=== PATIENT | female | born 1965 | race Caucasian/White ===

== ENCOUNTER 2016-11-08 15:28 | Observation (INO) | payer MEDICARE, MEDICAID ==
--- NOTE | 2016-11-08 16:22 | RAD ---
Indication: Near syncopal episode. Diabetes. MS. Comparison: No relevant prior exams available on the [facility] PACS for comparison. Technique: Upright AP 1600 hours Report: Clear lungs and pleural spaces. Negative for pneumothorax. The heart, pulmonary vasculature, and mediastinal contours are unremarkable. Unremarkable osseous structures and soft tissue contours. IMPRESSION: No evidence for acute intrathoracic disease.
[2016-11-08 16:25] LABS: Hematocrit 43 % (35-47); Mean Corpuscular HGB Conc 33 g/dl (31-36); Mean Corpuscular Hemoglobin 27 pg (27-31); Mean Corpuscular Volume 83 fL (80-97); Mean Platelet Volume 10 um3 (7.4-10.4); Red Blood Count 5.18 10^6/ul (4.0-5.4); Red Cell Distribution Width 14 % (10.5-15); White Blood Count 8.3 10^3/ul (3.5-10.8)
[2016-11-08 16:36] LABS: Albumin 3.8 g/dL (3.2-5.2); BUN/Creatinine Ratio 22.1 (8-20); Calcium 9.7 mg/dL (8.6-10.3); EGFR African American 116.9 (>60); EGFR Non-African American 90.9 (>60); Globulin 3.3 g/dL (2-4); Total Bilirubin 0.6 mg/dL (0.2-1.0); Total Protein 7.1 g/dL (6.4-8.9)
[2016-11-08] MEDS ORDERED: NS 0.9% 1000 ML* 1,000 ML IV ONE ×2 (16:40→17:54)
[2016-11-08 17:14] LABS: Urine Bilirubin Negative (Negative); Urine Glucose Negative (Negative); Urine Nitrite Negative (Negative)
[2016-11-08] MEDS ORDERED: Potassium Chlor TAB* 20 MEQ TAB.ER PO ONE ×2 (17:50→20:00)
[2016-11-08] MEDS ORDERED: Acetaminophen TAB* 325 MG PO PRN (17:54)
[2016-11-08] MEDS ORDERED: Ondansetron INJ* 2 MG/ML VIAL IV PRN (17:54)
[2016-11-08] MEDS ORDERED: Potassium Chlor TAB* 10 MEQ TAB.ER PO ONE (17:57)
[2016-11-08] MEDS ORDERED: Dextrose 50% Syringe 50 ML* 25 GM/50 ML SYRINGE IV PUSH PRN (18:19)
[2016-11-08] MEDS ORDERED: KCL 10 MEQ/50 ML IVPREMIX* 10 MEQ/50 ML BAG IV SCH (19:00)
[2016-11-08] MEDS: NS 0.9% 1000 ML* 1,000 ML IV SCH ×2 (19:31→21:18)
[2016-11-08] MEDS ORDERED: Senna TAB PO SCH (21:00)
[2016-11-08] MEDS: KCL premix 10MEQ/50 ML x 2 BAGS IV SCH ×2 (21:18→23:18)
[2016-11-08] MEDS: Heparin VIAL(*) 5000 UNITS/ML VIAL (FIVE THOUSAND) SUBCUT SCH (23:02)
--- NOTE | 2016-11-09 00:13 | HP ---
CC: Dr. Lara; Dr. Moore; Dr. Solis * HISTORY AND PHYSICAL: DATE OF ADMISSION: 11/08/16 PRIMARY CARE PROVIDER: Dr. Lara. ATTENDING PHYSICIAN WHILE IN THE HOSPITAL: Dr. Aly Bonilla * (report dictated by Dl Gama NP) CHIEF COMPLAINT: Weakness. HISTORY OF PRESENT ILLNESS: Ms. Howard is a 51-year-old female patient. She has a history of MS, diabetes, hypertension, hyperlipidemia, and also history of arthritis. She comes into the ER today stating that today she was at her daughter- in-law's graduation and she had been feeling weak prior to getting there when she was in the car, the car was warm and she said that it made her feel weak. She was able to get to the picnic table near the pavilion where the alliance party was being set. While sitting in the picnic table, her son started to come over to the pavilion, the sun was directly on her back. She became sweaty, she became weaker. She was feeling flushed and warm. She just did not feel good. She asked her to take her home. She could barely get up and walk, but usually she can walk with a walker that is her baseline for her MS. She said that she really did not drink much water today or yesterday and she has been taking her hydrochlorothiazide as prescribed as well. Yesterday, she did not feel well, but she denied any specific complaints of chest pain, shortness of breath, no fevers that she knew of. She denied having any abdominal pain or any nausea, no vomiting. She denied any dysuria or any frequency. She does state she felt weaker. She, while driving back from the alliance party, told her that she was concerned because she just was not feeling good at all, she was feeling dizzy, feeling little short of breath, having palpitations. So , she asked him to crop puller and call 911, which the family did. They called 911 and she was brought into the hospital, where she was evaluated here in the ED. It was noted that she was hypokalemic. She appeared to be dehydrated. In addition to this, there was also concern that she may have had MS flare, so we were asked to evaluate for admission. PAST MEDICAL HISTORY: Significant for: 1. MS. 2. Diabetes. 3. Hypertension. 4. Hyperlipidemia. 5. Arthritis. PAST SURGICAL HISTORY: She has had: 1. . 2. Tubal. 3. Appendectomy. MEDICATIONS: Home meds according to the list that she provided us include: 1. Oxybutynin 15 mg p.o. daily. 2. Betaseron 0.3 mg subcu every other day. 3. Ibuprofen 600 mg every 6 hours. 4. Hydrochlorothiazide 25 mg daily. 5. Glipizide 10 mg daily. 6. Celexa 40 mg daily. 7. Baclofen 1 tablet b.i.d. ALLERGIES TO MEDICATIONS: DEMEROL and SULFA. FAMILY HISTORY: Mother had a history of CVA. Father had a history of cancer. SOCIAL HISTORY: She does not smoke. She does not drink. Surrogate decision maker is her . REVIEW OF SYSTEMS: There is no documented fever. She denied having any significant weight change. There was no double vision. She denied having any ear discharge. There was no rhinorrhea. No sore throat. No thyroid enlargement. Denies having any chest pain. There was no orthopnea, no nocturnal dyspnea. There was no abdominal pain. No nausea, no vomiting. No dysuria, there was no frequency. No seizure, no loss of consciousness. No pruritus and no skin ulcerations. Review of 14 systems completed, all others negative. PHYSICAL EXAMINATION GENERAL: At this time, Ms. Howard is a 51-year-old female patient. She is sitting in the ER stretcher. She does not appear to be in any acute distress. VITAL SIGNS: Reveal blood pressure 145/79 with a pulse of 91, respirations 18, O2 sat 93%, temperature 99.9. HEENT: Head: Atraumatic, normocephalic. Eyes: EOMs are intact. Her sclerae were anicteric and not pale. Throat: Oral mucosa appears to be moist. No oropharyngeal erythema. NECK: Supple. LUNGS: Clear to auscultation bilaterally. There were no wheezes, rales, or rhonchi. HEART: Sounds S1, S2. Regular rate and rhythm. No murmurs, rubs, or gallops. ABDOMEN: Soft, it was flat, nontender. Bowel sounds present. EXTREMITIES: Pulses were 2+ throughout. She is able to move the upper extremity with 5/5 strength. Lower extremities: She has 5/5 strength in the left side. In the right, she has about 4/5 strength, which she said her right side is always weaker. NEUROLOGIC: She is awake, alert, and oriented x3. Speech clear. Tongue midline. Supervisor Paper Machine were equal. No gross focal deficits. SKIN: Intact. DIAGNOSTIC STUDIES/LAB DATA: Today revealed WBC of 8.3, RBC of 5.18, hemoglobin 14.0, hematocrit of 43, platelet count of 253. INR was 0.90, PTT was 27.3. Sodium was 134, potassium of 3, chloride of 98, bicarb 25, BUN 15, creatinine 0.68, glucose of 214, lactate 3.0, calcium 9.7. Total bili 0.6, AST 12, ALT 12, alk phos 82. Troponin 0. Albumin is 3.8. Urine was obtained and it was negative. She had a chest x-ray obtained today, which showed no active evidence for acute intrathoracic disease. Old medical records were reviewed. ASSESSMENT AND PLAN: Ms. Howard is a 51-year-old female patient coming into the ER today with complaints of weakness in the setting of being exposed to the sun. She will be admitted under observation status for: 1. Weakness. The etiology is unclear. It certainly could be from heat exhaustion, possibly multiple sclerosis flare. We did touch base with Dr. Moore, who recommended at this point replacing the patient's potassium, hydrating her and reevaluating. The patient states that ever since being here in the cold environment, having fluid, she is feeling better. She has more strength in the lower extremities. We will continue with hydration. I think that she probably dehydrated from the hydrochlorothiazide not related to eating or drinking in the last couple of days, in addition to being exposed to the sun and we will continue to monitor her and treat. 2. Multiple sclerosis. Continue meds as prescribed. 3. Diabetes. Will be on lispro sliding scale. 4. Hypertension. Holding the hydrochlorothiazide at this point. 5. Hyperlipidemia. She can follow with her primary. 6. Arthritis. Continue meds as prescribed. 7. DVT prophylaxis. She is high risk, she will be placed on heparin subcu. 8. Code status. She is a full code. 9. Fluids, electrolytes, and nutrition. She can have a regular diet. TIME SPENT: On the admission was 60 minutes; greater than half the time was spent [id number] with the patient obtaining history and physical, other half the time spent going over the plan of care with the patient and implementing plan of care. I did discuss the plan of care with my attending, Dr. Bonilla; he is in agreement. DL GAMA, [place] [id number]/CPS #: [id number] ISIAH
[2016-11-09] MEDS: Heparin VIAL(*) 5000 UNITS/ML VIAL (FIVE THOUSAND) SUBCUT SCH (05:59)
[2016-11-09 07:09] LABS: Hematocrit 40 % (35-47); Hemoglobin 13.1 g/dl (12.0-16.0); Mean Corpuscular HGB Conc 33 g/dl (31-36); Mean Corpuscular Hemoglobin 27 pg (27-31); Mean Corpuscular Volume 84 fL (80-97); Mean Platelet Volume 10 um3 (7.4-10.4); Red Blood Count 4.81 10^6/ul (4.0-5.4); Red Cell Distribution Width 14 % (10.5-15); White Blood Count 7.6 10^3/ul (3.5-10.8)
[2016-11-09 07:26] LABS: Albumin 3.3 g/dL (3.2-5.2); BUN/Creatinine Ratio 15.1 (8-20); Calcium 8.8 mg/dL (8.6-10.3); EGFR African American 155.8 (>60); EGFR Non-African American 121.1 (>60); Globulin 2.8 g/dL (2-4); Potassium 3.7 mmol/L (3.5-5.0); Total Bilirubin 0.7 mg/dL (0.2-1.0); Total Protein 6.1 g/dL (6.4-8.9)
[2016-11-09] MEDS ORDERED: Insulin LISPRO* 1 UNITS UNIT SUBCUT SCH (07:30)
[2016-11-09 07:39] VITALS: BP 145/81
--- NOTE | 2016-11-09 08:06 | DCNOTE ---
Subjective Date of Service: 11/09/16 Interval History: Patient seen and examined at bedside. Denies fever/chills, CP, SOB, abd pain, n/v. Reports ambulating overnight and this morning and feels she is back at baseline. Patient reports extended time outside in the sun and not drinking enough. She has been feeling better since IVF started and being in a cooler environment. Family History: Unchanged from Admission Social History: Unchanged from Admission Past Medical History: Unchanged from Admission Objective Active Medications: Acetaminophen (Tylenol Tab*) 650 mg PO Q4H PRN PRN Reason: FEVER/PAIN Citalopram Hydrobromide (Celexa Tab*) 40 mg PO DAILY [facility] Dextrose (D50w Syringe 50 Ml*) 12.5 gm IV PUSH .FOR FS < 60 - SS PRN PRN Reason: FS < 60 Heparin Sodium (Porcine) (Heparin Vial(*)) 5,000 units SUBCUT Q8HR [facility] Last Admin: 11/09/16 05:59 Dose: 5,000 units Sodium Chloride (Ns 0.9% 1000 Ml*) 1,000 mls @ 125 mls/hr IV PER RATE [facility] Last Admin: 11/08/16 21:18 Dose: 125 mls/hr Insulin Human Lispro (Humalog*) 0 units SUBCUT AC [facility] PRN Reason: Protocol Last Admin: 11/09/16 07:49 Dose: Not Given Non-Formulary Medication (Interferon Beta-1b [Betaseron]) 0.3 mg SC EVERY OTHER DAY [facility] Ondansetron HCl (Zofran Inj*) 4 mg IV Q4H PRN PRN Reason: NAUSEA/VOMITING Oxybutynin Chloride (Ditropan Xl Tab*) 15 mg PO DAILY [facility] Senna (Senokot Tab*) 1 tab PO BID [facility] Last Admin: 11/08/16 20:15 Dose: Not Given Vital Signs 11/08/16 11/08/16 11/08/16 18:00 18:01 18:47 Temperature 97.7 F Pulse Rate 87 93 85 Respiratory 19 19 20 Rate Blood Pressure 142/79 175/77 (mmHg) O2 Sat by Pulse 93 92 95 Oximetry 11/08/16 11/08/16 11/09/16 19:31 22:14 00:01 Temperature 97.9 F 98.0 F Pulse Rate 85 82 Respiratory 18 18 18 Rate Blood Pressure 157/94 167/83 (mmHg) O2 Sat by Pulse 96 94 Oximetry 11/09/16 11/09/16 11/09/16 03:28 07:07 07:51 Temperature 98.7 F 98.1 F Pulse Rate 80 78 Respiratory 18 16 16 Rate Blood Pressure 141/82 145/81 (mmHg) O2 Sat by Pulse 95 96 96 Oximetry Oxygen Devices in Use Now: None Appearance: Middle aged female, lying in bed, NAD Eyes: PERRLA Ears/Nose/Mouth/Throat: Mucous Membranes Moist Neck: NL Appearance and Movements; NL JVP Respiratory: Symmetrical Chest Expansion and Respiratory Effort, Clear to Auscultation Cardiovascular: NL Sounds; No Murmurs; No JVD, RRR Abdominal: NL Sounds; No Tenderness; No Distention Extremities: No Edema Skin: No Rash or Ulcers Neurological: Alert and Oriented x 3 Lines/Tubes/Other Access: Clean, Dry and Intact Peripheral IV Nutrition: Taking PO's Result Diagrams: 11/09/16 06:31 11/09/16 06:31 Assess/Plan/Problems-Billing Assessment: Ms. Howard is a 51 yo female with a PMH of MS, HTN, HLD, DM, and OA who presented to the ED on 11/08 with concern for weakness after being outside in the sun. - Patient Problems (1) Weakness Code(s): R53.1 - WEAKNESS Comment: Suspect secondary to heat exposure and dehydration Now resolved, following IVF Patient reports being at baseline with functional status K+ low on admission, repleted, now WNL UA negative and no s/s infection (2) Lactic acidosis Code(s): E87.2 - ACIDOSIS Comment: Now resolved Likely secondary to dehydration (3) Hypokalemia Code(s): E87.6 - HYPOKALEMIA Comment: Potassium repleted K+ within normal limits (4) Multiple sclerosis Code(s): G35 - MULTIPLE SCLEROSIS Comment: Stable, at baseline Continue betaseron and baclofen Outpatient follow-up (5) HTN (hypertension) Code(s): I10 - ESSENTIAL (PRIMARY) HYPERTENSION Comment: Patient may resume home HCTZ Advised to keep up with fluid intake in order to prevent dehydration (6) Diabetes mellitus Code(s): E11.9 - TYPE 2 DIABETES MELLITUS WITHOUT COMPLICATIONS Comment: Controlled Continue Lispro SSI Resume glipizide upon discharge (7) HLD (hyperlipidemia) Code(s): E78.5 - HYPERLIPIDEMIA, UNSPECIFIED Comment: Diet controlled Continue outpatient follow-up (8) Osteoarthritis Code(s): M19.90 - UNSPECIFIED OSTEOARTHRITIS, UNSPECIFIED SITE Comment: Continue prn ibuprofen (9) DVT prophylaxis Status: Acute Comment: SQ heparin Status and Disposition: OBV admit. D/c to home.
[2016-11-09] MEDS ORDERED: Citalopram TAB* 40 MG PO SCH (09:00)
[2016-11-09] MEDS ORDERED: Oxybutynin XL TAB* 5 MG PO SCH (09:00)
[2016-11-10] MEDS ORDERED: INTERFERON BETA 0.3 MG SC SCH (09:00)
--- NOTE | 2016-11-10 09:49 | DS ---
CC: Dr. Henrry Lara* MEDICINE DISCHARGE SUMMARY: DATE OF ADMISSION: 11/08/16 DATE OF DISCHARGE: 11/09/16 PRIMARY CARE PHYSICIAN: Dr. Henrry Lara. PROVIDER: Gillian Velázquez NP ATTENDING PHYSICIAN: Dr. Aly Bonilla * (as dictated by Gillian Velázquez NP) PRIMARY DISCHARGE DIAGNOSES: 1. Weakness suspect secondary to dehydration. 2. Lactic acidosis. 3. Hypokalemia. SECONDARY DISCHARGE DIAGNOSES: 1. Multiple sclerosis. 2. Hypertension. 3. Hyperlipidemia. 4. Diabetes. 5. Arthritis. MEDICATIONS AT DISCHARGE: 1. Oxybutynin 15 mg daily. 2. Betaseron 0.3 mg subcu every other day. 3. Ibuprofen 600 mg q.6 hours p.r.n. 4. Hydrochlorothiazide 25 mg daily. 5. Glipizide XL 10 mg daily. 6. Citalopram 40 mg daily. HOSPITAL COURSE OF STAY: For full details, please refer to the H and P provided by Dl Gama NP, on 11/08/16. In summary, Ms. Howard is a 51-year -old female patient, who presented to the hospital with concern for weakness. The patient was previously at her [id number]'s graduation. She then sat in a warm car and started to feel weaker. She then went to a libertarian which was outside and while sitting at the picnic table, she again continued to feel weaker and flushed and warm. The patient had difficulty getting up and walking. She did report that she had poor water intake on the day of admission and the day prior. She does take hydrochlorothiazide. On her way back home in the car, the patient reported feeling dizzy, short of breath, and having palpitations. Her then called 911 and she was brought into the hospital. She was noted to be hypokalemic. She also appeared to be dehydrated. There was a concern for an MS flare. Dr. Moore was notified, who recommended that the patient be observed in the hospital and given potassium replacement and hydration. Here in the hospital, the patient did receive IV fluids and potassium replacement and reported improvement once she was here in the cooler environment. She has tolerated the IV hydration well. She is able to ambulate and reports that she is at her baseline functional status. Again, she does admit to poor fluid and food intake in the past couple of days. I did discuss with her what hydrochlorothiazide does and the importance of proper hydration as it is a diuretic and will cause progressive dehydration with continued use and poor hydration. The patient states that she was unaware that the medication had the diuretic effect, although she has been on that for several years. We also discussed her potassium level which was low. I did see the previous records that she has had ups and downs in her potassium levels. The patient states that she has been unaware of this, but she used to be on potassium supplement, but was discontinued because she states that her PCP felt that she did not need it. She does report leg cramps. We discussed potassium rich foods, and discuss with her PCP restarting her potassium supplement. The patient states that she will discuss this with Dr. Lara. She does eat a banana every morning and will review the potassium rich foods list to see what else she can add to her diet. At the time of discharge, the patient was alert and oriented x3. Vital signs are stable. She has no acute complaints. Lungs are clear to auscultation. Heart rate is regular. The patient is ambulatory and able to demonstrate safe ambulation. She reports being at her baseline functional status. Neurologically , she is intact and is able to move all extremities. No other acute concerns. CONCERNS AT DISCHARGE: Ms. Howrad was discharged to home on 11/09/16 with a plan to follow up with Dr. Lara within the week. The patient will call for an appointment. She is also advised to call for followup with Neurology as previously scheduled. DIET: Consistent-carbohydrate, heart-healthy diet. ACTIVITY: As tolerated. CONDITION: Improved, stable. DISPOSITION: To home. TIME SPENT: Time spent on this discharge was approximately 40 minutes in clinic. Again, this is only a brief summary of the patient's hospital course of stay. For full details, please refer to the full medical record. If you have any further questions or need further assistance, please feel free to contact me at [phone]. GILLIAN VELÁZQUEZ NP [id number]/[facility] #: [id number] ISIAH
== END 2016-11-09 09:35 | disposition home or self-care (01) ==
LOC: ED 15:28 → SSU 17:54 → MERGE 17:54
PROVIDERS: ADMIT Internal Medicine; ATTEND Internal Medicine
DX: R53.1 Weakness (principal); E87.2 Acidosis; E87.6 Hypokalemia; G35 Multiple sclerosis; I10 Essential (primary) hypertension; E78.5 Hyperlipidemia, unspecified; E11.9 Type 2 diabetes mellitus without complications; M19.90 Unspecified osteoarthritis, unspecified site; Z79.84 Long term (current) use of oral hypoglycemic drugs; Z79.899 Other long term (current) drug therapy; R06.02 Shortness of breath; R42 Dizziness and giddiness; R00.2 Palpitations; Z88.2 Allergy status to sulfonamides; Z88.8 Allergy status to other drugs, medicaments and biological substances
CPT/HCPCS: 36415; 71010; 80053; 80320; 81003; 83605; 84484; 85025; 85610; 85730; 87040; 96361; 96365; 99284; A9270-GY; G0378; G0480; G8978-GP-CH; G8979-GP-CH; G8980-GP-CH; J1644; J3480

== ENCOUNTER 2018-10-06 08:30 | Inpatient (IN) | payer MEDICARE, MEDICAID ==
--- NOTE | 2018-09-30 17:26 | HP ---
HISTORY AND PHYSICAL: DATE OF ADMISSION/SURGERY: 10/06/18 DATE OF OFFICE VISIT: 09/30/18 SURGEON: Alyse Gordillo MD * (DICTATED BY LILIA GARCIA) PROCEDURE: Right total knee arthroplasty. CHIEF COMPLAINT: Right knee pain. HISTORY OF PRESENT ILLNESS: Ms. Howard is a 52-year-old female with continued complaints of right knee pain. She has failed conservative treatment and elected to proceed with a right total knee arthroplasty. PAST MEDICAL HISTORY: Diabetes, hypertension, multiple sclerosis, depression, anxiety, and fibromyalgia. PAST SURGICAL HISTORY: Appendectomy, wisdom teeth extraction, , and tubal ligation. CURRENT MEDICATIONS: 1. Hydrochlorothiazide 25 mg a day. 2. Citalopram 20 mg a day. 3. Vitamin B complex. 4. Tylenol as needed. 5. Glipizide 5 mg daily. 6. Oxybutynin 15 mg Wednesday, Wednesday, and Wednesday. 7. Vitamin D. 8. Potassium chloride 10 mEq a day. 9. Losartan potassium 50 mg a day. 10. Baclofen 10 mg 1 tab in the morning, 2 tabs at bedtime. 11. Betaferon injection every other day. ALLERGIES: To DEMEROL and BACTRIM. FAMILY HISTORY: Cancer, stroke, hypertension, and AFib. SOCIAL HISTORY: She is a 52-year-old female. She lives with her . She does not smoke or use drugs. REVIEW OF SYSTEMS: A complete 14-point review of systems was reviewed with the patient. It was positive for diabetes. She denies history of DVT, PE, hepatitis, HIV, or anesthesia problems. PHYSICAL EXAMINATION GENERAL: She is well developed, well nourished, in no acute distress. VITAL SIGNS: She stands 5 feet 3 inches tall, weighs 252 pounds. Blood pressure is 140/78, heart rate is 76. HEENT: Normocephalic, atraumatic. NECK: Supple. No palpable lymph nodes. PULMONARY: The lungs are clear to auscultation bilaterally. CARDIO: Regular rate and rhythm. Strong S1, S2. ABDOMEN: Soft, nontender, nondistended. NEUROLOGICAL: She is alert and oriented x3. MUSCULOSKELETAL: Right lower extremity: The skin is intact. There are no open wounds or abrasions. There is a moderate effusion of the right knee joint , tenderness over the medial and lateral joint line. Range of motion is 10 to 120 degrees of flexion with patellofemoral crepitus. She has a 2+ dorsalis pedis pulse. She is able to dorsiflex and plantarflex and has intact sensation. ASSESSMENT AND PLAN: Ms. Howard is a 52-year-old female with end-stage osteoarthritis of the right knee. She has failed conservative treatment and elected to proceed with a right total knee arthroplasty. The surgery is scheduled for 10/06/[address] Gordillo discussed the risks and benefits of the surgery at today's visit and all of her questions were answered. She will follow up with Dr. Gordillo 2 weeks after the surgery. LILIA GARCIA [id number]/CPS #: [id number] MTDD
[~2018-10-06 08:30] MED LIST: Buffered Lidocaine 1% SYRIN* 1 ML/SYRINGE INTRADERM ONE; Famotidine IV* 10 MG/ML 2 ML (20 mg) IV ONE; Gabapentin CAP(*) 300 MG PO ONE; Lactated Ringers 1000 ML Bag* 1,000 ML IV SCH; Tranexamic Acid 1,000 MG in NS 0.9% 50 ML* (outpatient use) IV SCH
[2018-10-06] MEDS ORDERED: Famotidine IV* 10 MG/ML 2 ML (20 mg) ONE (08:34)
[2018-10-06] MEDS ORDERED: ceFAZolin 2 GM PREMIX in ORs 2 GM/50 ML BAG IVPB ONE (08:34)
[2018-10-06] MEDS ORDERED: Gabapentin CAP(*) 300 MG ONE (08:34)
--- OUTSIDE RECORDS SUMMARY | 2018-10-06 08:37 | XMS REPORT | Continuity of Care Document ---
:1965 External Reference #:[id number] Author Name Tami Julian Care Team Providers Name Role Phone Henrry Lara MD Primary Care Physician Unavailable Payers Date Identification Numbers Payment Provider Subscriber Effective: 2012 Policy Number: [id number] Medicare Annika Howard PayID: [id number] [address] [place] [address] Effective: 2012 Policy Number: [id number] Medicaid Annika Howard Group Name: 1 1 [address] PayID: [id number] [place] [address] Effective: 2010 Policy Number: [id number] [employer] Medicaid Annika Howard Expires: 2012 PayID: [id number] [address] [address] [place] [address] Advance Directives Description No Information Available Problems Active Problems Provider Date Multiple sclerosis Melva Solis M.D. Onset: 09/13/2014 Depressive disorder Melva Solis M.D. Onset: 09/13/2014 Localized, primary osteoarthritis Alyse Gordillo M.D. Onset: 09/02/2018 Family History Date Family Member(s) Observation Comments General DM,HTN,Heart disease, Stroke,Cancer,Arthritis Social History Type Date Description Comments Sex Unknown Marital Status Lives With Occupation Disabled Tobacco Use Start: Unknown Never Smoked Cigarettes Smoking Status Reviewed: 09/30/18 Never Smoked Cigarettes ETOH Use Occasionally consumes alcohol Tobacco Use Start: Unknown Patient has never smoked Recreational Drug Use Denies Drug Use Exercise Type/Frequency Does not exercise Not able to walk w/o assistance Allergies, Adverse Reactions, Alerts Active Allergies Reaction Severity Comments Date Demerol hives 11/01/2012 Bactrim 09/03/2016 Angela Joint pain Severe 09/21/2018 Sulfamethoxazole / Trimethoprim rash Moderate 09/21/2018 Statin ( Atorvastatin, Fluvastatin) 09/21/2018 Medications Active Medications SIG Qnty Indications Ordering Date Provider Baclofen Take one tablet 120tabs G3Antonia Gordon 08/15/2018 10mg Tablets PO bid and two Daljit Moore tabs q hs Oxybutynin Chloride ER 1 by mouth 30tabs Nicolasa Lopez, 08/02/2017 15mg everyday.. MD Tablets ER 24HR Acetaminophen 2 every 6 hours Unknown 500mg Tablets as needed Nitrofurantoin take 1 cap 10caps Alyse Gordillo, Macrocrystal twice a day as M.DOliva 100mg Capsules needed for uti Losartan Potassium 1 by mouth Unknown 50mg Tablets every day Vitamin C 1 by mouth( Not Unknown 1000mg Tablets Taking Currently,09/28) Vitamin D3 2 by mouth Unknown 1000Unit Capsules every day Potassium Chloride ER 1 by mouth Unknown 10Meq every day Capsules ER (Needs Refills) Betaseron one injection 15units Manjinder Gordon 0.3mg Kit every other day Daljit Moore Glipizide 1 by mouth once Unknown 10mg Tablets a day Vitamin B Complex 1 by mouth Unknown Tablets every day Citalopram Hydrobromide 1 po qd 30tabs Unknown 20mg Tablets Hydrochlorothiazide 1 po qd 90tabs Unknown 25mg Tablets History Medications Ampyra take 1 tablet 60tabs Manjinder Gordon 02/08/2018 - 10mg Tablets ER (10mg) by mouth Daljit Moore 08/14/2018 12HR twice a day Vitamin D 2 by mouth every 180caps Jian Gordon 11/09/2017 - (Cholecalciferol) day Daljit Moore 09/26/2018 1000Unit Capsules Pamelor 1-2 caps every 60caps Melva Salas 10/03/2012 - 10mg Capsules night as directed Daljit Solis 05/02/2013 Oxybutynin Chloride ER 1 by mouth every 45tabs Nicolasa Lopez MD 2012 - other day 08/02/2017 15mg Tablets ER 24HR Baclofen 3 by mouth every 90tabs Jian Gordon 08/16/2012 - 10mg Tablets day as directed Daljit Moore 08/15/2018 Nortriptyline HCL 1 cap po qhs 60caps Melva Salas 06/06/2012 - 10mg Daljit Solis 09/09/2015 Capsules Bactrim DS 1 po bid prn 10tabs Unknown - 800-160mg 08/31/2016 Tablets Ibuprofen 3 tabs prior to 100tabs Unknown - 200mg Tablets injections. 09/28/2018 Lipitor 1 by mouth every 90tabs Unknown - 10mg Tablets night at bedtime 03/09/2014 Metformin HCL ER (Osm) 2 po qhs 120tabs Unknown - 09/12/2014 500mg Tablets ER 24HR Terbinafine HCL 1 by mouth every 90tabs Unknown - 250mg day 09/12/2014 Tablets Vitamin B-12 1 by mouth every Unknown - Natural day 09/20/2018 500mcg Tablets Medications Administered in Office Medication SIG Qnty Indications Ordering Provider Date Inj, Regadenoson, 0.1 MG Evangelista Garcia, DO [facility] 09/29/2018 Injection Technetium TC 99M Evangelista Garcia, DO [facility] 09/29/2018 Tetrofosmin, Per Unit Dose Up To 40 Millicuries Injection Technetium TC 99M Evangelista Garcia DO [facility] 09/29/2018 Tetrofosmin, Per Unit Dose Up To 40 Millicuries Injection Immunizations Description No Information Available Vital Signs Date Vital Result Comment 09/30/2018 1:42pm Height 63 inches 5'3" Weight 252.50 lb Heart Rate 76 /min BP Systolic 140 mmHg BP Diastolic 78 mmHg Respiratory Rate 14 /min Pain Level 2 BMI (Body Mass Index) 44.7 kg/m2 09/28/2018 11:21am Height 63 inches 5'3" Weight 245.00 lb BP Systolic Sitting 120 mmHg lue large cuff BP Diastolic Sitting 70 mmHg lue large cuff BP Systolic Standing 122 mmHg lue large cuff BP Diastolic Standing 72 mmHg lue large cuff Respiratory Rate 14 /min BMI (Body Mass Index) 43.4 kg/m2 Ejection Fraction none noted 09/28/2018 11:06am Height 63 inches 5'3" 09/28/2018 10:59am Height 63 inches 5'3" 09/02/2018 10:59am Height 63 inches 5'3" Weight 255.00 lb BP Systolic 130 mmHg BP Diastolic 82 mmHg Pain Level 3 BMI (Body Mass Index) 45.2 kg/m2 08/15/2018 10:48am Height 63 inches 5'3" Weight 245.00 lb Heart Rate 70 /min BP Systolic 128 mmHg BP Diastolic 78 mmHg BMI (Body Mass Index) 43.4 kg/m2 02/08/2018 9:34am Height 63 inches 5'3" Weight 242.00 lb Heart Rate 68 /min BP Systolic 134 mmHg BP Diastolic 84 mmHg BMI (Body Mass Index) 42.9 kg/m2 11/05/2017 11:10am Height 63 inches 5'3" Weight 255.25 lb Heart Rate 80 /min BP Systolic 132 mmHg BP Diastolic 92 mmHg BMI (Body Mass Index) 45.2 kg/m2 12/31/2016 11:42am Height 63 inches 5'3" Weight 245.00 lb Heart Rate 76 /min BP Systolic Sitting 136 mmHg BP Diastolic Sitting 84 mmHg Respiratory Rate 14 /min BMI (Body Mass Index) 43.4 kg/m2 09/03/2016 11:54am Height 63 inches 5'3" Weight 285.00 lb Heart Rate 68 /min BP Systolic Sitting 128 mmHg BP Diastolic Sitting 74 mmHg Respiratory Rate 18 /min BMI (Body Mass Index) 50.5 kg/m2 03/05/2016 11:54am Height 63 inches 5'3" Weight 245.00 lb Heart Rate 72 /min BP Systolic Sitting 114 mmHg BP Diastolic Sitting 70 mmHg Respiratory Rate 17 /min BMI (Body Mass Index) 43.4 kg/m2 09/10/2015 11:57am Height 63 inches 5'3" Weight 250.00 lb Heart Rate 64 /min BP Systolic Sitting 126 mmHg BP Diastolic Sitting 80 mmHg Respiratory Rate 14 /min BMI (Body Mass Index) 44.3 kg/m2 03/05/2015 1:36pm Height 63 inches 5'3" Weight 252.00 lb Heart Rate 76 /min BP Systolic Sitting 128 mmHg BP Diastolic Sitting 80 mmHg Respiratory Rate 14 /min BMI (Body Mass Index) 44.6 kg/m2 09/13/2014 12:02pm Height 63 inches 5'3" Heart Rate 68 /min BP Systolic Sitting 126 mmHg BP Diastolic Sitting 76 mmHg Respiratory Rate 16 /min 03/12/2014 12:07pm Height 63 inches 5'3" Weight 257.00 lb Heart Rate 80 /min BP Systolic Sitting 130 mmHg BP Diastolic Sitting 74 mmHg Respiratory Rate 16 /min BMI (Body Mass Index) 45.5 kg/m2 09/05/2013 9:57am Height 63 inches 5'3" Weight 257.00 lb w shoes on Heart Rate 70 /min BP Systolic Sitting 140 mmHg BP Diastolic Sitting 80 mmHg Respiratory Rate 16 /min BMI (Body Mass Index) 45.5 kg/m2 05/02/2013 9:53am Heart Rate 76 /min BP Systolic Sitting 130 mmHg BP Diastolic Sitting 70 mmHg Respiratory Rate 18 /min 11/01/2012 9:54am Heart Rate 72 /min BP Systolic Sitting 136 mmHg BP Diastolic Sitting 82 mmHg Respiratory Rate 18 /min Results Test Date Facility Test Result H/L Range Note Urine Culture And 09/28/2018 [facility] Urine Culture SEE RESULT [address] [place] [address] [phone] Urinalysis Profile 09/28/2018 [facility] Urine Color [place] [address] [place] [address] [phone] Urine Appearance Cloudy Urine Specific [place] 1.020 N 1.010-1.030 Urine pH 7.0 N 5-9 Urine Urobilinogen Negative Negative Urine Ketones Negative Negative Urine Protein Negative Negative Urine Leukocytes Negative Negative Urine Blood Negative Negative * * Abnormal Negative 2 Urine Nitrite Negative Negative Urine Bilirubin Negative Negative Urine Glucose Negative Negative Inr/Protime 09/28/2018 [facility] Inr 0.96 N 0.82-1.[address] [place] [address] [phone] Laboratory test 09/28/2018 [facility] Partial 29.6 seconds N 26.0-36.[address] [place] [address] PTT [phone] Type & Screen 09/28/2018 [facility] Patient O Positive [address] [place] [address] [phone] Antibody Screen NEGATIVE Comp Metabolic Panel 09/28/2018 [facility] Sodium 141 mmol/L N 135-145 [address] [place] [address] [phone] Potassium 3.5 mmol/L N 3.5-5.0 Chloride 101 mmol/L N 101-111 Co2 Carbon Dioxide 34 mmol/L High 22-32 Anion Gap 6 mmol/L N 2-11 Glucose 167 mg/dL High 70-100 Blood Urea Nitrogen 18 mg/dL N 6-24 Creatinine 0.62 mg/dL N 0.51-0.95 BUN/Creatinine Ratio 29.0 High 8-20 Calcium 10.0 mg/dL N 8.6-10.3 Total Protein 6.8 g/dL N 6.4-8.9 Albumin 4.2 g/dL N 3.2-5.2 Globulin 2.6 g/dL N 2-4 Albumin/Globulin Ratio 1.6 N 1-3 Total Bilirubin 0.40 mg/dL N 0.2-1.0 Alkaline Phosphatase 74 U/L N 34-104 Alt 21 U/L N 7-52 Ast 18 U/L N 13-39 Egfr Non- 100.7 >60 Egfr 121.8 >60 4 CBC Auto Diff 09/28/2018 [facility] White Blood 5.9 10^3/uL N 3.5-10.[address] [place] [address] [phone] Red Blood Count 4.97 10^6/uL High 3.70-4.87 Hemoglobin 13.8 g/dL N 12.0-16.0 Hematocrit 42 % N 35-47 Mean Corpuscular Volume 85 fL N 80-97 Mean Corpuscular Hemoglobin 28 pg N 27-31 Mean Corpuscular HGB Conc 33 g/dL N 31-36 Red Cell Distribution Width 14 % N 10.5-15 Platelet Count 248 10^3/uL N 150-450 Mean Platelet Volume 9.9 fL N 7.4-10.4 Abs Neutrophils 3.5 10^3/uL N 1.5-7.7 Abs Lymphocytes 1.9 10^3/uL N 1.0-4.8 Abs Monocytes 0.4 10^3/uL N 0-0.8 Abs Eosinophils 0.1 10^3/uL N 0-0.6 Abs Basophils 0 10^3/uL N 0-0.2 Abs Nucleated RBC 0 10^3/uL Granulocyte % 58.7 % Lymphocyte % 32.8 % Monocyte % 7.1 % Eosinophil % 0.9 % Basophil % 0.5 % Nucleated Red Blood Cells % 0 Laboratory test 11/05/2017 [facility] Vitamin B12 936 pg/mL High 180-914 [address] [place] [address] [phone] Vitamin D 1,25 11/05/2017 [facility] Vitamin D 8.8 ng/mL Low 20-50 And Vitamin D,[address](Oh) [place] [address] [phone] Vitamin D, 1,25 Dihydroxy 56 pg/mL 18-78 6 Laboratory test 11/05/2017 [facility] TSH (Thyroid 2.98 mcIU/mL N 0.34-5.[address] Stim [place]) [place] [address] [phone] CBC Auto Diff 11/05/2017 [facility] White Blood 7.7 10^3/uL N 3.5-10.[address] [place] [address] [phone] Red Blood Count 4.92 10^6/uL N 4.0-5.4 Hemoglobin 13.7 g/dL N 12.0-16.0 Hematocrit 41 % N 35-47 Mean Corpuscular Volume 83 fL N 80-97 Mean Corpuscular Hemoglobin 28 pg N 27-31 Mean Corpuscular HGB Conc 33 g/dL N 31-36 Red Cell Distribution Width 14 % N 10.5-15 Platelet Count 230 10^3/uL N 150-450 Mean Platelet Volume 9.8 um3 N 7.4-10.4 Abs Neutrophils 5.2 10^3/uL N 1.5-7.7 Abs Lymphocytes 2.0 10^3/uL N 1.0-4.8 Abs Monocytes 0.5 10^3/uL N 0-0.8 Abs Eosinophils 0 10^3/uL N 0-0.6 Abs Basophils 0 10^3/uL N 0-0.2 Abs Nucleated RBC 0 10^3/uL Granulocyte % 66.9 % N 38-83 Lymphocyte % 25.8 % N 25-47 Monocyte % 6.4 % N 0-7 Eosinophil % 0.4 % N 0-6 Basophil % 0.5 % N 0-2 Nucleated Red Blood Cells % 0.1 Urine Microalbumin 11/05/2017 [facility] Ur Microalbumin 22.7 mg /L Random [address] (mg/L) [place] [address] [phone] Urine Creatinine 148.88 mg/dL Urine Microalbumin/Creatinine 15.2 ug/mg N <31 Basic Metabolic 11/05/2017 [facility] Sodium 138 mmol/L Low 139-[address] [place] [address] [phone] Potassium 3.3 mmol/L Low 3.5-5.0 Chloride 98 mmol/L Low 101-111 Co2 Carbon Dioxide 30 mmol/L N 22-32 Anion Gap 10 mmol/L N 2-11 Glucose 240 mg/dL High 70-100 Blood Urea Nitrogen 14 mg/dL N 6-24 Creatinine 0.64 mg/dL N 0.51-0.95 BUN/Creatinine Ratio 21.9 High 8-20 Calcium 9.3 mg/dL N 8.6-10.3 Egfr Non- 97.1 >60 Egfr 124.8 >60 7 CBC Auto Diff 01/11/2017 [facility] White Blood 6.0 10^3/uL N 3.5-10.[address] [place] [address] [phone] Red Blood Count 4.79 10^6/uL N 4.0-5.4 Hemoglobin 13.5 g/dL N 12.0-16.0 Hematocrit 40 % N 35-47 Mean Corpuscular Volume 84 fL N 80-97 Mean Corpuscular Hemoglobin 28 pg N 27-31 Mean Corpuscular HGB Conc 34 g/dL N 31-36 Red Cell Distribution Width 14 % N 10.5-15 Platelet Count 213 10^3/uL N 150-450 Mean Platelet Volume 10 um3 N 7.4-10.4 Abs Neutrophils 3.9 10^3/uL N 1.5-7.7 Abs Lymphocytes 1.4 10^3/uL N 1.0-4.8 Abs Monocytes 0.6 10^3/uL N 0-0.8 Abs Eosinophils 0.1 10^3/uL N 0-0.6 Abs Basophils 0 10^3/uL N 0-0.2 Abs Nucleated RBC 0 10^3/uL N Granulocyte % 64.9 % N 38-83 Lymphocyte % 24.1 % Low 25-47 Monocyte % 9.4 % High 1-9 Eosinophil % 1.0 % N 0-6 Basophil % 0.6 % N 0-2 Nucleated Red Blood Cells % 0 N Comp Metabolic Panel 01/11/2017 [facility] Sodium 138 mmol/L N 133-[address] [place] [address] [phone] Potassium 3.7 mmol/L N 3.5-5.0 Chloride 99 mmol/L Low 101-111 Co2 Carbon Dioxide 32 mmol/L N 22-32 Anion Gap 7 mmol/L N 2-11 Glucose 256 mg/dL High 70-100 Blood Urea Nitrogen 21 mg/dL N 6-24 Creatinine 0.67 mg/dL N 0.51-0.95 BUN/Creatinine Ratio 31.3 High 8-20 Calcium 9.0 mg/dL N 8.6-10.3 Total Protein 6.4 g/dL N 6.4-8.9 Albumin 3.7 g/dL N 3.2-5.2 Globulin 2.7 g/dL N 2-4 Albumin/Globulin Ratio 1.4 N 1-3 Total Bilirubin 0.40 mg/dL N 0.2-1.0 Alkaline Phosphatase 83 U/L N 34-104 Alt 12 U/L N 7-52 Ast 13 U/L N 13-39 Egfr Non- 92.4 N >60 Egfr 118.9 N >60 8 CBC Auto Diff 08/25/2016 [facility] White Blood 6.3 10^3/uL N 3.5-10.[address] [place] [address] [phone] Red Blood Count 5.28 10^6/uL N 4.0-5.4 Hemoglobin 14.2 g/dL N 12.0-16.0 Hematocrit 44 % N 35-47 Mean Corpuscular Volume 83 fL N 80-97 Mean Corpuscular Hemoglobin 27 pg N 27-31 Mean Corpuscular HGB Conc 33 g/dL N 31-36 Red Cell Distribution Width 14 % N 10.5-15 Platelet Count 242 10^3/uL N 150-450 Mean Platelet Volume 10 um3 N 7.4-10.4 Abs Neutrophils 4.1 10^3/uL N 1.5-7.7 Abs Lymphocytes 1.7 10^3/uL N 1.0-4.8 Abs Monocytes 0.4 10^3/uL N 0-0.8 Abs Eosinophils 0.1 10^3/uL N 0-0.6 Abs Basophils 0 10^3/uL N 0-0.2 Abs Nucleated RBC 0.01 10^3/uL N Granulocyte % 65.1 % N 38-83 Lymphocyte % 26.7 % N 25-47 Monocyte % 6.8 % N 1-9 Eosinophil % 0.9 % N 0-6 Basophil % 0.5 % N 0-2 Nucleated Red Blood Cells % 0.1 N Comp Metabolic Panel 08/25/2016 [facility] Sodium 139 mmol/L N 133-[address] [place] [address] [phone] Potassium 3.8 mmol/L N 3.5-5.0 Chloride 99 mmol/L Low 101-111 Co2 Carbon Dioxide 32 mmol/L N 22-32 Anion Gap 8 mmol/L N 2-11 Glucose 90 mg/dL N 70-100 Blood Urea Nitrogen 12 mg/dL N 6-24 Creatinine 0.58 mg/dL N 0.51-0.95 BUN/Creatinine Ratio 20.7 High 8-20 Calcium 9.8 mg/dL N 8.6-10.3 Total Protein 6.9 g/dL N 6.4-8.9 Albumin 4.1 g/dL N 3.2-5.2 Globulin 2.8 g/dL N 2-4 Albumin/Globulin Ratio 1.5 N 1-3 Total Bilirubin 0.70 mg/dL N 0.2-1.0 Alkaline Phosphatase 87 U/L N 34-104 Alt 12 U/L N 7-52 Ast 14 U/L N 13-39 Egfr Non- 109.6 N >60 Egfr 141.0 N >60 9 Laboratory test 03/05/2015 [facility] TSH (Thyroid 4.12 ?IU/mL N 0.34-5.[address] Stim [place]orm) [place] [address] [phone] Free T4 (Free Thyroxine) 0.87 ng/mL N 0.61-1.12 Comp Metabolic Panel 03/05/2015 [facility] Sodium 137 mmol/L N 133-[address] [place] [address] [phone] Potassium 3.4 mmol/L Low 3.5-5.0 Chloride 97 mmol/L Low 101-111 Co2 Carbon Dioxide 34 mmol/L High 22-32 Anion Gap 6 mmol/L N 2-11 Glucose 187 mg/dL High 70-100 Blood Urea Nitrogen 15 mg/dL N 6-24 Creatinine 0.71 mg/dL N 0.51-0.95 BUN/Creatinine Ratio 21.1 High 8-20 Calcium 9.6 mg/dL N 8.6-10.3 Total Protein 6.7 g/dL N 6.4-8.9 Albumin 3.9 g/dL N 3.2-5.2 Globulin 2.8 g/dL N 2-4 Albumin/Globulin Ratio 1.4 N 1-3 Total Bilirubin 0.40 mg/dL N 0.2-1.0 Alkaline Phosphatase 89 U/L N 34-104 Alt 15 U/L N 7-52 Ast 15 U/L N 13-39 Egfr Non- 87.1 N >60 Egfr 112.1 N >60 10 CBC Auto Diff 03/05/2015 [facility] White Blood 7.5 10^3/uL N 4.8-10.[address] [place] [address] [phone] Red Blood Count 5.03 10^6/uL N 4.0-5.4 Hemoglobin 14.0 g/dL N 12.0-16.0 Hematocrit 44 % N 35-47 Mean Corpuscular Volume 87 fL N 80-97 Mean Corpuscular Hemoglobin 28 pg N 27-31 Mean Corpuscular HGB Conc 32 g/dL N 31-36 Red Cell Distribution Width 14 % N 10.5-15 Platelet Count 276 10^3/uL N 150-450 Mean Platelet Volume 10 um3 N 7.4-10.4 Abs Neutrophils 4.6 10^3/uL N 1.5-7.7 Abs Lymphocytes 2.2 10^3/uL N 1.0-4.8 Abs Monocytes 0.4 10^3/uL N 0-0.8 Abs Eosinophils 0.1 10^3/uL N 0-0.6 Abs Basophils 0.1 10^3/uL N 0-0.2 Abs Nucleated RBC 0 10^3/uL N Granulocyte % 62.0 % N 38-83 Lymphocyte % 29.4 % N 25-47 Monocyte % 6.0 % N 1-9 Eosinophil % 1.8 % N 0-6 Basophil % 0.8 % N 0-2 Nucleated Red Blood Cells % 0 N Liver Function 04/23/2014 [facility] Total Protein 7.0 g/dL N 6.4-8.[address] [place] [address] [phone] Albumin 3.9 g/dL N 3.2-5.2 Globulin 3.1 g/dL N 2-4 Albumin/Globulin Ratio 1.3 N 1-3 Total Bilirubin 0.60 mg/dL N 0.2-1.0 Direct Bilirubin 0.20 mg/dL High 0.03-0.18 Indirect Bilirubin 0.4 mg/dL N 0.3-1.0 Alkaline Phosphatase 74 U/L N 34-104 Alt 17 U/L N 7-52 Ast 16 U/L N 13-39 Liver Function 03/19/2014 [facility] Total Protein 6.4 g/dL N 6.4-8.[address] [place] [address] [phone] Albumin 3.7 g/dL N 3.2-5.2 Globulin 2.7 g/dL N 2-4 Albumin/Globulin Ratio 1.4 N 1-3 Total Bilirubin 0.50 mg/dL N 0.2-1.0 Direct Bilirubin 0.10 mg/dL N 0.03-0.18 Indirect Bilirubin 0.4 mg/dL N 0.3-1.0 Alkaline Phosphatase 71 U/L N 34-104 Alt 13 U/L N 7-52 Ast 13 U/L N 13-39 CBC Auto Diff 11/17/2013 [facility] White Blood 6.4 10^3/uL N 4.8-10.[address] [place] [address] [phone] Red Blood Count 5.06 10^6/uL N 4.0-5.4 Hemoglobin 14.3 g/dL N 12.0-16.0 Hematocrit 43 % N 35-47 Mean Corpuscular Volume 85 fL N 80-97 Mean Corpuscular Hemoglobin 28 pg N 27-31 Mean Corpuscular HGB Conc 34 g/dL N 31-36 Red Cell Distribution Width 14 % N 10.5-15 Platelet Count 272 10^3/uL N 150-450 Mean Platelet Volume 9 um3 N 7.4-10.4 Abs Neutrophils 3.6 10^3/uL N 1.5-7.7 Abs Lymphocytes 2.1 10^3/uL N 1.0-4.8 Abs Monocytes 0.5 10^3/uL N 0-0.8 Abs Eosinophils 0.1 10^3/uL N 0-0.6 Abs Basophils 0 10^3/uL N 0-0.2 Abs Nucleated RBC 0 10^3/uL N Granulocyte % 56.8 % N 38-83 Lymphocyte % 33.5 % N 25-47 Monocyte % 7.7 % N 1-9 Eosinophil % 1.5 % N 0-6 Basophil % 0.5 % N 0-2 Nucleated Red Blood Cells % 0 N Comp Metabolic Panel 11/17/2013 [facility] Sodium 137 mmol/L N 133-[address] [place] [address] [phone] Potassium 3.5 mmol/L Low 3.7-5.6 Chloride 98 mmol/L Low 101-111 Co2 Carbon Dioxide 31 mmol/L N 22-32 Anion Gap 8 mmol/L N 2-11 Glucose 175 mg/dL High 70-100 Blood Urea Nitrogen 12 mg/dL N 6-24 Creatinine 0.62 mg/dL N 0.51-0.95 BUN/Creatinine Ratio 19.4 N 8-20 Calcium 9.3 mg/dL N 8.6-10.3 Total Protein 6.9 g/dL N 6.4-8.9 Albumin 3.9 g/dL N 3.2-5.2 Globulin 3.0 g/dL N 2-4 Albumin/Globulin Ratio 1.3 N 1-3 Total Bilirubin 0.60 mg/dL N 0.2-1.0 Alkaline Phosphatase 78 U/L N 34-104 Alt 18 U/L N 7-52 Ast 18 U/L N 13-39 Egfr Non- 102.3 N >60 Egfr 131.6 N >60 11 Lipid Profile 11/17/2013 [facility] Triglycerides 204 mg/dL N 12, 13 (Trig/Chol/HDL) [address] [place] [address] [phone] Cholesterol 183 mg/dL N 14 HDL Cholesterol 41.7 mg/dL N 15 LDL Cholesterol 101 mg/dL N 16 Lipid Profile 08/11/2013 [facility] Triglycerides 139 mg/dL 17 (Trig/Chol/HDL) [address] [place] [address] [phone] Cholesterol 174 mg/dL 18 HDL Cholesterol 43.6 mg/dL 19 LDL Cholesterol 103 mg/dL 20 Comp Metabolic Panel 04/25/2013 [facility] Sodium 139 mmol/L 133-[address] [place] [address] [phone] Potassium 3.5 mmol/L 3.5-5.0 Chloride 98 mmol/L Low 101-111 Co2 Carbon Dioxide 31.0 mmol/L 22-32 Anion Gap 10.0 mmol/L 2-11 Glucose 169 mg/dL High 70-100 Blood Urea Nitrogen 10 mg/dL 6-24 Creatinine 0.70 mg/dL 0.50-1.40 BUN/Creatinine Ratio 14.3 8-20 Calcium 9.3 mg/dL 8.1-9.9 Total Protein 6.7 g/dL 6.2-8.1 Albumin 3.7 g/dL 3.6-5.4 Globulin 3.0 g/dL 2-4 Albumin/Globulin Ratio 1.2 1-3 Total Bilirubin 0.8 mg/dL 0.4-1.5 Alkaline Phosphatase 81 U/L 30-110 Alt 21 U/L 14-54 Ast 20 U/L 12-42 Egfr Non- 89.3 >60 Egfr 114.9 >60 21 CBC With 04/25/2013 [facility] White Blood 8.3 10^3/uL 4.8- 10.8 Manual Diff [address] [place] [address] [phone] Red Blood Count 4.85 10^6/uL 4.0-5.4 Hemoglobin 13.9 g/dL 12.0-16.0 Hematocrit 41 % 35-47 Mean Corpuscular Volume 84 fL 80-97 Mean Corpuscular Hemoglobin 29 pg 27-31 Mean Corpuscular HGB Conc 34 g/dL 31-36 Red Cell Distribution Width 14 % 10.5-15 Platelet Count 263 10^3/uL 150-450 Mean Platelet Volume 10 um3 7.4-10.4 Abs Neutrophils 5.3 10^3/uL 1.5-7.7 Abs Lymphocytes 2.3 10^3/uL 1.0-4.8 Abs Monocytes 0.5 10^3/uL 0-0.8 Abs Eosinophils 0.1 10^3/uL 0-0.6 Abs Basophils 0.1 10^3/uL 0-0.2 Abs Nucleated RBC 0.01 10^3/uL Neutrophil % 65 % 38-83 Lymphocytes % 30 % 25-47 Monocytes % 4 % 0-13 Eosinophils % 1 % 0-6 RBC Morphology Normal Normal Comp Metabolic Panel 10/12/2012 [facility] Sodium 136 mmol/L 133-[address] [place] [address] [phone] Potassium 3.9 mmol/L 3.5-5.0 Chloride 98 mmol/L Low 101-111 Co2 Carbon Dioxide 30.0 mmol/L 22-32 Anion Gap 8.0 mmol/L 2-11 Glucose 141 mg/dL High 70-100 Blood Urea Nitrogen 10 mg/dL 6-24 Creatinine 0.60 mg/dL 0.50-1.40 BUN/Creatinine Ratio 16.7 8-20 Calcium 9.2 mg/dL 8.1-9.9 Total Protein 6.2 g/dL 6.2-8.1 Albumin 3.4 g/dL Low 3.6-5.4 Globulin 2.8 g/dL 2-4 Albumin/Globulin Ratio 1.2 1-3 Total Bilirubin 0.6 mg/dL 0.4-1.5 Alkaline Phosphatase 79 U/L 30-110 Alt 21 U/L 14-54 Ast 20 U/L 12-42 Egfr Non- 106.7 >60 Egfr 137.2 >60 22 CBC With 10/12/2012 [facility] White Blood 7.8 10^3/uL 4.8- 10.8 Manual Diff [address] [place] [address] [phone] Red Blood Count 4.61 10^6/uL 4.0-5.4 Hemoglobin 13.3 g/dL 12.0-16.0 Hematocrit 39 % 35-47 Mean Corpuscular Volume 85 fL 80-97 Mean Corpuscular Hemoglobin 29 pg 27-31 Mean Corpuscular HGB Conc 34 g/dL 31-36 Red Cell Distribution Width 14 % 10.5-15 Platelet Count 225 10^3/uL 150-450 Mean Platelet Volume 10 um3 7.4-10.4 Abs Neutrophils 5.2 10^3/uL 1.5-7.7 Abs Lymphocytes 2.0 10^3/uL 1.0-4.8 Abs Monocytes 0.5 10^3/uL 0-0.8 Abs Eosinophils 0.1 10^3/uL 0-0.6 Abs Basophils 0 10^3/uL 0-0.2 Abs Nucleated RBC 0 10^3/uL Neutrophil % 62 % 38-83 Lymphocytes % 27 % 25-47 Monocytes % 7 % 0-13 Eosinophils % 4 % 0-6 RBC Morphology Normal Normal 1 SEE RESULT BELOW Name: WANDERANNIKA M : [address]: Alyse Gordillo MD Acct: [id number] Unit: [id number] AGE: 52 Location: [facility] Re09/28/18 SEX: F Status: REG REF SPEC: [id number] YOBANI: 09/28/[birth year]-[address]: Alyse Gordillo MD REQ: [id number] RECD: [id number] STATUS: COMP _ SOURCE: URINE SPDESC: ORDERED: Urine Culture QUERIES: Urine Source: Clean Catch Procedure Result Reported Site Urine Culture Final 09/30/18- 1106 ML Mixed cecilia; possible contamination. Suggest resubmission. * [facility] - Main Lab . END OF REPORT DEPARTMENT OF PATHOLOGY, [address] [place] [address] Afshin Gruber M.D. Director [facility] # [id number] 2 *Ascorbic acid is present which may interfere with detection of blood. 3 Standard intensity warfarin therapeutic range: 2.0-3.0 High intensity warfarin therapeutic range: 2.5-3.5 4 Because ethnic data is not always readily available, this report includes an eGFR for both -Americans and non- Americans. The National Kidney Disease Education Program (NKDEP) does not endorse the use of the MDRD equation for patients that are not between the ages of 18 and 70, are , have extremes of body size, muscle mass, or nutritional status, or are non- or non-. According to the National Kidney Foundation, irrespective of diagnosis, the stage of the disease is based on the level of kidney function: Stage Description GFR(mL/min/1.73 m(2)) 1 Kidney damage with normal or decreased GFR 90 2 Kidney damage with mild decrease in GFR 60-89 3 Moderate decrease in GFR 30-59 4 Severe decrease in GFR 15-29 5 Kidney failure <15 (or dialysis) 5 Normal Range 180 to 914 Indeterminate Range 145 to 180 Deficient Range <145 6 ADDITIONAL INFORMATION This test was developed and its performance characteristics determined by [facility] in a manner consistent with CLIA requirements. This test has not been cleared or approved by the U.S. Food and Drug Administration. Test Performed by: [facility] [id number] [place] [address] 7 Because ethnic data is not always readily available, this report includes an eGFR for both -Americans and non- Americans. The National Kidney Disease Education Program (NKDEP) does not endorse the use of the MDRD equation for patients that are not between the ages of 18 and 70, are , have extremes of body size, muscle mass, or nutritional status, or are non- or non-. According to the National Kidney Foundation, irrespective of diagnosis, the stage of the disease is based on the level of kidney function: Stage Description GFR(mL/min/1.73 m(2)) 1 Kidney damage with normal or decreased GFR 90 2 Kidney damage with mild decrease in GFR 60-89 3 Moderate decrease in GFR 30-59 4 Severe decrease in GFR 15-29 5 Kidney failure <15 (or dialysis) 8 Because ethnic data is not always readily available, this report includes an eGFR for both -Americans and non- Americans. The National Kidney Disease Education Program (NKDEP) does not endorse the use of the MDRD equation for patients that are not between the ages of 18 and 70, are , have extremes of body size, muscle mass, or nutritional status, or are non- or non-. According to the National Kidney Foundation, irrespective of diagnosis, the stage of the disease is based on the level of kidney function: Stage Description GFR(mL/min/1.73 m(2)) 1 Kidney damage with normal or decreased GFR 90 2 Kidney damage with mild decrease in GFR 60-89 3 Moderate decrease in GFR 30-59 4 Severe decrease in GFR 15-29 5 Kidney failure <15 (or dialysis) 9 Because ethnic data is not always readily available, this report includes an eGFR for both -Americans and non- Americans. The National Kidney Disease Education Program (NKDEP) does not endorse the use of the MDRD equation for patients that are not between the ages of 18 and 70, are , have extremes of body size, muscle mass, or nutritional status, or are non- or non-. According to the National Kidney Foundation, irrespective of diagnosis, the stage of the disease is based on the level of kidney function: Stage Description GFR(mL/min/1.73 m(2)) 1 Kidney damage with normal or decreased GFR 90 2 Kidney damage with mild decrease in GFR 60-89 3 Moderate decrease in GFR 30-59 4 Severe decrease in GFR 15-29 5 Kidney failure <15 (or dialysis) 10 Because ethnic data is not always readily available, this report includes an eGFR for both -Americans and non- Americans. The National Kidney Disease Education Program (NKDEP) does not endorse the use of the MDRD equation for patients that are not between the ages of 18 and 70, are , have extremes of body size, muscle mass, or nutritional status, or are non- or non-. According to the National Kidney Foundation, irrespective of diagnosis, the stage of the disease is based on the level of kidney function: Stage Description GFR(mL/min/1.73 m(2)) 1 Kidney damage with normal or decreased GFR 90 2 Kidney damage with mild decrease in GFR 60-89 3 Moderate decrease in GFR 30-59 4 Severe decrease in GFR 15-29 5 Kidney failure <15 (or dialysis) 11 Because ethnic data is not always readily available, this report includes an eGFR for both -Americans and non- Americans. The National Kidney Disease Education Program (NKDEP) does not endorse the use of the MDRD equation for patients that are not between the ages of 18 and 70, are , have extremes of body size, muscle mass, or nutritional status, or are non- or non-. According to the National Kidney Foundation, irrespective of diagnosis, the stage of the disease is based on the level of kidney function: Stage Description GFR(mL/min/1.73 m(2)) 1 Kidney damage with normal or decreased GFR 90 2 Kidney damage with mild decrease in GFR 60-89 3 Moderate decrease in GFR 30-59 4 Severe decrease in GFR 15-29 5 Kidney failure <15 (or dialysis) 12 FASTING 13 Desirable <150 Borderline high 150-199 High 200-499 Very High >500 14 Desirable <200 Borderline high 200-239 High >239 15 Low <40 Desirable: 40-60 High: >60 16 Desirable <100 Near Optimal 100-129 Borderline high 130-159 High 160-189 Very High >189 17 Desirable <150 Borderline high 150-199 High 200-499 Very High >500 18 Desirable <200 Borderline high 200-239 High >239 19 Low <40 Desirable: 40-60 High: >60 20 Desirable <100 Near Optimal 100-129 Borderline high 130-159 High 160-189 Very High >189 21 Because ethnic data is not always readily available, this report includes an eGFR for both -Americans and non- Americans. The National Kidney Disease Education Program (NKDEP) does not endorse the use of the MDRD equation for patients that are not between the ages of 18 and 70, are , have extremes of body size, muscle mass, or nutritional status, or are non- or non-. According to the National Kidney Foundation, irrespective of diagnosis, the stage of the disease is based on the level of kidney function: Stage Description GFR(mL/min/1.73 m(2)) 1 Kidney damage with normal or decreased GFR 90 2 Kidney damage with mild decrease in GFR 60-89 3 Moderate decrease in GFR 30-59 4 Severe decrease in GFR 15-29 5 Kidney failure <15 (or dialysis) 22 Because ethnic data is not always readily available, this report includes an eGFR for both -Americans and non- Americans. The National Kidney Disease Education Program (NKDEP) does not endorse the use of the MDRD equation for patients that are not between the ages of 18 and 70, are , have extremes of body size, muscle mass, or nutritional status, or are non- or non-. According to the National Kidney Foundation, irrespective of diagnosis, the stage of the disease is based on the level of kidney function: Stage Description GFR(mL/min/1.73 m(2)) 1 Kidney damage with normal or decreased GFR 90 2 Kidney damage with mild decrease in GFR 60-89 3 Moderate decrease in GFR 30-59 4 Severe decrease in GFR 15-29 5 Kidney failure <15 (or dialysis) Procedures Date Code Description Status 09/28/2018 35701 EKG Tracing & Interpretation Completed 03/25/2017 [id number] Colonoscopy Flexible Diagnostic Completed 03/25/2017 [id number] Colonoscopy Completed 09/06/2013 [id number] Mammogram Completed 10/23/2010 [id number] Holter Monitor Review (24 hr)dr rosas & interp only Completed Encounters Type Date Location Provider Dx Diagnosis Office Visit 09/02/2018 [facility] Manjinder Liu Multiple sclerosis 10:30a Of Prem Bocanegra M25.562 Pain in left knee M25.561 Pain in right knee M25.462 Effusion, left knee M25.461 Effusion, right knee M17.0 Bilateral primary osteoarthritis of knee Office Visit 08/15/2018 10:45a Erika Dunbar [facility] Jessica Moore M.D. 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 sclerosis Z79.899 Other assisted (current) drug therapy Office Visit 11/05/2017 11:00a Neurohospitalist Jian [facility] Daljit Moore sclerosis Z79.899 Other assisted (current) drug therapy R53.83 Other fatigue M17.0 Bilateral primary osteoarthritis of knee Office Visit 12/31/2016 11:30a [place] Nathaniel Dunbra [facility] Jessica Solis M.D. 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 G35 Multiple sclerosis E11.8 Type 2 diabetes mellitus with unspecified complications I10 Essential (primary) hypertension Office Visit 09/03/2016 11:45a [place] Nathaniel Salas G35 [facility] Jessica Solis M.D. sclerosis F32.9 Major depressive disorder, single episode, unspecified Office Visit 03/05/2016 11:45a [place] Nathaniel Salas G35 [facility] Solis M.D. sclerosis F32.9 Major depressive disorder, single episode, unspecified Z79.899 Other assisted (current) drug therapy Office Visit 09/10/2015 11:45a [place] Nathaniel Salas G35 [facility] Solis M.D. 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 sclerosis F32.9 Major depressive disorder, single episode, unspecified Office Visit 09/13/2014 11:45a [place] Nathaniel Salas 340 [facility] Jessica Slois M.D. 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 Disorder Major Recurrent Mild 340 Multiple Sclerosis Office Visit 09/05/2013 Erika Salas 341.8 Demyelinating 9:45a Nathaniel Solis M.D. 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 [facility] Office Visit 11/01/2012 Erika Salas 340 Multiple Sclerosis 9:45a Neurologic Daljit Solis [facility] Office Visit 05/03/2012 [place] Melva Salas 341.8 Demyelinating 9:45a Neurologic Daljit Solis Disease [facility] Nervous System Other Plan of Treatment Future Appointment(s):10/06/2018 9:45 am - KARL Contreras at [facility]..10/06/2018 9:45 am - LILIA Woodson at [facility].A.10/06/2018 9:45 am - Alyse Gordillo M.D. at [facility]..10/17/2018 11:30 am - Alyse Gordillo M.D. at [facility].A.02/14/2019 11:15 am - Jian Moore M.D. at [place] [facility]09/30/2018 - Alyse Gordillo M.D.M25.562 Pain in left kneeFollow up:Follow up: 10-14 days jaruqqV14.561 Pain in right kneeM25.462 Effusion, left kneeM25.461 Effusion, right kneeM17.0 Bilateral primary osteoarthritis of knee
--- OUTSIDE RECORDS SUMMARY | 2018-10-06 08:37 | XMS REPORT | Continuity of Care Document ---
:1965 External Reference #:[id number] Author Name Snoia Romano Care Team Providers Name Role Phone Henrry Lara MD Primary Care Physician Unavailable Payers Date Identification Numbers Payment Provider Subscriber Effective: 2012 Policy Number: [id number] Medicare Reina Howard PayID: [id number] [address] [place] [address] Effective: 2012 Policy Number: [id number] Medicaid Reina Howard Group Name: 1 1 [address] PayID: [id number] [place] [address] Effective: 2010 Policy Number: [id number] [employer] Medicaid Reina Howard Expires: 2012 PayID: [id number] [address] [address] [place] [address] Advance Directives Description No Information Available Problems [...] Unknown Never Smoked Cigarettes Smoking Status Reviewed: 09/28/18 Never Smoked Cigarettes ETOH Use Occasionally consumes [...] Date Provider Baclofen Take one tablet 120tabs G35 Jian Gordon 08/15/2018 10mg Tablets PO bid and two Daljit Moore tabs q hs Oxybutynin Chloride ER 1 by mouth 30tabs Nicolasa Lopez, 08/02/2017 15mg everyday.. Tablets ER 24HR Hydrochlorothiazide 1 po qd 90tabs Unknown 25mg Tablets Citalopram Hydrobromide 1 po qd 30tabs Unknown 20mg Tablets Vitamin B Complex 1 by mouth Unknown Tablets every day Glipizide 1 by mouth once Unknown 10mg Tablets a day Betaseron one injection 15units G3Antonia Gordon 0.3mg Kit every other day Daljit Moore Potassium Chloride ER 1 by mouth Unknown 10Meq every day Capsules ER (Needs Refills) Vitamin D3 2 by mouth Unknown 1000Unit Capsules every day Vitamin C 1 by mouth( Not Unknown 1000mg Tablets Taking Currently,09/28) Losartan Potassium 1 by mouth Unknown 50mg Tablets every day Nitrofurantoin take 1 cap bid Unknown Macrocrystal as needed for 100mg Capsules UTI History Medications Ampyra take 1 tablet 60tabs [...] Baclofen 3 by mouth every 90tabs Jian AlyssiaOliva 08/16/2012 - 10mg Tablets day as directed Daljit Moore 08/15/2018 Nortriptyline HCL 1 cap po qhs 60caps Melva Monson. 06/06/2012 - 10mg Daljit Solis 09/09/2015 Capsules [...] Unknown - Natural day 09/20/2018 500mcg Tablets Immunizations Description No Information Available Vital Signs Date Vital Result Comment 09/28/2018 11:21am Height 63 inches 5'3" Weight [...] Date Facility Test Result H/L Range Note Basic Metabolic 11/05/2017 [facility] Sodium 138 mmol/L Low 139-[address] [place] [address] [phone] Potassium 3.3 mmol/L Low 3.5-5.0 Chloride 98 mmol/L Low 101-111 Co2 Carbon Dioxide 30 mmol/L N 22-32 Anion Gap 10 mmol/L N 2-11 Glucose 240 mg/dL High 70-100 Blood Urea Nitrogen 14 mg/dL N 6-24 Creatinine 0.64 mg/dL N 0.51-0.95 BUN/Creatinine Ratio 21.9 High 8-20 Calcium 9.3 mg/dL N 8.6-10.3 Egfr Non- 97.1 >60 Egfr 124.8 >60 1 Laboratory test 11/05/2017 [facility] Vitamin B12 936 pg/mL High 180-914 [address] [place] [address] [phone] Vitamin D 1,25 11/05/2017 [facility] Vitamin D 8.8 ng/mL Low 20-50 And Vitamin D,[address](Oh) [place] [address] [phone] Vitamin D, 1,25 Dihydroxy 56 pg/mL 18-78 3 Laboratory test 11/05/2017 [facility] TSH (Thyroid 2.98 mcIU/mL N 0.34-5.[address] Stim [place]orm) [place] [address] [phone] CBC Auto Diff 11/05/2017 [facility] White Blood 7.7 10^3/uL N 3.5-10.[address] [place] [address] [phone] Red Blood Count 4.92 10^6/uL N 4.0-5.4 [...] Blood Cells % 0.1 Urine Microalbumin 11/05/2017 [facility] Ur Microalbumin 22.7 mg /L Random [address] (mg/L) [place] [address] [phone] Urine Creatinine 148.88 mg/dL Urine Microalbumin/Creatinine 15.2 ug/mg N <31 CBC Auto Diff 01/11/2017 [facility] White Blood 6.0 10^3/uL N 3.5-10.[address] [place] [address] [phone] Red Blood Count 4.79 10^6/uL N 4.0-5.4 [...] % 0 N Comp Metabolic Panel 01/11/2017 [facility] Sodium 138 mmol/L N 133-[address] [place] [address] [phone] Potassium 3.7 mmol/L N 3.5-5.0 Chloride 99 [...] 92.4 N >60 Egfr 118.9 N >60 4 CBC Auto Diff 08/25/2016 [facility] White Blood 6.3 10^3/uL N 3.5-10.[address] [place] [address] [phone] Red Blood Count 5.28 10^6/uL N 4.0-5.4 [...] % 0.1 N Comp Metabolic Panel 08/25/2016 [facility] Sodium 139 mmol/L N 133-[address] [place] [address] [phone] Potassium 3.8 mmol/L N 3.5-5.0 Chloride 99 [...] 109.6 N >60 Egfr 141.0 N >60 5 Laboratory test 03/05/2015 [facility] TSH (Thyroid 4.12 ?IU/mL N 0.34-5.[address] Stim Horm) [place] [address] [phone] Free T4 (Free Thyroxine) 0.87 ng/mL N 0.61-1.12 Comp Metabolic Panel 03/05/2015 [facility] Sodium 137 mmol/L N 133-[address] [place] [address] [phone] Potassium 3.4 mmol/L Low 3.5-5.0 Chloride 97 [...] 87.1 N >60 Egfr 112.1 N >60 6 CBC Auto Diff 03/05/2015 [facility] White Blood 7.5 10^3/uL N 4.8-10.[address] [place] [address] [phone] Red Blood Count 5.03 10^6/uL N 4.0-5.4 [...] Cells % 0 N Liver Function 04/23/2014 [facility] Total Protein 7.0 g/dL N 6.4-8.[address] [place] [address] [phone] Albumin 3.9 g/dL N 3.2-5.2 Globulin 3.1 g/dL N 2-4 Albumin/Globulin Ratio 1.3 N 1-3 Total Bilirubin 0.60 mg/dL N 0.2-1.0 Direct Bilirubin 0.20 mg/dL High 0.03-0.18 Indirect Bilirubin 0.4 mg/dL N 0.3-1.0 Alkaline Phosphatase 74 U/L N 34-104 Alt 17 U/L N 7-52 Ast 16 U/L N 13-39 Liver Function 03/19/2014 [facility] Total Protein 6.4 g/dL N 6.4-8.[address] [place] [address] [phone] Albumin 3.7 g/dL N 3.2-5.2 Globulin 2.7 g/dL N 2-4 Albumin/Globulin Ratio 1.4 N 1-3 Total Bilirubin 0.50 mg/dL N 0.2-1.0 Direct Bilirubin 0.10 mg/dL N 0.03-0.18 Indirect Bilirubin 0.4 mg/dL N 0.3-1.0 Alkaline Phosphatase 71 U/L N 34-104 Alt 13 U/L N 7-52 Ast 13 U/L N 13-39 CBC Auto Diff 11/17/2013 [facility] White Blood 6.4 10^3/uL N 4.8-10.[address] [place] [address] [phone] Red Blood Count 5.06 10^6/uL N 4.0-5.4 [...] % 0 N Comp Metabolic Panel 11/17/2013 [facility] Sodium 137 mmol/L N 133-[address] [place] [address] [phone] Potassium 3.5 mmol/L Low 3.7-5.6 Chloride 98 [...] 102.3 N >60 Egfr 131.6 N >60 7 Lipid Profile 11/17/2013 [facility] Triglycerides 204 mg/dL N 8, 9 (Trig/Chol/HDL) [address] [place] [address] [phone] Cholesterol 183 mg/dL N 10 HDL Cholesterol 41.7 mg/dL N 11 LDL Cholesterol 101 mg/dL N 12 Lipid Profile 08/11/2013 [facility] Triglycerides 139 mg/dL 13 (Trig/Chol/HDL) [address] [place] [address] [phone] Cholesterol 174 mg/dL 14 HDL Cholesterol 43.6 mg/dL 15 LDL Cholesterol 103 mg/dL 16 Comp Metabolic Panel 04/25/2013 [facility] Sodium 139 mmol/L 133-[address] [place] [address] [phone] Potassium 3.5 mmol/L 3.5-5.0 Chloride 98 mmol/L [...] Egfr Non- 89.3 >60 Egfr 114.9 >60 17 CBC With 04/25/2013 [facility] White Blood 8.3 10^3/uL 4.8- 10.8 Manual Diff [address] [place] [address] [phone] Red Blood Count 4.85 10^6/uL 4.0-5.4 Hemoglobin [...] Morphology Normal Normal Comp Metabolic Panel 10/12/2012 [facility] Sodium 136 mmol/L 133-[address] [place] [address] [phone] Potassium 3.9 mmol/L 3.5-5.0 Chloride 98 mmol/L [...] Egfr Non- 106.7 >60 Egfr 137.2 >60 18 CBC With 10/12/2012 [facility] White Blood 7.8 10^3/uL 4.8- 10.8 Manual Diff [address] [place] [address] [phone] Red Blood Count 4.61 10^6/uL 4.0-5.4 Hemoglobin [...] % 0-6 RBC Morphology Normal Normal 1 Because ethnic data is not always readily [...] 15-29 5 Kidney failure <15 (or dialysis) 2 Normal Range 180 to 914 Indeterminate Range 145 to 180 Deficient Range <145 3 ADDITIONAL INFORMATION This test was developed and its performance characteristics determined by [facility] in a manner consistent with CLIA requirements. This test has not been cleared or approved by the U.S. Food and Drug Administration. Test Performed by: [facility] [address] [place] [address] 4 Because ethnic data is not always [...] 5 Kidney failure <15 (or dialysis) 5 Because ethnic data is not always readily [...] 15-29 5 Kidney failure <15 (or dialysis) 6 Because ethnic data is not always readily [...] 15-29 5 Kidney failure <15 (or dialysis) 7 Because ethnic data is not always [...] 5 Kidney failure <15 (or dialysis) 8 FASTING 9 Desirable <150 Borderline high 150-199 High 200-499 Very High >500 10 Desirable <200 Borderline high 200-239 High >239 11 Low <40 Desirable: 40-60 High: >60 12 Desirable <100 Near Optimal 100-129 Borderline high 130-159 High 160-189 Very High >189 13 Desirable <150 Borderline high 150-199 High 200-499 Very High >500 14 Desirable <200 Borderline high 200-239 High >239 15 Low <40 Desirable: 40-60 High: >60 16 Desirable <100 Near Optimal 100-129 Borderline high 130-159 High 160-189 Very High >189 17 Because ethnic data is not always readily [...] 15-29 5 Kidney failure <15 (or dialysis) 18 Because ethnic data is not always readily [...] dialysis) Procedures Date Code Description Status 09/28/2018 02079 EKG Tracing & Interpretation Completed 03/25/2017 73088 Colonoscopy Flexible Diagnostic Completed 03/25/2017 71266659 Colonoscopy Completed 09/06/2013 36695557 Mammogram Completed 10/23/2010 49201 Holter Monitor Review (24 hr)dr rosas & interp only Completed Encounters Type Date Location Provider Dx Diagnosis Office Visit 09/28/2018 [facility] Evangelista Gordon Z01.810 Encounter for 11:45a Of Jessica Garcia DO FACC preprocedural cardiovascular examination E11.9 Type 2 diabetes mellitus without complications I10 Essential (primary) hypertension G35 Multiple sclerosis Office Visit 09/02/2018 10:30a [facility] Manjinder Liu Multiple Of Prem [place]an[place] sclerosis M25.562 Pain in left knee M25.561 Pain in right knee M25.462 Effusion, left knee M25.461 Effusion, right knee M17.0 Bilateral primary osteoarthritis of knee Office Visit 08/15/2018 10:45a Erika Gordon G35 Multiple Services Of Jessica Moore M.D. 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 sclerosis Z79.899 Other termite control service representative (current) drug therapy Office Visit 11/05/2017 11:00a [facility] Jian Gordon G35 Multiple [facility] Daljit Moore sclerosis Z79.899 Other termite control service representative (current) drug therapy R53.83 Other fatigue M17.0 Bilateral primary osteoarthritis of knee Office Visit 12/31/2016 11:30a [facility] Nathaniel Salas G35 Multiple Services Of Jessica Solis M.D. 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 G35 Multiple sclerosis E11.8 Type 2 diabetes mellitus with unspecified complications I10 Essential (primary) hypertension Office Visit 09/03/2016 11:45a [facility] Nathaniel Salas G35 Multiple Services Of Jessica Solis M.D. sclerosis F32.9 Major depressive disorder, single episode, unspecified Office Visit 03/05/2016 11:45a [facility] Nathaniel Salas G35 [facility] Jessica Solis M.D. 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 sclerosis F32.9 Major depressive disorder, single episode, unspecified Z79.899 Other termite control service representative (current) drug therapy Office Visit 03/05/2015 11:45a [facility] Nathaniel Salas G35 [facility] Of Jessica Solis M.D. sclerosis F32.9 Major depressive disorder, single episode, unspecified Office Visit 09/13/2014 11:45a [facility] Nathaniel Salas 340 Multiple Services Of Jessica Solis M.D. 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 Services [facility] Office Visit 11/01/2012 Erika Diegorobbi Salas 340 Multiple Sclerosis 9:45a Neurologic Daljit Solis Services [facility] Office Visit 05/03/2012 [facility] Melva Salas 341.8 Demyelinating 9:45a Neurologic Daljit Solis Disease [facility] Nervous System Other Plan of Treatment Future Appointment(s):09/29/2018 10:45 am - Evangelista Garcia DO FAC at [facility]10/06/2018 9:45 am - Chandra Gutierrez PA-C at [facility]10/06/2018 9:45 am - LILIA Woodson [facility]09/30/2018 1:30 pm - Alyse Gordillo M.D. at [facility]10/06/2018 9:45 am - Alyse Gordillo M.D. at [facility]10/17/2018 11:30 am - Alyse Gordillo M.D. at [facility]02/14/2019 11:15 am - Jian Moore M.D. at [facility]09/28/2018 - Evangelista Garcia DO FACCZ01.810 Encounter for preprocedural cardiovascular examinationNew Orders:Stress Test, Pharmacologic Nuclear (Lexiscan), Ordered: 09/28/18E11.9 Type 2 diabetes mellitus without [id number] Essential (primary) [id number] Multiple sclerosis
--- OUTSIDE RECORDS SUMMARY | 2018-10-06 08:38 | XMS REPORT | Continuity of Care Document ---
:1965 External Reference #:[id number] Author Name Kirsten Donnelly Care Team Providers Name Role Phone Henrry Lara MD Primary Care Physician Unavailable Payers Date Identification Numbers Payment Provider Subscriber Effective: 2012 Policy Number: [id number] Medicare Reina Howard PayID: [id number] [address] [place] [address] Effective: 2012 Policy Number: [id number] Medicaid Reina Howard Group Name: 1 1 [address] PayID: [id number] [place] [address] Effective: 2010 Policy Number: [id number] [employer] Medicaid Reina Howard Expires: 2012 PayID: [id number] [address] [address] [place] [address] Advance Directives Description No Information Available Problems Active Problems Provider Date Multiple sclerosis Melva Solis M.D. Onset: 09/13/2014 Depressive disorder Melva Solis M.D. Onset: 09/13/2014 Localized, primary osteoarthritis Alyse Gordillo M.D. Onset: 09/02/2018 Family History Date Family Member(s) Observation Comments General DM,HTN,Heart disease, Stroke,Cancer,Arthritis Social History Type Date Description Comments Sex Unknown Lives With Occupation Disabled ETOH Use Occasionally consumes alcohol Tobacco Use Start: Unknown Patient has never smoked Smoking Status Reviewed: 09/02/18 Patient has never smoked Exercise Type/Frequency Exercises sporadically Allergies, Adverse Reactions, Alerts Active Allergies Reaction Severity Comments Date Demerol hives 11/01/2012 Bactrim 09/03/2016 Medications Active Medications SIG Qnty Indications Ordering Date Provider Baclofen Take one tablet 120tabs G3Antonia Gordon 08/15/2018 10mg Tablets PO bid and two Daljit Moore tabs q hs Vitamin D 2 by mouth 180caps Jian Gordon 11/09/2017 (Cholecalciferol) every day Daljit Moore 1000Unit Capsules Oxybutynin Chloride ER 1 by mouth 30tabs Nicolasa Lopez 08/02/2017 15mg everyday.. MD Tablets ER 24HR Nitrofurantoin prn Unknown Macrocrystal 25mg Capsules Losartan Potassium 1 by mouth Unknown 50mg Tablets every day Vitamin B-12 1 by mouth Unknown Natural every day 500mcg Tablets Vitamin C 1 by mouth Unknown Capsules Vitamin D3 1 by mouth Unknown 1000Unit Capsules every day Potassium Chloride ER 1 by mouth Unknown 10Meq every day Capsules ER Betaseron one injection 15units Antonia Gordon 0.3mg Kit every other day Daljit Moore Glipizide 1 by mouth once Unknown 5mg Tablets a day Vitamin B Complex 1 by mouth Unknown Tablets every day Ibuprofen 3 tabs prior to 100tabs Unknown 200mg Tablets injections. Citalopram Hydrobromide 1 po qd 30tabs Unknown 20mg Tablets Hydrochlorothiazide 1 po qd 90tabs Unknown 25mg Tablets History Medications Ampyra take 1 tablet 60tabs Manjinder Gordon 02/08/2018 - 10mg Tablets ER (10mg) by mouth Daljit Moore 08/14/2018 12HR twice a day Pamelor 1-2 caps every 60caps Melva Salas 10/03/2012 - 10mg Capsules night as directed Daljit Solis 05/02/2013 Oxybutynin Chloride ER 1 by mouth every 45tabs Nicolsaa Lopez MD 2012 - other day 08/02/2017 15mg Tablets ER 24HR Baclofen 3 by mouth every 90tabs Jian Gordon 08/16/2012 - 10mg Tablets day as directed Daljit Moore 08/15/2018 Nortriptyline HCL 1 cap po qhs 60caps Melva Salas 06/06/2012 - 10mg Daljit Solis 09/09/2015 Capsules Bactrim DS 1 po bid prn 10tabs Unknown - 800-160mg 08/31/2016 Tablets Lipitor 1 by mouth every 90tabs Unknown - 10mg Tablets night at bedtime 03/09/2014 Metformin HCL ER (Osm) 2 po qhs 120tabs Unknown - 09/12/2014 500mg Tablets ER 24HR Terbinafine HCL 1 by mouth every 90tabs Unknown - 250mg day 09/12/2014 Tablets Immunizations Description No Information Available Vital Signs Date Vital Result Comment 09/02/2018 10:59am Height 63 inches 5'3" Weight [...] Result H/L Range Note Basic Metabolic 11/05/2017 [facility] Sodium 138 mmol/L Low 139-[address] [place] [address] [phone] Potassium 3.3 mmol/L Low 3.5-5.0 Chloride 98 mmol/L Low 101-111 Co2 Carbon Dioxide 30 mmol/L N 22-32 Anion Gap 10 mmol/L N 2-11 Glucose 240 mg/dL High 70-100 Blood Urea Nitrogen 14 mg/dL N 6-24 Creatinine 0.64 mg/dL N 0.51-0.95 BUN/Creatinine Ratio 21.9 High 8-20 Calcium 9.3 mg/dL N 8.6-10.3 Egfr Non- 97.1 >60 Egfr 124.8 >60 1 Urine Microalbumin 11/05/2017 [facility] Ur Microalbumin 22.7 mg /L Random [address] (mg/L) [place] [address] [phone] Urine Creatinine 148.88 mg/dL Urine Microalbumin/Creatinine 15.2 ug/mg N <31 Laboratory test 11/05/2017 [facility] Vitamin B12 936 pg/mL High 180-914 [address] [place] [address] [phone] Vitamin D 1,25 11/05/2017 [facility] Vitamin D 8.8 ng/mL Low 20-50 And Vitamin D,[address] Total 25(Oh) [place] [address] [phone] Vitamin D, 1,25 Dihydroxy 56 pg/mL 18-78 3 CBC Auto Diff 11/05/2017 [facility] White Blood 7.7 10^3/uL N 3.5-10.[address] [place] [address] [phone] Red Blood Count 4.92 10^6/uL N 4.0-5.4 [...] 0-2 Nucleated Red Blood Cells % 0.1 Laboratory test 11/05/2017 [facility] TSH (Thyroid 2.98 mcIU/mL N 0.34-5.[address] Stim [place]orm) [place] [address] [phone] CBC Auto Diff 01/11/2017 [facility] White Blood 6.0 10^3/uL N 3.5-10.[address] [place] [address] [phone] Red Blood Count 4.79 10^6/uL N 4.0-5.4 [...] % 0 N Comp Metabolic Panel 01/11/2017 [facility] Sodium 138 mmol/L N 133-[address] [place] [address] [phone] Potassium 3.7 mmol/L N 3.5-5.0 Chloride 99 [...] N >60 Egfr 118.9 N >60 4 Comp Metabolic Panel 08/25/2016 [facility] Sodium 139 mmol/L N 133-[address] [place] [address] [phone] Potassium 3.8 mmol/L N 3.5-5.0 Chloride 99 [...] N >60 Egfr 141.0 N >60 5 CBC Auto Diff 08/25/2016 [facility] White Blood 6.3 10^3/uL N 3.5-10.[address] [place] [address] [phone] Red Blood Count 5.28 10^6/uL N 4.0-5.4 [...] Nucleated Red Blood Cells % 0.1 N Laboratory test 03/05/2015 [facility] TSH (Thyroid 4.12 ?IU/mL N 0.34-5.[address] Stim [place]orm) [place] [address] [phone] Free T4 (Free Thyroxine) 0.87 ng/mL N 0.61-1.12 Comp Metabolic Panel 03/05/2015 [facility] Sodium 137 mmol/L N 133-[address] [place] [address] [phone] Potassium 3.4 mmol/L Low 3.5-5.0 Chloride 97 [...] N >60 6 CBC Auto Diff 03/05/2015 [facility] White Blood 7.5 10^3/uL N 4.8-10.[address] [place] [address] [phone] Red Blood Count 5.03 10^6/uL N 4.0-5.4 [...] Cells % 0 N Liver Function 04/23/2014 [facility] Total Protein 7.0 g/dL N 6.4-8.[address] [place] [address] [phone] Albumin 3.9 g/dL N 3.2-5.2 Globulin 3.1 g/dL N 2-4 Albumin/Globulin Ratio 1.3 N 1-3 Total Bilirubin 0.60 mg/dL N 0.2-1.0 Direct Bilirubin 0.20 mg/dL High 0.03-0.18 Indirect Bilirubin 0.4 mg/dL N 0.3-1.0 Alkaline Phosphatase 74 U/L N 34-104 Alt 17 U/L N 7-52 Ast 16 U/L N 13-39 Liver Function 03/19/2014 [facility] Total Protein 6.4 g/dL N 6.4-8.[address] [place] [address] [phone] Albumin 3.7 g/dL N 3.2-5.2 Globulin 2.7 g/dL N 2-4 Albumin/Globulin Ratio 1.4 N 1-3 Total Bilirubin 0.50 mg/dL N 0.2-1.0 Direct Bilirubin 0.10 mg/dL N 0.03-0.18 Indirect Bilirubin 0.4 mg/dL N 0.3-1.0 Alkaline Phosphatase 71 U/L N 34-104 Alt 13 U/L N 7-52 Ast 13 U/L N 13-39 CBC Auto Diff 11/17/2013 [facility] White Blood 6.4 10^3/uL N 4.8-10.[address] [place] [address] [phone] Red Blood Count 5.06 10^6/uL N 4.0-5.4 [...] % 0 N Comp Metabolic Panel 11/17/2013 [facility] Sodium 137 mmol/L N 133-145 [address] [place] [address] [phone] Potassium 3.5 mmol/L Low 3.7-5.6 Chloride 98 [...] 131.6 N >60 7 Lipid Profile 11/17/2013 [facility] Triglycerides 204 mg/dL N 8, 9 (Trig/Chol/HDL) [address] [place] [address] [phone] Cholesterol 183 mg/dL N 10 HDL Cholesterol 41.7 mg/dL N 11 LDL Cholesterol 101 mg/dL N 12 Lipid Profile 08/11/2013 [facility] Triglycerides 139 mg/dL 13 (Trig/Chol/HDL) [address] [place] [address] [phone] Cholesterol 174 mg/dL 14 HDL Cholesterol 43.6 mg/dL 15 LDL Cholesterol 103 mg/dL 16 Comp Metabolic Panel 04/25/2013 [facility] Sodium 139 mmol/L 133-145 [address] [place] [address] [phone] Potassium 3.5 mmol/L 3.5-5.0 Chloride 98 mmol/L [...] Egfr 114.9 >60 17 CBC With 04/25/2013 [facility] White Blood 8.3 10^3/uL 4.8- 10.8 Manual Diff [address] [place] [address] [phone] Red Blood Count 4.85 10^6/uL 4.0-5.4 Hemoglobin [...] Morphology Normal Normal Comp Metabolic Panel 10/12/2012 [facility] Sodium 136 mmol/L 133-[address] [place] [address] [phone] Potassium 3.9 mmol/L 3.5-5.0 Chloride 98 mmol/L [...] Egfr 137.2 >60 18 CBC With 10/12/2012 [facility] White Blood 7.8 10^3/uL 4.8- 10.8 Manual Diff [address] [place], [place] [id number] [phone] Red Blood Count 4.61 10^6/uL 4.0-5.4 Hemoglobin [...] developed and its performance characteristics determined by [facility] in a manner consistent with CLIA requirements. This test has not been cleared or approved by the U.S. Food and Drug Administration. Test Performed by: [facility] [place] [address] [place] [address] 4 Because ethnic data is not always [...] (or dialysis) Procedures Date Code Description Status 03/25/2017 02406 Colonoscopy Flexible Diagnostic Completed 03/25/2017 21170281 Colonoscopy Completed 09/06/2013 60196436 Mammogram Completed 10/23/2010 07315 Holter Monitor Review (24 hr)dr rosas & salazar only Completed Encounters Type Date Location Provider Dx Diagnosis Office Visit 09/02/2018 [facility] Manjinder Liu Multiple sclerosis 10:30a Of [facility] Bocan[facility] M25.562 Pain in left knee M25.561 Pain in right knee M25.462 Effusion, left knee M25.461 Effusion, right knee M17.0 Bilateral primary osteoarthritis of knee Office Visit 08/15/2018 10:45a [place] aNthaniel [facility] Of Jessica Moore M.D. sclerosis Z79.899 Other assisted (current) drug therapy M25.562 Pain in left knee M25.561 Pain in right knee Office Visit 02/08/2018 9:45a [place] Nathaniel [facility] Moore M.D. 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 sclerosis F32.9 Major depressive disorder, single episode, unspecified Office Visit 11/09/2016 7:10a [facility] Alessandra Sesay, R53.1 [facility] [employer] [employer] G35 Multiple sclerosis E11.8 Type 2 diabetes mellitus with unspecified complications I10 Essential (primary) hypertension Office Visit 11/08/2016 7:09a [facility] Nate Gama, R53.1 [facility] N.P[facility] G35 Multiple sclerosis E11.8 Type 2 diabetes mellitus with unspecified complications I10 Essential (primary) hypertension Office Visit 09/03/2016 11:45a [place] Nathaniel Dun[facility] Jessica Solis M.D. sclerosis F32.9 Major depressive disorder, single episode, unspecified Office Visit 03/05/2016 11:45a Erika Salas G35 [facility] Jessica Solis M.D. 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 sclerosis F32.9 Major depressive disorder, single episode, unspecified Z79.899 Other assisted (current) drug therapy Office Visit 03/05/2015 11:45a [place] [facility] Melva Salas G35 [facility] Solis M.D. sclerosis F32.9 Major depressive disorder, single episode, unspecified Office Visit 09/13/2014 11:45a [place] 340 [facility] Jessica Solis M.D. Sclerosis 296.31 Depressive Disorder Major Recurrent Mild 311 Depressive Disorder Not Elsewhere Spec Office Visit 03/12/2014 11:45a [place] Nathaniel Salas 296.31 Depressive Services [facility] Jessica Solis M.D. Disorder Major Recurrent Mild 340 Multiple Sclerosis Office Visit 09/05/2013 Erika Salas 341.8 Demyelinating 9:45a Nathaniel Solis M.D. Disease [facility] Nervous System Other 296.31 Depressive Disorder Major Recurrent Mild Office Visit 05/02/2013 Erika Salas 340 Multiple Sclerosis 9:45a Nathaniel Solis M.D. [facility] Office Visit 11/01/2012 Erika Salas 340 Multiple Sclerosis 9:45a Nathaniel Solis M.D. [facility] Office Visit 05/03/2012 Erika Salas 341.8 Demyelinating 9:45a Nathaniel Solis M.D. Disease [facility] Nervous System Other Plan of Treatment Future Appointment(s):09/30/2018 1:30 pm - Alyse Gordillo M.D. at [facility]09/28/2018 11:45 am - Evangelista Garcia DO [facility] at [place] [facility]10/06/2018 9:45 am - Alyse Gordillo M.D. at [facility]10/17/2018 11:30 am - Aly[facility] Gordillo M.D. at [facility]02/14/2019 11:15 am - Jian Moore M.D. at [place] [facility]09/02/2018 - Alyse Gordillo M.D.G35 Multiple uzbvhiifjT03.562 Pain in left kneeM25.561 Pain in right kneeM25.462 Effusion, left kneeM25.461 Effusion, right kneeM17.0 Bilateral primary osteoarthritis of kneeFollow up:Follow up: 7-10 days before surgery
[2018-10-06] MEDS ORDERED: Buffered Lidocaine 1% SYRIN* 1 ML/SYRINGE INTRADERM ONE (09:36)
[2018-10-06] MEDS ORDERED: ROPIVACAINE 5 MG/ML 30 ML BTL (0.5%) ONE ×2 (09:51→10:59)
[2018-10-06] MEDS ORDERED: Lidocaine 1%* 5 ML VIAL ONE (09:51)
[2018-10-06] MEDS ORDERED: fentaNYL* 50 MCG/ML 2 ML VIAL (100 MCG VIAL) ONE ×2 (10:10→12:54)
[2018-10-06] MEDS ORDERED: Midazolam* 1 MG/ML 5 ML VIAL (5 MG) ONE (10:10)
[2018-10-06] MEDS ORDERED: Ondansetron INJ* 2 MG/ML VIAL ONE (12:35)
[2018-10-06] MEDS ORDERED: Ketorolac INJ* 30 MG/ML 1 ML VIAL ONE (12:35)
[2018-10-06] MEDS ORDERED: DiMENhydriNATE IV* 50 MG/ML VIAL ONE (12:35)
[2018-10-06] MEDS ORDERED: Succinylcholine* 20 MG/ML 10 ML VIAL ONE (12:35)
[2018-10-06] MEDS ORDERED: Dexamethasone IV* 4 MG/ML 1 ML (4 MG) ONE (12:35)
[2018-10-06] MEDS ORDERED: Propofol* 10 MG/ML 20 ML BTL ONE ×2 (12:35→14:29)
[2018-10-06] MEDS ORDERED: EPHEDrine (Pressors)* 50 MG/ML VIAL ONE (12:36)
[2018-10-06] MEDS ORDERED: Acetaminophen IV 1GM/100ML * 1,000 MG/100 ML VIAL IVPB ONE (14:02)
[2018-10-06] MEDS ORDERED: Naloxone* 0.4 MG/ML 1 ML VIAL IV PRN (14:02)
[2018-10-06] MEDS ORDERED: HYDROmorphone INJ1* 1 MG/ML SYRINGE IV PRN (14:02)
[2018-10-06] MEDS ORDERED: oxyCODONE TAB* 5 MG TAB PO PRN (14:02)
[2018-10-06] MEDS ORDERED: Ondansetron INJ* 2 MG/ML VIAL IV ONE (14:06)
[2018-10-06] MEDS ORDERED: oxyCODONE/Acetamin 5/325 MG* TAB PO PRN (14:57)
[2018-10-06] MEDS ORDERED: Morphine 4 MG/ML VIAL (1 ml) 4 MG/ML VIAL IV PRN (14:57)
[2018-10-06] MEDS ORDERED: diPHENhydraMINE PO* 25 MG PO PRN (14:57)
[2018-10-06] MEDS ORDERED: Ondansetron INJ* 2 MG/ML VIAL IV PRN (14:57)
[2018-10-06] MEDS ORDERED: Magnesium Hydroxide LIQ* 30 ML UDC PO PRN (14:57)
[2018-10-06] MEDS ORDERED: oxyCODONE TAB* 5 MG TAB ONE (15:15)
[2018-10-06] MEDS ORDERED: Acetaminophen IV 1GM/100ML * 100 ML ONE (15:15)
[2018-10-06] MEDS ORDERED: Nitrofurantoin Macrocrystals* 100 MG CAP PO PRN (15:15)
[2018-10-06] MEDS ORDERED: Dextrose 50% Syringe 50 ML* 25 GM/50 ML SYRINGE IV PUSH PRN (16:01)
--- NOTE | 2018-10-06 16:57 | PN ---
Progress Note - Progress Note Date of Service: 10/06/18 Note: resting in bed with no complaints. able to dorsi flex/plantar flex, 2+ DP pulse and intact sensation; dressing c/d/i
[2018-10-06] MEDS: Lactated Ringers 1000 ML Bag* 1,000 ML IV SCH (17:38)
[2018-10-06] MEDS: oxyCODONE/Acetamin 5/325 MG* TAB PO PRN ×2 (17:41→22:17)
[2018-10-06] MEDS: Citalopram TAB* 20 MG PO SCH (17:43)
--- NOTE | 2018-10-06 18:07 | CONS ---
CONSULTATION REPORT: DATE OF CONSULT: 10/06/18 REQUESTING PROVIDER: Dr. Alyse Gordillo.* REASON FOR CONSULT: Co-management of chronic medical conditions. HISTORY OF PRESENT ILLNESS: Reina Howard is a 53-year-old white female with past medical history of diabetes mellitus type 2, hypertension, multiple sclerosis, depression, anxiety and fibromyalgia, who reported to the hospital for elective right total knee arthroplasty with Dr. Gordillo. She is currently postop day 0 and elected to have this surgery after failing outpatient conservative medical therapy for her right knee osteoarthritis. Hospital Medicine was consulted for co- management of chronic medical conditions during this hospital stay. At the time of evaluation, the patient is in the PACU and is feeling "groggy" and reports some right knee pain. She otherwise has no complaints. The patient denies abdominal pain, nausea, vomiting, chest pain, shortness of breath, fever, and chills. PAST MEDICAL HISTORY: 1. Diabetes mellitus type 2. 2. Hypertension. 3. Multiple sclerosis. 4. Depression. 5. Anxiety. 6. Fibromyalgia. PAST SURGICAL HISTORY: Appendectomy, wisdom teeth extraction, , and tubal ligation. HOME MEDICATIONS: 1. Hydrochlorothiazide 25 mg p.o. daily. 2. Citalopram 20 mg p.o. daily. 3. Vitamin B complex daily. 4. Tylenol p.r.n. pain. 5. Glipizide 5 mg p.o. daily. 6. Oxybutynin 15 mg p.o. Wednesday, Wednesday, Wednesday. 7. Vitamin D supplement daily. 8. Potassium chloride 10 mEq p.o. daily. 9. Losartan 50 mg p.o. daily. 10. Baclofen 10 mg in the morning p.o. and 20 mg at bedtime p.o. 11. Interferon beta 0.3 mg subcu injection every other day. ALLERGIES: The patient reports reaction of hives to SULFA DRUGS, reaction of hives to BACTRIM, reaction of hives to MEPERIDINE, reaction of joint pain to LEVOFLOXACIN, reaction of joint pain to JIMBO, reaction of leg pain to CIPROFLOXACIN. It is of note that these reactions to levofloxacin, ciprofloxacin and Jimbo are not true allergies. FAMILY HISTORY: Mother is living at age 75 and had 2 strokes in her early 50s. Father is living at age 76 and has history of ureter cancer. SOCIAL HISTORY: The patient denies alcohol use, drug use and smoking. The patient has never smoked. The patient lives with her . 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 REVIEW OF SYSTEMS: An 11-point review of systems was completed and all pertinent positives and negatives are as above in the HPI. All other systems are negative. PHYSICAL EXAM: General: An obese white female, lying comfortably in PACU stretcher, appearing in no acute distress, daughter at bedside. Head: Normocephalic, atraumatic. Eyes: PERRL. Sclerae anicteric. EOMI. ENT: Mucous membranes moist. Neck: Supple without JVD. Cardio: Regular rate and rhythm with no murmurs, rubs, or gallops. Lungs: Lungs are clear to auscultation throughout. Chest expansion is symmetrical with respirations. Abdomen: Bowel sounds normoactive x4 quadrants. Abdomen is soft, nontender, nondistended. Extremities: Sensation to light touch is intact in the bilateral lower extremities. No edema, cyanosis, or clubbing. No calf tenderness. Neuro : The patient is alert and oriented x3. Able to move all extremities equally. No focal deficits. Psych: The patient is pleasant and cooperative. Skin: Skin is warm, dry, and intact without rashes or ecchymosis. DIAGNOSTIC STUDIES/LAB DATA: Glucose 204. ASSESSMENT AND PLAN: Reina Howard is a 53-year-old white female with past medical history significant for diabetes mellitus type 2, hypertension, multiple sclerosis, depression, anxiety and fibromyalgia, who presents for elective right total knee arthroplasty with Dr. Gordillo. Hospitalists are consulted for co-management of chronic medical conditions. 1. Diabetes mellitus type 2. Holding home glipizide. I added lispro sliding scale and a.c., h.s. fingersticks. 2. Hypertension. We will continue the patient's home losartan and hydrochlorothiazide with holding parameters for a systolic blood pressure less than 150. 3. History of hypokalemia. The patient takes potassium supplements daily. We will monitor this during her stay. This is possibly related to her taking hydrochlorothiazide and it would possibly benefit her if a different antihypertensive were used. 4. Multiple sclerosis. Continue the patient's home interferon injection and baclofen. 5. Depression and anxiety. Continue the patient's home citalopram. 6. Status post right total knee arthroplasty. Management per Orthopedic Surgery. 7. DVT prophylaxis: Per Orthopedic Surgery, the patient is receiving Eliquis. 8. Code status: Full code. 9. Disposition: Per Orthopedic Surgery. Thank you for allowing us to participate in the care of this patient. We will follow during this hospital admission. LILIA HART [id number] #: [id number] MTDD
--- NOTE | 2018-10-06 18:41 | OP ---
Operative Report - Blank - Operative Report Date of Operation: 10/06/18 Note: ANINKA VIRAMONTES 1965 Date of Surgery: 10/06/18 Alyse Gordillo MD Telegraph Operator: Miriam RODRIGUES did help throughout the procedure with preparation of the knee, wound retraction, manipulation of the knee, and wound closure. Anesthesiologist: Autumn Sandhu MD Anesthesia Type: Gen Preoperative Diagnosis: Right severe degenerative osteoarthritis of the knee Postoperative Diagnosis: As above Procedure Performed: Right Total Knee Arthroplasty Tourniquet time: 41 minutes Complications: None Specimen: Bone and cartilage from the right knee joint sent to pathology. Hardware Used: Cemented Mathur [employer] Nephew total knee hardware was used - For the femur a size 5 right narrow oxinium legion posterior stabilized femoral component, for the tibia a size 3 right vikas II tibial baseplate, for the insert a size 13mm 3-4 posterior stabilized articular polyethylene insert, and for the patella a size 32 3-peg all poly patella. Brief History/Indication: ANNIKA VIRAMONTES was known in clinic and had a history of severe right knee pain and swelling. She failed conservative treatment with anti-inflammatories, pain pills, intra-articular injections and physical therapy. She elected to undergo right total knee arthroplasty due to continued pain and decreased quality of life. Radiographs showed severe end stage osteoarthritis of the knee with bone on bone contact. Informed consent was obtained from the patient. She understood the risks of surgery included but were not limited to: bleeding, infection, damage to nearby structures, intraoperative fracture, nerve palsy, failure of the hardware, early loosening, knee stiffness or loss of motion, anesthesia complications, stroke, heart attack , blood clot and . She wished to proceed. Intra-Operative Findings: Intraoperatively the patient was noted to have severe loss of cartilage in all 3 compartments of the knee. Description of the Procedure: ANNIKA VIRAMONTES was identified in the preanesthesia unit. Her right knee was marked as the correct operative side. Informed consent was signed and placed in the chart. The patient was taken to the operating room and placed under anesthesia without complication. A orlando catheter was placed. A tourniquet was placed on the right thigh. The right lower extremity was prepped and draped in the usual sterile fashion. Preoperative time-out was made to correctly identify the patient, side and site. Appropriate intraoperative antibiotics were given within one hour of incision. Tourniquet was inflated. A midline incision was made and carried sharply down to the extensor mechanism. A new 10 blade was used to make a standard medial parapatellar arthrotomy. The patella was subluxed laterally. Electrocautery was used to dissect soft tissue off the superomedial tibia to the midsagittal plane. The knee was flexed up. The anterior horn of the lateral meniscus and the ACL were sharply incised. A drill was used to enter the distal femur. The intramedullary distal femoral cutting guide was pinned on the distal femur. The oscillating saw was used to make the distal femoral cut. The external rotation guide was pinned on the distal femur and the distal femur was sized to a size 5. The size 5 multi-cutting jig was pinned on the distal femur. The oscillating saw was used to make the appropriate 4 chamfer cuts. Next the PCL was completely released. The extramedullary tibial cutting guide was pinned on the proximal tibia and the oscillating saw was used to make the proximal tibial cut perpendicular to the mechanical axis of the tibia. The bone was carefully removed. The knee was brought out into full extension. The spacer block was placed and had excellent fit with the knee in full extension. The medial and lateral ligaments were well balanced. The flexion and extension gaps were well balanced. The knee was flexed up. Lamina psychological operations officer was placed both medially and laterally. Any remaining meniscus was removed with electrocautery. Curved osteotome was used to remove any posterior osteophytes. The tibial tray and drop elvis were placed and confirmed a satisfactory tibial cut. The size 5 right narrow femoral trial was impacted onto the distal femur. This trial had excellent fit and stability. The box for the posterior stabilized implant was prepared using a box cut osteotome and a reamer. Next a tibial tray trial and 9 mm insert trial was placed. The knee was taken through a range of motion and had full extension to 130 degrees of flexion. Patellofemoral tracking was satisfactory. The patella was inverted and sized to a size 32. Three peg holes were drilled through the size 32 drill guide. The trial patella was placed and the knee was taken through a range of motion. There was satisfactory patellofemoral tracking. All trials were removed. The tibia was subluxed anteriorly and sized to a size 3. The proximal tibial was prepared with a size 3 keel punch. All bony cut surfaces were irrigated with sterile saline and dried. Final implants were cemented into place starting with the tibia, followed by the femur, and last the patella. A 9 mm insert trial was placed and the knee was brought into full extension. Tourniquet was turned down and the knee was copiously irrigated with sterile saline. Electrocautery was used to obtain meticulous hemostasis. Once the cement had fully cured, the insert trial was removed. Any excess cement was removed from around the hardware and capsule. Final insert chosen was a 13 mm posterior stabilized Vikas II articular insert size 3-4. Stability of the insert was checked and noted to be stable. The extensor mechanism was closed using number 1 vicryls. The rest of the incision was closed in a layered fashion using 0 and 2-0 vicryls. The skin was closed using 3-0 nylon suture. Sterile xeroform, 4x4s and webril were used to cover the incision. Alex wrap and cold pack were used to cover the dressings. The patients anesthesia was reversed without difficulty. She was taken to the PACU in stable condition. Intended weight-bearing will be as tolerated.
[2018-10-06] MEDS: oxyCODONE TAB* 5 MG TAB PO PRN (20:02)
[2018-10-06] MEDS: ceFAZolin 1 GM ADVAN(*) 1 GM in NS 0.9% 50 ML* 50 ML IVPB SCH (20:34)
[2018-10-06] MEDS: Magnesium Hydroxide LIQ* 30 ML UDC PO SCH (20:51)
[2018-10-06] MEDS: Insulin LISPRO* 1 UNITS UNIT SUBCUT SCH (20:52)
[2018-10-06] MEDS: Baclofen TAB* 10 MG PO SCH (20:54)
[2018-10-06] MEDS: Acetaminophen TAB* 325 MG PO SCH (21:13)
[2018-10-07] MEDS: oxyCODONE/Acetamin 5/325 MG* TAB PO PRN ×4 (03:24→21:42)
[2018-10-07] MEDS: Lactated Ringers 1000 ML Bag* 1,000 ML IV SCH (03:25)
[2018-10-07] MEDS: Acetaminophen TAB* 325 MG PO SCH ×3 (05:04→22:35)
[2018-10-07] MEDS: ceFAZolin 1 GM ADVAN(*) 1 GM in NS 0.9% 50 ML* 50 ML IVPB SCH ×2 (05:05→12:00)
[2018-10-07] MEDS: oxyCODONE TAB* 5 MG TAB PO PRN ×3 (05:22→19:59)
[2018-10-07 06:58] LABS: Hematocrit 35 % (35-47); Hemoglobin 11.5 g/dL (12.0-16.0); Mean Platelet Volume 9.2 fL (7.4-10.4); Platelet Count 200 10^3/uL (150-450)
[2018-10-07 07:10] LABS: BUN/Creatinine Ratio 16.9 (8-20); Calcium 8.6 mg/dL (8.6-10.3); EGFR African American 114.9 (>60); Potassium 4.2 mmol/L (3.5-5.0)
[2018-10-07] MEDS: Apixaban* 2.5 MG TAB PO SCH ×2 (08:54→21:15)
[2018-10-07] MEDS: Magnesium Hydroxide LIQ* 30 ML UDC PO SCH ×2 (08:54→21:16)
[2018-10-07] MEDS: Vitamin THERAPEUTIC TAB PO SCH (08:54)
[2018-10-07] MEDS: Losartan TAB* 25 MG PO SCH (08:54)
[2018-10-07] MEDS: Potassium Chlor TAB* 10 MEQ TAB.ER PO SCH (08:54)
[2018-10-07] MEDS: Vitamin B Complex TAB PO SCH (08:54)
[2018-10-07] MEDS: Baclofen TAB* 10 MG PO SCH ×2 (08:55→21:22)
[2018-10-07] MEDS: Insulin LISPRO* 1 UNITS UNIT SUBCUT SCH ×4 (08:55→21:28)
[2018-10-07] MEDS ORDERED: HYDROCHLOROTHIAZIDE 25 MG PO SCH (09:00)
[2018-10-07] MEDS ORDERED: GLIPIZIDE 10 MG PO SCH (09:00)
[2018-10-07] MEDS ORDERED: NON FORMULARY MED* (Losartan Potassium [Cozaar] 50 MG) PO SCH (09:00)
[2018-10-07] MEDS ORDERED: Oxybutynin TAB* 5 MG PO SCH (09:00)
[2018-10-07] MEDS ORDERED: Hydrochlorothiazide TAB* 25 MG PO SCH (09:00)
[2018-10-07] MEDS ORDERED: Dextrose 50% Syringe 50 ML* 25 GM/50 ML SYRINGE IV PUSH PRN (10:02)
--- NOTE | 2018-10-07 10:14 | PN ---
Subjective Date of Service: 10/07/18 Interval History: Pt seen and examined. Meds and labs reviewed. CC: N/A ROS: Denied TUCKER/dizziness, F/C, N/V, CP, SOB, increased cough, sputum production , abd pain, diarrhea, constipation, dysuria, myalgias, arthralgias, throat pain , and new skin lesions. The rest of the 14 point ROS are unremarkable. PHYSICAL EXAM: GEN APPEARANCE: Awake, not in acute distress HEENT: NC/AT, PERRLA, moist oral mucosa, (-) throat erythema NECK: Soft, supple, (-) cervical LAD, (-)JVD HEART: S1S2 WNL, RRR, No MRG CHEST: CTA, BL, GAE, No W/R/R ABD: Soft, ND/NT, NABS 4x Q EXT: No C/C/E SKIN: Warm to touch PSYCH: No active psychosis, hallucinations, depression, SI/HI Objective Active Medications: Acetaminophen (Tylenol Tab*) 975 mg PO Q8H [facility] Last Admin: 10/07/18 05:04 Dose: Not Given Apixaban (Eliquis*) 2.5 mg PO BID [facility] Last Admin: 10/07/18 08:54 Dose: 2.5 mg Baclofen (Lioresal Tab*) 10 mg PO DAILY [facility] Last Admin: 10/07/18 08:55 Dose: 10 mg Baclofen (Lioresal Tab*) 20 mg PO BEDTIME [facility] Last Admin: 10/06/18 20:54 Dose: 20 mg Citalopram Hydrobromide (Celexa Tab*) 20 mg PO QPM [facility] Last Admin: 10/06/18 17:43 Dose: 20 mg Dextrose (D50w Syringe 50 Ml*) 12.5 gm IV PUSH .FOR FS < 60 - SS PRN PRN Reason: FS < 60 Diphenhydramine HCl (Benadryl Po*) 25 mg PO Q6H PRN PRN Reason: itching Hydrochlorothiazide (Hydrodiuril Tab*) 25 mg PO QAM [facility] Last Admin: 10/07/18 08:54 Dose: 25 mg Cefazolin Sodium 1 gm/ Sodium (Chloride) 50 mls @ 200 mls/hr IVPB Q8H [facility] Stop: 10/07/18 12:44 Last Admin: 10/07/18 05:05 Dose: 200 mls/hr Lactated Ringer's (Lactated Ringers 1000 Ml Bag*) 1,000 mls @ 100 mls/hr IV PER RATE [facility] Last Admin: 10/07/18 03:25 Dose: 100 mls/hr Insulin Human Lispro (Humalog*) 0 units SUBCUT ACHS [facility]; Protocol Losartan Potassium (Cozaar Tab*) 50 mg PO QAM [facility] Last Admin: 10/07/18 08:54 Dose: 50 mg Magnesium Hydroxide (Milk Of Magnesia Liq*) 30 ml PO BID [facility] Last Admin: 10/07/18 08:54 Dose: 30 ml Magnesium Hydroxide (Milk Of Magnesia Liq*) 30 ml PO Q6H PRN PRN Reason: constipation Morphine Sulfate (Morphine 4 Mg/Ml Vial (1 Ml)) 2 mg IV Q2H PRN PRN Reason: PAIN Multivitamins (Theragran Tab*) 1 tab PO DAILY [facility] Last Admin: 10/07/18 08:54 Dose: 1 tab Nitrofurantoin Macrocrystals (Macrodantin*) 100 mg PO DAILY PRN PRN Reason: UTI Nfm* (Interferon Beta-1b [Betaseron] 0.3 Mg) 0.3 mg SUBCUT EVERY OTHER DAY [facility] Ondansetron HCl (Zofran Inj*) 4 mg IV Q6H PRN PRN Reason: nausea Oxybutynin Chloride (Ditropan Tab*) 15 mg PO MoWeFr [facility] Last Admin: 10/07/18 09:09 Dose: 15 mg Oxycodone HCl (Roxycodone Tab*) 10 mg PO Q4H PRN PRN Reason: PAIN Last Admin: 10/07/18 05:22 Dose: 10 mg Oxycodone/Acetaminophen (Percocet 5/325 Tab*) 1 tab PO Q3H PRN PRN Reason: PAIN - MODERATE Oxycodone/Acetaminophen (Percocet 5/325 Tab*) 2 tab PO Q3H PRN PRN Reason: PAIN - MODERATE Last Admin: 10/07/18 08:55 Dose: 2 tab Potassium Chloride (Klor Con Er Tab*) 10 meq PO DAILY [facility] Last Admin: 10/07/18 08:54 Dose: 10 meq Vitamin B Complex/Vitamin E (B Complex-50*) 1 tab PO QAM [facility] Last Admin: 10/07/18 08:54 Dose: 1 tab Vital Signs - 8 hr 10/07/18 10/07/18 10/07/18 03:16 03:24 05:22 Temperature 98.4 F Pulse Rate 85 Respiratory 17 20 20 Rate Blood Pressure 123/67 (mmHg) O2 Sat by Pulse 93 Oximetry 10/07/18 10/07/18 10/07/18 07:23 07:30 08:55 Temperature 98.9 F Pulse Rate 88 Respiratory 16 18 18 Rate Blood Pressure 111/55 (mmHg) O2 Sat by Pulse 91 Oximetry Oxygen Devices in Use Now: None Result Diagrams: 10/07/18 06:46 10/07/18 06:46 Assess/Plan/Problems-Billing Assessment: - Patient Problems (1) Osteoarthritis Current Visit: No Status: Chronic Code(s): M19.90 - UNSPECIFIED OSTEOARTHRITIS, UNSPECIFIED SITE SNOMED Code(s): 318775904 Comment: -End-stage -S/P R. TK arthroplasty, POD #1 -Defer w/Ortho -Finishing abx prophylaxis (i.e., Cefazolin x3) (2) Diabetes mellitus Current Visit: No Status: Chronic Code(s): E11.9 - TYPE 2 DIABETES MELLITUS WITHOUT COMPLICATIONS SNOMED Code(s): 29902811 Comment: -Uncontrolled -Likely due to post-op stress -Will adjust ISS -Continue to monitor FS (3) HTN (hypertension) Current Visit: No Status: Chronic Code(s): I10 - ESSENTIAL (PRIMARY) HYPERTENSION SNOMED Code(s): 10241786 Comment: -Well-controlled -Consider D/C LR if continues to be hemodynamically stable (4) Depression Current Visit: Yes Status: Acute Code(s): F32.9 - MAJOR DEPRESSIVE DISORDER , SINGLE EPISODE, UNSPECIFIED SNOMED Code(s): 07310835 Comment: -Continue Citalopram (5) DVT prophylaxis Current Visit: No Status: Acute Code(s): VVF5839 - SNOMED Code(s): 938906120 Comment: -On Eliquis Status and Disposition: -Defer w/ortho
--- NOTE | 2018-10-07 11:03 | PN ---
Progress Note - Progress Note Date of Service: 10/07/18 SOAP: Subjective: OOB to chair, pain controlled, no complaints; slow progress with PT Objective: Vital Signs Temp Pulse Resp BP Pulse Ox 98.9 F 88 18 111/55 91 10/07/18 07:23 10/07/18 07:23 10/07/18 08:55 10/07/18 07:23 10/07/18 07:23 Laboratory Last Values Hgb 11.5 g/dL (12.0-16.0) L 10/07/18 06:46 Hct 35 % (35-47) 10/07/18 06:46 Plt Count 200 10^3/uL (150-450) 10/07/18 06:46 MPV 9.2 fL (7.4-10.4) 10/07/18 06:46 Sodium 138 mmol/L (135-145) 10/07/18 06:46 Potassium 4.2 mmol/L (3.5-5.0) 10/07/18 06:46 Chloride 103 mmol/L (101-111) 10/07/18 06:46 Carbon Dioxide 30 mmol/L (22-32) 10/07/18 06:46 Anion Gap 5 mmol/L (2-11) 10/07/18 06:46 BUN 11 mg/dL (6-24) 10/07/18 06:46 Creatinine 0.65 mg/dL (0.51-0.95) 10/07/18 06:46 Est GFR ( Amer) 114.9 (>60) 10/07/18 06:46 Est GFR (Non-Af Amer) 95.0 (>60) 10/07/18 06:46 BUN/Creatinine Ratio 16.9 (8-20) 10/07/18 06:46 Glucose 219 mg/dL (70-100) H 10/07/18 06:46 POC Glucose (mg/dL) 211 mg/dL (70-100) H 10/07/18 07:46 Calcium 8.6 mg/dL (8.6-10.3) 10/07/18 06:46 PE: NVI incision: c/d/i Assessment: s/p right TKA Plan: 1) continue PT/OT- WBAT 2) Eliquis for DVT prophylaxis 3) PMRU consult pending 4) abx for 24 hours post-op
[2018-10-07] MEDS ORDERED: INTERFERON BETA 0.3 MG SUBCUT SCH (21:10)
[2018-10-07] MEDS: Citalopram TAB* 20 MG PO SCH (21:15)
[2018-10-08] MEDS: oxyCODONE/Acetamin 5/325 MG* TAB PO PRN ×4 (06:23→20:40)
[2018-10-08 06:41] LABS: Hematocrit 34 % (35-47); Hemoglobin 11.3 g/dL (12.0-16.0); Mean Corpuscular HGB Conc 33 g/dL (31-36); Mean Corpuscular Hemoglobin 28 pg (27-31); Mean Corpuscular Volume 85 fL (80-97); Mean Platelet Volume 9.4 fL (7.4-10.4); Platelet Count 170 10^3/uL (150-450); Red Blood Count 4.01 10^6 /uL (3.70-4.87); Red Cell Distribution Width 14 % (10.5-15); White Blood Count 7.1 10^3/uL (3.5-10.8)
[2018-10-08 06:56] LABS: Albumin 3.2 g/dL (3.2-5.2); Albumin/Globulin Ratio 1.2 (1-3); BUN/Creatinine Ratio 21.5 (8-20); Calcium 8.2 mg/dL (8.6-10.3); EGFR African American 114.9 (>60); Globulin 2.6 g/dL (2-4); Magnesium 2.2 mg/dL (1.9-2.7); Potassium 3.8 mmol/L (3.5-5.0); Total Bilirubin 0.5 mg/dL (0.2-1.0); Total Protein 5.8 g/dL (6.4-8.9)
[2018-10-08] MEDS: Acetaminophen TAB* 325 MG PO SCH ×3 (07:19→23:08)
[2018-10-08] MEDS ORDERED: Dextrose 50% Syringe 50 ML* 25 GM/50 ML SYRINGE IV PUSH PRN (07:58)
[2018-10-08] MEDS ORDERED: Insulin LISPRO* 1 UNITS UNIT SUBCUT SCH (08:40)
[2018-10-08] MEDS: Insulin LISPRO* 1 UNITS UNIT SUBCUT SCH ×4 (08:42→20:43)
[2018-10-08] MEDS: Baclofen TAB* 10 MG PO SCH ×2 (08:48→20:39)
[2018-10-08] MEDS: Apixaban* 2.5 MG TAB PO SCH ×2 (08:48→20:39)
[2018-10-08] MEDS: Vitamin THERAPEUTIC TAB PO SCH (08:48)
[2018-10-08] MEDS: Losartan TAB* 25 MG PO SCH ×2 (08:48→08:50)
[2018-10-08] MEDS: Vitamin B Complex TAB PO SCH (08:48)
[2018-10-08] MEDS: Magnesium Hydroxide LIQ* 30 ML UDC PO SCH ×2 (08:48→20:41)
[2018-10-08] MEDS: Potassium Chlor TAB* 10 MEQ TAB.ER PO SCH (08:48)
--- NOTE | 2018-10-08 11:04 | PN ---
Progress Note - Progress Note Date of Service: 10/08/18 SOAP: Subjective: Pt. is alert, nad. She is hoping for PMRU transfer. Objective: Vital Signs: Temp Pulse Resp BP Pulse Ox 98.2 F 96 18 100/55 93 10/08/18 07:37 10/08/18 07:37 10/08/18 10:38 10/08/18 07:37 10/08/18 08:00 Laboratory Results - last 24 hr 10/07/18 10/07/18 10/07/18 11:06 16:21 21:19 WBC RBC Hgb Hct MCV MCH MCHC RDW Plt Count MPV Sodium Potassium Chloride Carbon Dioxide Anion Gap BUN Creatinine Est GFR ( Amer) Est GFR (Non-Af Amer) BUN/Creatinine Ratio Glucose POC Glucose (mg/dL) 164 H 193 H 246 H Calcium Phosphorus Magnesium Total Bilirubin AST ALT Alkaline Phosphatase Total Protein Albumin Globulin Albumin/Globulin Ratio 10/08/18 10/08/18 10/08/18 06:28 06:28 06:40 WBC 7.1 RBC 4.01 Hgb 11.3 L Hct 34 L MCV 85 MCH 28 MCHC 33 RDW 14 Plt Count 170 MPV 9.4 Sodium 137 Potassium 3.8 Chloride 102 Carbon Dioxide 31 Anion Gap 4 BUN 14 Creatinine 0.65 Est GFR ( Amer) 114.9 Est GFR (Non-Af Amer) 95.0 BUN/Creatinine Ratio 21.5 H Glucose 251 H POC Glucose (mg/dL) 264 H Calcium 8.2 L Phosphorus 2.0 L Magnesium 2.2 Total Bilirubin 0.50 AST 13 ALT 12 Alkaline Phosphatase 59 Total Protein 5.8 L Albumin 3.2 Globulin 2.6 Albumin/Globulin Ratio 1.2 RLE - dressing changed, inc c/d/i. distally nvi. Assessment: 53 yo F pod 2 s/p RTKA Plan: awaiting pmru decision, possible d/c there 10/09 pt/ot wbat eliquis prn analgesia
--- NOTE | 2018-10-08 11:30 | PN ---
Subjective Date of Service: 10/08/18 Interval History: Pt seen and examined. Meds and labs reviewed. CC: N/A ROS: Denied TUCKER/dizziness, F/C, N/V, CP, SOB, increased cough, sputum production , abd pain, diarrhea, constipation, dysuria, myalgias, arthralgias, throat pain , and new skin lesions. The rest of the 14 point ROS are unremarkable. PHYSICAL EXAM: GEN APPEARANCE: Awake, not in acute distress HEENT: NC/AT, PERRLA, moist oral mucosa, (-) throat erythema NECK: Soft, supple, (-) cervical LAD, (-)JVD HEART: S1S2 WNL, RRR, No MRG CHEST: CTA, BL, GAE, No W/R/R ABD: Soft, ND/NT, NABS 4x Q EXT: No C/C/E SKIN: Warm to touch PSYCH: No active psychosis, hallucinations, depression, SI/HI Objective Active Medications: Acetaminophen (Tylenol Tab*) 975 mg PO Q8H [facility] Last Admin: 10/08/18 07:19 Dose: Not Given Apixaban (Eliquis*) 2.5 mg PO BID [facility] Last Admin: 10/08/18 08:48 Dose: 2.5 mg Baclofen (Lioresal Tab*) 10 mg PO DAILY [facility] Last Admin: 10/08/18 08:48 Dose: 10 mg Baclofen (Lioresal Tab*) 20 mg PO BEDTIME [facility] Last Admin: 10/07/18 21:22 Dose: 20 mg Citalopram Hydrobromide (Celexa Tab*) 20 mg PO QPM [facility] Last Admin: 10/07/18 21:15 Dose: 20 mg Dextrose (D50w Syringe 50 Ml*) 12.5 gm IV PUSH .FOR FS < 60 - SS PRN PRN Reason: FS < 60 Diphenhydramine HCl (Benadryl Po*) 25 mg PO Q6H PRN PRN Reason: itching Insulin Human Lispro (Humalog*) 0 units SUBCUT ACHS [facility]; Protocol Lactulose (Lactulose*) 30 ml PO QID [facility] Losartan Potassium (Cozaar Tab*) 50 mg PO QAM [facility] Last Admin: 10/08/18 08:50 Dose: Not Given Magnesium Hydroxide (Milk Of Magnesia Liq*) 30 ml PO BID [facility] Last Admin: 05/11/19 08:48 Dose: 30 ml Magnesium Hydroxide (Milk Of Magnesia Liq*) 30 ml PO Q6H PRN PRN Reason: constipation Morphine Sulfate (Morphine 4 Mg/Ml Vial (1 Ml)) 2 mg IV Q2H PRN PRN Reason: PAIN Multivitamins (Theragran Tab*) 1 tab PO DAILY [facility] Last Admin: 10/08/18 08:48 Dose: 1 tab Nitrofurantoin Macrocrystals (Macrodantin*) 100 mg PO DAILY PRN PRN Reason: UTI Pto:(Interferon Beta -1b [Betaseron] 0.3 Mg) 0.3 mg SUBCUT EVERY OTHER DAY@ 2100 [facility] Last Admin: 10/07/18 21:34 Dose: 0.3 mg Ondansetron HCl (Zofran Inj*) 4 mg IV Q6H PRN PRN Reason: nausea Last Admin: 10/08/18 06:21 Dose: 4 mg Oxybutynin Chloride (Ditropan Tab*) 15 mg PO MoWeFr [facility] Last Admin: 10/07/18 09:09 Dose: 15 mg Oxycodone HCl (Roxycodone Tab*) 10 mg PO Q4H PRN PRN Reason: PAIN Last Admin: 10/07/18 19:59 Dose: 10 mg Oxycodone/Acetaminophen (Percocet 5/325 Tab*) 1 tab PO Q3H PRN PRN Reason: PAIN - MODERATE Oxycodone/Acetaminophen (Percocet 5/325 Tab*) 2 tab PO Q3H PRN PRN Reason: PAIN - MODERATE Last Admin: 10/08/18 10:38 Dose: 2 tab Potassium Chloride (Klor Con Er Tab*) 10 meq PO DAILY [facility] Last Admin: 10/08/18 08:48 Dose: 10 meq Vitamin B Complex/Vitamin E (B Complex-50*) 1 tab PO QAM [facility] Last Admin: 10/08/18 08:48 Dose: 1 tab Vital Signs - 8 hr 10/08/18 10/08/18 10/08/18 06:23 06:47 07:37 Temperature 99.3 F 98.2 F Pulse Rate 92 96 Respiratory 16 17 18 Rate Blood Pressure 135/63 100/55 (mmHg) O2 Sat by Pulse 96 90 Oximetry 10/08/18 10/08/18 10/08/18 08:00 08:47 10:38 Temperature Pulse Rate Respiratory 18 18 18 Rate Blood Pressure (mmHg) O2 Sat by Pulse 93 Oximetry 10/08/18 11:11 Temperature Pulse Rate Respiratory Rate Blood Pressure (mmHg) O2 Sat by Pulse 96 Oximetry Oxygen Devices in Use Now: None Result Diagrams: 10/08/18 06:28 10/08/18 06:28 Assess/Plan/Problems-Billing Assessment: - Patient Problems (1) Osteoarthritis Current Visit: No Status: Chronic Code(s): M19.90 - UNSPECIFIED OSTEOARTHRITIS, UNSPECIFIED SITE SNOMED Code(s): 558190960 Comment: -End-stage -S/P R. TK arthroplasty, POD #2 -Defer w/Ortho -24-H Abx prophylaxis finished (2) Diabetes mellitus Current Visit: No Status: Chronic Code(s): E11.9 - TYPE 2 DIABETES MELLITUS WITHOUT COMPLICATIONS SNOMED Code(s): 58321179 Comment: -Uncontrolled -Likely due to post-op stress -Adjusted ISS -Continue to monitor FS (3) HTN (hypertension) Current Visit: No Status: Chronic Code(s): I10 - ESSENTIAL (PRIMARY) HYPERTENSION SNOMED Code(s): 07524339 Comment: -Well-controlled -Consider D/C LR if continues to be hemodynamically stable (4) Depression Current Visit: Yes Status: Acute Code(s): F32.9 - MAJOR DEPRESSIVE DISORDER , SINGLE EPISODE, UNSPECIFIED SNOMED Code(s): 34583271 Comment: -Continue Citalopram (5) DVT prophylaxis Current Visit: No Status: Acute Code(s): WXI5133 - SNOMED Code(s): 095656639 Comment: -On Eliquis Status and Disposition: -Awaiting pmru decision, possible d/c there 10/09
[2018-10-08] MEDS: Citalopram TAB* 20 MG PO SCH (16:56)
[2018-10-09 04:59] LABS: Hematocrit 36 % (35-47); Platelet Count 183 10^3/uL (150-450)
[2018-10-09] MEDS: Acetaminophen TAB* 325 MG PO SCH (05:58)
[2018-10-09 07:34] VITALS: BP 127/64
[2018-10-09] MEDS: Losartan TAB* 25 MG PO SCH (07:35)
[2018-10-09] MEDS ORDERED: Insulin LISPRO* 1 UNITS UNIT SUBCUT SCH (07:52)
[2018-10-09] MEDS: Apixaban* 2.5 MG TAB PO SCH (07:57)
[2018-10-09] MEDS: oxyCODONE/Acetamin 5/325 MG* TAB PO PRN (07:57)
[2018-10-09] MEDS: Potassium Chlor TAB* 10 MEQ TAB.ER PO SCH (07:57)
[2018-10-09] MEDS: Vitamin THERAPEUTIC TAB PO SCH (07:57)
[2018-10-09] MEDS: Vitamin B Complex TAB PO SCH (07:57)
[2018-10-09] MEDS: Magnesium Hydroxide LIQ* 30 ML UDC PO SCH (07:58)
[2018-10-09] MEDS: Baclofen TAB* 10 MG PO SCH (07:58)
[2018-10-09] MEDS: Insulin LISPRO* 1 UNITS UNIT SUBCUT SCH (08:53)
--- NOTE | 2018-10-09 09:21 | PN ---
Progress Note - Progress Note Date of Service: 10/09/18 SOAP: Subjective: Pt seen sitting up in chair. Minimal complaint of pain. Feels constipated. Denies CP, SOB, N/V Vital Signs: Temp Pulse Resp BP Pulse Ox 98.3 F 91 18 127/64 94 10/09/18 07:24 10/09/18 07:24 10/09/18 08:00 10/09/18 07:24 10/09/18 07:24 Laboratory Last Values WBC 7.1 10^3/uL (3.5-10.8) 10/08/18 06:28 RBC 4.01 10^6 /uL (3.70-4.87) 10/08/18 06:28 Hgb 12.0 g/dL (12.0-16.0) 10/09/18 04:51 Hct 36 % (35-47) 10/09/18 04:51 MCV 85 fL (80-97) 10/08/18 06:28 MCH 28 pg (27-31) 10/08/18 06:28 MCHC 33 g/dL (31-36) 10/08/18 06:28 RDW 14 % (10.5-15) 10/08/18 06:28 Plt Count 183 10^3/uL (150-450) 10/09/18 04:51 MPV 9.0 fL (7.4-10.4) 10/09/18 04:51 Sodium 137 mmol/L (135-145) 10/08/18 06:28 Potassium 3.8 mmol/L (3.5-5.0) 10/08/18 06:28 Chloride 102 mmol/L (101-111) 10/08/18 06:28 Carbon Dioxide 31 mmol/L (22-32) 10/08/18 06:28 Anion Gap 4 mmol/L (2-11) 10/08/18 06:28 BUN 14 mg/dL (6-24) 10/08/18 06:28 Creatinine 0.65 mg/dL (0.51-0.95) 10/08/18 06:28 Est GFR ( Amer) 114.9 (>60) 10/08/18 06:28 Est GFR (Non-Af Amer) 95.0 (>60) 10/08/18 06:28 BUN/Creatinine Ratio 21.5 (8-20) H 10/08/18 06:28 Glucose 251 mg/dL (70-100) H 10/08/18 06:28 POC Glucose (mg/dL) 234 mg/dL (70-100) H 10/09/18 08:03 Calcium 8.2 mg/dL (8.6-10.3) L 10/08/18 06:28 Phosphorus 2.0 mg/dL (2.5-5.0) L 10/08/18 06:28 Magnesium 2.2 mg/dL (1.9-2.7) 10/08/18 06:28 Total Bilirubin 0.50 mg/dL (0.2-1.0) 10/08/18 06:28 AST 13 U/L (13-39) 10/08/18 06:28 ALT 12 U/L (7-52) 10/08/18 06:28 Alkaline Phosphatase 59 U/L (34-104) 10/08/18 06:28 Total Protein 5.8 g/dL (6.4-8.9) L 10/08/18 06:28 Albumin 3.2 g/dL (3.2-5.2) 10/08/18 06:28 Globulin 2.6 g/dL (2-4) 10/08/18 06:28 Albumin/Globulin Ratio 1.2 (1-3) 10/08/18 06:28 Objective: A&O x3, NAD, Dressing C/D/I, Calves soft and nontender, No edema, NVI distally. Assessment: 53 yo female s/p right TKA POD #3 Plan: OOB, PT/OT Pain control DVT prophylaxis - Eliquis BID Constipation - continue laxatives D/C to PMRU today
--- NOTE | 2018-10-09 09:48 | PN ---
Subjective Date of Service: 10/09/18 Interval History: Pt seen and examined. Meds and labs reviewed. CC: N/A ROS: Denied TUCKER/dizziness, F/C, N/V, CP, SOB, increased cough, sputum production , abd pain, diarrhea, constipation, dysuria, myalgias, arthralgias, throat pain , and new skin lesions. The rest of the 14 point ROS are unremarkable. PHYSICAL EXAM: GEN APPEARANCE: Awake, not in acute distress HEENT: NC/AT, PERRLA, moist oral mucosa, (-) throat erythema NECK: Soft, supple, (-) cervical LAD, (-)JVD HEART: S1S2 WNL, RRR, No MRG CHEST: CTA, BL, GAE, No W/R/R ABD: Soft, ND/NT, NABS 4x Q EXT: No C/C/E SKIN: Warm to touch PSYCH: No active psychosis, hallucinations, depression, SI/HI Objective Active Medications: Acetaminophen (Tylenol Tab*) 975 mg PO Q8H [facility] Last Admin: 10/09/18 05:58 Dose: Not Given Apixaban (Eliquis*) 2.5 mg PO BID [facility] Last Admin: 10/09/18 07:57 Dose: 2.5 mg Baclofen (Lioresal Tab*) 10 mg PO DAILY [facility] Last Admin: 10/09/18 07:58 Dose: 10 mg Baclofen (Lioresal Tab*) 20 mg PO BEDTIME [facility] Last Admin: 10/08/18 20:39 Dose: 20 mg Citalopram Hydrobromide (Celexa Tab*) 20 mg PO QPM [facility] Last Admin: 10/08/18 16:56 Dose: 20 mg Dextrose (D50w Syringe 50 Ml*) 12.5 gm IV PUSH .FOR FS < 60 - SS PRN PRN Reason: FS < 60 Diphenhydramine HCl (Benadryl Po*) 25 mg PO Q6H PRN PRN Reason: itching Insulin Human Lispro (Humalog*) 0 units SUBCUT ACHS [facility]; Protocol Last Admin: 10/09/18 08:51 Dose: 15 units Lactulose (Lactulose*) 30 ml PO QID [facility] Last Admin: 10/09/18 07:58 Dose: 30 ml Losartan Potassium (Cozaar Tab*) 50 mg PO QAM [facility] Last Admin: 10/09/18 07:35 Dose: Not Given Magnesium Hydroxide (Milk Of Magnesia Liq*) 30 ml PO BID [facility] Last Admin: 10/09/18 07:58 Dose: 30 ml Magnesium Hydroxide (Milk Of Magnesia Liq*) 30 ml PO Q6H PRN PRN Reason: constipation Morphine Sulfate (Morphine 4 Mg/Ml Vial (1 Ml)) 2 mg IV Q2H PRN PRN Reason: PAIN Multivitamins (Theragran Tab*) 1 tab PO DAILY [facility] Last Admin: 10/09/18 07:57 Dose: 1 tab Nitrofurantoin Macrocrystals (Macrodantin*) 100 mg PO DAILY PRN PRN Reason: UTI Last Admin: 10/09/18 08:05 Dose: 100 mg Pto:(Interferon Beta -1b [Betaseron] 0.3 Mg) 0.3 mg SUBCUT EVERY OTHER DAY@ 2100 [facility] Last Admin: 10/07/18 21:34 Dose: 0.3 mg Ondansetron HCl (Zofran Inj*) 4 mg IV Q6H PRN PRN Reason: nausea Last Admin: 10/08/18 06:21 Dose: 4 mg Oxybutynin Chloride (Ditropan Tab*) 15 mg PO MoWeFr [facility] Last Admin: 10/07/18 09:09 Dose: 15 mg Oxycodone HCl (Roxycodone Tab*) 10 mg PO Q4H PRN PRN Reason: PAIN Last Admin: 10/07/18 19:59 Dose: 10 mg Oxycodone/Acetaminophen (Percocet 5/325 Tab*) 1 tab PO Q3H PRN PRN Reason: PAIN - MODERATE Oxycodone/Acetaminophen (Percocet 5/325 Tab*) 2 tab PO Q3H PRN PRN Reason: PAIN - MODERATE Last Admin: 10/09/18 07:57 Dose: 2 tab Potassium Chloride (Klor Con Er Tab*) 10 meq PO DAILY [facility] Last Admin: 10/09/18 07:57 Dose: 10 meq Vitamin B Complex/Vitamin E (B Complex-50*) 1 tab PO QAM [facility] Last Admin: 10/09/18 07:57 Dose: 1 tab Vital Signs - 8 hr 10/09/18 10/09/18 10/09/18 03:30 07:24 07:57 Temperature 98.6 F 98.3 F Pulse Rate 96 91 Respiratory 18 16 18 Rate Blood Pressure 132/67 127/64 (mmHg) O2 Sat by Pulse 93 94 Oximetry 10/09/18 08:00 Temperature Pulse Rate Respiratory 18 Rate Blood Pressure (mmHg) O2 Sat by Pulse Oximetry Oxygen Devices in Use Now: None Result Diagrams: 10/09/18 04:51 10/08/18 06:28 Assess/Plan/Problems-Billing Assessment: - Patient Problems (1) Osteoarthritis Current Visit: No Status: Chronic Code(s): M19.90 - UNSPECIFIED OSTEOARTHRITIS, UNSPECIFIED SITE SNOMED Code(s): 238317817 Comment: -End-stage -S/P R. TK arthroplasty, POD #3 -Defer w/Ortho -24-H Abx prophylaxis finished (2) Diabetes mellitus Current Visit: No Status: Chronic Code(s): E11.9 - TYPE 2 DIABETES MELLITUS WITHOUT COMPLICATIONS SNOMED Code(s): 20890983 Comment: -Uncontrolled -Likely due to post-op stress -Adjusted ISS -Continue to monitor FS (3) HTN (hypertension) Current Visit: No Status: Chronic Code(s): I10 - ESSENTIAL (PRIMARY) HYPERTENSION SNOMED Code(s): 00648408 Comment: -Well-controlled -Consider restarting HCTZ in 2 days (4) Depression Current Visit: Yes Status: Acute Code(s): F32.9 - MAJOR DEPRESSIVE DISORDER , SINGLE EPISODE, UNSPECIFIED SNOMED Code(s): 87201134 Comment: -Continue Citalopram (5) DVT prophylaxis Current Visit: No Status: Acute Code(s): VMV5763 - SNOMED Code(s): 919712533 Comment: -On Eliquis Status and Disposition: -D/C to [facility] today -Defer w/Ortho -Thank you for having us co-manage patient with you. We will S/O at this time. Please call us for any questions and/or concerns.
--- NOTE | 2018-10-11 | DS ---
DISCHARGE SUMMARY: DATE OF ADMISSION: 10/06/18 DATE OF DISCHARGE: 10/09/18 ATTENDING PHYSICIAN: Dr. Alyse Gordillo.* (DICTATED BY LILIA VILLAVICENCIO) PRINCIPAL DIAGNOSIS: Right knee osteoarthritis. SECONDARY DIAGNOSES: 1. Diabetes. 2. Hypertension. 3. Multiple sclerosis. 4. Depression. 5. Anxiety. 6. Fibromyalgia. PRINCIPAL PROCEDURE: Right total knee arthroplasty. REASON FOR HOSPITALIZATION: Ms. Howard is a 53-year-old female with persistent complaints of right knee pain. She has failed conservative treatment and elected to proceed with a right total knee arthroplasty. HOSPITAL COURSE: The patient was admitted on 10/06/18 for anticipated right total knee arthroplasty. She underwent surgery without any complications. She was transferred to the recovery room and subsequently the surgical stay unit in a stable condition. The patient participated in physical therapy and occupational therapy throughout the hospital course and had done well. She did feel a little bit unstable walking on her own. She had blood work drawn daily, hemoglobin and hematocrit. Her hemoglobin was 12.0 and hematocrit was 36 on the day of discharge. She had been taking Percocet for postoperative pain management. Her pain was well controlled. Her vital signs remained stable throughout the hospital course including remaining afebrile. She did have complaints of constipation. She had been taking stool softeners and laxatives. She had no other complications throughout the hospital course. She was discharged to [facility] in a stable condition on 10/09/18. DISCHARGE INSTRUCTIONS: Weight bear as tolerated. Wound care: Okay to shower on postop day #3. No bathing, swimming, or submerging wound. Use gentle soap, pat dry. Cover with gauze, Alex wrap or tape. Call orthopedic office for increased drainage or redness, increased pain or fever. Go to the ER with shortness of breath or chest pain. Regular diet. Increase fluids and fiber to prevent constipation. Continue to use stool softeners. Call office if no bowel motion within 48 hours. Continue physical therapy and occupational therapy exercises as shown. Wound checks will be at [facility]. DVT prophylaxis, Eliquis 2.5 mg twice a day x1 month. Pain control with Percocet 5/325 one to two tabs by mouth every 4 to 6 hours as needed for pain. Antibiotics required prior to any dental work. Follow up with Dr. Gordillo within 10 to 14 days. Call for appointment. Please call our office with any questions or concerns at . LILIA VILLAVICENCIO [id number]/[facility] #: [id number] ISIAH
== END 2018-10-09 10:00 | DRG 470 ==
LOC: AA 08:30 → SSU 14:57
PROVIDERS: ADMIT Orthopaedic Surgery Adult Reconstructive Orthopaedic Surgery; ATTEND Orthopaedic Surgery Adult Reconstructive Orthopaedic Surgery
PROC: 0SRC069 Replacement of Right Knee Joint with Oxidized Zirconium on Polyethylene Synthetic Substitute, Cemented, Open Approach (ICD-10-PCS; principal; 2018-10-06 11:15)
DX: M17.11 Unilateral primary osteoarthritis, right knee (principal); Z68.41 Body mass index [BMI] 40.0-44.9, adult; M25.761 Osteophyte, right knee; E11.65 Type 2 diabetes mellitus with hyperglycemia; I10 Essential (primary) hypertension; G35 Multiple sclerosis; F32.9 Major depressive disorder, single episode, unspecified; F41.9 Anxiety disorder, unspecified; E87.6 Hypokalemia; M79.7 Fibromyalgia; E66.9 Obesity, unspecified; Z88.1 Allergy status to other antibiotic agents; Z88.2 Allergy status to sulfonamides; Z88.8 Allergy status to other drugs, medicaments and biological substances; Z82.3 Family history of stroke; Z80.59 Family history of malignant neoplasm of other urinary tract organ; Z79.84 Long term (current) use of oral hypoglycemic drugs; Z79.1 Long term (current) use of non-steroidal anti-inflammatories (NSAID); Z79.899 Other long term (current) drug therapy; Z82.49 Family history of ischemic heart disease and other diseases of the circulatory system
CPT/HCPCS: 36415; 71045; 80048; 80053; 83735; 84100; 85014; 85018; 85027; 85049; A9270-GY; C1776; G8978-GP-CM; G8979-GP-CI; G8987-GO-CL; G8988-GO-CI; J0330; J0690; J1100; J1240; J1885; J2250; J2405; J2704; J2795; J3010

== ENCOUNTER 2018-10-09 08:12 | Inpatient (IN) | payer MEDICARE, MEDICAID ==
[2018-10-09] MEDS ORDERED: Acetaminophen TAB* 325 MG PO PRN (08:30)
[2018-10-09] MEDS ORDERED: Al Hydrox/Mg Hydrox/Simet LIQ* 30 ML UDC PO PRN (08:30)
[2018-10-09] MEDS ORDERED: Sodium Phosphate ADULT ENEMA* 118 ml bottle PR PRN (08:30)
[2018-10-09] MEDS ORDERED: Bisacodyl SUPP* 10 MG SUPP PR PRN (08:30)
[2018-10-09] MEDS ORDERED: Magnesium Hydroxide LIQ* 30 ML UDC PO PRN (08:30)
[2018-10-09] MEDS ORDERED: Dextrose 50% Syringe 50 ML* 25 GM/50 ML SYRINGE IV PUSH PRN (08:41)
[2018-10-09] MEDS ORDERED: oxyCODONE/Acetamin 5/325 MG* TAB PO PRN ×2 (08:51→08:52)
[2018-10-09] MEDS ORDERED: Ondansetron ODT TAB* 4 MG SL PRN (08:55)
[2018-10-09] MEDS: Acetaminophen TAB* 325 MG PO SCH ×3 (11:08→23:11)
[2018-10-09] MEDS: Docusate CAP* 100 MG PO SCH ×2 (11:10→20:51)
[2018-10-09] MEDS: Baclofen TAB* 10 MG PO SCH (11:10)
[2018-10-09] MEDS: Losartan TAB* 25 MG PO SCH (11:10)
[2018-10-09] MEDS: Apixaban* 2.5 MG TAB PO SCH ×2 (11:10→21:09)
[2018-10-09] MEDS: glipiZIDE TAB.XL* 5 MG PO SCH (11:10)
[2018-10-09] MEDS: Vitamin B Complex TAB PO SCH (11:11)
[2018-10-09] MEDS: Multivitamins/Minerals TAB PO SCH (11:11)
[2018-10-09] MEDS: Potassium Chlor TAB* 10 MEQ TAB.ER PO SCH (11:11)
[2018-10-09] MEDS: Polyethylene Glycol 3350* 17 GM PACKET PO SCH (11:11)
[2018-10-09 12:02] LABS: Urine Appearance Cloudy; Urine Bacteria Absent (Absent); Urine Bilirubin Negative (Negative); Urine Blood 3+ (Negative); Urine Color Yellow; Urine Glucose Negative (Negative); Urine Ketones 1+ (Negative); Urine Nitrite Negative (Negative); Urine Protein 2+(100 mg/dL) (Negative); Urine Red Blood Cell 2+(6-10/hpf) (Absent); Urine Specific Gravity 1.006 (1.010-1.030); Urine Squamous Epithelial Cell Present (Absent); Urine Urobilinogen Negative (Negative); Urine White Blood Cell Trace(0-5/hpf) (Absent)
[2018-10-09] MEDS: Insulin LISPRO* 1 UNITS UNIT SUBCUT SCH ×3 (12:16→20:51)
[2018-10-09] MEDS: oxyCODONE TAB* 5 MG TAB PO PRN ×2 (12:26→17:18)
--- NOTE | 2018-10-09 13:43 | HP ---
AMENDED REPORT TO CORRECT CC RECIPIENT NAME CC: LILIA Reardon with [facility]; Dr. Gordillo; Dr. Moore * HISTORY AND PHYSICAL: DATE OF ADMISSION: 10/09/18 PRIMARY CARE PROVIDER: LILIA Reardon with [facility]. ORTHOPEDIC SURGEON: Dr. Gordillo. NEUROLOGIST: Dr. Moore. REASON FOR ADMISSION: Right total knee replacement secondary to osteoarthritis. HISTORY OF PRESENT ILLNESS: This is a 53-year-old woman with multiple sclerosis and fibromyalgia, who is followed by Dr. Moore. In the past, she was followed by Dr. Solis. She has had ongoing issues with pain in both of her knees for several years and on 10/06/[address] Gordillo for elective right total knee replacement secondary to osteoarthritis. Postoperatively, she is weightbearing as tolerated precautions to the right lower extremity. She has been placed on Eliquis for DVT prophylaxis. She has been having a difficult time mobilizing due to pain in her knee and stiffness. She has been known to have some balance issues related to her multiple sclerosis and often has paresthesias involving her feet and some weakness on the right side as well. Prior to admission, she was independent ambulating using a rolling walker, but used a manual wheelchair or electrical wheelchair in the community. She was independently toileting and showering. She did require minimal assistance for lower body dressing. With occupational therapy since her surgery she has required a total amount of assistance for lower body dressing, toileting, transferring with easy stand, and requires a two maximum assistance for bathing. For physical therapy, she has required EZ stand for transfers. She has been using oxygen since surgery. Chest x-ray on 10/08/18 was negative for any acute pulmonary process. She has been using an incentive spirometer. She has also had some issues with hyperglycemia postoperatively. She is a diabetic and has been off of her oral medications. She has not had a bowel movement since the day before surgery despite being given laxatives. She had some dizziness yesterday morning that resolved and she is able to do therapy. This morning she felt a little bit nauseated and some lower abdominal pain similar to what she gets when has a bladder infection. She was given a dose of nitrofurantoin, but she has a standing order for at home for when she gets these symptoms. PAST MEDICAL HISTORY: 1. Multiple sclerosis currently followed by Dr. Moore. 2. Diabetes mellitus type 2. 3. Hypertension. 4. Depression. 5. Anxiety. 6. Fibromyalgia. 7. Status post appendectomy. 8. Status post wisdom tooth extraction. 9. Status post . 10. Status post tubal ligation. 11. Chronic intermittent vertigo associated with multiple sclerosis as well as for paresthesias and balance issues. She had a normal noninvasive cardiac stress test on 10/01/18 preoperatively. 12. Intermittent urinary tract infections. MEDICATIONS: 1. Citalopram 20 mg q.p.m. 2. Vitamin B complex. 3. Tylenol as scheduled, maximum 75 mg q.8 hours. 4. Oxybutynin XL 15 mg q. Wednesday, Wednesday, and Wednesday. 5. Potassium chloride 10 mEq daily. 6. Losartan 50 mg daily. 7. Baclofen 10 mg q.a.m. and 20 mg q.h.s. 8. Betaseron 0.3 mg injected subcutaneously q.o.d. 9. Nitrofurantoin 100 mg daily p.r.n. UTI. She has currently taken her first dose this morning. 10. Eliquis 2.5 mg b.i.d. for DVT prophylaxis. 11. Lispro sliding-scale insulin. 12. Milk of magnesia. 13. Multivitamin. 14. Oxycodone p.r.n. on hold. 15. Hydrochlorothiazide 25 mg daily. 16. Glipizide ER 10 mg daily. 17. Vitamin D 2000 units daily. 18. Vitamin C 1000 mg daily. ALLERGIES: CIPROFLOXACIN, LEVOFLOXACIN, DEMEROL, BACTRIM, JIMBO, and STATINS. FAMILY HISTORY: Father, ureteral cancer. Mother, stroke, hypertension. SOCIAL HISTORY: She lives with her . She has two daughters that are close by. One of her daughters is hired through [employer] to be a caregiver for her daily. No smoking or alcohol. 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 Their home is one level and she has a ramp to enter. REVIEW OF SYSTEMS: See history of present illness and past medical history. The remainder of a 13-system review was completed. No other significant findings. PHYSICAL EXAMINATION GENERAL: Well developed, well nourished, overweight. Mental Status: No acute distress. Alert and oriented x3. VITAL SIGNS: Temperature 98.6, heart rate 96, respirations 18, oxygenation 93% on 2 L, blood pressure 132/67. Her fingersticks have raised from 128 to 264 in the last 24 hours. HEENT: Normocephalic, atraumatic. Oropharynx clear. Moist mucous membranes. LUNGS: Clear to auscultation bilaterally. HEART: Regular rate and rhythm. ABDOMEN: Active bowel sounds, soft, nontender, and nondistended. EXTREMITIES: No clubbing, cyanosis, or edema. Her right knee is Alex wrapped. NEUROLOGIC: Cranial nerves II through XII are intact. Upper extremities: Motor is 5/5 throughout with normal sensation. Left lower extremity: Motor is 5/5 throughout with normal sensation. Right lower extremity: Motor is limited due to pain including in her foot and toes, as well as sometimes she does have weakness especially when she has more pain. She has normal sensation, however, in her right lower extremity at this time. MUSCULOSKELETAL: She has functional range of motion of all her major joints with motor testing of the right hip and knee. DIAGNOSTIC STUDIES/LABORATORY DATA: Labs on 10/09/18, hemoglobin 12, hematocrit 36. On 10/08/18, sodium 137, potassium 3.8, BUN 14, creatinine 0.65. IMPRESSION: A 53-year-old woman with multiple sclerosis and fibromyalgia, status post right total knee replacement secondary to osteoarthritis. She will be admitted to [facility] so that she can return to living at home with family assistance. PLAN: 1. Right total knee replacement. She will have a regular follow up with Dr. Gordillo. We will continue her on scheduled Tylenol with oxycodone as needed. Weightbearing as tolerated. Dressing changes regularly. 2. DVT prophylaxis. Continue with Eliquis for 30 days. 3. Hypoxia. Wean off oxygen as tolerated. She will use incentive spirometer per routine. 4. Diabetes mellitus. I will restart her on a half dose of glipizide ER 5 mg daily. (Her home dose is 10 mg daily). Also, continue sliding-scale insulin and fingersticks q.a.c. and q.h.s. 5. Hypertension. Continue losartan. Monitor vital signs and determine when it is appropriate to add back in hydrochlorothiazide. 6. Neurogenic bladder. She normally wears a pad at home and has incontinence. She feels symptomatic of a bladder infection at this time. We will try to get urinalysis and continue her on nitrofurantoin 100 mg daily for the time being. 7. Constipation and neurogenic bowel. I will add in scheduled MiraLAX, Colace , and senna. She will have as needed milk of magnesia and lactulose. 8. Depression. Continue on Celexa. 9. Multiple sclerosis. Continue on her scheduled Betaseron every other day. She is due for a dose tonight. 10. Estimated length of stay 2 to 3 weeks. 11. Advance directives. If she cannot make decisions for herself, her will make decisions for her, and she is a full code. [id number]/[facility] #: [id number] MTDD
[2018-10-09] MEDS: Citalopram TAB* 20 MG PO SCH (17:18)
[2018-10-09] MEDS: BETASERON 0.3 MG SUBCUT SCH (20:56)
[2018-10-09] MEDS: Baclofen TAB* 20 MG PO SCH (21:09)
[2018-10-10 05:29] LABS: ABS Eosinophils 0.1 10^3/ul (0-0.6); ABS Lymphocytes 1.1 10^3/ul (1.0-4.8); ABS Monocytes 0.6 10^3/ul (0-0.8); Eosinophil % 1.7 %; Hematocrit 36 % (35-47); Hemoglobin 11.6 g/dL (12.0-16.0); Lymphocyte % 16.2 %; Mean Corpuscular HGB Conc 32 g/dL (31-36); Mean Corpuscular Hemoglobin 28 pg (27-31); Mean Corpuscular Volume 86 fL (80-97); Mean Platelet Volume 9.1 fL (7.4-10.4); Platelet Count 210 10^3/uL (150-450); Red Blood Count 4.17 10^6 /uL (3.70-4.87); Red Cell Distribution Width 14 % (10.5-15); White Blood Count 6.8 10^3/uL (3.5-10.8)
[2018-10-10 05:45] LABS: BUN/Creatinine Ratio 22.6 (8-20); Calcium 8.8 mg/dL (8.6-10.3); EGFR African American 121.4 (>60); EGFR Non-African American 100.3 (>60); Globulin 2.9 g/dL (2-4); Potassium 4.3 mmol/L (3.5-5.0); Total Bilirubin 0.6 mg/dL (0.2-1.0); Total Protein 5.9 g/dL (6.4-8.9)
[2018-10-10] MEDS: oxyCODONE TAB* 5 MG TAB PO PRN ×3 (08:27→16:01)
[2018-10-10] MEDS: Acetaminophen TAB* 325 MG PO SCH ×2 (08:27→17:35)
[2018-10-10] MEDS: Potassium Chlor TAB* 10 MEQ TAB.ER PO SCH (08:27)
[2018-10-10] MEDS: Docusate CAP* 100 MG PO SCH ×2 (08:28→20:51)
[2018-10-10] MEDS: Losartan TAB* 25 MG PO SCH (08:28)
[2018-10-10] MEDS: Vitamin B Complex TAB PO SCH (08:28)
[2018-10-10] MEDS: Apixaban* 2.5 MG TAB PO SCH ×2 (08:28→20:50)
[2018-10-10] MEDS: Baclofen TAB* 10 MG PO SCH (08:28)
[2018-10-10] MEDS: Multivitamins/Minerals TAB PO SCH (08:28)
[2018-10-10] MEDS: glipiZIDE TAB.XL* 5 MG PO SCH (08:28)
[2018-10-10] MEDS: Oxybutynin XL TAB* 5 MG PO SCH (08:29)
[2018-10-10] MEDS: Nitrofurantoin Macrocrystals* 50 MG CAP PO SCH (08:29)
[2018-10-10] MEDS: Polyethylene Glycol 3350* 17 GM PACKET PO SCH (08:31)
[2018-10-10] MEDS: Insulin LISPRO* 1 UNITS UNIT SUBCUT SCH ×4 (08:32→20:50)
[2018-10-10] MEDS: Citalopram TAB* 20 MG PO SCH (17:34)
--- NOTE | 2018-10-10 18:44 | PN ---
Progress Note Date of Service: 10/10/18 Note: ANNIKA VIRAMONETS was visited. Therapy notes read and reviewed. She states her pain is well controlled but is having a lot of trouble mobilizing. Otherwise she is ok Current Medications: Active Medications Generic Name Dose Route Start Last Admin Trade Name Freq PRN Reason Stop Dose Admin Acetaminophen 975 mg 10/09/18 09:00 10/10/18 17:35 Tylenol Tab* PO 975 mg Q8H ZAINAB Administration Al Hydrox/Mg Hydrox/Simethicone 30 ml 10/09/18 08:30 Maalox Plus* PO Q6H PRN INDIGESTION Apixaban 2.5 mg 10/09/18 09:00 10/10/18 08:28 Eliquis* PO 2.5 mg BID ZAINAB Administration Baclofen 10 mg 10/09/18 09:00 10/10/18 08:28 Lioresal Tab* PO 10 mg DAILY ZAINAB Administration Baclofen 20 mg 10/09/18 21:00 10/09/18 21:09 Lioresal Tab* PO 20 mg BEDTIME ZAINAB Administration Bisacodyl 10 mg 10/09/18 08:30 Dulcolax Supp* RI DAILY PRN CONSTIPATION Citalopram Hydrobromide 20 mg 10/09/18 18:00 10/10/18 17:34 Celexa Tab* PO 20 mg 1800 ZAINAB Administration Dextrose 12.5 gm 10/09/18 08:41 D50w Syringe 50 Ml* IV PUSH .FOR FS < 60 - SS PRN FS < 60 Docusate Sodium 100 mg 10/09/18 09:00 10/10/18 08:28 Colace Cap* PO Not Given BID ZAINAB Glipizide 5 mg 10/09/18 09:00 10/10/18 08:28 Glucotrol Xl* PO 5 mg DAILY ZAINAB Administration Insulin Human Lispro 0 units 10/09/18 11:30 10/10/18 16:27 Humalog* SUBCUT Not Given ACHS ZAINAB Protocol Lactulose 30 ml 10/09/18 08:30 Lactulose* PO Q6H PRN CONSTIPATION Losartan Potassium 50 mg 10/09/18 09:00 10/10/18 08:28 Cozaar Tab* PO 50 mg DAILY ZAINAB Administration Magnesium Hydroxide 30 ml 10/09/18 08:30 Milk Of Magnesia Liq* PO Q6H PRN CONSTIPATION Multivitamins/Minerals 1 tab 10/09/18 09:00 10/10/18 08:28 Theragran/Minerals Tab* PO 1 tab DAILY ZAINAB Administration Nitrofurantoin Macrocrystals 100 mg 10/10/18 09:00 10/10/18 08:29 Macrodantin* PO 100 mg DAILY ZAINAB Administration Pto: (Betaseron 0.3 0.3 mg 10/09/18 21:00 10/09/18 20:56 Mg) SUBCUT 0.3 mg Q48H ZAINAB Administration Ondansetron HCl 4 mg 10/09/18 08:55 Zofran Odt Tab* SL Q6H PRN NAUSEA/VOMITING Oxybutynin Chloride 15 mg 10/10/18 09:00 10/10/18 08:29 Ditropan Xl Tab* PO 15 mg MoWeFr@0900 ZAINAB Administration Oxycodone HCl 5 mg 10/09/18 08:54 10/10/18 16:01 Roxycodone Tab* PO 5 mg Q3H PRN Administration PAIN Oxycodone HCl 10 mg 10/09/18 08:54 10/10/18 12:26 Roxycodone Tab* PO 10 mg Q3H PRN Administration SEVERE PAIN Polyethylene Glycol/Electrolytes 17 gm 10/09/18 09:00 10/10/18 08:31 Miralax* PO Not Given DAILY ZAINAB Potassium Chloride 10 meq 10/09/18 09:00 10/10/18 08:27 Klor Con Er Tab* PO 10 meq DAILY ZAINAB Administration Senna 2 tab 10/09/18 08:30 Senokot Tab* PO BEDTIME PRN CONSTIPATION Sodium Biphosphate/Sodium Phosphate 1 bottle 10/09/18 08:30 Fleet Enema* RI DAILY PRN CONSTIPATION Vitamin B Complex/Vitamin E 1 tab 10/09/18 09:00 10/10/18 08:28 B Complex-50* PO 1 tab DAILY ZAINAB Administration Vital Signs: Vital Signs Temp Pulse Resp BP Pulse Ox 97.7 F 82 16 120/63 97 10/10/18 15:46 10/10/18 15:46 10/10/18 16:08 10/10/18 15:46 10/10/18 16:08 Lab Results: Laboratory Results - last 24 hr 10/09/18 10/10/18 10/10/18 20:20 05:11 05:11 WBC 6.8 RBC 4.17 Hgb 11.6 L Hct 36 MCV 86 MCH 28 MCHC 32 RDW 14 Plt Count 210 MPV 9.1 Neut % (Auto) 73.0 Lymph % (Auto) 16.2 [place] % (Auto) 8.7 Eos % (Auto) 1.7 Baso % (Auto) 0.4 Absolute Neuts (auto) 5.0 Absolute Lymphs (auto) 1.1 Absolute Monos (auto) 0.6 Absolute Eos (auto) 0.1 Absolute Basos (auto) 0.0 Absolute Nucleated RBC 0.0 Nucleated RBC % 0.0 Sodium 137 Potassium 4.3 Chloride 101 Carbon Dioxide 32 Anion Gap 4 BUN 14 Creatinine 0.62 Est GFR ( Amer) 121.4 Est GFR (Non-Af Amer) 100.3 BUN/Creatinine Ratio 22.6 H Glucose 212 H POC Glucose (mg/dL) 103 H Calcium 8.8 Total Bilirubin 0.60 AST 14 ALT 13 Alkaline Phosphatase 60 Total Protein 5.9 L Albumin 3.0 L Globulin 2.9 Albumin/Globulin Ratio 1.0 10/10/18 10/10/18 11:33 16:25 WBC RBC Hgb Hct MCV MCH MCHC RDW Plt Count MPV Neut % (Auto) Lymph % (Auto) [place] % (Auto) Eos % (Auto) Baso % (Auto) Absolute Neuts (auto) Absolute Lymphs (auto) Absolute Monos (auto) Absolute Eos (auto) Absolute Basos (auto) Absolute Nucleated RBC Nucleated RBC % Sodium Potassium Chloride Carbon Dioxide Anion Gap BUN Creatinine Est GFR ( Amer) Est GFR (Non-Af Amer) BUN/Creatinine Ratio Glucose POC Glucose (mg/dL) 228 H 127 H Calcium Total Bilirubin AST ALT Alkaline Phosphatase Total Protein Albumin Globulin Albumin/Globulin Ratio Exam: GENERAL: In no distress LUNGS: Clear bilaterally HEART: Reg rhythm ABDOMEN: Soft, +BS EXTREMITIES: Right knee wound C/D/I NEUROLOGIC: Alert and oriented. Able to move 4 extremities. RLE weak and stiff Assessment/Plan: 1. Right Total Knee Arthroplasty: WBAT; PT/OT. Follow up with Dr. Gordillo 2. Multiple Sclerosis: Betaseron. 3. Spasticity: Baclofen 10 am/20 pm 4. Diabetes: Glipizide XL. May increase to 10 5. Urinary Tract Infection: Macrodantin 6. DVT Prophylaxis: Eliquis 10/10/18 18:43 10/10/18 18:44
[2018-10-10] MEDS: Baclofen TAB* 20 MG PO SCH (20:50)
[2018-10-11] MEDS: Acetaminophen TAB* 325 MG PO SCH ×3 (00:46→16:57)
[2018-10-11] MEDS: oxyCODONE TAB* 5 MG TAB PO PRN ×5 (05:52→23:55)
[2018-10-11] MEDS: Apixaban* 2.5 MG TAB PO SCH ×2 (08:48→21:24)
[2018-10-11] MEDS: Baclofen TAB* 10 MG PO SCH (08:48)
[2018-10-11] MEDS: Losartan TAB* 25 MG PO SCH (08:48)
[2018-10-11] MEDS: glipiZIDE TAB.XL* 5 MG PO SCH (08:48)
[2018-10-11] MEDS: Docusate CAP* 100 MG PO SCH (08:48)
[2018-10-11] MEDS: Potassium Chlor TAB* 10 MEQ TAB.ER PO SCH (08:49)
[2018-10-11] MEDS: Nitrofurantoin Macrocrystals* 50 MG CAP PO SCH (08:49)
[2018-10-11] MEDS: Vitamin B Complex TAB PO SCH (08:49)
[2018-10-11] MEDS: Polyethylene Glycol 3350* 17 GM PACKET PO SCH (08:49)
[2018-10-11] MEDS: Multivitamins/Minerals TAB PO SCH (08:49)
[2018-10-11] MEDS: Insulin LISPRO* 1 UNITS UNIT SUBCUT SCH ×4 (09:01→21:22)
--- NOTE | 2018-10-11 12:36 | PMRUTEAM ---
PMRU: Team Meeting Current Status: Nursing: Current Status Skin Deviations [Right Thigh] Other Skin Deviations [Bilateral Arm Bruise ] Skin Deviations [Right Knee] Incision Skin Deviation Description [ edema, erythema noted Right Thigh] Skin Deviation Description [ drsg in place Right Knee] Physical Therapy: Current Status Bed Mobility Assistance Mod Assist Transfer Mobility Assistance Dependent Transfer/Bed Mobility Rolling Walker Recommended Devices Ambulation Assistance Unable Ambulation Assistive Devices Rolling Walker Occupational Therapy: Current Status Upper Body Dressing Supervision Lower Body Dressing Total Assist,2 Person Assist Bathing Max Asst,2 Person Assist Toileting Total Assist,2 Person Assist Toilet Transfer Total Assist,2 Person Assist Shower Transfer Total Assist,2 Person Assist Eating Independent Rec Therapy: Current Status Summary of Assessment and Recreation Therapy assessment complete and pt. is Clinical Impression aware of services. Pt. has been engaging in leisure activities on the unit and is open to continued visits. Treatment Goals Pt. will continue to engage in leisure activities while on the unit. Treatment Plan Provide recreation therapy services and encourage involvement. Nutrition: Current Status Monitoring For rehab post R TKR, hx MS. Hx DM and denies need for new education. Glycemic control variable but just resumed oral meds 10/09. If no further improvement consider increasing dose of glypizide to home does of 10 mg although note FS 103 (to 252 ) so at some risk for hypoglycemia. Had been constipated - resolved, w/diarrhea after rx 10/09 so hesitant now to treat. Appetite reduced but overall appears able to meet needs. Goals: Physical Therapy: Initial Goals Bed Mobility Assistance Independent Transfer Mobility Assistance Independent Transfer/Bed Mobility Rolling Walker Recommended Devices Ambulation Independent Ambulation Recommended Devices Rolling Walker Ambulation Distance 150 Wheelchair Propulsion Ability Independent Wheelchair Distance (ft) 150 Home Exercise Program Independent Assistance Physical Therapy: Updated Goals Transfer/Bed Mobility EZ Stand Recommended Devices Occupational Therapy: Initial Goals Goals to be Completed in (Days 21 ) Upper Body Bathing Routine Independent Lower Body Bathing Routine Minimal Contact Assist Upper Body Dressing Routine Independent Lower Body Dressing Routine Modified Independent with Toilet Hygeine and Clothing Modified Independent with Management Routine Toilet Transfer Routine Modified Independent with Step-In Shower Transfer Supervision/Set Up Routine Functional Transfers for ADL Modified Independent with Grooming Routine Independent Feeding Routine Independent Nutrition: Goals Intervention Goals 1. Achieve/maintain adequate glycemic control per inpatient parameters w/o hypoglycemia. 2. Achieve/maintain regular bowel pattern w/o diarrhea or constipation. 3. Maintain adequate oral intake to support post op recovery w/o contributing to undesirable weight gain. Care Plan: Care Plan ADL's - Improve/Maintain Start: 10/09/18 12:47 Freq: DAILY Status: Active Target: Protocol: Activity Type Activity Date Activity User E-Sign Co-Sign Detail Recorded Client Recorded Date Recorded By Document 10/10/18 14:51 [id number] 10/10/18 14:51 [id number] 10/10/18 14:51 PMRU Outcome: ADL's/ADL Transfers Orders/Interventions Occupational Therapy Evaluation & Treatment Device Yes Patient to receive OT 5x/wk for 60-120 Therex min/day Self Care Management Group Therapy UE/LE ADL's with Assist Yes: min A for socks/shoes ADL Transfers with Assist Yes: mod I Toileting: Transfers,Clothing Management Yes: mod I ,Hygeine w/Assist Light Kitchen/Laundry w/Assist No Progression Toward Outcome/Goals Progressing Discharge Planning - Improve/Maintain Start: 10/09/18 12:47 Freq: DAILY Status: Active Target: Protocol: Activity Type Activity Date Activity User E-Sign Co-Sign Detail Recorded Client Recorded Date Recorded By Document 10/11/18 00:41 [id number] 10/11/18 00:42 [id number] 10/11/18 00:41 PMRU Outcome: Discharge Planning Update Patient Family No Outcome/Goals Demonstrates Understanding of Discharge Plan Progression Toward Outcome/Goals Progressing Education-Improve/Maintain Start: 10/09/18 12:47 Freq: QSHIFT Status: Active Target: Protocol: Activity Type Activity Date Activity User E-Sign Co-Sign Detail Recorded Client Recorded Date Recorded By Document 10/10/18 18:30 [id number] 10/10/18 18:30 [id number] 10/10/18 18:30 PMRU Outcome: Education Outcome/Goals Demonstrate/ Verbalize Understanding of Written Discharge Instructions Demonstrates Skills Encourage Questions Progression Toward Outcome/Goals Progressing /GI-Improve/Maintain Start: 10/09/18 12:47 Freq: QSHIFT Status: Active Target: Protocol: Activity Type Activity Date Activity User E-Sign Co-Sign Detail Recorded Client Recorded Date Recorded By Document 10/10/18 18:30 [id number] [id number] 10/10/18 18:30 [id number] 10/10/18 18:30 PMRU Outcome: Genitourinary/ Gastrointestinal Genitourinary- Outcome/Goals Other Gastrointestinal-Outcome/Goals Maintain/ Achieve Bowel Regularity in Accordance with Pt's Baseline Prevent Constipation Other Outcome/Goals Maintain/ achieve baseline urinary status Progression Toward Outcome/Goals - Progressing Mobility- Improve/Maintain Start: 10/09/18 12:47 Freq: DAILY Status: Active Target: Protocol: Activity Type Activity Date Activity User E-Sign Co-Sign Detail Recorded Client Recorded Date Recorded By Document 10/10/18 15:05 [id number] 10/10/18 15:11 [id number] 10/10/18 15:05 PMRU Outcome: Mobility Physical Therapy Evaluation and Yes Treatment Activity OOB with Assistance Yes WBAT Yes: R LE Device Yes: Ez-stand Assistance Yes: Ax2 Patient to be seen 5x/wk for 60-120 min/ Therex day for: Mobility Training Gait Training W/C Mobility Balance Outcome/Goals Maintain/ Achieve Baseline Mobility Status Improve Mobility Status Demonstrates Proper Use of Assistive Devices Free from Complications of Immobility Progression Toward Outcome/Goals Progressing Bed Mobility Yes: Ind Transfers Yes: Mod I Gait x ft Yes: Mod I x150ft with walker W/C Mobility x ft Yes: Mod I x150ft Up/Down Stairs No With HEP Yes Goal Comment Knee flexion 90 degrees Pain/Comfort- Improve/Maintain Start: 10/09/18 12:47 Freq: QSHIFT Status: Active Target: Protocol: Activity Type Activity Date Activity User E-Sign Co-Sign Detail Recorded Client Recorded Date Recorded By Document 10/10/18 18:30 [id number] [id number] 10/10/18 18:30 [id number] 10/10/18 18:30 PMRU Outcome: Pain/Comfort Outcome/Goals Demonstrates Knowledge and Use of Available Comfort Measures Achieves Acceptable Comfort/Pain Level as Determined by Patient/Condit Maintain Comfort Level Allowing Patient to Fully Participate in Rehab Progression Toward Outcome/Goals Progressing Respiratory - Improve/Maintain Start: 10/09/18 12:47 Freq: QSHIFT Status: Active Target: Protocol: Activity Type Activity Date Activity User E-Sign Co-Sign Detail Recorded Client Recorded Date Recorded By Document 10/10/18 18:30 [id number] [id number] 10/10/18 18:30 [id number] 10/10/18 18:30 PMRU Outcome: Respiratory Does Patient Have a Trach No Outcome/Goals Maintain/ Improve O2 Sat per MD Order Maintain/ Improve Activity Tolerance Prevent Pneumonia/ Atelectasis Progression Toward Outcome/Goals Progressing Safety- Improve/Maintain Start: 10/09/18 12:47 Freq: QSHIFT Status: Active Target: Protocol: Activity Type Activity Date Activity User E-Sign Co-Sign Detail Recorded Client Recorded Date Recorded By Document 10/10/18 18:30 [id number] [id number] 10/10/18 18:30 [id number] 10/10/18 18:30 PMRU Outcome: Safety Outcome/Goals Remain Free of Injury or Harm Cooperates with Safety Measures for Least Restrictive Environment Prevent Falls/ Injury Progression Toward Outcome/Goals Progressing Skin- Improve/Maintain Start: 10/09/18 12:47 Freq: QSHIFT Status: Active Target: Protocol: Activity Type Activity Date Activity User E-Sign Co-Sign Detail Recorded Client Recorded Date Recorded By Document 10/10/18 20:00 [id number] 10/10/18 23:29 [id number] 10/10/18 20:00 PMRU Outcome: Skin Skin Risk Level Medium Skin Orders Dressing Change Air Mattress Outcome/Goals Maintain/ Improve Skin Intergrity Surgical Incisions Healing Progression Toward Outcome/Goals Progressing Medicine Note: Length of Stay: 3 weeks Anticipated Discharge Destination: Tentative Discharge Date: November 01, 2018 Discharged to: Home
[2018-10-11] MEDS: Citalopram TAB* 20 MG PO SCH (16:56)
--- NOTE | 2018-10-11 19:31 | PN ---
Progress Note Date of Service: 10/11/18 Note: ANNIKA VIRAMONTES was visited. Therapy notes read and reviewed. She was discussed in interdisciplinary team rounds. She is working hard but is a little impaired. Her BS a little high. Will increase glipizide to 10. Having loose stools. Will change laxatives to PRN Current Medications: Active Medications Generic Name Dose Route Start Last Admin Trade Name Freq PRN Reason Stop Dose Admin Acetaminophen 975 mg 10/09/18 09:00 10/11/18 16:57 Tylenol Tab* PO 975 mg Q8H ZAINAB Administration Al Hydrox/Mg Hydrox/Simethicone 30 ml 10/09/18 08:30 Maalox Plus* PO Q6H PRN INDIGESTION Apixaban 2.5 mg 10/09/18 09:00 10/11/18 08:48 Eliquis* PO 2.5 mg BID ZAINAB Administration Baclofen 10 mg 10/09/18 09:00 10/11/18 08:48 Lioresal Tab* PO 10 mg DAILY ZAINAB Administration Baclofen 20 mg 10/09/18 21:00 10/10/18 20:50 Lioresal Tab* PO 20 mg BEDTIME ZAINAB Administration Bisacodyl 10 mg 10/09/18 08:30 Dulcolax Supp* DC DAILY PRN CONSTIPATION Citalopram Hydrobromide 20 mg 10/09/18 18:00 10/11/18 16:56 Celexa Tab* PO 20 mg 1800 ZAINAB Administration Dextrose 12.5 gm 10/09/18 08:41 D50w Syringe 50 Ml* IV PUSH .FOR FS < 60 - SS PRN FS < 60 Docusate Sodium 100 mg 10/11/18 19:26 Colace Cap* PO BID PRN CONSTIPATION Glipizide 10 mg 10/12/18 09:00 Glucotrol Xl* PO DAILY ZAINAB Insulin Human Lispro 0 units 10/09/18 11:30 10/11/18 16:57 Humalog* SUBCUT 3 units ACHS ZAINAB Administration Protocol Lactulose 30 ml 10/09/18 08:30 Lactulose* PO Q6H PRN CONSTIPATION Losartan Potassium 50 mg 10/09/18 09:00 10/11/18 08:48 Cozaar Tab* PO 50 mg DAILY ZAINAB Administration Magnesium Hydroxide 30 ml 10/09/18 08:30 Milk Of Magnesia Liq* PO Q6H PRN CONSTIPATION Multivitamins/Minerals 1 tab 10/09/18 09:00 10/11/18 08:49 Theragran/Minerals Tab* PO 1 tab DAILY ZAINAB Administration Nitrofurantoin Macrocrystals 100 mg 10/10/18 09:00 10/11/18 08:49 Macrodantin* PO 100 mg DAILY ZAINAB Administration Pto: (Betaseron 0.3 0.3 mg 10/09/18 21:00 10/09/18 20:56 Mg) SUBCUT 0.3 mg Q48H ZAINAB Administration Ondansetron HCl 4 mg 10/09/18 08:55 Zofran Odt Tab* SL Q6H PRN NAUSEA/VOMITING Oxybutynin Chloride 15 mg 10/10/18 09:00 10/10/18 08:29 Ditropan Xl Tab* PO 15 mg [id number]@0900 ZAINAB Administration Oxycodone HCl 5 mg 10/09/18 08:54 10/11/18 19:23 Roxycodone Tab* PO 5 mg Q3H PRN Administration PAIN Oxycodone HCl 10 mg 10/09/18 08:54 10/11/18 13:54 Roxycodone Tab* PO 10 mg Q3H PRN Administration SEVERE PAIN Polyethylene Glycol/Electrolytes 17 gm 10/11/18 19:27 Miralax* PO DAILY PRN CONSTIPATION Potassium Chloride 10 meq 10/09/18 09:00 10/11/18 08:49 Klor Con Er Tab* PO 10 meq DAILY ZAINAB Administration Senna 2 tab 10/09/18 08:30 Senokot Tab* PO BEDTIME PRN CONSTIPATION Sodium Biphosphate/Sodium Phosphate 1 bottle 10/09/18 08:30 Fleet Enema* DC DAILY PRN CONSTIPATION Vitamin B Complex/Vitamin E 1 tab 10/09/18 09:00 10/11/18 08:49 B Complex-50* PO 1 tab DAILY ZAINAB Administration Vital Signs: Vital Signs Temp Pulse Resp BP Pulse Ox 97.5 F 73 20 142/74 100 10/11/18 16:04 10/11/18 16:04 10/11/18 19:23 10/11/18 16:04 10/11/18 16:11 Lab Results: Laboratory Results - last 24 hr 10/10/18 10/11/18 10/11/18 20:24 07:21 12:04 POC Glucose (mg/dL) 139 H 178 H 206 H 10/11/18 15:57 POC Glucose (mg/dL) 171 H Exam: GENERAL: In no distress LUNGS: Clear bilaterally HEART: Reg rhythm ABDOMEN: Soft, +BS EXTREMITIES: Right knee wound C/D/I NEUROLOGIC: Alert and oriented. Able to move 4 extremities. RLE weak and stiff Assessment/Plan: 1. Right Total Knee Arthroplasty: WBAT; PT/OT. Follow up with Dr. Gordillo 2. Multiple Sclerosis: Betaseron. 3. Spasticity: Baclofen 10 am/20 pm 4. Diabetes: Glipizide XL. Will increase to 10 5. Urinary Tract Infection: Urine Culture negative. D/C Macrodantin 6. DVT Prophylaxis: Eliquis 10/11/18 19:32 10/11/18 19:32
[2018-10-11] MEDS: BETASERON 0.3 MG SUBCUT SCH (21:20)
[2018-10-11] MEDS: Baclofen TAB* 20 MG PO SCH (21:24)
[2018-10-12] MEDS: Acetaminophen TAB* 325 MG PO SCH ×3 (01:20→17:11)
[2018-10-12] MEDS: Insulin LISPRO* 1 UNITS UNIT SUBCUT SCH ×4 (08:38→20:46)
[2018-10-12] MEDS: Apixaban* 2.5 MG TAB PO SCH ×2 (08:39→21:20)
[2018-10-12] MEDS: Potassium Chlor TAB* 10 MEQ TAB.ER PO SCH (08:39)
[2018-10-12] MEDS: glipiZIDE TAB.XL* 5 MG PO SCH (08:39)
[2018-10-12] MEDS: Losartan TAB* 25 MG PO SCH (08:39)
[2018-10-12] MEDS: Oxybutynin XL TAB* 5 MG PO SCH (08:39)
[2018-10-12] MEDS: Baclofen TAB* 10 MG PO SCH (08:39)
[2018-10-12] MEDS: Multivitamins/Minerals TAB PO SCH (08:39)
[2018-10-12] MEDS: Vitamin B Complex TAB PO SCH (08:39)
[2018-10-12] MEDS: oxyCODONE TAB* 5 MG TAB PO PRN ×3 (08:40→21:19)
[2018-10-12] MEDS: Citalopram TAB* 20 MG PO SCH (17:11)
--- NOTE | 2018-10-12 20:14 | PN ---
Progress Note Date of Service: 10/12/18 Note: ANNIKA VIRAMONTES was visited. Therapy notes read and reviewed. She tells me her feet are swollen and she normally takes HCTZ at home. Will resume tomorrow. BS a little better. Current Medications: Active Medications Generic Name Dose Route Start Last Admin Trade Name Freq PRN Reason Stop Dose Admin Acetaminophen 975 mg 10/09/18 09:00 10/12/18 17:11 Tylenol Tab* PO 975 mg Q8H ZAINAB Administration Al Hydrox/Mg Hydrox/Simethicone 30 ml 10/09/18 08:30 Maalox Plus* PO Q6H PRN INDIGESTION Apixaban 2.5 mg 10/09/18 09:00 10/12/18 08:39 Eliquis* PO 2.5 mg BID ZAINAB Administration Baclofen 10 mg 10/09/18 09:00 10/12/18 08:39 Lioresal Tab* PO 10 mg DAILY ZAINAB Administration Baclofen 20 mg 10/09/18 21:00 10/11/18 21:24 Lioresal Tab* PO 20 mg BEDTIME ZAINAB Administration Bisacodyl 10 mg 10/09/18 08:30 Dulcolax Supp* NC DAILY PRN CONSTIPATION Citalopram Hydrobromide 20 mg 10/09/18 18:00 10/12/18 17:11 Celexa Tab* PO 20 mg 1800 ZAINAB Administration Dextrose 12.5 gm 10/09/18 08:41 D50w Syringe 50 Ml* IV PUSH .FOR FS < 60 - SS PRN FS < 60 Docusate Sodium 100 mg 10/11/18 19:26 Colace Cap* PO BID PRN CONSTIPATION Glipizide 10 mg 10/12/18 09:00 10/12/18 08:39 Glucotrol Xl* PO 10 mg DAILY ZAINAB Administration Hydrochlorothiazide 25 mg 10/13/18 09:00 Hydrodiuril Tab* PO DAILY ZAINAB Insulin Human Lispro 0 units 10/09/18 11:30 10/12/18 17:13 Humalog* SUBCUT 3 units ACHS ZAINAB Administration Protocol Lactulose 30 ml 10/09/18 08:30 Lactulose* PO Q6H PRN CONSTIPATION Losartan Potassium 50 mg 10/09/18 09:00 10/12/18 08:39 Cozaar Tab* PO 50 mg DAILY ZAINAB Administration Magnesium Hydroxide 30 ml 10/09/18 08:30 Milk Of Magnesia Liq* PO Q6H PRN CONSTIPATION Multivitamins/Minerals 1 tab 10/09/18 09:00 10/12/18 08:39 Theragran/Minerals Tab* PO 1 tab DAILY ZAINAB Administration Pto: (Betaseron 0.3 0.3 mg 10/09/18 21:00 10/11/18 21:20 Mg) SUBCUT 0.3 mg Q48H ZAINAB Administration Ondansetron HCl 4 mg 10/09/18 08:55 Zofran Odt Tab* SL Q6H PRN NAUSEA/VOMITING Oxybutynin Chloride 15 mg 10/10/18 09:00 10/12/18 08:39 Ditropan Xl Tab* PO 15 mg MoWeFr@0900 ZAINAB Administration Oxycodone HCl 5 mg 10/09/18 08:54 10/11/18 19:23 Roxycodone Tab* PO 5 mg Q3H PRN Administration PAIN Oxycodone HCl 10 mg 10/09/18 08:54 10/12/18 12:39 Roxycodone Tab* PO 10 mg Q3H PRN Administration SEVERE PAIN Polyethylene Glycol/Electrolytes 17 gm 10/11/18 19:27 Miralax* PO DAILY PRN CONSTIPATION Potassium Chloride 10 meq 10/09/18 09:00 10/12/18 08:39 Klor Con Er Tab* PO 10 meq DAILY ZAINAB Administration Senna 2 tab 10/09/18 08:30 Senokot Tab* PO BEDTIME PRN CONSTIPATION Sodium Biphosphate/Sodium Phosphate 1 bottle 10/09/18 08:30 Fleet Enema* NC DAILY PRN CONSTIPATION Vitamin B Complex/Vitamin E 1 tab 10/09/18 09:00 10/12/18 08:39 B Complex-50* PO 1 tab DAILY ZAINAB Administration Vital Signs: Vital Signs Temp Pulse Resp BP Pulse Ox 97.2 F 73 21 160/68 98 10/12/18 16:07 10/12/18 16:07 10/12/18 18:35 10/12/18 16:07 10/12/18 18:35 Lab Results: Laboratory Results - last 24 hr 10/11/18 10/12/18 10/12/18 21:00 07:33 12:09 POC Glucose (mg/dL) 139 H 157 H 196 H 10/12/18 16:00 POC Glucose (mg/dL) 168 H Exam: GENERAL: In no distress LUNGS: Clear bilaterally HEART: Reg rhythm ABDOMEN: Soft, +BS EXTREMITIES: Right knee wound C/D/I. Feet swollen bilaterally NEUROLOGIC: Alert and oriented. Able to move 4 extremities. RLE weak and stiff Assessment/Plan: 1. Right Total Knee Arthroplasty: WBAT; PT/OT. Follow up with Dr. Gordillo 2. Multiple Sclerosis: Betaseron. 3. Spasticity: Baclofen 10 am/20 pm 4. Diabetes: Glipizide XL. Will increase to 10 5. Urinary Tract Infection: Urine Culture negative. D/C Macrodantin 6. DVT Prophylaxis: Eliquis 7. Edema: Resume HCTZ 10/12/18 20:14
[2018-10-12] MEDS: Baclofen TAB* 20 MG PO SCH (21:20)
[2018-10-13] MEDS: Acetaminophen TAB* 325 MG PO SCH ×3 (01:12→17:02)
[2018-10-13] MEDS: oxyCODONE TAB* 5 MG TAB PO PRN ×4 (04:55→19:41)
[2018-10-13] MEDS: Insulin LISPRO* 1 UNITS UNIT SUBCUT SCH ×4 (08:30→20:26)
[2018-10-13] MEDS: Hydrochlorothiazide TAB* 25 MG PO SCH (08:31)
[2018-10-13] MEDS: Baclofen TAB* 10 MG PO SCH (08:31)
[2018-10-13] MEDS: Vitamin B Complex TAB PO SCH (08:31)
[2018-10-13] MEDS: glipiZIDE TAB.XL* 5 MG PO SCH (08:31)
[2018-10-13] MEDS: Potassium Chlor TAB* 10 MEQ TAB.ER PO SCH (08:31)
[2018-10-13] MEDS: Apixaban* 2.5 MG TAB PO SCH ×2 (08:31→19:41)
[2018-10-13] MEDS: Multivitamins/Minerals TAB PO SCH (08:31)
[2018-10-13] MEDS: Losartan TAB* 25 MG PO SCH (08:31)
[2018-10-13] MEDS: Citalopram TAB* 20 MG PO SCH (17:02)
--- NOTE | 2018-10-13 19:14 | PN ---
Progress Note Date of Service: 10/13/18 Note: ANNIKA VIRAMONTES was visited. Therapy notes read and reviewed. She restarted HCTZ today. Her BP is ok. She is doing ok with therapy. Current Medications: Active Medications Generic Name Dose Route Start Last Admin Trade Name Freq PRN Reason Stop Dose Admin Acetaminophen 975 mg 10/09/18 09:00 10/13/18 17:02 Tylenol Tab* PO 975 mg Q8H ZAINAB Administration Al Hydrox/Mg Hydrox/Simethicone 30 ml 10/09/18 08:30 Maalox Plus* PO Q6H PRN INDIGESTION Apixaban 2.5 mg 10/09/18 09:00 10/13/18 08:31 Eliquis* PO 2.5 mg BID ZAINAB Administration Baclofen 10 mg 10/09/18 09:00 10/13/18 08:31 Lioresal Tab* PO 10 mg DAILY ZAINAB Administration Baclofen 20 mg 10/09/18 21:00 10/12/18 21:20 Lioresal Tab* PO 20 mg BEDTIME ZAINAB Administration Bisacodyl 10 mg 10/09/18 08:30 Dulcolax Supp* IA DAILY PRN CONSTIPATION Citalopram Hydrobromide 20 mg 10/09/18 18:00 10/13/18 17:02 Celexa Tab* PO 20 mg 1800 ZAINAB Administration Dextrose 12.5 gm 10/09/18 08:41 D50w Syringe 50 Ml* IV PUSH .FOR FS < 60 - SS PRN FS < 60 Docusate Sodium 100 mg 10/11/18 19:26 Colace Cap* PO BID PRN CONSTIPATION Glipizide 10 mg 10/12/18 09:00 10/13/18 08:31 Glucotrol Xl* PO 10 mg DAILY ZAINAB Administration Hydrochlorothiazide 25 mg 10/13/18 09:00 10/13/18 08:31 Hydrodiuril Tab* PO 25 mg DAILY ZAINAB Administration Insulin Human Lispro 0 units 10/09/18 11:30 10/13/18 17:05 Humalog* SUBCUT 2 units ACHS ZAINAB Administration Protocol Lactulose 30 ml 10/09/18 08:30 Lactulose* PO Q6H PRN CONSTIPATION Losartan Potassium 50 mg 10/09/18 09:00 10/13/18 08:31 Cozaar Tab* PO 50 mg DAILY ZAINAB Administration Magnesium Hydroxide 30 ml 10/09/18 08:30 Milk Of Magnesia Liq* PO Q6H PRN CONSTIPATION Multivitamins/Minerals 1 tab 10/09/18 09:00 10/13/18 08:31 Theragran/Minerals Tab* PO 1 tab DAILY ZAINAB Administration Pto: (Betaseron 0.3 0.3 mg 10/09/18 21:00 10/11/18 21:20 Mg) SUBCUT 0.3 mg Q48H ZAINAB Administration Ondansetron HCl 4 mg 10/09/18 08:55 Zofran Odt Tab* SL Q6H PRN NAUSEA/VOMITING Oxybutynin Chloride 15 mg 10/10/18 09:00 10/12/18 08:39 Ditropan Xl Tab* PO 15 mg MoWeFr@0900 ZAINAB Administration Oxycodone HCl 5 mg 10/09/18 08:54 10/11/18 19:23 Roxycodone Tab* PO 5 mg Q3H PRN Administration PAIN Oxycodone HCl 10 mg 10/09/18 08:54 10/13/18 12:23 Roxycodone Tab* PO 10 mg Q3H PRN Administration SEVERE PAIN Polyethylene Glycol/Electrolytes 17 gm 10/11/18 19:27 Miralax* PO DAILY PRN CONSTIPATION Potassium Chloride 10 meq 10/09/18 09:00 10/13/18 08:31 Klor Con Er Tab* PO 10 meq DAILY ZAINAB Administration Senna 2 tab 10/09/18 08:30 Senokot Tab* PO BEDTIME PRN CONSTIPATION Sodium Biphosphate/Sodium Phosphate 1 bottle 10/09/18 08:30 Fleet Enema* IA DAILY PRN CONSTIPATION Vitamin B Complex/Vitamin E 1 tab 10/09/18 09:00 10/13/18 08:31 B Complex-50* PO 1 tab DAILY ZAINAB Administration Vital Signs: Vital Signs Temp Pulse Resp BP Pulse Ox 97.6 F 64 18 147/77 100 10/13/18 15:21 10/13/18 15:21 10/13/18 16:48 10/13/18 15:21 10/13/18 16:49 Lab Results: Laboratory Results - last 24 hr 10/12/18 10/13/18 10/13/18 20:40 07:39 12:11 POC Glucose (mg/dL) 85 153 H 150 H 10/13/18 16:15 POC Glucose (mg/dL) 149 H Exam: GENERAL: In no distress LUNGS: Clear bilaterally HEART: Reg rhythm ABDOMEN: Soft, +BS EXTREMITIES: Right knee wound C/D/I. Feet swollen bilaterally. Increased tone RLE NEUROLOGIC: Alert and oriented. Able to move 4 extremities. RLE weak due to pain Assessment/Plan: 1. Right Total Knee Arthroplasty: WBAT; PT/OT. Follow up with Dr. Gordillo 2. Multiple Sclerosis: Betaseron. 3. Spasticity: Baclofen 10 am/20 pm 4. Diabetes: Glipizide XL. Will increase to 10 5. DVT Prophylaxis: Eliquis 6. Edema: Resume HCTZ 10/13/18 19:15
[2018-10-13] MEDS: Baclofen TAB* 20 MG PO SCH (19:41)
[2018-10-13] MEDS: BETASERON 0.3 MG SUBCUT SCH (19:45)
[2018-10-13] MEDS: Senna TAB PO PRN (20:15)
[2018-10-13] MEDS: Docusate CAP* 100 MG PO PRN (20:15)
[2018-10-14] MEDS: Acetaminophen TAB* 325 MG PO SCH ×3 (00:55→16:48)
[2018-10-14] MEDS: oxyCODONE TAB* 5 MG TAB PO PRN ×3 (06:28→20:47)
[2018-10-14] MEDS: Apixaban* 2.5 MG TAB PO SCH ×2 (09:13→20:46)
[2018-10-14] MEDS: Potassium Chlor TAB* 10 MEQ TAB.ER PO SCH (09:13)
[2018-10-14] MEDS: Losartan TAB* 25 MG PO SCH (09:13)
[2018-10-14] MEDS: glipiZIDE TAB.XL* 5 MG PO SCH (09:13)
[2018-10-14] MEDS: Multivitamins/Minerals TAB PO SCH (09:13)
[2018-10-14] MEDS: Baclofen TAB* 10 MG PO SCH ×2 (09:13→20:46)
[2018-10-14] MEDS: Hydrochlorothiazide TAB* 25 MG PO SCH (09:13)
[2018-10-14] MEDS: Vitamin B Complex TAB PO SCH (09:13)
[2018-10-14] MEDS: Oxybutynin XL TAB* 5 MG PO SCH (09:14)
[2018-10-14] MEDS: Insulin LISPRO* 1 UNITS UNIT SUBCUT SCH ×4 (09:47→20:48)
[2018-10-14] MEDS ORDERED: Baclofen TAB* 10 MG PO ONE (17:22)
--- NOTE | 2018-10-14 17:22 | PN ---
Progress Note Date of Service: 10/14/18 Note: ANNIKA VIRAMONTES was visited. Therapy notes read and reviewed. Blood sugars are in better control. She has been having more spasticity in her right leg since the surgery. Current Medications: Active Medications Generic Name Dose Route Start Last Admin Trade Name Freq PRN Reason Stop Dose Admin Acetaminophen 975 mg 10/09/18 09:00 10/14/18 16:48 Tylenol Tab* PO 975 mg Q8H ZAINAB Administration Al Hydrox/Mg Hydrox/Simethicone 30 ml 10/09/18 08:30 Maalox Plus* PO Q6H PRN INDIGESTION Apixaban 2.5 mg 10/09/18 09:00 10/14/18 09:13 Eliquis* PO 2.5 mg BID ZAINAB Administration Baclofen 10 mg 10/14/18 21:00 Lioresal Tab* PO QID ZAINAB Bisacodyl 10 mg 10/09/18 08:30 Dulcolax Supp* OR DAILY PRN CONSTIPATION Citalopram Hydrobromide 20 mg 10/09/18 18:00 10/13/18 17:02 Celexa Tab* PO 20 mg 1800 ZAINAB Administration Dextrose 12.5 gm 10/09/18 08:41 D50w Syringe 50 Ml* IV PUSH .FOR FS < 60 - SS PRN FS < 60 Docusate Sodium 100 mg 10/11/18 19:26 10/13/18 20:15 Colace Cap* PO 100 mg BID PRN Administration CONSTIPATION Glipizide 10 mg 10/12/18 09:00 10/14/18 09:13 Glucotrol Xl* PO 10 mg DAILY ZAINAB Administration Hydrochlorothiazide 25 mg 10/13/18 09:00 10/14/18 09:13 Hydrodiuril Tab* PO 25 mg DAILY ZAINAB Administration Insulin Human Lispro 0 units 10/09/18 11:30 10/14/18 12:10 Humalog* SUBCUT Not Given ACHS [facility] Protocol Lactulose 30 ml 10/09/18 08:30 10/14/18 16:49 Lactulose* PO 30 ml Q6H PRN Administration CONSTIPATION Losartan Potassium 50 mg 10/09/18 09:00 10/14/18 09:13 Cozaar Tab* PO 50 mg DAILY ZAINAB Administration Magnesium Hydroxide 30 ml 10/09/18 08:30 Milk Of Magnesia Liq* PO Q6H PRN CONSTIPATION Multivitamins/Minerals 1 tab 10/09/18 09:00 10/14/18 09:13 Theragran/Minerals Tab* PO 1 tab DAILY ZAINAB Administration Pto: (Betaseron 0.3 0.3 mg 10/09/18 21:00 10/13/18 19:45 Mg) SUBCUT 0.3 mg Q48H ZAINAB Administration Ondansetron HCl 4 mg 10/09/18 08:55 Zofran Odt Tab* SL Q6H PRN NAUSEA/VOMITING Oxybutynin Chloride 15 mg 10/10/18 09:00 10/14/18 09:14 Ditropan Xl Tab* PO 15 mg MoWeFr@0900 ZAINAB Administration Oxycodone HCl 5 mg 10/09/18 08:54 10/11/18 19:23 Roxycodone Tab* PO 5 mg Q3H PRN Administration PAIN Oxycodone HCl 10 mg 10/09/18 08:54 10/14/18 10:17 Roxycodone Tab* PO 10 mg Q3H PRN Administration SEVERE PAIN Polyethylene Glycol/Electrolytes 17 gm 10/11/18 19:27 Miralax* PO DAILY PRN CONSTIPATION Potassium Chloride 10 meq 10/09/18 09:00 10/14/18 09:13 Klor Con Er Tab* PO 10 meq DAILY ZAINAB Administration Senna 2 tab 10/09/18 08:30 10/13/18 20:15 Senokot Tab* PO 2 tab BEDTIME PRN Administration CONSTIPATION Sodium Biphosphate/Sodium Phosphate 1 bottle 10/09/18 08:30 Fleet Enema* OR DAILY PRN CONSTIPATION Vitamin B Complex/Vitamin E 1 tab 10/09/18 09:00 10/14/18 09:13 B Complex-50* PO 1 tab DAILY ZAINAB Administration Vital Signs: Vital Signs Temp Pulse Resp BP Pulse Ox 97.9 F 75 16 140/72 98 10/14/18 16:22 10/14/18 16:22 10/14/18 16:22 10/14/18 16:22 10/14/18 16:56 Lab Results: Laboratory Results - last 24 hr 10/13/18 10/13/18 10/13/18 12:11 16:15 20:18 POC Glucose (mg/dL) 150 H 149 H 145 H 10/14/18 10/14/18 07:30 12:08 POC Glucose (mg/dL) 139 H 128 H Exam: GENERAL: In no distress LUNGS: Clear bilaterally HEART: Reg rhythm ABDOMEN: Soft, +BS EXTREMITIES: Right knee wound C/D/I. Feet swollen bilaterally. Increased tone RLE NEUROLOGIC: Alert and oriented. Able to move 4 extremities. RLE weak due to pain Assessment/Plan: 1. Right Total Knee Arthroplasty: WBAT; PT/OT. Follow up with Dr. Gordillo 2. Multiple Sclerosis: Betaseron. 3. Spasticity: Baclofen 10 mg 4 times a day 4. Diabetes: Glipizide XL. 10 mg 5. DVT Prophylaxis: Eliquis 6. Edema: Resumed HCTZ 10/14/18 17:22
[2018-10-14] MEDS: Citalopram TAB* 20 MG PO SCH (18:20)
[2018-10-15] MEDS: Acetaminophen TAB* 325 MG PO SCH ×3 (00:41→17:45)
[2018-10-15] MEDS: oxyCODONE TAB* 5 MG TAB PO PRN ×4 (06:37→20:45)
--- NOTE | 2018-10-15 08:01 | PN ---
Progress Note Date of Service: 10/15/18 Note: ANNIKA VIRAMONTES was visited. Therapy notes read and reviewed. Feet are starting to look a bit less swollen. Spasms may be less with Baclofen Current Medications: Active Medications Generic Name Dose Route Start Last Admin Trade Name Freq PRN Reason Stop Dose Admin Acetaminophen 975 mg 10/09/18 09:00 10/15/18 00:41 Tylenol Tab* PO 975 mg Q8H ZAINAB Administration Al Hydrox/Mg Hydrox/Simethicone 30 ml 10/09/18 08:30 Maalox Plus* PO Q6H PRN INDIGESTION Apixaban 2.5 mg 10/09/18 09:00 10/14/18 20:46 Eliquis* PO 2.5 mg BID ZAINAB Administration Baclofen 10 mg 10/14/18 21:00 10/14/18 20:46 Lioresal Tab* PO 10 mg QID ZAINAB Administration Bisacodyl 10 mg 10/09/18 08:30 Dulcolax Supp* SC DAILY PRN CONSTIPATION Citalopram Hydrobromide 20 mg 10/09/18 18:00 10/14/18 18:20 Celexa Tab* PO 20 mg 1800 ZAINAB Administration Dextrose 12.5 gm 10/09/18 08:41 D50w Syringe 50 Ml* IV PUSH .FOR FS < 60 - SS PRN FS < 60 Docusate Sodium 100 mg 10/11/18 19:26 10/13/18 20:15 Colace Cap* PO 100 mg BID PRN Administration CONSTIPATION Glipizide 10 mg 10/12/18 09:00 10/14/18 09:13 Glucotrol Xl* PO 10 mg DAILY ZAINAB Administration Hydrochlorothiazide 25 mg 10/13/18 09:00 10/14/18 09:13 Hydrodiuril Tab* PO 25 mg DAILY ZAINAB Administration Insulin Human Lispro 0 units 10/09/18 11:30 10/14/18 20:48 Humalog* SUBCUT 3 units ACHS ZAINAB Administration Protocol Lactulose 30 ml 10/09/18 08:30 10/14/18 16:49 Lactulose* PO 30 ml Q6H PRN Administration CONSTIPATION Losartan Potassium 50 mg 10/09/18 09:00 10/14/18 09:13 Cozaar Tab* PO 50 mg DAILY ZAINAB Administration Magnesium Hydroxide 30 ml 10/09/18 08:30 Milk Of Magnesia Liq* PO Q6H PRN CONSTIPATION Multivitamins/Minerals 1 tab 10/09/18 09:00 10/14/18 09:13 Theragran/Minerals Tab* PO 1 tab DAILY ZAINAB Administration Pto: (Betaseron 0.3 0.3 mg 10/09/18 21:00 10/13/18 19:45 Mg) SUBCUT 0.3 mg Q48H ZAINAB Administration Ondansetron HCl 4 mg 10/09/18 08:55 Zofran Odt Tab* SL Q6H PRN NAUSEA/VOMITING Oxybutynin Chloride 15 mg 10/10/18 09:00 10/14/18 09:14 Ditropan Xl Tab* PO 15 mg [id number]@0900 ZAINAB Administration Oxycodone HCl 5 mg 10/09/18 08:54 10/14/18 20:47 Roxycodone Tab* PO 5 mg Q3H PRN Administration PAIN Oxycodone HCl 10 mg 10/09/18 08:54 10/15/18 06:37 Roxycodone Tab* PO 10 mg Q3H PRN Administration SEVERE PAIN Polyethylene Glycol/Electrolytes 17 gm 10/11/18 19:27 Miralax* PO DAILY PRN CONSTIPATION Potassium Chloride 10 meq 10/09/18 09:00 10/14/18 09:13 Klor Con Er Tab* PO 10 meq DAILY ZAINAB Administration Senna 2 tab 10/09/18 08:30 10/13/18 20:15 Senokot Tab* PO 2 tab BEDTIME PRN Administration CONSTIPATION Sodium Biphosphate/Sodium Phosphate 1 bottle 10/09/18 08:30 Fleet Enema* SC DAILY PRN CONSTIPATION Vitamin B Complex/Vitamin E 1 tab 10/09/18 09:00 10/14/18 09:13 B Complex-50* PO 1 tab DAILY ZAINAB Administration Vital Signs: Vital Signs Temp Pulse Resp BP Pulse Ox 98.1 F 68 16 120/64 95 10/15/18 06:59 10/15/18 06:59 10/15/18 06:59 10/15/18 06:59 10/15/18 06:59 Lab Results: Laboratory Results - last 24 hr 10/14/18 10/14/18 10/14/18 12:08 16:40 20:21 POC Glucose (mg/dL) 128 H 158 H 170 H Exam: GENERAL: In no distress LUNGS: Clear bilaterally HEART: Reg rhythm ABDOMEN: Soft, +BS EXTREMITIES: Right knee wound C/D/I. Feet swollen bilaterally. Increased tone RLE NEUROLOGIC: Alert and oriented. Able to move 4 extremities. RLE weak due to pain Assessment/Plan: 1. Right Total Knee Arthroplasty: WBAT; PT/OT. Follow up with Dr. Gordillo 2. Multiple Sclerosis: Betaseron. 3. Spasticity: Baclofen 10 mg 4 times a day 4. Diabetes: Glipizide XL. 10 mg 5. DVT Prophylaxis: Eliquis 6. Edema: Resumed HCTZ 10/15/18 08:01
[2018-10-15] MEDS: Insulin LISPRO* 1 UNITS UNIT SUBCUT SCH ×4 (10:02→20:42)
[2018-10-15] MEDS: Apixaban* 2.5 MG TAB PO SCH ×2 (10:05→20:21)
[2018-10-15] MEDS: glipiZIDE TAB.XL* 5 MG PO SCH (10:05)
[2018-10-15] MEDS: Multivitamins/Minerals TAB PO SCH (10:06)
[2018-10-15] MEDS: Baclofen TAB* 10 MG PO SCH ×4 (10:06→20:21)
[2018-10-15] MEDS: Losartan TAB* 25 MG PO SCH (10:06)
[2018-10-15] MEDS: Vitamin B Complex TAB PO SCH (10:06)
[2018-10-15] MEDS: Hydrochlorothiazide TAB* 25 MG PO SCH (10:06)
[2018-10-15] MEDS: Potassium Chlor TAB* 10 MEQ TAB.ER PO SCH (10:06)
[2018-10-15] MEDS: Citalopram TAB* 20 MG PO SCH (17:46)
[2018-10-15] MEDS: BETASERON 0.3 MG SUBCUT SCH (20:24)
[2018-10-16] MEDS: Acetaminophen TAB* 325 MG PO SCH ×3 (01:05→17:16)
[2018-10-16] MEDS: Insulin LISPRO* 1 UNITS UNIT SUBCUT SCH ×4 (07:48→20:17)
[2018-10-16] MEDS: glipiZIDE TAB.XL* 5 MG PO SCH (08:49)
[2018-10-16] MEDS: Baclofen TAB* 10 MG PO SCH ×4 (08:49→20:13)
[2018-10-16] MEDS: Hydrochlorothiazide TAB* 25 MG PO SCH (08:49)
[2018-10-16] MEDS: Apixaban* 2.5 MG TAB PO SCH ×2 (08:49→20:13)
[2018-10-16] MEDS: Potassium Chlor TAB* 10 MEQ TAB.ER PO SCH (08:49)
[2018-10-16] MEDS: Vitamin B Complex TAB PO SCH (08:49)
[2018-10-16] MEDS: oxyCODONE TAB* 5 MG TAB PO PRN ×3 (08:49→20:45)
[2018-10-16] MEDS: Losartan TAB* 25 MG PO SCH (08:49)
[2018-10-16] MEDS: Multivitamins/Minerals TAB PO SCH (08:49)
[2018-10-16] MEDS: Citalopram TAB* 20 MG PO SCH (17:23)
--- NOTE | 2018-10-16 19:10 | PN ---
Progress Note Date of Service: 10/16/18 Note: ANNIKA VIRAMONTES was visited. Nursing notes read and reviewed. She has some pain although it is not that bad. Legs a little less puffy Current Medications: Active Medications Generic Name Dose Route Start Last Admin Trade Name Freq PRN Reason Stop Dose Admin Acetaminophen 975 mg 10/09/18 09:00 10/16/18 17:16 Tylenol Tab* PO 975 mg Q8H ZAINAB Administration Al Hydrox/Mg Hydrox/Simethicone 30 ml 10/09/18 08:30 Maalox Plus* PO Q6H PRN INDIGESTION Apixaban 2.5 mg 10/09/18 09:00 10/16/18 08:49 Eliquis* PO 2.5 mg BID ZAINAB Administration Baclofen 10 mg 10/14/18 21:00 10/16/18 17:17 Lioresal Tab* PO 10 mg QID ZAINAB Administration Bisacodyl 10 mg 10/09/18 08:30 Dulcolax Supp* MS DAILY PRN CONSTIPATION Citalopram Hydrobromide 20 mg 10/09/18 18:00 10/16/18 17:23 Celexa Tab* PO 20 mg 1800 ZAINAB Administration Dextrose 12.5 gm 10/09/18 08:41 D50w Syringe 50 Ml* IV PUSH .FOR FS < 60 - SS PRN FS < 60 Docusate Sodium 100 mg 10/11/18 19:26 10/13/18 20:15 Colace Cap* PO 100 mg BID PRN Administration CONSTIPATION Glipizide 10 mg 10/12/18 09:00 10/16/18 08:49 Glucotrol Xl* PO 10 mg DAILY ZAINAB Administration Hydrochlorothiazide 25 mg 10/13/18 09:00 10/16/18 08:49 Hydrodiuril Tab* PO 25 mg DAILY ZAINAB Administration Insulin Human Lispro 0 units 10/09/18 11:30 10/16/18 16:33 Humalog* SUBCUT Not Given ACHS ZAINAB Protocol Lactulose 30 ml 10/09/18 08:30 10/14/18 16:49 Lactulose* PO 30 ml Q6H PRN Administration CONSTIPATION Losartan Potassium 50 mg 10/09/18 09:00 10/16/18 08:49 Cozaar Tab* PO 50 mg DAILY ZAINAB Administration Magnesium Hydroxide 30 ml 10/09/18 08:30 Milk Of Magnesia Liq* PO Q6H PRN CONSTIPATION Multivitamins/Minerals 1 tab 10/09/18 09:00 10/16/18 08:49 Theragran/Minerals Tab* PO 1 tab DAILY ZAINAB Administration Pto: (Betaseron 0.3 0.3 mg 10/16/18 21:00 Mg) SUBCUT Q48H ZAINAB Ondansetron HCl 4 mg 10/09/18 08:55 Zofran Odt Tab* SL Q6H PRN NAUSEA/VOMITING Oxybutynin Chloride 15 mg 10/10/18 09:00 10/14/18 09:14 Ditropan Xl Tab* PO 15 mg MoWeFr@0900 ZAINAB Administration Oxycodone HCl 10 mg 10/16/18 16:10 Roxycodone Tab* PO Q3H PRN PAIN - SEVERE Oxycodone HCl 5 mg 10/16/18 16:10 10/16/18 16:29 Roxycodone Tab* PO 5 mg Q3H PRN Administration PAIN - MODERATE TO SEVERE Polyethylene Glycol/Electrolytes 17 gm 10/11/18 19:27 Miralax* PO DAILY PRN CONSTIPATION Potassium Chloride 10 meq 10/09/18 09:00 10/16/18 08:49 Klor Con Er Tab* PO 10 meq DAILY ZAINAB Administration Senna 2 tab 10/09/18 08:30 10/13/18 20:15 Senokot Tab* PO 2 tab BEDTIME PRN Administration CONSTIPATION Sodium Biphosphate/Sodium Phosphate 1 bottle 10/09/18 08:30 Fleet Enema* MS DAILY PRN CONSTIPATION Vitamin B Complex/Vitamin E 1 tab 10/09/18 09:00 10/16/18 08:49 B Complex-50* PO 1 tab DAILY ZAINAB Administration Vital Signs: Vital Signs Temp Pulse Resp BP Pulse Ox 97.4 F 70 14 118/63 98 10/16/18 17:32 10/16/18 17:32 10/16/18 17:32 10/16/18 17:32 10/16/18 17:32 Lab Results: Laboratory Results - last 24 hr 10/15/18 10/16/18 10/16/18 20:24 07:45 12:03 POC Glucose (mg/dL) 149 H 110 H 194 H Exam: GENERAL: In no distress LUNGS: Clear bilaterally HEART: Reg rhythm ABDOMEN: Soft, +BS EXTREMITIES: Right knee wound C/D/I. Feet swollen bilaterally. Increased tone RLE NEUROLOGIC: Alert and oriented. Able to move 4 extremities. RLE weak due to pain Assessment/Plan: 1. Right Total Knee Arthroplasty: WBAT; PT/OT. Follow up with Dr. Gordillo 2. Multiple Sclerosis: Betaseron. 3. Spasticity: Baclofen 10 mg 4 times a day 4. Diabetes: Glipizide XL. 10 mg 5. DVT Prophylaxis: Eliquis 6. Edema: Resumed HCTZ 10/16/18 19:11
[2018-10-16] MEDS: BETASERON 0.3 MG SUBCUT SCH (20:46)
[2018-10-17] MEDS: Acetaminophen TAB* 325 MG PO SCH ×3 (01:00→17:55)
[2018-10-17] MEDS: oxyCODONE TAB* 5 MG TAB PO PRN ×6 (02:00→20:43)
[2018-10-17 05:27] LABS: ABS Eosinophils 0.1 10^3/ul (0-0.6); ABS Monocytes 0.4 10^3/ul (0-0.8); ABS Neutrophils 3.6 10^3/ul (1.5-7.7); Eosinophil % 2.8 %; Hematocrit 38 % (35-47); Hemoglobin 12.4 g/dL (12.0-16.0); Lymphocyte % 19.7 %; Mean Corpuscular HGB Conc 33 g/dL (31-36); Mean Corpuscular Hemoglobin 28 pg (27-31); Mean Corpuscular Volume 85 fL (80-97); Mean Platelet Volume 8.2 fL (7.4-10.4); Platelet Count 326 10^3/uL (150-450); Red Blood Count 4.47 10^6 /uL (3.70-4.87); Red Cell Distribution Width 14 % (10.5-15); White Blood Count 5.2 10^3/uL (3.5-10.8)
[2018-10-17 06:29] LABS: Albumin 3.5 g/dL (3.2-5.2); Albumin/Globulin Ratio 1.2 (1-3); BUN/Creatinine Ratio 21.6 (8-20); Calcium 9.3 mg/dL (8.6-10.3); EGFR Non-African American 81.8 (>60); Potassium 3.9 mmol/L (3.5-5.0); Total Bilirubin 0.5 mg/dL (0.2-1.0); Total Protein 6.5 g/dL (6.4-8.9)
[2018-10-17] MEDS ORDERED: BETASERON 0.3 MG SUBCUT SCH (08:00)
[2018-10-17] MEDS: Hydrochlorothiazide TAB* 25 MG PO SCH (08:39)
[2018-10-17] MEDS: Apixaban* 2.5 MG TAB PO SCH ×2 (08:39→20:43)
[2018-10-17] MEDS: Oxybutynin XL TAB* 5 MG PO SCH (08:39)
[2018-10-17] MEDS: Vitamin B Complex TAB PO SCH (08:39)
[2018-10-17] MEDS: Baclofen TAB* 10 MG PO SCH ×4 (08:39→20:42)
[2018-10-17] MEDS: Insulin LISPRO* 1 UNITS UNIT SUBCUT SCH ×4 (08:40→20:45)
[2018-10-17] MEDS: glipiZIDE TAB.XL* 5 MG PO SCH (08:40)
[2018-10-17] MEDS: Multivitamins/Minerals TAB PO SCH (09:49)
[2018-10-17] MEDS: Losartan TAB* 25 MG PO SCH (09:49)
[2018-10-17] MEDS: Potassium Chlor TAB* 10 MEQ TAB.ER PO SCH (09:49)
[2018-10-17] MEDS: Polyethylene Glycol 3350* 17 GM PACKET PO PRN (16:20)
[2018-10-17] MEDS: Citalopram TAB* 20 MG PO SCH (18:16)
--- NOTE | 2018-10-17 18:19 | PN ---
Progress Note Date of Service: 10/17/18 Note: ANNIKA VIRAMONTES was visited. Therapy notes read and reviewed. She thinks she is moving a little better today. She has no complaints. Current Medications: Active Medications Generic Name Dose Route Start Last Admin Trade Name Freq PRN Reason Stop Dose Admin Acetaminophen 975 mg 10/09/18 09:00 10/17/18 17:55 Tylenol Tab* PO 975 mg Q8H ZAINAB Administration Al Hydrox/Mg Hydrox/Simethicone 30 ml 10/09/18 08:30 Maalox Plus* PO Q6H PRN INDIGESTION Apixaban 2.5 mg 10/09/18 09:00 10/17/18 08:39 Eliquis* PO 2.5 mg BID ZAINAB Administration Baclofen 10 mg 10/14/18 21:00 10/17/18 18:16 Lioresal Tab* PO 10 mg QID ZAINAB Administration Bisacodyl 10 mg 10/09/18 08:30 Dulcolax Supp* NM DAILY PRN CONSTIPATION Citalopram Hydrobromide 20 mg 10/09/18 18:00 10/17/18 18:16 Celexa Tab* PO 20 mg 1800 ZAINAB Administration Dextrose 12.5 gm 10/09/18 08:41 D50w Syringe 50 Ml* IV PUSH .FOR FS < 60 - SS PRN FS < 60 Docusate Sodium 100 mg 10/11/18 19:26 10/13/18 20:15 Colace Cap* PO 100 mg BID PRN Administration CONSTIPATION Glipizide 10 mg 10/12/18 09:00 10/17/18 08:40 Glucotrol Xl* PO 10 mg DAILY ZAINAB Administration Hydrochlorothiazide 25 mg 10/13/18 09:00 10/17/18 08:39 Hydrodiuril Tab* PO 25 mg DAILY ZAINAB Administration Insulin Human Lispro 0 units 10/09/18 11:30 10/17/18 16:56 Humalog* SUBCUT Not Given ACHS [facility] Protocol Interferon Beta 1b 0.3 mg 10/18/18 09:00 Betaseron (Nf) SUBCUT Q48HR ZAINAB Lactulose 30 ml 10/09/18 08:30 10/14/18 16:49 Lactulose* PO 30 ml Q6H PRN Administration CONSTIPATION Losartan Potassium 50 mg 10/09/18 09:00 10/17/18 09:49 Cozaar Tab* PO 50 mg DAILY ZAINAB Administration Magnesium Hydroxide 30 ml 10/09/18 08:30 Milk Of Magnesia Liq* PO Q6H PRN CONSTIPATION Multivitamins/Minerals 1 tab 10/09/18 09:00 10/17/18 09:49 Theragran/Minerals Tab* PO 1 tab DAILY ZAINAB Administration Ondansetron HCl 4 mg 10/09/18 08:55 Zofran Odt Tab* SL Q6H PRN NAUSEA/VOMITING Oxybutynin Chloride 15 mg 10/10/18 09:00 10/17/18 08:39 Ditropan Xl Tab* PO 15 mg [id number]@0900 ZAINAB Administration Oxycodone HCl 10 mg 10/16/18 16:10 10/17/18 13:01 Roxycodone Tab* PO 10 mg Q3H PRN Administration PAIN - SEVERE Oxycodone HCl 5 mg 10/16/18 16:10 10/17/18 16:20 Roxycodone Tab* PO 5 mg Q3H PRN Administration PAIN - MODERATE TO SEVERE Polyethylene Glycol/Electrolytes 17 gm 10/11/18 19:27 10/17/18 16:20 Miralax* PO 17 gm DAILY PRN Administration CONSTIPATION Potassium Chloride 10 meq 10/09/18 09:00 10/17/18 09:49 Klor Con Er Tab* PO 10 meq DAILY ZAINAB Administration Senna 2 tab 10/09/18 08:30 10/13/18 20:15 Senokot Tab* PO 2 tab BEDTIME PRN Administration CONSTIPATION Sodium Biphosphate/Sodium Phosphate 1 bottle 10/09/18 08:30 Fleet Enema* NM DAILY PRN CONSTIPATION Vitamin B Complex/Vitamin E 1 tab 10/09/18 09:00 10/17/18 08:39 B Complex-50* PO 1 tab DAILY ZAINAB Administration Vital Signs: Vital Signs Temp Pulse Resp BP Pulse Ox 98.0 F 74 16 124/65 99 10/17/18 15:49 10/17/18 15:49 10/17/18 17:07 10/17/18 15:49 10/17/18 17:07 Lab Results: Laboratory Results - last 24 hr 10/16/18 10/16/18 10/17/18 16:33 20:17 05:19 WBC 5.2 RBC 4.47 Hgb 12.4 Hct 38 MCV 85 MCH 28 MCHC 33 RDW 14 Plt Count 326 MPV 8.2 Neut % (Auto) 68.3 Lymph % (Auto) 19.7 Elliott % (Auto) 8.4 Eos % (Auto) 2.8 Baso % (Auto) 0.8 Absolute Neuts (auto) 3.6 Absolute Lymphs (auto) 1.0 Absolute Monos (auto) 0.4 Absolute Eos (auto) 0.1 Absolute Basos (auto) 0.0 Absolute Nucleated RBC 0.0 Nucleated RBC % 0.0 Sodium Potassium Chloride Carbon Dioxide Anion Gap BUN Creatinine Est GFR ( Amer) Est GFR (Non-Af Amer) BUN/Creatinine Ratio Glucose POC Glucose (mg/dL) 99 128 H Calcium Total Bilirubin AST ALT Alkaline Phosphatase Total Protein Albumin Globulin Albumin/Globulin Ratio 10/17/18 10/17/18 10/17/18 05:19 11:48 16:24 WBC RBC Hgb Hct MCV MCH MCHC RDW Plt Count MPV Neut % (Auto) Lymph % (Auto) Elliott % (Auto) Eos % (Auto) Baso % (Auto) Absolute Neuts (auto) Absolute Lymphs (auto) Absolute Monos (auto) Absolute Eos (auto) Absolute Basos (auto) Absolute Nucleated RBC Nucleated RBC % Sodium 139 Potassium 3.9 Chloride 104 Carbon Dioxide 30 Anion Gap 5 BUN 16 Creatinine 0.74 Est GFR ( Amer) 99.0 Est GFR (Non-Af Amer) 81.8 BUN/Creatinine Ratio 21.6 H Glucose 148 H POC Glucose (mg/dL) 137 H 94 Calcium 9.3 Total Bilirubin 0.50 AST 17 ALT 19 Alkaline Phosphatase 64 Total Protein 6.5 Albumin 3.5 Globulin 3.0 Albumin/Globulin Ratio 1.2 Exam: GENERAL: In no distress LUNGS: Clear bilaterally HEART: Reg rhythm ABDOMEN: Soft, +BS EXTREMITIES: Right knee wound C/D/I. Feet swollen bilaterally. Increased tone RLE NEUROLOGIC: Alert and oriented. Able to move 4 extremities. RLE weak due to pain Assessment/Plan: 1. Right Total Knee Arthroplasty: WBAT; PT/OT. Follow up with Dr. Gordillo 2. Multiple Sclerosis: Betaseron. 3. Spasticity: Baclofen 10 mg 4 times a day 4. Diabetes: Glipizide XL. 10 mg 5. DVT Prophylaxis: Eliquis 6. Edema: Resumed HCTZ 10/17/18 18:20
[2018-10-18] MEDS: Acetaminophen TAB* 325 MG PO SCH ×3 (00:54→17:06)
[2018-10-18] MEDS: oxyCODONE TAB* 5 MG TAB PO PRN ×4 (04:16→20:05)
[2018-10-18] MEDS: Insulin LISPRO* 1 UNITS UNIT SUBCUT SCH ×4 (07:34→20:11)
[2018-10-18] MEDS: Apixaban* 2.5 MG TAB PO SCH ×2 (08:02→20:06)
[2018-10-18] MEDS: Potassium Chlor TAB* 10 MEQ TAB.ER PO SCH (08:03)
[2018-10-18] MEDS: Hydrochlorothiazide TAB* 25 MG PO SCH (08:03)
[2018-10-18] MEDS: Baclofen TAB* 10 MG PO SCH ×4 (08:03→20:06)
[2018-10-18] MEDS: Vitamin B Complex TAB PO SCH (08:03)
[2018-10-18] MEDS: Multivitamins/Minerals TAB PO SCH (08:03)
[2018-10-18] MEDS: glipiZIDE TAB.XL* 5 MG PO SCH (08:03)
[2018-10-18] MEDS: Losartan TAB* 25 MG PO SCH (08:03)
--- NOTE | 2018-10-18 12:39 | PMRUTEAM ---
PMRU: Team Meeting Current Status: Nursing: Current Status Skin Deviations [Right Thigh] Other Skin Deviations [Bilateral Arm Bruise ] Skin Deviations [Right Knee] Incision Skin Deviation Description [ edema, erythema noted Right Thigh] Skin Deviation Description [ well approximated, sutures intact, no drainage Right Knee] noted, little pink at proximal end of incision - getting better Bladder Current Status Incontinent Bowel Current Status Continent - BM meds given Nutrition Current Status 100% of most meals Medication Current Status Reinforcement given Physical Therapy: Current Status Bed Mobility Assistance Mod Assist,2 or More Person Assist Transfer Mobility Assistance Max Assist,2 or More Person Assist Transfer/Bed Mobility Rolling Walker,EZ Stand Recommended Devices Ambulation Assistance Unable Ambulation Assistive Devices Rolling Walker Occupational Therapy: Current Status Upper Body Dressing Supervision Lower Body Dressing 2 Person Assist Bathing Mod Assist,2 Person Assist Toileting Total Assist,2 Person Assist Toilet Transfer Total Assist,2 Person Assist Shower Transfer Total Assist,2 Person Assist Eating Independent Rec Therapy: Current Status Summary of Assessment and Recreation Therapy assessment complete and pt. is Clinical Impression aware of services. Pt. has been engaging in leisure activities on the unit, spending time with visitors and is open to continued visits. Treatment Goals Pt. will continue to engage in leisure activities while on the unit. Treatment Plan Provide recreation therapy services and encourage involvement. Social Work: Current Status Discharge Plan return home with home care svs and family support Potential for Family Training pt's family are involved and supportive Anticipated Discharge Home Destination Discharge With home care svs and family support Nutrition: Current Status Monitoring Eating well and was cheerful at time of visit. Tolerating diet. Denies nausea. States hx constipation - not unusual to only have BMs every 3 days or so. Appropriate bowel meds ordered although not consistently taken (as noted earlier in admission, had been leary of taking bowel meds since had some diarrhea). Last BM 10/15. BG 148 - controlled adequately overall - generally <150 - 160. No new phosphorus level. (low 10/08 - 2.0). Goals: Physical Therapy: Initial Goals Bed Mobility Assistance Independent Transfer Mobility Assistance Independent Transfer/Bed Mobility Rolling Walker Recommended Devices Ambulation Independent Ambulation Recommended Devices Rolling Walker Ambulation Distance 150 Wheelchair Propulsion Ability Independent Wheelchair Distance (ft) 150 Home Exercise Program Independent Assistance Physical Therapy: Updated Goals Transfer/Bed Mobility EZ Stand Recommended Devices Occupational Therapy: Initial Goals Goals to be Completed in (Days 21 ) Upper Body Bathing Routine Independent Lower Body Bathing Routine Minimal Contact Assist Upper Body Dressing Routine Independent Lower Body Dressing Routine Modified Independent with Toilet Hygeine and Clothing Modified Independent with Management Routine Toilet Transfer Routine Modified Independent with Step-In Shower Transfer Supervision/Set Up Routine Functional Transfers for ADL Modified Independent with Grooming Routine Independent Feeding Routine Independent Nursing: Goals Bladder Goal Toileting q2hr - incontinent at baseline Bowel Goal Continent Nutrition Goal 100% of all meals Medication Goal Independent with medication Nutrition: Goals Intervention Goals 1. Achieve/maintain adequate glycemic control per inpatient parameters w/o hypoglycemia. 2. Achieve/maintain regular bowel pattern w/o diarrhea or constipation. 3. Maintain adequate oral intake to support post op recovery w/o contributing to undesirable weight gain. Social Work: Goals Discharge Plan return home with home care svs and family support Potential for Family Training pt's family are involved and supportive Anticipated Discharge Home Destination Discharge With home care svs and family support Care Plan: Care Plan ADL's - Improve/Maintain Start: 10/09/18 12:47 Freq: DAILY Status: Active Target: Protocol: Activity Type Activity Date Activity User E-Sign Co-Sign Detail Recorded Client Recorded Date Recorded By Document 10/17/18 10:47 [id number] 10/17/18 10:47 [id number] 10/17/18 10:47 PMRU Outcome: ADL's/ADL Transfers Orders/Interventions Occupational Therapy Evaluation & Treatment Device Yes Patient to receive OT 5x/wk for 60-120 Therex min/day Self Care Management Group Therapy UE/LE ADL's with Assist Yes: min A for socks/shoes ADL Transfers with Assist Yes: mod I Toileting: Transfers,Clothing Management Yes: mod I ,Hygeine w/Assist Light Kitchen/Laundry w/Assist No Progression Toward Outcome/Goals Progressing Outcome/Goals Met Pt had more difficulty lifting RLE today. Continues to require maximal assistance d/t BLE weakness. EZ stand needed . Discharge Planning - Improve/Maintain Start: 10/09/18 12:47 Freq: DAILY Status: Active Target: Protocol: Activity Type Activity Date Activity User E-Sign Co-Sign Detail Recorded Client Recorded Date Recorded By Document 10/18/18 00:02 [id number] 10/18/18 00:02 [id number] 10/18/18 00:02 PMRU Outcome: Discharge Planning Update Patient Family No Outcome/Goals Demonstrates Understanding of Discharge Plan Progression Toward Outcome/Goals Progressing Education-Improve/Maintain Start: 10/09/18 12:47 Freq: QSHIFT Status: Active Target: Protocol: Activity Type Activity Date Activity User E-Sign Co-Sign Detail Recorded Client Recorded Date Recorded By Document 10/18/18 00:02 [id number] 10/18/18 00:03 [id number] 10/18/18 00:02 PMRU Outcome: Education Outcome/Goals Encourage Questions Progression Toward Outcome/Goals Progressing /GI-Improve/Maintain Start: 10/09/18 12:47 Freq: QSHIFT Status: Active Target: Protocol: Activity Type Activity Date Activity User E-Sign Co-Sign Detail Recorded Client Recorded Date Recorded By Document 10/18/18 00:02 [id number] 10/18/18 00:03 [id number] 10/18/18 00:02 PMRU Outcome: Genitourinary/ Gastrointestinal Genitourinary- Outcome/Goals Remain Free of Hospital- Acquired UTI Other Gastrointestinal-Outcome/Goals Maintain/ Achieve Bowel Regularity in Accordance with Pt's Baseline Prevent Constipation Laxatives as Ordered Progression Toward Outcome/Goals - Progressing Progression Toward Outcome/Goals - GI Progressing Outcome/Goals Met Comment pt incontinent of urine Mobility- Improve/Maintain Start: 10/09/18 12:47 Freq: DAILY Status: Active Target: Protocol: Activity Type Activity Date Activity User E-Sign Co-Sign Detail Recorded Client Recorded Date Recorded By Document 10/10/18 15:05 [id number] 10/10/18 15:11 [id number] 10/10/18 15:05 PMRU Outcome: Mobility Physical Therapy Evaluation and Yes Treatment Activity OOB with Assistance Yes WBAT Yes: R LE Device Yes: Ez-stand Assistance Yes: Ax2 Patient to be seen 5x/wk for 60-120 min/ Therex day for: Mobility Training Gait Training W/C Mobility Balance Outcome/Goals Maintain/ Achieve Baseline Mobility Status Improve Mobility Status Demonstrates Proper Use of Assistive Devices Free from Complications of Immobility Progression Toward Outcome/Goals Progressing Bed Mobility Yes: Ind Transfers Yes: Mod I Gait x ft Yes: Mod I x150ft with walker W/C Mobility x ft Yes: Mod I x150ft Up/Down Stairs No With HEP Yes Goal Comment Knee flexion 90 degrees Pain/Comfort- Improve/Maintain Start: 10/09/18 12:47 Freq: QSHIFT Status: Active Target: Protocol: Activity Type Activity Date Activity User E-Sign Co-Sign Detail Recorded Client Recorded Date Recorded By Document 10/18/18 00:02 [id number] 10/18/18 00:03 [id number] 10/18/18 00:02 PMRU Outcome: Pain/Comfort Outcome/Goals Demonstrates Knowledge and Use of Available Comfort Measures Achieves Acceptable Comfort/Pain Level as Determined by Patient/Condit Maintain Comfort Level Allowing Patient to Fully Participate in Rehab Progression Toward Outcome/Goals Progressing Outcome/Goals Met Comment scheduled pain medication will be given, pt resting at this time Respiratory - Improve/Maintain Start: 10/09/18 12:47 Freq: QSHIFT Status: Active Target: Protocol: Activity Type Activity Date Activity User E-Sign Co-Sign Detail Recorded Client Recorded Date Recorded By Document 10/18/18 00:02 [id number] 10/18/18 00:03 [id number] 10/18/18 00:02 PMRU Outcome: Respiratory Does Patient Have a Trach No Outcome/Goals Maintain/ Improve O2 Sat per MD Order Maintain/ Improve Activity Tolerance Prevent Pneumonia/ Atelectasis Progression Toward Outcome/Goals Progressing Safety- Improve/Maintain Start: 10/09/18 12:47 Freq: QSHIFT Status: Active Target: Protocol: Activity Type Activity Date Activity User E-Sign Co-Sign Detail Recorded Client Recorded Date Recorded By Document 10/18/18 00:02 [id number] 10/18/18 00:03 [id number] 10/18/18 00:02 PMRU Outcome: Safety Outcome/Goals Remain Free of Injury or Harm Cooperates with Safety Measures for Least Restrictive Environment Prevent Falls/ Injury Progression Toward Outcome/Goals Progressing Skin- Improve/Maintain Start: 10/09/18 12:47 Freq: QSHIFT Status: Active Target: Protocol: Activity Type Activity Date Activity User E-Sign Co-Sign Detail Recorded Client Recorded Date Recorded By Document 10/18/18 00:02 [id number] 10/18/18 00:03 [id number] 10/18/18 00:02 PMRU Outcome: Skin Skin Risk Level Medium Skin Orders Turn/Position q2hr While in Bed Outcome/Goals Maintain/ Improve Skin Intergrity Surgical Incisions Healing Progression Toward Outcome/Goals Progressing Medicine Note: Length of Stay: 2 weeks Anticipated Discharge Destination: Home Tentative Discharge Date: 11/01/18 Discharged to: Home
[2018-10-18] MEDS: Citalopram TAB* 20 MG PO SCH (17:06)
--- NOTE | 2018-10-18 17:18 | PN ---
Progress Note Date of Service: 10/18/18 Note: ANNIKA VIRAMONTES was visited. Therapy notes read and reviewed. She was discussed in interdisciplinary team rounds. She has been making slow steady progress. COncerns about her ability to toilet at discharge were raised. Current Medications: Active Medications Generic Name Dose Route Start Last Admin Trade Name Freq PRN Reason Stop Dose Admin Acetaminophen 975 mg 10/09/18 09:00 10/18/18 17:06 Tylenol Tab* PO 975 mg Q8H ZAINAB Administration Al Hydrox/Mg Hydrox/Simethicone 30 ml 10/09/18 08:30 Maalox Plus* PO Q6H PRN INDIGESTION Apixaban 2.5 mg 10/09/18 09:00 10/18/18 08:02 Eliquis* PO 2.5 mg BID ZAINAB Administration Baclofen 10 mg 10/14/18 21:00 10/18/18 17:06 Lioresal Tab* PO 10 mg QID ZAINAB Administration Bisacodyl 10 mg 10/09/18 08:30 Dulcolax Supp* [place] DAILY PRN CONSTIPATION Citalopram Hydrobromide 20 mg 10/09/18 18:00 10/18/18 17:06 Celexa Tab* PO 20 mg 1800 ZAINAB Administration Dextrose 12.5 gm 10/09/18 08:41 D50w Syringe 50 Ml* IV PUSH .FOR FS < 60 - SS PRN FS < 60 Docusate Sodium 100 mg 10/11/18 19:26 10/13/18 20:15 Colace Cap* PO 100 mg BID PRN Administration CONSTIPATION Glipizide 10 mg 10/12/18 09:00 10/18/18 08:03 Glucotrol Xl* PO 10 mg DAILY ZAINAB Administration Hydrochlorothiazide 25 mg 10/13/18 09:00 10/18/18 08:03 Hydrodiuril Tab* PO 25 mg DAILY [facility] Administration Insulin Human Lispro 0 units 10/09/18 11:30 10/18/18 16:47 Humalog* SUBCUT Not Given ACHS [facility] Protocol Interferon Beta 1b 0.3 mg 10/18/18 19:00 Betaseron (Nf) SUBCUT Q48HR@1900 ZAINAB Lactulose 30 ml 10/09/18 08:30 10/14/18 16:49 Lactulose* PO 30 ml Q6H PRN Administration CONSTIPATION Losartan Potassium 50 mg 10/09/18 09:00 10/18/18 08:03 Cozaar Tab* PO 50 mg DAILY ZAINAB Administration Magnesium Hydroxide 30 ml 10/09/18 08:30 Milk Of Magnesia Liq* PO Q6H PRN CONSTIPATION Multivitamins/Minerals 1 tab 10/09/18 09:00 10/18/18 08:03 Theragran/Minerals Tab* PO 1 tab DAILY ZAINAB Administration Ondansetron HCl 4 mg 10/09/18 08:55 Zofran Odt Tab* SL Q6H PRN NAUSEA/VOMITING Oxybutynin Chloride 15 mg 10/10/18 09:00 10/17/18 08:39 Ditropan Xl Tab* PO 15 mg [id number]@0900 ZAINAB Administration Oxycodone HCl 10 mg 10/16/18 16:10 10/18/18 13:12 Roxycodone Tab* PO 10 mg Q3H PRN Administration PAIN - SEVERE Oxycodone HCl 5 mg 10/16/18 16:10 10/18/18 04:16 Roxycodone Tab* PO 5 mg Q3H PRN Administration PAIN - MODERATE TO SEVERE Polyethylene Glycol/Electrolytes 17 gm 10/11/18 19:27 10/17/18 16:20 Miralax* PO 17 gm DAILY PRN Administration CONSTIPATION Potassium Chloride 10 meq 10/09/18 09:00 10/18/18 08:03 Klor Con Er Tab* PO 10 meq DAILY ZAINAB Administration Senna 2 tab 10/09/18 08:30 10/13/18 20:15 Senokot Tab* PO 2 tab BEDTIME PRN Administration CONSTIPATION Sodium Biphosphate/Sodium Phosphate 1 bottle 10/09/18 08:30 Fleet Enema* [place] DAILY PRN CONSTIPATION Vitamin B Complex/Vitamin E 1 tab 10/09/18 09:00 10/18/18 08:03 B Complex-50* PO 1 tab DAILY ZAINAB Administration Vital Signs: Vital Signs Temp Pulse Resp BP Pulse Ox 97.8 F 70 18 141/63 100 10/18/18 15:38 10/18/18 15:38 10/18/18 16:06 10/18/18 15:38 10/18/18 15:38 Lab Results: Laboratory Results - last 24 hr 10/17/18 10/18/18 10/18/18 20:24 07:27 12:17 POC Glucose (mg/dL) 120 H 112 H 139 H 10/18/18 16:33 POC Glucose (mg/dL) 91 Exam: GENERAL: In no distress LUNGS: Clear bilaterally HEART: Reg rhythm ABDOMEN: Soft, +BS EXTREMITIES: Right knee wound C/D/I. Feet swollen bilaterally. Increased tone RLE NEUROLOGIC: Alert and oriented. Able to move 4 extremities. RLE weak due to pain Assessment/Plan: 1. Right Total Knee Arthroplasty: WBAT; PT/OT. Follow up with Dr. Gordillo 2. Multiple Sclerosis: Betaseron. 3. Spasticity: Baclofen 10 mg 4 times a day 4. Diabetes: Glipizide XL. 10 mg 5. DVT Prophylaxis: Eliquis 6. Edema: Resumed HCTZ 10/18/18 17:19
[2018-10-18] MEDS: BETASERON 0.3 MG SUBCUT SCH ×2 (19:20→19:21)
[2018-10-18] MEDS: Senna TAB PO PRN (20:14)
[2018-10-18] MEDS: Polyethylene Glycol 3350* 17 GM PACKET PO PRN (20:16)
[2018-10-18] MEDS: Docusate CAP* 100 MG PO PRN (20:17)
[2018-10-19] MEDS: Acetaminophen TAB* 325 MG PO SCH ×3 (00:44→17:10)
[2018-10-19] MEDS: oxyCODONE TAB* 5 MG TAB PO PRN ×5 (04:11→21:00)
[2018-10-19] MEDS: Insulin LISPRO* 1 UNITS UNIT SUBCUT SCH ×4 (07:25→20:56)
[2018-10-19] MEDS: glipiZIDE TAB.XL* 5 MG PO SCH (07:33)
[2018-10-19] MEDS: Baclofen TAB* 10 MG PO SCH ×4 (07:33→21:01)
[2018-10-19] MEDS: Oxybutynin XL TAB* 5 MG PO SCH (07:33)
[2018-10-19] MEDS: Apixaban* 2.5 MG TAB PO SCH ×2 (07:33→21:01)
[2018-10-19] MEDS: Multivitamins/Minerals TAB PO SCH (07:33)
[2018-10-19] MEDS: Losartan TAB* 25 MG PO SCH (07:33)
[2018-10-19] MEDS: Hydrochlorothiazide TAB* 25 MG PO SCH (07:33)
[2018-10-19] MEDS: Vitamin B Complex TAB PO SCH (07:34)
[2018-10-19] MEDS: Potassium Chlor TAB* 10 MEQ TAB.ER PO SCH (07:34)
[2018-10-19] MEDS: Citalopram TAB* 20 MG PO SCH (17:10)
--- NOTE | 2018-10-19 20:08 | PN ---
Progress Note Date of Service: 10/19/18 Note: ANNIKA VIRAMONTES was visited. Therapy notes read and reviewed. Was in the Lite gait today. Also was able to stand and pivot onto a commode. So she is improving. Current Medications: Active Medications Generic Name Dose Route Start Last Admin Trade Name Freq PRN Reason Stop Dose Admin Acetaminophen 975 mg 10/09/18 09:00 10/19/18 17:10 Tylenol Tab* PO 975 mg Q8H ZAINAB Administration Al Hydrox/Mg Hydrox/Simethicone 30 ml 10/09/18 08:30 Maalox Plus* PO Q6H PRN INDIGESTION Apixaban 2.5 mg 10/09/18 09:00 10/19/18 07:33 Eliquis* PO 2.5 mg BID ZAINAB Administration Baclofen 10 mg 10/14/18 21:00 10/19/18 17:10 Lioresal Tab* PO 10 mg QID ZAINAB Administration Bisacodyl 10 mg 10/09/18 08:30 Dulcolax Supp* [place] DAILY PRN CONSTIPATION Citalopram Hydrobromide 20 mg 10/09/18 18:00 10/19/18 17:10 Celexa Tab* PO 20 mg 1800 ZAINAB Administration Dextrose 12.5 gm 10/09/18 08:41 D50w Syringe 50 Ml* IV PUSH .FOR FS < 60 - SS PRN FS < 60 Docusate Sodium 100 mg 10/11/18 19:26 10/18/18 20:17 Colace Cap* PO 100 mg BID PRN Administration CONSTIPATION Glipizide 10 mg 10/12/18 09:00 10/19/18 07:33 Glucotrol Xl* PO 10 mg DAILY ZAINAB Administration Hydrochlorothiazide 25 mg 10/13/18 09:00 10/19/18 07:33 Hydrodiuril Tab* PO 25 mg DAILY ZAINAB Administration Insulin Human Lispro 0 units 10/09/18 11:30 10/19/18 17:12 Humalog* SUBCUT 2 units ACHS ZAINAB Administration Protocol Interferon Beta 1b 0.3 mg 10/18/18 19:00 10/18/18 19:21 Betaseron (Nf) SUBCUT 0.3 mg Q48HR@1900 ZAINAB Administration Lactulose 30 ml 10/09/18 08:30 10/14/18 16:49 Lactulose* PO 30 ml Q6H PRN Administration CONSTIPATION Losartan Potassium 50 mg 10/09/18 09:00 10/19/18 07:33 Cozaar Tab* PO 50 mg DAILY ZAINAB Administration Magnesium Hydroxide 30 ml 10/09/18 08:30 10/19/18 17:08 Milk Of Magnesia Liq* PO 30 ml Q6H PRN Administration CONSTIPATION Multivitamins/Minerals 1 tab 10/09/18 09:00 10/19/18 07:33 Theragran/Minerals Tab* PO 1 tab DAILY ZAINAB Administration Ondansetron HCl 4 mg 10/09/18 08:55 Zofran Odt Tab* SL Q6H PRN NAUSEA/VOMITING Oxybutynin Chloride 15 mg 10/10/18 09:00 10/19/18 07:33 Ditropan Xl Tab* PO 15 mg MoWeFr@0900 ZAINAB Administration Oxycodone HCl 10 mg 10/16/18 16:10 10/19/18 13:36 Roxycodone Tab* PO 10 mg Q3H PRN Administration PAIN - SEVERE Oxycodone HCl 5 mg 10/16/18 16:10 10/19/18 04:11 Roxycodone Tab* PO 5 mg Q3H PRN Administration PAIN - MODERATE TO SEVERE Polyethylene Glycol/Electrolytes 17 gm 10/11/18 19:27 10/18/18 20:16 Miralax* PO 17 gm DAILY PRN Administration CONSTIPATION Potassium Chloride 10 meq 10/09/18 09:00 10/19/18 07:34 Klor Con Er Tab* PO 10 meq DAILY ZAINAB Administration Senna 2 tab 10/09/18 08:30 10/18/18 20:14 Senokot Tab* PO 2 tab BEDTIME PRN Administration CONSTIPATION Sodium Biphosphate/Sodium Phosphate 1 bottle 10/09/18 08:30 Fleet Enema* [place] DAILY PRN CONSTIPATION Vitamin B Complex/Vitamin E 1 tab 10/09/18 09:00 10/19/18 07:34 B Complex-50* PO 1 tab DAILY ZAINAB Administration Vital Signs: Vital Signs Temp Pulse Resp BP Pulse Ox 97.5 F 76 21 135/74 100 10/19/18 15:00 10/19/18 15:00 10/19/18 19:50 10/19/18 15:00 10/19/18 15:00 Lab Results: Laboratory Results - last 24 hr 10/18/18 10/19/18 10/19/18 20:08 07:23 12:06 POC Glucose (mg/dL) 130 H 130 H 189 H 10/19/18 16:40 POC Glucose (mg/dL) 134 H Exam: GENERAL: In no distress LUNGS: Clear bilaterally HEART: Reg rhythm ABDOMEN: Soft, +BS EXTREMITIES: Right knee wound C/D/I. Feet swollen bilaterally. Increased tone RLE NEUROLOGIC: Alert and oriented. Able to move 4 extremities. RLE weak due to pain Assessment/Plan: 1. Right Total Knee Arthroplasty: WBAT; PT/OT. Follow up with Dr. Gordillo 2. Multiple Sclerosis: Betaseron. 3. Spasticity: Baclofen 10 mg 4 times a day 4. Diabetes: Glipizide XL. 10 mg 5. DVT Prophylaxis: Eliquis 6. Edema: Resumed HCTZ. Improving 10/19/18 20:11
[2018-10-20] MEDS: Acetaminophen TAB* 325 MG PO SCH ×3 (00:54→17:10)
[2018-10-20] MEDS: oxyCODONE TAB* 5 MG TAB PO PRN ×3 (06:27→21:32)
[2018-10-20] MEDS: Insulin LISPRO* 1 UNITS UNIT SUBCUT SCH ×4 (08:13→21:35)
[2018-10-20] MEDS: Apixaban* 2.5 MG TAB PO SCH ×2 (10:36→21:32)
[2018-10-20] MEDS: Baclofen TAB* 10 MG PO SCH ×4 (10:36→21:32)
[2018-10-20] MEDS: Multivitamins/Minerals TAB PO SCH (10:37)
[2018-10-20] MEDS: Hydrochlorothiazide TAB* 25 MG PO SCH (10:37)
[2018-10-20] MEDS: glipiZIDE TAB.XL* 5 MG PO SCH (10:37)
[2018-10-20] MEDS: Losartan TAB* 25 MG PO SCH (10:37)
[2018-10-20] MEDS: Vitamin B Complex TAB PO SCH (10:38)
[2018-10-20] MEDS: Potassium Chlor TAB* 10 MEQ TAB.ER PO SCH (10:38)
[2018-10-20] MEDS: Citalopram TAB* 20 MG PO SCH (17:13)
[2018-10-20] MEDS: BETASERON 0.3 MG SUBCUT SCH (18:47)
--- NOTE | 2018-10-20 21:45 | PN ---
Progress Note Date of Service: 10/20/18 Note: ANNIKA VIRAMONTES was visited. Therapy notes read and reviewed. Her stitches were removed without incident. Steri-strips applied. She has otherwise been doing okay. Current Medications: Active Medications Generic Name Dose Route Start Last Admin Trade Name Freq PRN Reason Stop Dose Admin Acetaminophen 975 mg 10/09/18 09:00 10/20/18 17:10 Tylenol Tab* PO 975 mg Q8H ZAINAB Administration Al Hydrox/Mg Hydrox/Simethicone 30 ml 10/09/18 08:30 Maalox Plus* PO Q6H PRN INDIGESTION Apixaban 2.5 mg 10/09/18 09:00 10/20/18 21:32 Eliquis* PO 2.5 mg BID ZAINAB Administration Baclofen 10 mg 10/14/18 21:00 10/20/18 21:32 Lioresal Tab* PO 10 mg QID ZAINAB Administration Bisacodyl 10 mg 10/09/18 08:30 10/20/18 19:41 Dulcolax Supp* [place] 10 mg DAILY PRN Administration CONSTIPATION Citalopram Hydrobromide 20 mg 10/09/18 18:00 10/20/18 17:13 Celexa Tab* PO 20 mg 1800 ZAINAB Administration Dextrose 12.5 gm 10/09/18 08:41 D50w Syringe 50 Ml* IV PUSH .FOR FS < 60 - SS PRN FS < 60 Docusate Sodium 100 mg 10/11/18 19:26 10/18/18 20:17 Colace Cap* PO 100 mg BID PRN Administration CONSTIPATION Glipizide 10 mg 10/12/18 09:00 10/20/18 10:37 Glucotrol Xl* PO 10 mg DAILY ZAINAB Administration Hydrochlorothiazide 25 mg 10/13/18 09:00 10/20/18 10:37 Hydrodiuril Tab* PO 25 mg DAILY [facility] Administration Insulin Human Lispro 0 units 10/09/18 11:30 10/20/18 21:35 Humalog* SUBCUT 3 units ACHS ZAINAB Administration Protocol Interferon Beta 1b 0.3 mg 10/18/18 19:00 10/20/18 18:47 Betaseron (Nf) SUBCUT 0.3 mg Q48HR@1900 ZAINAB Administration Lactulose 30 ml 10/09/18 08:30 10/14/18 16:49 Lactulose* PO 30 ml Q6H PRN Administration CONSTIPATION Losartan Potassium 50 mg 10/09/18 09:00 10/20/18 10:37 Cozaar Tab* PO 50 mg DAILY [facility] Administration Magnesium Hydroxide 30 ml 10/09/18 08:30 10/19/18 17:08 Milk Of Magnesia Liq* PO 30 ml Q6H PRN Administration CONSTIPATION Multivitamins/Minerals 1 tab 10/09/18 09:00 10/20/18 10:37 Theragran/Minerals Tab* PO 1 tab DAILY [facility] Administration Ondansetron HCl 4 mg 10/09/18 08:55 Zofran Odt Tab* SL Q6H PRN NAUSEA/VOMITING Oxybutynin Chloride 15 mg 10/10/18 09:00 10/19/18 07:33 Ditropan Xl Tab* PO 15 mg MoWeFr@0900 ZAINAB Administration Oxycodone HCl 10 mg 10/16/18 16:10 10/20/18 21:32 Roxycodone Tab* PO 10 mg Q3H PRN Administration PAIN - SEVERE Oxycodone HCl 5 mg 10/16/18 16:10 10/19/18 04:11 Roxycodone Tab* PO 5 mg Q3H PRN Administration PAIN - MODERATE TO SEVERE Polyethylene Glycol/Electrolytes 17 gm 10/11/18 19:27 10/18/18 20:16 Miralax* PO 17 gm DAILY PRN Administration CONSTIPATION Potassium Chloride 10 meq 10/09/18 09:00 10/20/18 10:38 Klor Con Er Tab* PO 10 meq DAILY ZAINAB Administration Senna 2 tab 10/09/18 08:30 10/18/18 20:14 Senokot Tab* PO 2 tab BEDTIME PRN Administration CONSTIPATION Sodium Biphosphate/Sodium Phosphate 1 bottle 10/09/18 08:30 Fleet Enema* [place] DAILY PRN CONSTIPATION Vitamin B Complex/Vitamin E 1 tab 10/09/18 09:00 10/20/18 10:38 B Complex-50* PO 1 tab DAILY ZAINAB Administration Vital Signs: Vital Signs Temp Pulse Resp BP Pulse Ox 97.5 F 65 18 138/70 99 10/20/18 16:29 10/20/18 16:29 10/20/18 21:32 10/20/18 16:29 10/20/18 16:29 Lab Results: Laboratory Results - last 24 hr 10/20/18 10/20/18 10/20/18 07:31 12:04 16:32 POC Glucose (mg/dL) 129 H 134 H 95 10/20/18 20:41 POC Glucose (mg/dL) 172 H Exam: GENERAL: In no distress LUNGS: Clear bilaterally HEART: Reg rhythm ABDOMEN: Soft, +BS EXTREMITIES: Right knee wound C/D/I. Steri strips in place. Increased tone RLE NEUROLOGIC: Alert and oriented. Able to move 4 extremities. RLE weak due to pain Assessment/Plan: 1. Right Total Knee Arthroplasty: WBAT; PT/OT. Follow up with Dr. Gordillo 2. Multiple Sclerosis: Betaseron. 3. Spasticity: Baclofen 10 mg 4 times a day 4. Diabetes: Glipizide XL. 10 mg 5. DVT Prophylaxis: Eliquis 6. Edema: Resumed HCTZ. Improving 10/20/18 21:45
[2018-10-21] MEDS: Acetaminophen TAB* 325 MG PO SCH ×3 (01:10→16:37)
[2018-10-21] MEDS: Vitamin B Complex TAB PO SCH (08:43)
[2018-10-21] MEDS: Oxybutynin XL TAB* 5 MG PO SCH (08:43)
[2018-10-21] MEDS: Baclofen TAB* 10 MG PO SCH ×4 (08:43→20:37)
[2018-10-21] MEDS: Potassium Chlor TAB* 10 MEQ TAB.ER PO SCH (08:43)
[2018-10-21] MEDS: Apixaban* 2.5 MG TAB PO SCH ×2 (08:43→20:36)
[2018-10-21] MEDS: Multivitamins/Minerals TAB PO SCH (08:43)
[2018-10-21] MEDS: Losartan TAB* 25 MG PO SCH (08:43)
[2018-10-21] MEDS: Hydrochlorothiazide TAB* 25 MG PO SCH (08:43)
[2018-10-21] MEDS: oxyCODONE TAB* 5 MG TAB PO PRN ×3 (08:44→20:37)
[2018-10-21] MEDS: glipiZIDE TAB.XL* 5 MG PO SCH (08:44)
[2018-10-21] MEDS: Insulin LISPRO* 1 UNITS UNIT SUBCUT SCH ×4 (08:45→20:54)
--- NOTE | 2018-10-21 10:05 | PN ---
Progress Note Date of Service: 10/21/18 Note: ANNIKA VIRAMONTES was visited. Nursing and therapy notes read and reviewed. No chest pain, shortness of breath or abdominal pain. She reports feeling like both legs are weaker the last 2 days and some more paresthesias up to her calves. She has had some fluctuations normally. The paresthesias were worse earlier this morning in bed. She has had some additional lower back pain. She had a hard moderate BM last night and had been constipated for 5 days prior. She used a suppository last night. She is incontinent of urine at baseline. Current Medications: Active Medications Generic Name Dose Route Start Last Admin Trade Name Freq PRN Reason Stop Dose Admin Acetaminophen 975 mg 10/09/18 09:00 10/21/18 08:44 Tylenol Tab* PO 975 mg Q8H ZAINAB Administration Al Hydrox/Mg Hydrox/Simethicone 30 ml 10/09/18 08:30 Maalox Plus* PO Q6H PRN INDIGESTION Apixaban 2.5 mg 10/09/18 09:00 10/21/18 08:43 Eliquis* PO 2.5 mg BID ZAINAB Administration Baclofen 10 mg 10/14/18 21:00 10/21/18 08:43 Lioresal Tab* PO 10 mg QID ZAINAB Administration Bisacodyl 10 mg 10/21/18 18:00 Dulcolax Supp* ID QPM ZAINAB Citalopram Hydrobromide 20 mg 10/09/18 18:00 10/20/18 17:13 Celexa Tab* PO 20 mg 1800 ZAINAB Administration Dextrose 12.5 gm 10/09/18 08:41 D50w Syringe 50 Ml* IV PUSH .FOR FS < 60 - SS PRN FS < 60 Docusate Sodium 100 mg 10/21/18 21:00 Colace Cap* PO BID ZAINAB Glipizide 10 mg 10/12/18 09:00 10/21/18 08:44 Glucotrol Xl* PO 10 mg DAILY ZAINAB Administration Hydrochlorothiazide 25 mg 10/13/18 09:00 10/21/18 08:43 Hydrodiuril Tab* PO 25 mg DAILY Z[facility]AB Administration Insulin Human Lispro 0 units 10/09/18 11:30 10/21/18 08:45 Humalog* SUBCUT 3 units ACHS ZAINAB Administration Protocol Interferon Beta 1b 0.3 mg 10/18/18 19:00 10/20/18 18:47 Betaseron (Nf) SUBCUT 0.3 mg Q48HR@1900 ZAINAB Administration Lactulose 30 ml 10/09/18 08:30 10/14/18 16:49 Lactulose* PO 30 ml Q6H PRN Administration CONSTIPATION Losartan Potassium 50 mg 10/09/18 09:00 10/21/18 08:43 Cozaar Tab* PO 50 mg DAILY [facility] Administration Magnesium Hydroxide 30 ml 10/09/18 08:30 10/19/18 17:08 Milk Of Magnesia Liq* PO 30 ml Q6H PRN Administration CONSTIPATION Multivitamins/Minerals 1 tab 10/09/18 09:00 10/21/18 08:43 Theragran/Minerals Tab* PO 1 tab DAILY [facility]AINAB Administration Ondansetron HCl 4 mg 10/09/18 08:55 Zofran Odt Tab* SL Q6H PRN NAUSEA/VOMITING Oxybutynin Chloride 15 mg 10/10/18 09:00 10/21/18 08:43 Ditropan Xl Tab* PO 15 mg MoWeFr@0900 ZAINAB Administration Oxycodone HCl 10 mg 10/16/18 16:10 10/21/18 08:44 Roxycodone Tab* PO 10 mg Q3H PRN Administration PAIN - SEVERE Oxycodone HCl 5 mg 10/16/18 16:10 10/19/18 04:11 Roxycodone Tab* PO 5 mg Q3H PRN Administration PAIN - MODERATE TO SEVERE Polyethylene Glycol/Electrolytes 17 gm 10/11/18 19:27 10/18/18 20:16 Miralax* PO 17 gm DAILY PRN Administration CONSTIPATION Potassium Chloride 10 meq 10/09/18 09:00 10/21/18 08:43 Klor Con Er Tab* PO 10 meq DAILY ZAINAB Administration Senna 2 tab 10/21/18 21:00 Senokot Tab* PO BEDTIME ZAINAB Sodium Biphosphate/Sodium Phosphate 1 bottle 10/09/18 08:30 Fleet Enema* [place] DAILY PRN CONSTIPATION Vitamin B Complex/Vitamin E 1 tab 10/09/18 09:00 10/21/18 08:43 B Complex-50* PO 1 tab DAILY ZAINAB Administration Vital Signs: Vital Signs Temp Pulse Resp BP Pulse Ox 97.8 F 73 16 132/67 94 10/21/18 04:20 05/24/19 04:20 10/21/18 08:44 10/21/18 04:20 10/21/18 04:20 Lab Results: Laboratory Results - last 24 hr 10/20/18 10/20/18 10/20/18 12:04 16:32 20:41 POC Glucose (mg/dL) 134 H 95 172 H 10/21/18 08:03 POC Glucose (mg/dL) 159 H Exam: GENERAL: No acute distress. Alert and appropriate. LUNGS: Clear to auscultation bilaterally HEART: Regular rate and rhythm ABDOMEN: + bowel sounds, soft, non-tender, non-distended. EXTREMITIES: Right knee wound C/D/I. Steri strips in place. Legs melodie wrapped. NEUROLOGIC: Alert and oriented. Motor 5/5 BUE with normal sensation. Motor 5/5 throughout LLE with some paresthesias in lower leg. Motor 2-3/5 RLE with paresthesias in lower leg with at least some pain limitation. Assessment/Plan: 1. Right Total Knee Arthroplasty: WBAT; PT/OT. Follow up with Dr. Gordillo 2. Multiple Sclerosis: On betaseron. I do not see subjective neurological changes, but exam of RLE is especially limited by pain. I would at least expect at this stage that she would have more ankle and toe strength than she displays unless this is chronic from her MS. Her baclofen was also increased for her spasms and this could contribute. I spoke to PT and they have not seen a decline in function the last 2 days, but she is also requires max A of 2 to transfer or EZ stand. I will check UA and schedule bowel meds, including a suppository and have asked neurology to see her. She normally sees Dr. Moore. 3. Spasticity: Baclofen 10 mg 4 times a day 4. Diabetes: Glipizide XL. 10 mg 5. DVT Prophylaxis: Eliquis 6. Edema: Resumed HCTZ. Improving 10/21/18 10:01
--- NOTE | 2018-10-21 15:25 | CONS ---
NEUROLOGY CONSULTATION: DATE OF CONSULT: 10/21/18 LOCATION: She is an inpatient in the physical medicine rehab unit, room 248. REFERRING PROVIDER: Dr. Bojorquez. CHIEF COMPLAINT: Increased numbness. HISTORY OF PRESENT ILLNESS: Reina Howard is a 53-year-old woman known to me from prior outpatient treatment of her relapsing-remitting multiple sclerosis. She has been on Betaseron for over 10 years. She had a right total knee replacement about 2 weeks ago. She has been progressing through rehab, but is challenged by her prior gait abnormality relative to her multiple sclerosis. Yesterday morning, she noted increased intensity of the numbness in her distal lower extremities. She has had it chronically, but it was more intense than previously. It comes up to below the knees. Today, it is not as intense. It is still more than her baseline sense of numbness, but it is not as bad as it was yesterday. She does not feel that the weakness in her legs is any worse than previously. She notes no new or different numbness in her upper extremities or trunk. There has been no change in her vision. She has not had any fevers. She remains on Betaseron every other day including during her hospitalization. She remains on baclofen. She was taking 10 mg in the morning at home and sometimes a second dose in the afternoon. She would routinely take 20 mg at night. She notes some increased muscle spasms in her legs, particularly her right one, since her surgery. She has been able to stand with physical therapy and walker, but is not ambulating yet. PAST MEDICAL HISTORY: Notable for multiple sclerosis, hypertension, bilateral knee surgeries, type 2 diabetes. MEDICATIONS: At home, consist of: 1. Glipizide 5 mg p.o. q. day. 2. Hydrochlorothiazide 25 mg p.o. q. day. 3. Citalopram 20 mg p.o. q. day. 4. Oxybutynin 15 mg p.o. every other day. 5. Vitamin D supplementation. 6. Losartan 50 mg p.o. q. day. 7. Baclofen 10 mg in the morning and 20 mg at bedtime. 8. Betaseron 0.2 mg subcutaneous every other day. ALLERGIES: She is allergic to SULFA DRUGS. REVIEW OF SYSTEMS: Negative for any fevers or chills. No recent weight loss. No recent headaches. PHYSICAL EXAM: She is overweight. Most recent temperature 97.8, blood pressure 132/67, heart rate is in the 70s and seems regular. Respiratory rate is 12 and oxygen saturation is 94% on room air. Neurological Exam: Eye movements are normal. Pupils react equally and there is no afferent pupillary defect. Facial musculature is symmetric. Palate and tongue are normal and speech is clear. Motor exam reveals normal tone and strength in the upper extremities other than mild left wrist extensor weakness. [id number] maneuver is normal bilaterally. Finger taps are normal bilaterally. She has spastic catch in the left lower extremity; I did not test the right one. She is not able to raise the right leg off the bed, but ankle dorsiflexion on the right is fairly strong at least 4+. She is able to raise the left leg off her recliner, but has grade 4- weakness proximally. She has grade 4+ strength distally in the left lower extremity. She has bilateral Babinski's signs. She is alert and oriented with intact memory and fluent language. LABORATORY DATA: Includes a normal CBC from 10/17/18, her blood sugars have been elevated in the 100s. IMPRESSION AND PLAN: I doubt that Reina is having a relapse given her fairly transient increased numbness. She is not having any new symptoms, but rather just aggravation of prior ones. With her improvement in symptoms in less than 48 hours, I think it is very unlikely that this is a relapse. She does have quite a bit of spasticity in her legs. She might benefit from an increase in baclofen to 10 mg 4 times per day. I spoke with Dr. Bojorquez and gave her my impression. I will check on her tomorrow to see if there is any difference with the increase in baclofen. [id number]/[facility] #: [id number] [facility] HOSPITALAliya
[2018-10-21] MEDS: Citalopram TAB* 20 MG PO SCH (17:15)
[2018-10-21] MEDS: Senna TAB PO SCH (20:37)
[2018-10-21] MEDS: Docusate CAP* 100 MG PO SCH (20:37)
[2018-10-21] MEDS: Bisacodyl SUPP* 10 MG SUPP PR SCH (20:54)
[2018-10-22] MEDS: Acetaminophen TAB* 325 MG PO SCH ×3 (01:00→16:32)
[2018-10-22] MEDS: Insulin LISPRO* 1 UNITS UNIT SUBCUT SCH ×4 (07:53→21:10)
[2018-10-22] MEDS: Hydrochlorothiazide TAB* 25 MG PO SCH (08:08)
[2018-10-22] MEDS: Losartan TAB* 25 MG PO SCH (08:08)
[2018-10-22] MEDS: Vitamin B Complex TAB PO SCH (08:09)
[2018-10-22] MEDS: Multivitamins/Minerals TAB PO SCH (08:09)
[2018-10-22] MEDS: Baclofen TAB* 10 MG PO SCH ×4 (08:09→21:12)
[2018-10-22] MEDS: Docusate CAP* 100 MG PO SCH ×2 (08:09→20:18)
[2018-10-22] MEDS: Apixaban* 2.5 MG TAB PO SCH ×2 (08:10→20:18)
[2018-10-22] MEDS: Potassium Chlor TAB* 10 MEQ TAB.ER PO SCH (08:10)
[2018-10-22] MEDS: glipiZIDE TAB.XL* 5 MG PO SCH (08:10)
[2018-10-22] MEDS: oxyCODONE TAB* 5 MG TAB PO PRN ×3 (08:12→20:20)
--- NOTE | 2018-10-22 10:42 | PN ---
Progress Note Date of Service: 10/22/18 Note: ANNIKA VIRAMONTES was visited. Nursing and therapy notes read and reviewed. No new issues overnight. No chest pain, shortness of breath or abdominal pain. Appreciate neurology f/u. Paresthesias in her legs fluctuate. Still feels weak. Current Medications: Active Medications Generic Name Dose Route Start Last Admin Trade Name Freq PRN Reason Stop Dose Admin Acetaminophen 975 mg 10/09/18 09:00 10/22/18 08:11 Tylenol Tab* PO 975 mg Q8H ZAINAB Administration Al Hydrox/Mg Hydrox/Simethicone 30 ml 10/09/18 08:30 Maalox Plus* PO Q6H PRN INDIGESTION Apixaban 2.5 mg 10/09/18 09:00 10/22/18 08:10 Eliquis* PO 2.5 mg BID ZAINAB Administration Baclofen 10 mg 10/22/18 12:00 Lioresal Tab* PO 09,12,17 ZAINAB Baclofen 20 mg 10/22/18 21:00 Lioresal Tab* PO BEDTIME AZINAB Bisacodyl 10 mg 10/21/18 18:00 10/21/18 20:54 Dulcolax Supp* [place] 10 mg QPM ZAINAB Administration Citalopram Hydrobromide 20 mg 10/09/18 18:00 10/21/18 17:15 Celexa Tab* PO 20 mg 1800 ZAINAB Administration Dextrose 12.5 gm 10/09/18 08:41 D50w Syringe 50 Ml* IV PUSH .FOR FS < 60 - SS PRN FS < 60 Docusate Sodium 100 mg 10/21/18 21:00 10/22/18 08:09 Colace Cap* PO 100 mg BID ZAINAB Administration Glipizide 10 mg 10/12/18 09:00 10/22/18 08:10 Glucotrol Xl* PO 10 mg DAILY ZAINAB Administration Hydrochlorothiazide 25 mg 10/13/18 09:00 10/22/18 08:08 Hydrodiuril Tab* PO 25 mg DAILY ZAINAB Administration Insulin Human Lispro 0 units 10/09/18 11:30 10/22/18 07:53 Humalog* SUBCUT Not Given ACHS [facility] Protocol Interferon Beta 1b 0.3 mg 10/18/18 19:00 10/20/18 18:47 Betaseron (Nf) SUBCUT 0.3 mg Q48HR@1900 ZAINAB Administration Lactulose 30 ml 10/09/18 08:30 10/14/18 16:49 Lactulose* PO 30 ml Q6H PRN Administration CONSTIPATION Losartan Potassium 50 mg 10/09/18 09:00 10/22/18 08:08 Cozaar Tab* PO 50 mg DAILY ZAINAB Administration Magnesium Hydroxide 30 ml 10/09/18 08:30 10/19/18 17:08 Milk Of Magnesia Liq* PO 30 ml Q6H PRN Administration CONSTIPATION Multivitamins/Minerals 1 tab 10/09/18 09:00 10/22/18 08:09 Theragran/Minerals Tab* PO 1 tab DAILY ZAINAB Administration Ondansetron HCl 4 mg 10/09/18 08:55 Zofran Odt Tab* SL Q6H PRN NAUSEA/VOMITING Oxybutynin Chloride 15 mg 10/10/18 09:00 10/21/18 08:43 Ditropan Xl Tab* PO 15 mg MoWeFr@0900 ZAINAB Administration Oxycodone HCl 10 mg 10/16/18 16:10 10/22/18 08:12 Roxycodone Tab* PO 10 mg Q3H PRN Administration PAIN - SEVERE Oxycodone HCl 5 mg 10/16/18 16:10 10/19/18 04:11 Roxycodone Tab* PO 5 mg Q3H PRN Administration PAIN - MODERATE TO SEVERE Polyethylene Glycol/Electrolytes 17 gm 10/11/18 19:27 10/18/18 20:16 Miralax* PO 17 gm DAILY PRN Administration CONSTIPATION Potassium Chloride 10 meq 10/09/18 09:00 10/22/18 08:10 Klor Con Er Tab* PO 10 meq DAILY ZAINAB Administration Senna 2 tab 10/21/18 21:00 10/21/18 20:37 Senokot Tab* PO 2 tab BEDTIME ZAINAB Administration Sodium Biphosphate/Sodium Phosphate 1 bottle 10/09/18 08:30 Fleet Enema* [place] DAILY PRN CONSTIPATION Vitamin B Complex/Vitamin E 1 tab 10/09/18 09:00 10/22/18 08:09 B Complex-50* PO 1 tab DAILY ZAINAB Administration Vital Signs: Vital Signs Temp Pulse Resp BP Pulse Ox 98.0 F 66 21 132/70 97 10/22/18 06:04 10/22/18 06:04 10/22/18 08:12 10/22/18 06:04 10/22/18 08:00 Lab Results: Laboratory Results - last 24 hr 10/21/18 10/21/18 10/21/18 11:37 16:39 20:41 POC Glucose (mg/dL) 165 H 94 100 10/22/18 07:34 POC Glucose (mg/dL) 122 H Exam: GENERAL: No acute distress. Alert and appropriate. LUNGS: Clear to auscultation bilaterally HEART: Regular rate and rhythm ABDOMEN: + bowel sounds, soft, non-tender, non-distended. EXTREMITIES: Right knee wound C/D/I. Steri strips in place. NEUROLOGIC: Alert and oriented. Motor 5/5 BUE with normal sensation. Motor 5/5 throughout LLE with some paresthesias in lower leg. Motor 2-3/5 RLE but 4/5 EHL which is better than yesterday with paresthesias in lower leg and at least some pain limitation. Assessment/Plan: 1. Right Total Knee Arthroplasty: WBAT; PT/OT. Follow up with Dr. Gordillo 2. Multiple Sclerosis: On betaseron. Seen by Dr. Moore 10/21/18 due to subjectively more weakness and paresthesias in the leg, but not felt to be exacerbation as symptoms fluctuate. Likely just fluctuation of her usual symptoms. He recommended increasing HS baclofen to 20mg for her spasticity. 3. Spasticity: Baclofen 10 mg tid and 20mg qhs 4. Diabetes: Glipizide XL 10 mg 5. DVT Prophylaxis: Eliquis 6. Edema: Resumed HCTZ. Improving 7. Neurogenic bowel: Bowel meds scheduled including suppository 8. Neurogenic bladder: depends. UA ordered to make sure not contributing to spasticity/MS 10/22/18 10:41
[2018-10-22 13:16] LABS: Urine Appearance Clear; Urine Bilirubin Negative (Negative); Urine Blood Negative (Negative); Urine Color Yellow; Urine Glucose Negative (Negative); Urine Ketones Negative (Negative); Urine Nitrite Negative (Negative); Urine Protein Negative (Negative); Urine Urobilinogen Negative (Negative)
[2018-10-22] MEDS: Citalopram TAB* 20 MG PO SCH (18:46)
[2018-10-22] MEDS: BETASERON 0.3 MG SUBCUT SCH (19:05)
[2018-10-22] MEDS: Bisacodyl SUPP* 10 MG SUPP PR SCH (19:41)
[2018-10-22] MEDS: Senna TAB PO SCH (20:18)
[2018-10-23] MEDS: Acetaminophen TAB* 325 MG PO SCH ×3 (01:10→17:20)
[2018-10-23] MEDS: oxyCODONE TAB* 5 MG TAB PO PRN ×2 (06:22→11:54)
[2018-10-23] MEDS: Insulin LISPRO* 1 UNITS UNIT SUBCUT SCH ×4 (08:25→20:45)
[2018-10-23] MEDS: Losartan TAB* 25 MG PO SCH (08:31)
[2018-10-23] MEDS: Potassium Chlor TAB* 10 MEQ TAB.ER PO SCH (08:32)
[2018-10-23] MEDS: Hydrochlorothiazide TAB* 25 MG PO SCH (08:32)
[2018-10-23] MEDS: Docusate CAP* 100 MG PO SCH ×2 (08:32→20:45)
[2018-10-23] MEDS: Multivitamins/Minerals TAB PO SCH (08:32)
[2018-10-23] MEDS: glipiZIDE TAB.XL* 5 MG PO SCH (08:33)
[2018-10-23] MEDS: Vitamin B Complex TAB PO SCH (08:33)
[2018-10-23] MEDS: Baclofen TAB* 10 MG PO SCH ×4 (08:36→20:44)
[2018-10-23] MEDS: Apixaban* 2.5 MG TAB PO SCH ×2 (08:36→20:44)
--- NOTE | 2018-10-23 09:47 | PN ---
Progress Note Date of Service: 10/23/18 Note: ANNIKA VIRAMONTES was visited. Nursing and therapy notes read and reviewed. She felt a little dizzy yesterday, but feels ok today. Has not been out of bed yet today however. No chest pain, shortness of breath or abdominal pain. + BM yesterday and did not need suppository. Was outside yesterday and got a mild sunburn on her thighs. Current Medications: Active Medications Generic Name Dose Route Start Last Admin Trade Name Freq PRN Reason Stop Dose Admin Acetaminophen 975 mg 10/09/18 09:00 10/23/18 08:30 Tylenol Tab* PO 975 mg Q8H ZAINAB Administration Al Hydrox/Mg Hydrox/Simethicone 30 ml 10/09/18 08:30 Maalox Plus* PO Q6H PRN INDIGESTION Apixaban 2.5 mg 10/09/18 09:00 10/23/18 08:36 Eliquis* PO 2.5 mg BID ZAINAB Administration Baclofen 10 mg 10/22/18 12:00 10/23/18 08:36 Lioresal Tab* PO 10 mg ZAINAB Administration Baclofen 20 mg 10/22/18 21:00 10/22/18 21:12 Lioresal Tab* PO 20 mg BEDTIME ZAINAB Administration Bisacodyl 10 mg 10/21/18 18:00 10/22/18 19:41 Dulcolax Supp* [place] Not Given QPM ZAINAB Citalopram Hydrobromide 20 mg 10/09/18 18:00 10/22/18 18:46 Celexa Tab* PO 20 mg 1800 ZAINAB Administration Dextrose 12.5 gm 10/09/18 08:41 D50w Syringe 50 Ml* IV PUSH .FOR FS < 60 - SS PRN FS < 60 Docusate Sodium 100 mg 10/21/18 21:00 10/23/18 08:32 Colace Cap* PO 100 mg BID ZAINAB Administration Glipizide 10 mg 10/12/18 09:00 10/23/18 08:33 Glucotrol Xl* PO 10 mg DAILY ZAINAB Administration Hydrochlorothiazide 25 mg 10/13/18 09:00 10/23/18 08:32 Hydrodiuril Tab* PO 25 mg DAILY ZAINAB Administration Insulin Human Lispro 0 units 10/09/18 11:30 10/23/18 08:25 Humalog* SUBCUT 2 units ACHS ZAINAB Administration Protocol Interferon Beta 1b 0.3 mg 10/18/18 19:00 10/22/18 19:05 Betaseron (Nf) SUBCUT 0.3 mg Q48HR@1900 ZAINAB Administration Lactulose 30 ml 10/09/18 08:30 10/14/18 16:49 Lactulose* PO 30 ml Q6H PRN Administration CONSTIPATION Losartan Potassium 50 mg 10/09/18 09:00 10/23/18 08:31 Cozaar Tab* PO 50 mg DAILY ZAINAB Administration Magnesium Hydroxide 30 ml 10/09/18 08:30 10/19/18 17:08 Milk Of Magnesia Liq* PO 30 ml Q6H PRN Administration CONSTIPATION Multivitamins/Minerals 1 tab 10/09/18 09:00 10/23/18 08:32 Theragran/Minerals Tab* PO 1 tab DAILY ZAINAB Administration Ondansetron HCl 4 mg 10/09/18 08:55 Zofran Odt Tab* SL Q6H PRN NAUSEA/VOMITING Oxybutynin Chloride 15 mg 10/10/18 09:00 10/21/18 08:43 Ditropan Xl Tab* PO 15 mg MoWeFr@0900 ZAINAB Administration Oxycodone HCl 10 mg 10/16/18 16:10 10/23/18 06:22 Roxycodone Tab* PO 10 mg Q3H PRN Administration PAIN - SEVERE Oxycodone HCl 5 mg 10/16/18 16:10 10/22/18 20:20 Roxycodone Tab* PO 5 mg Q3H PRN Administration PAIN - MODERATE TO SEVERE Polyethylene Glycol/Electrolytes 17 gm 10/11/18 19:27 10/18/18 20:16 Miralax* PO 17 gm DAILY PRN Administration CONSTIPATION Potassium Chloride 10 meq 10/09/18 09:00 10/23/18 08:32 Klor Con Er Tab* PO 10 meq DAILY ZAINAB Administration Senna 2 tab 10/21/18 21:00 10/22/18 20:18 Senokot Tab* PO 2 tab BEDTIME ZAINAB Administration Sodium Biphosphate/Sodium Phosphate 1 bottle 10/09/18 08:30 Fleet Enema* [place] DAILY PRN CONSTIPATION Vitamin B Complex/Vitamin E 1 tab 10/09/18 09:00 10/23/18 08:33 B Complex-50* PO 1 tab DAILY ZAINAB Administration Vital Signs: Vital Signs Temp Pulse Resp BP Pulse Ox 97.8 F 82 20 129/76 96 10/23/18 06:55 10/23/18 06:55 10/23/18 08:27 10/23/18 06:55 10/23/18 06:55 Lab Results: Laboratory Results - last 24 hr 10/22/18 10/22/18 11:12 13:00 POC Glucose (mg/dL) 183 H Urine Color Yellow Urine Appearance Clear Urine pH 7.0 Ur Specific [place] 1.010 Urine Protein Negative Urine Ketones Negative Urine Blood Negative Urine Nitrate Negative Urine Bilirubin Negative Urine Urobilinogen Negative Ur Leukocyte Esterase Negative Urine Glucose Negative Exam: GENERAL: No acute distress. Alert and appropriate. LUNGS: Clear to auscultation bilaterally HEART: Regular rate and rhythm ABDOMEN: + bowel sounds, soft, non-tender, non-distended. EXTREMITIES: Right knee wound C/D/I. Steri strips in place. Mild sunburn on thighs. NEUROLOGIC: Alert and oriented. Motor 5/5 BUE with normal sensation. Motor 5/5 throughout LLE. Motor 2-3/5 RLE but 4/5 EHL with paresthesias in lower legs and at least some pain limitation. Assessment/Plan: 1. Right Total Knee Arthroplasty: WBAT; PT/OT. Follow up with Dr. Gordillo 2. Multiple Sclerosis: On betaseron. Seen by Dr. Moore 10/21/18 due to subjectively more weakness and paresthesias in the legs, but not felt to be exacerbation. Likely just fluctuation of her usual MS symptoms. He recommended increasing HS baclofen to 20mg at bedtime for her spasticity. 3. Spasticity: Baclofen 10 mg tid and 20mg qhs 4. Diabetes: Glipizide XL 10 mg 5. DVT Prophylaxis: Eliquis 6. Edema: Resumed HCTZ. Improving 7. Neurogenic bowel: Bowel meds scheduled including suppository 8. Neurogenic bladder: depends. UA negative. 10/23/18 09:46
[2018-10-23] MEDS: Citalopram TAB* 20 MG PO SCH (17:20)
[2018-10-23] MEDS: Bisacodyl SUPP* 10 MG SUPP PR SCH (17:22)
[2018-10-23] MEDS: Senna TAB PO SCH (20:45)
[2018-10-24] MEDS: Acetaminophen TAB* 325 MG PO SCH ×3 (00:59→16:52)
[2018-10-24 05:02] LABS: Hematocrit 40 % (35-47); Hemoglobin 12.9 g/dL (12.0-16.0); Mean Corpuscular HGB Conc 33 g/dL (31-36); Mean Corpuscular Hemoglobin 28 pg (27-31); Mean Corpuscular Volume 86 fL (80-97); Red Blood Count 4.59 10^6 /uL (3.70-4.87); Red Cell Distribution Width 14 % (10.5-15); White Blood Count 5.7 10^3/uL (3.5-10.8)
[2018-10-24] MEDS: oxyCODONE TAB* 5 MG TAB PO PRN ×2 (05:14→11:44)
[2018-10-24 05:15] LABS: Albumin 3.6 g/dL (3.2-5.2); Albumin/Globulin Ratio 1.2 (1-3); BUN/Creatinine Ratio 23.3 (8-20); Calcium 9.6 mg/dL (8.6-10.3); EGFR African American 126.1 (>60); EGFR Non-African American 104.2 (>60); Globulin 3.1 g/dL (2-4); Potassium 3.6 mmol/L (3.5-5.0); Total Bilirubin 0.5 mg/dL (0.2-1.0); Total Protein 6.7 g/dL (6.4-8.9)
[2018-10-24 05:28] LABS: ABS Eosinophils 0.1 10^3/ul (0-0.6); ABS Lymphocytes 2.3 10^3/ul (1.0-4.8); ABS Monocytes 0.6 10^3/ul (0-0.8); ABS Neutrophils 2.8 10^3/ul (1.5-7.7); Eosinophil % 0.9 %; Lymphocyte % 39.5 %; Nucleated Red Blood Cells % 0.2; Platelet Count Platelets clumped. 10^3/uL (150-450)
[2018-10-24] MEDS: Insulin LISPRO* 1 UNITS UNIT SUBCUT SCH ×4 (08:10→20:59)
--- NOTE | 2018-10-24 08:49 | PN ---
Progress Note Date of Service: 10/24/18 Note: ANNIKA VIRAMONTES was visited. Nursing notes read and reviewed. No chest pain, shortness of breath or abdominal pain. Got fatigued at the end of yesterday. No new issues. Current Medications: Active Medications Generic Name Dose Route Start Last Admin Trade Name Freq PRN Reason Stop Dose Admin Acetaminophen 975 mg 10/09/18 09:00 10/24/18 00:59 Tylenol Tab* PO 975 mg Q8H ZAINAB Administration Al Hydrox/Mg Hydrox/Simethicone 30 ml 10/09/18 08:30 Maalox Plus* PO Q6H PRN INDIGESTION Apixaban 2.5 mg 10/09/18 09:00 10/23/18 20:44 Eliquis* PO 2.5 mg BID ZAINAB Administration Baclofen 10 mg 10/22/18 12:00 10/23/18 17:20 Lioresal Tab* PO 10 mg 09,,17 ZAINAB Administration Baclofen 20 mg 10/22/18 21:00 10/23/18 20:44 Lioresal Tab* PO 20 mg BEDTIME ZAINAB Administration Bisacodyl 10 mg 10/21/18 18:00 10/23/18 17:22 Dulcolax Supp* [place] Not Given QPM ZAINAB Citalopram Hydrobromide 20 mg 10/09/18 18:00 10/23/18 17:20 Celexa Tab* PO 20 mg 1800 ZAINAB Administration Dextrose 12.5 gm 10/09/18 08:41 D50w Syringe 50 Ml* IV PUSH .FOR FS < 60 - SS PRN FS < 60 Docusate Sodium 100 mg 10/21/18 21:00 10/23/18 20:45 Colace Cap* PO 100 mg BID ZAINAB Administration Glipizide 10 mg 10/12/18 09:00 10/23/18 08:33 Glucotrol Xl* PO 10 mg DAILY ZAINAB Administration Hydrochlorothiazide 25 mg 10/13/18 09:00 10/23/18 08:32 Hydrodiuril Tab* PO 25 mg DAILY ZAINAB Administration Insulin Human Lispro 0 units 10/09/18 11:30 10/24/18 08:10 Humalog* SUBCUT Not Given ACHS [facility] Protocol Interferon Beta 1b 0.3 mg 10/18/18 19:00 10/22/18 19:05 Betaseron (Nf) SUBCUT 0.3 mg Q48HR@1900 ZAINAB Administration Lactulose 30 ml 10/09/18 08:30 10/14/18 16:49 Lactulose* PO 30 ml Q6H PRN Administration CONSTIPATION Losartan Potassium 50 mg 10/09/18 09:00 10/23/18 08:31 Cozaar Tab* PO 50 mg DAILY ZAINAB Administration Magnesium Hydroxide 30 ml 10/09/18 08:30 10/19/18 17:08 Milk Of Magnesia Liq* PO 30 ml Q6H PRN Administration CONSTIPATION Multivitamins/Minerals 1 tab 10/09/18 09:00 10/23/18 08:32 Theragran/Minerals Tab* PO 1 tab DAILY ZAINAB Administration Ondansetron HCl 4 mg 10/09/18 08:55 Zofran Odt Tab* SL Q6H PRN NAUSEA/VOMITING Oxybutynin Chloride 15 mg 10/10/18 09:00 10/21/18 08:43 Ditropan Xl Tab* PO 15 mg MoWeFr@0900 ZAINAB Administration Oxycodone HCl 10 mg 10/16/18 16:10 10/23/18 06:22 Roxycodone Tab* PO 10 mg Q3H PRN Administration PAIN - SEVERE Oxycodone HCl 5 mg 10/16/18 16:10 10/24/18 05:14 Roxycodone Tab* PO 5 mg Q3H PRN Administration PAIN - MODERATE TO SEVERE Polyethylene Glycol/Electrolytes 17 gm 10/11/18 19:27 10/18/18 20:16 Miralax* PO 17 gm DAILY PRN Administration CONSTIPATION Potassium Chloride 10 meq 10/09/18 09:00 10/23/18 08:32 Klor Con Er Tab* PO 10 meq DAILY ZAINAB Administration Senna 2 tab 10/21/18 21:00 10/23/18 20:45 Senokot Tab* PO 2 tab BEDTIME ZAINAB Administration Sodium Biphosphate/Sodium Phosphate 1 bottle 10/09/18 08:30 Fleet Enema* [place] DAILY PRN CONSTIPATION Vitamin B Complex/Vitamin E 1 tab 10/09/18 09:00 10/23/18 08:33 B Complex-50* PO 1 tab DAILY ZAINAB Administration Vital Signs: Vital Signs Temp Pulse Resp BP Pulse Ox 97.5 F 69 16 134/68 96 10/24/18 05:34 10/24/18 05:34 05/27/19 07:40 10/24/18 05:34 10/24/18 05:34 Lab Results: Laboratory Results - last 24 hr 10/24/18 10/24/18 04:46 04:46 WBC 5.7 RBC 4.59 Hgb 12.9 Hct 40 MCV 86 MCH 28 MCHC 33 RDW 14 Plt Count Platelets clumped. H MPV Not Reportable Neut % (Auto) 48.2 Lymph % (Auto) 39.5 Jones % (Auto) 10.9 Eos % (Auto) 0.9 Baso % (Auto) 0.5 Absolute Neuts (auto) 2.8 Absolute Lymphs (auto) 2.3 Absolute Monos (auto) 0.6 Absolute Eos (auto) 0.1 Absolute Basos (auto) 0.0 Absolute Nucleated RBC 0.0 Nucleated RBC % 0.2 Sodium 140 Potassium 3.6 Chloride 105 Carbon Dioxide 30 Anion Gap 5 BUN 14 Creatinine 0.60 Est GFR ( Amer) 126.1 Est GFR (Non-Af Amer) 104.2 BUN/Creatinine Ratio 23.3 H Glucose 130 H Calcium 9.6 Total Bilirubin 0.50 AST 15 ALT 11 Alkaline Phosphatase 74 Total Protein 6.7 Albumin 3.6 Globulin 3.1 Albumin/Globulin Ratio 1.2 Exam: GENERAL: No acute distress. Alert and appropriate. LUNGS: Clear to auscultation bilaterally HEART: Regular rate and rhythm ABDOMEN: + bowel sounds, soft, non-tender, non-distended. EXTREMITIES: Right knee wound C/D/I. Steri strips in place. NEUROLOGIC: Alert and oriented. Motor 5/5 BUE with normal sensation. Motor 5/5 throughout LLE. Motor 2-3/5 RLE but 4/5 EHL with paresthesias in lower legs and at least some pain limitation. Assessment/Plan: 1. Right Total Knee Arthroplasty: WBAT; PT/OT. Follow up with Dr. Gordillo 2. Multiple Sclerosis: On betaseron. Seen by Dr. Moore 10/21/18 due to subjectively more weakness and paresthesias in the legs, but not felt to be exacerbation. Likely just fluctuation of her usual MS symptoms. He recommended increasing HS baclofen to 20mg at bedtime for her spasticity. 3. Spasticity: Baclofen 10 mg tid and 20mg qhs 4. Diabetes: Glipizide XL 10 mg 5. DVT Prophylaxis: Eliquis 6. Edema: Resumed HCTZ. Improving 7. Neurogenic bowel: Bowel meds scheduled including suppository 8. Neurogenic bladder: depends. UA negative. 10/24/18 08:49
[2018-10-24] MEDS: Oxybutynin XL TAB* 5 MG PO SCH (08:54)
[2018-10-24] MEDS: Hydrochlorothiazide TAB* 25 MG PO SCH (08:55)
[2018-10-24] MEDS: Apixaban* 2.5 MG TAB PO SCH ×2 (08:55→20:14)
[2018-10-24] MEDS: Multivitamins/Minerals TAB PO SCH (08:55)
[2018-10-24] MEDS: Vitamin B Complex TAB PO SCH (08:55)
[2018-10-24] MEDS: glipiZIDE TAB.XL* 5 MG PO SCH (08:55)
[2018-10-24] MEDS: Potassium Chlor TAB* 10 MEQ TAB.ER PO SCH (08:55)
[2018-10-24] MEDS: Losartan TAB* 25 MG PO SCH (08:55)
[2018-10-24] MEDS: Docusate CAP* 100 MG PO SCH ×2 (08:58→20:15)
[2018-10-24] MEDS: Baclofen TAB* 10 MG PO SCH ×4 (08:59→20:14)
[2018-10-24] MEDS: Citalopram TAB* 20 MG PO SCH (18:11)
[2018-10-24] MEDS: BETASERON 0.3 MG SUBCUT SCH (18:18)
[2018-10-24] MEDS: Bisacodyl SUPP* 10 MG SUPP PR SCH (18:18)
[2018-10-24] MEDS: Senna TAB PO SCH (20:16)
[2018-10-25] MEDS: Acetaminophen TAB* 325 MG PO SCH ×3 (00:06→17:10)
[2018-10-25] MEDS: oxyCODONE TAB* 5 MG TAB PO PRN ×3 (00:38→21:07)
[2018-10-25] MEDS: Insulin LISPRO* 1 UNITS UNIT SUBCUT SCH ×4 (07:53→21:09)
[2018-10-25] MEDS: Apixaban* 2.5 MG TAB PO SCH ×2 (08:08→21:06)
[2018-10-25] MEDS: glipiZIDE TAB.XL* 5 MG PO SCH (08:09)
[2018-10-25] MEDS: Baclofen TAB* 10 MG PO SCH ×4 (08:09→21:06)
[2018-10-25] MEDS: Hydrochlorothiazide TAB* 25 MG PO SCH (08:10)
[2018-10-25] MEDS: Losartan TAB* 25 MG PO SCH (08:10)
[2018-10-25] MEDS: Multivitamins/Minerals TAB PO SCH (08:11)
[2018-10-25] MEDS: Vitamin B Complex TAB PO SCH (08:11)
[2018-10-25] MEDS: Potassium Chlor TAB* 10 MEQ TAB.ER PO SCH (08:11)
[2018-10-25] MEDS: Docusate CAP* 100 MG PO SCH ×2 (08:17→21:05)
--- NOTE | 2018-10-25 12:38 | PMRUTEAM ---
PMRU: Team Meeting Current Status: Nursing: Current Status Skin Deviations [left thigh] Other Skin Deviations [Left Groin] Other Skin Deviations [Right Thigh] Other Skin Deviations [Bilateral Arm Bruise ] Skin Deviations [Right Knee] Incision Skin Deviation Description [ sunburn - less red today left thigh] Skin Deviation Description [ red - cleaned well, powder applied Left Groin] Skin Deviation Description [ sunburn - less red today Right Thigh] Skin Deviation Description [ Cryo unit in place Right Knee] Bladder Current Status Incontinent Bowel Current Status Continent - BM meds given Nutrition Current Status 100% of most meals Medication Current Status Reinforcement given Physical Therapy: Current Status Bed Mobility Assistance Total Assist Transfer Mobility Assistance 2 or More Person Assist Transfer/Bed Mobility Railings Recommended Devices Ambulation Assistance Unable Ambulation Assistive Devices Rolling Walker Number of Feet Patient 20 Ambulated Occupational Therapy: Current Status Upper Body Dressing Supervision Lower Body Dressing Mod Assist,2 Person Assist Bathing Mod Assist Toileting Total Assist,2 Person Assist Toilet Transfer Total Assist,2 Person Assist Shower Transfer Total Assist,2 Person Assist Eating Independent Rec Therapy: Current Status Summary of Assessment and Recreation Therapy assessment complete and pt. is Clinical Impression aware of services. Pt. has been engaging in leisure activities on the unit, spending time with visitors and is open to continued visits. Treatment Goals Pt. will continue to engage in leisure activities while on the unit. Treatment Plan Provide recreation therapy services and encourage involvement. Offer opportunities to for pt. to express herself when feeling upset or discouraged. Social Work: Current Status Discharge Plan return home with home care svs and family support Potential for Family Training pt's family are involved and supportive Anticipated Discharge Home Destination Discharge With home care svs and family support Nutrition: Current Status Monitoring overall eating well; accepting 50-100% of consistewnt carb diet. tolerating diet. Denies nausea. Hx constipation, but has had BMs x past three days. Appropriate bowel meds ordered PRN. BG 130; FS ranging 104-178. No available A1c to assess longer-term DM control. No new phosphorus level. (low 10/08 - 2.0). Skin is intact; right knee incision only. Appears to be meeting goals as outlined below. Goals: Physical Therapy: Initial Goals Bed Mobility Assistance Independent Transfer Mobility Assistance Independent Transfer/Bed Mobility Rolling Walker Recommended Devices Ambulation Independent Ambulation Recommended Devices Rolling Walker Ambulation Distance 150 Wheelchair Propulsion Ability Independent Wheelchair Distance (ft) 150 Home Exercise Program Independent Assistance Physical Therapy: Updated Goals Transfer/Bed Mobility EZ Stand Recommended Devices Occupational Therapy: Initial Goals Goals to be Completed in (Days 21 ) Upper Body Bathing Routine Independent Lower Body Bathing Routine Minimal Contact Assist Upper Body Dressing Routine Independent Lower Body Dressing Routine Modified Independent with Toilet Hygeine and Clothing Modified Independent with Management Routine Toilet Transfer Routine Modified Independent with Step-In Shower Transfer Supervision/Set Up Routine Functional Transfers for ADL Modified Independent with Grooming Routine Independent Feeding Routine Independent Nursing: Goals Bladder Goal Toileting q2hr - incontinent at baseline Bowel Goal Continent Nutrition Goal 100% of all meals Medication Goal Independent with medication Nutrition: Goals Intervention Goals 1. Achieve/maintain adequate glycemic control per inpatient parameters w/o hypoglycemia. 2. Achieve/maintain regular bowel pattern w/o diarrhea or constipation. 3. Maintain adequate oral intake to support post op recovery w/o contributing to undesirable weight gain. Social Work: Goals Discharge Plan return home with home care svs and family support Potential for Family Training pt's family are involved and supportive Anticipated Discharge Home Destination Discharge With home care svs and family support Care Plan: Care Plan ADL's - Improve/Maintain Start: 10/09/18 12:47 Freq: DAILY Status: Active Target: Protocol: Activity Type Activity Date Activity User E-Sign Co-Sign Detail Recorded Client Recorded Date Recorded By Document 10/21/18 11:14 [id number] 10/21/18 11:14 [id number] 10/21/18 11:14 PMRU Outcome: ADL's/ADL Transfers Orders/Interventions Occupational Therapy Evaluation & Treatment Device Yes Patient to receive OT 5x/wk for 60-120 Therex min/day Self Care Management Group Therapy UE/LE ADL's with Assist Yes: min A for socks/shoes ADL Transfers with Assist Yes: mod I Toileting: Transfers,Clothing Management Yes: mod I ,Hygeine w/Assist Light Kitchen/Laundry w/Assist No Progression Toward Outcome/Goals Progressing Outcome/Goals Met Increased BLE weakness today, R>L. Pt having increased difficulty moving leg on/ off EZ stand and on/off leg rest. Standing at bedrail not attempted but pt was encouraged to attempt this over the weekend. [facility] [place] [facility]. Discharge Planning - Improve/Maintain Start: 05/12/19 12:47 Freq: DAILY Status: Active Target: Protocol: Activity Type Activity Date Activity User E-Sign Co-Sign Detail Recorded Client Recorded Date Recorded By Document 10/25/18 01:31 [id number] 10/25/18 01:31 [id number] 10/25/18 01:31 PMRU Outcome: Discharge Planning Update Patient Family No Outcome/Goals Demonstrates Understanding of Discharge Plan Progression Toward Outcome/Goals Progressing Education-Improve/Maintain Start: 10/09/18 12:47 Freq: QSHIFT Status: Active Target: Protocol: Activity Type Activity Date Activity User E-Sign Co-Sign Detail Recorded Client Recorded Date Recorded By Document 10/24/18 20:00 [id number] 10/24/18 22:26 [id number] 10/24/18 20:00 PMRU Outcome: Education Outcome/Goals Encourage Questions Progression Toward Outcome/Goals Progressing /GI-Improve/Maintain Start: 10/09/18 12:47 Freq: QSHIFT Status: Active Target: Protocol: Activity Type Activity Date Activity User E-Sign Co-Sign Detail Recorded Client Recorded Date Recorded By Document 10/24/18 20:00 [id number] [id number] 10/24/18 22:26 [id number] 10/24/18 20:00 PMRU Outcome: Genitourinary/ Gastrointestinal Genitourinary- Outcome/Goals Remain Free of Hospital- Acquired UTI Other Gastrointestinal-Outcome/Goals Maintain/ Achieve Bowel Regularity in Accordance with Pt's Baseline Prevent Constipation Laxatives as Ordered Progression Toward Outcome/Goals - Progressing Progression Toward Outcome/Goals - GI Progressing Mobility- Improve/Maintain Start: 10/09/18 12:47 Freq: DAILY Status: Active Target: Protocol: Activity Type Activity Date Activity User E-Sign Co-Sign Detail Recorded Client Recorded Date Recorded By Document 10/10/18 15:05 [id number] [email or web address] 10/10/18 15:11 [id number] 10/10/18 15:05 PMRU Outcome: Mobility Physical Therapy Evaluation and Yes Treatment Activity OOB with Assistance Yes WBAT Yes: R LE Device Yes: Ez-stand Assistance Yes: Ax2 Patient to be seen 5x/wk for 60-120 min/ Therex day for: Mobility Training Gait Training W/C Mobility Balance Outcome/Goals Maintain/ Achieve Baseline Mobility Status Improve Mobility Status Demonstrates Proper Use of Assistive Devices Free from Complications of Immobility Progression Toward Outcome/Goals Progressing Bed Mobility Yes: Ind Transfers Yes: Mod I Gait x ft Yes: Mod I x150ft with walker W/C Mobility x ft Yes: Mod I x150ft Up/Down Stairs No With HEP Yes Goal Comment Knee flexion 90 degrees Pain/Comfort- Improve/Maintain Start: 10/09/18 12:47 Freq: QSHIFT Status: Complete Target: Protocol: Activity Type Activity Date Activity User E-Sign Co-Sign Detail Recorded Client Recorded Date Recorded By Document 10/20/18 20:00 [id number] 10/20/18 21:51 [id number] 10/20/18 20:00 PMRU Outcome: Pain/Comfort Outcome/Goals Demonstrates Knowledge and Use of Available Comfort Measures Achieves Acceptable Comfort/Pain Level as Determined by Patient/Condit Maintain Comfort Level Allowing Patient to Fully Participate in Rehab Outcome/Goals Met Demonstrates Knowledge and Use of Available Comfort Measures Achieves Acceptable Comfort/Pain Level as Determined by Patient/Condit Respiratory - Improve/Maintain Start: 10/09/18 12:47 Freq: QSHIFT Status: Complete Target: Protocol: Activity Type Activity Date Activity User E-Sign Co-Sign Detail Recorded Client Recorded Date Recorded By Document 10/18/18 19:35 [id number] 10/18/18 19:36 [id number] 10/18/18 19:35 PMRU Outcome: Respiratory Does Patient Have a Trach No Outcome/Goals Maintain/ Improve O2 Sat per MD Order Maintain/ Improve Activity Tolerance Prevent Pneumonia/ Atelectasis Outcome/Goals Met Maintain/ Improve Baseline Respiratory Status Safety- Improve/Maintain Start: 10/09/18 12:47 Freq: QSHIFT Status: Complete Target: Protocol: Activity Type Activity Date Activity User E-Sign Co-Sign Detail Recorded Client Recorded Date Recorded By Document 10/20/18 20:00 [id number] 10/20/18 21:51 [id number] 10/20/18 20:00 PMRU Outcome: Safety Outcome/Goals Remain Free of Injury or Harm Cooperates with Safety Measures for Least Restrictive Environment Prevent Falls/ Injury Outcome/Goals Met Remain Free of Injury or Harm Skin- Improve/Maintain Start: 10/09/18 12:47 Freq: QSHIFT Status: Complete Target: Protocol: Activity Type Activity Date Activity User E-Sign Co-Sign Detail Recorded Client Recorded Date Recorded By Document 10/18/18 19:35 [id number] 10/18/18 19:36 [id number] 10/18/18 19:35 PMRU Outcome: Skin Skin Risk Level Medium Skin Orders Turn/Position q2hr While in Bed Outcome/Goals Maintain/ Improve Skin Intergrity Surgical Incisions Healing Outcome/Goals Met Maintain/ Improve Skin Intergrity Free from Decubitus Surgical Incisions Healing Medicine Note: Length of Stay: 10 days Anticipated Discharge Destination: Home Tentative Discharge Date: November 04 2018 Discharged to: Home
[2018-10-25] MEDS: Citalopram TAB* 20 MG PO SCH (17:11)
[2018-10-25] MEDS: Bisacodyl SUPP* 10 MG SUPP PR SCH (17:12)
--- NOTE | 2018-10-25 19:17 | PN ---
Progress Note Date of Service: 10/25/18 Note: ANNIKA VIRAMONTES was visited. Therapy notes read and reviewed. She was discussed in interdisciplinary team rounds. Slowly progressing but will not be ready for discharge next Wednesday. Current Medications: Active Medications Generic Name Dose Route Start Last Admin Trade Name Freq PRN Reason Stop Dose Admin Acetaminophen 975 mg 10/09/18 09:00 10/25/18 17:10 Tylenol Tab* PO 975 mg Q8H ZAINAB Administration Al Hydrox/Mg Hydrox/Simethicone 30 ml 10/09/18 08:30 Maalox Plus* PO Q6H PRN INDIGESTION Apixaban 2.5 mg 10/09/18 09:00 10/25/18 08:08 Eliquis* PO 2.5 mg BID ZAINAB Administration Baclofen 10 mg 10/22/18 12:00 10/25/18 17:12 Lioresal Tab* PO Not Given 09,,17 ZAINAB Baclofen 20 mg 10/22/18 21:00 10/24/18 20:14 Lioresal Tab* PO 20 mg BEDTIME ZAINAB Administration Bisacodyl 10 mg 10/21/18 18:00 10/25/18 17:12 Dulcolax Supp* [place] Not Given QPM ZAINAB Citalopram Hydrobromide 20 mg 10/09/18 18:00 10/25/18 17:11 Celexa Tab* PO 20 mg 1800 ZAINAB Administration Dextrose 12.5 gm 10/09/18 08:41 D50w Syringe 50 Ml* IV PUSH .FOR FS < 60 - SS PRN FS < 60 Docusate Sodium 100 mg 10/21/18 21:00 10/25/18 08:17 Colace Cap* PO Not Given BID ZAINAB Glipizide 10 mg 10/12/18 09:00 10/25/18 08:09 Glucotrol Xl* PO 10 mg DAILY ZAINAB Administration Hydrochlorothiazide 25 mg 10/13/18 09:00 10/25/18 08:10 Hydrodiuril Tab* PO 25 mg DAILY ZAINAB Administration Insulin Human Lispro 0 units 10/09/18 11:30 10/25/18 16:43 Humalog* SUBCUT Not Given ACHS [facility] Protocol Interferon Beta 1b 0.3 mg 10/18/18 19:00 10/24/18 18:18 Betaseron (Nf) SUBCUT 0.3 mg Q48HR@1900 ZAINAB Administration Lactulose 30 ml 10/09/18 08:30 10/14/18 16:49 Lactulose* PO 30 ml Q6H PRN Administration CONSTIPATION Losartan Potassium 50 mg 10/09/18 09:00 10/25/18 08:10 Cozaar Tab* PO 50 mg DAILY ZAINAB Administration Magnesium Hydroxide 30 ml 10/09/18 08:30 10/19/18 17:08 Milk Of Magnesia Liq* PO 30 ml Q6H PRN Administration CONSTIPATION Multivitamins/Minerals 1 tab 10/09/18 09:00 10/25/18 08:11 Theragran/Minerals Tab* PO 1 tab DAILY ZAINAB Administration Ondansetron HCl 4 mg 10/09/18 08:55 Zofran Odt Tab* SL Q6H PRN NAUSEA/VOMITING Oxybutynin Chloride 15 mg 10/10/18 09:00 10/24/18 08:54 Ditropan Xl Tab* PO 15 mg MoWeFr@0900 ZAINAB Administration Oxycodone HCl 10 mg 10/16/18 16:10 10/23/18 06:22 Roxycodone Tab* PO 10 mg Q3H PRN Administration PAIN - SEVERE Oxycodone HCl 5 mg 10/16/18 16:10 10/25/18 09:12 Roxycodone Tab* PO 5 mg Q3H PRN Administration PAIN - MODERATE TO SEVERE Polyethylene Glycol/Electrolytes 17 gm 10/11/18 19:27 10/18/18 20:16 Miralax* PO 17 gm DAILY PRN Administration CONSTIPATION Potassium Chloride 10 meq 10/09/18 09:00 10/25/18 08:11 Klor Con Er Tab* PO 10 meq DAILY ZAINAB Administration Senna 2 tab 10/21/18 21:00 10/24/18 20:16 Senokot Tab* PO Not Given BEDTIME ZAINAB Sodium Biphosphate/Sodium Phosphate 1 bottle 10/09/18 08:30 Fleet Enema* PA DAILY PRN CONSTIPATION Vitamin B Complex/Vitamin E 1 tab 10/09/18 09:00 10/25/18 08:11 B Complex-50* PO 1 tab DAILY ZAINAB Administration Vital Signs: Vital Signs Temp Pulse Resp BP Pulse Ox 97.7 F 77 20 141/86 100 10/25/18 15:48 10/25/18 15:48 10/25/18 17:26 10/25/18 15:48 10/25/18 17:26 Lab Results: Laboratory Results - last 24 hr 10/22/18 10/22/18 10/23/18 16:31 20:22 07:51 POC Glucose (mg/dL) 94 151 H 145 H 10/23/18 10/23/18 10/23/18 11:40 16:19 20:24 POC Glucose (mg/dL) 102 H 145 H 133 H 10/24/18 10/24/18 10/24/18 11:47 16:31 20:18 POC Glucose (mg/dL) 202 H 161 H 104 H 10/25/18 10/25/18 07:41 11:43 POC Glucose (mg/dL) 102 H 178 H Exam: GENERAL: No acute distress. Alert and appropriate. LUNGS: Clear to auscultation bilaterally HEART: Regular rate and rhythm ABDOMEN: + bowel sounds, soft, non-tender, non-distended. EXTREMITIES: Right knee wound healed. Steri strips in place. NEUROLOGIC: Alert and oriented. Motor 5/5 BUE with normal sensation. Motor 5/5 throughout LLE. Motor 2-3/5 RLE but 4/5 EHL Assessment/Plan: 1. Right Total Knee Arthroplasty: WBAT; PT/OT. Follow up with Dr. Gordillo 2. Multiple Sclerosis: On betaseron. 3. Spasticity: Baclofen 10 mg tid and 20mg qhs 4. Diabetes: Glipizide XL 10 mg 5. DVT Prophylaxis: Eliquis 6. Edema: Resumed HCTZ. Improving 7. Neurogenic bowel: Bowel meds scheduled including suppository 8. Neurogenic bladder: depends. UA negative. 10/25/18 19:18
[2018-10-25] MEDS: Senna TAB PO SCH (21:05)
[2018-10-26] MEDS: Acetaminophen TAB* 325 MG PO SCH ×3 (01:20→17:16)
[2018-10-26] MEDS: Apixaban* 2.5 MG TAB PO SCH ×2 (07:54→20:12)
[2018-10-26] MEDS: glipiZIDE TAB.XL* 5 MG PO SCH (07:55)
[2018-10-26] MEDS: Baclofen TAB* 10 MG PO SCH ×4 (07:55→20:12)
[2018-10-26] MEDS: Multivitamins/Minerals TAB PO SCH (07:56)
[2018-10-26] MEDS: Losartan TAB* 25 MG PO SCH (07:56)
[2018-10-26] MEDS: Hydrochlorothiazide TAB* 25 MG PO SCH (07:56)
[2018-10-26] MEDS: Potassium Chlor TAB* 10 MEQ TAB.ER PO SCH (07:56)
[2018-10-26] MEDS: Oxybutynin XL TAB* 5 MG PO SCH (07:56)
[2018-10-26] MEDS: oxyCODONE TAB* 5 MG TAB PO PRN ×2 (07:56→20:12)
[2018-10-26] MEDS: Vitamin B Complex TAB PO SCH (07:56)
[2018-10-26] MEDS: Insulin LISPRO* 1 UNITS UNIT SUBCUT SCH ×4 (09:24→20:51)
[2018-10-26] MEDS: Docusate CAP* 100 MG PO SCH ×2 (09:25→20:11)
[2018-10-26] MEDS: Citalopram TAB* 20 MG PO SCH (17:16)
[2018-10-26] MEDS: BETASERON 0.3 MG SUBCUT SCH (19:36)
[2018-10-26] MEDS: Senna TAB PO SCH (20:11)
[2018-10-26] MEDS: Bisacodyl SUPP* 10 MG SUPP PR SCH (20:11)
--- NOTE | 2018-10-26 21:42 | PN ---
Progress Note Date of Service: 10/26/18 Note: ANNIKA VIRAMONTES was visited. Therapy notes read and reviewed. She has no complaints. Having trouble moving still Current Medications: Active Medications Generic Name Dose Route Start Last Admin Trade Name Freq PRN Reason Stop Dose Admin Acetaminophen 975 mg 10/09/18 09:00 10/26/18 17:16 Tylenol Tab* PO 975 mg Q8H ZAINAB Administration Al Hydrox/Mg Hydrox/Simethicone 30 ml 10/09/18 08:30 Maalox Plus* PO Q6H PRN INDIGESTION Apixaban 2.5 mg 10/09/18 09:00 10/26/18 20:12 Eliquis* PO 2.5 mg BID ZAINAB Administration Baclofen 10 mg 10/22/18 12:00 10/26/18 17:14 Lioresal Tab* PO Not Given , ZAINAB Baclofen 20 mg 10/22/18 21:00 10/26/18 20:12 Lioresal Tab* PO 20 mg BEDTIME ZAINAB Administration Bisacodyl 10 mg 10/21/18 18:00 10/26/18 20:11 Dulcolax Supp* [place] Not Given QPM ZAINAB Citalopram Hydrobromide 20 mg 10/09/18 18:00 10/26/18 17:16 Celexa Tab* PO 20 mg 1800 ZAINAB Administration Dextrose 12.5 gm 10/09/18 08:41 D50w Syringe 50 Ml* IV PUSH .FOR FS < 60 - SS PRN FS < 60 Docusate Sodium 100 mg 10/21/18 21:00 10/26/18 20:11 Colace Cap* PO 100 mg BID ZAINAB Administration Glipizide 10 mg 10/12/18 09:00 10/26/18 07:55 Glucotrol Xl* PO 10 mg DAILY ZAINAB Administration Hydrochlorothiazide 25 mg 10/13/18 09:00 10/26/18 07:56 Hydrodiuril Tab* PO 25 mg DAILY ZAINAB Administration Insulin Human Lispro 0 units 10/09/18 11:30 10/26/18 20:51 Humalog* SUBCUT Not Given ACHS [facility] Protocol Interferon Beta 1b 0.3 mg 10/18/18 19:00 10/26/18 19:36 Betaseron (Nf) SUBCUT 0.3 mg Q48HR@1900 ZAINAB Administration Lactulose 30 ml 10/09/18 08:30 10/14/18 16:49 Lactulose* PO 30 ml Q6H PRN Administration CONSTIPATION Losartan Potassium 50 mg 10/09/18 09:00 10/26/18 07:56 Cozaar Tab* PO 50 mg DAILY ZAINAB Administration Magnesium Hydroxide 30 ml 10/09/18 08:30 10/19/18 17:08 Milk Of Magnesia Liq* PO 30 ml Q6H PRN Administration CONSTIPATION Multivitamins/Minerals 1 tab 10/09/18 09:00 10/26/18 07:56 Theragran/Minerals Tab* PO 1 tab DAILY ZAINAB Administration Ondansetron HCl 4 mg 10/09/18 08:55 Zofran Odt Tab* SL Q6H PRN NAUSEA/VOMITING Oxybutynin Chloride 15 mg 10/10/18 09:00 10/26/18 07:56 Ditropan Xl Tab* PO 15 mg MoWeFr@0900 ZAINAB Administration Oxycodone HCl 10 mg 10/16/18 16:10 10/23/18 06:22 Roxycodone Tab* PO 10 mg Q3H PRN Administration PAIN - SEVERE Oxycodone HCl 5 mg 10/16/18 16:10 10/26/18 20:12 Roxycodone Tab* PO 5 mg Q3H PRN Administration PAIN - MODERATE TO SEVERE Polyethylene Glycol/Electrolytes 17 gm 10/11/18 19:27 10/18/18 20:16 Miralax* PO 17 gm DAILY PRN Administration CONSTIPATION Potassium Chloride 10 meq 10/09/18 09:00 10/26/18 07:56 Klor Con Er Tab* PO 10 meq DAILY ZAINAB Administration Senna 2 tab 10/21/18 21:00 10/26/18 20:11 Senokot Tab* PO 2 tab BEDTIME ZAINAB Administration Sodium Biphosphate/Sodium Phosphate 1 bottle 10/09/18 08:30 Fleet Enema* [place] DAILY PRN CONSTIPATION Vitamin B Complex/Vitamin E 1 tab 10/09/18 09:00 10/26/18 07:56 B Complex-50* PO 1 tab DAILY ZAINAB Administration Vital Signs: Vital Signs Temp Pulse Resp BP Pulse Ox 98.0 F 73 22 151/75 100 10/26/18 18:26 10/26/18 18:26 10/26/18 20:12 10/26/18 18:26 10/26/18 18:38 Lab Results: Laboratory Results - last 24 hr 10/26/18 10/26/18 10/26/18 07:32 11:53 16:31 POC Glucose (mg/dL) 107 H 151 H 158 H Exam: GENERAL: No acute distress. Alert and appropriate. LUNGS: Clear to auscultation bilaterally HEART: Regular rate and rhythm ABDOMEN: + bowel sounds, soft, non-tender, non-distended. EXTREMITIES: Right knee wound healed. Steri strips in place. NEUROLOGIC: Alert and oriented. Motor 5/5 BUE with normal sensation. Motor 5/5 throughout LLE. Motor 2-3/5 RLE but 4/5 EHL Assessment/Plan: 1. Right Total Knee Arthroplasty: WBAT; PT/OT. Follow up with Dr. Gordillo 2. Multiple Sclerosis: On betaseron. 3. Spasticity: Baclofen 10 mg tid and 20mg qhs 4. Diabetes: Glipizide XL 10 mg 5. DVT Prophylaxis: Eliquis 6. Edema: Resumed HCTZ. Improving 7. Neurogenic bowel: Bowel meds scheduled including suppository 8. Neurogenic bladder: depends. UA negative. 10/26/18 21:42
[2018-10-27] MEDS: Acetaminophen TAB* 325 MG PO SCH ×3 (01:10→17:31)
[2018-10-27] MEDS: oxyCODONE TAB* 5 MG TAB PO PRN ×3 (06:45→22:46)
[2018-10-27] MEDS: Insulin LISPRO* 1 UNITS UNIT SUBCUT SCH ×4 (07:41→21:20)
[2018-10-27] MEDS: Apixaban* 2.5 MG TAB PO SCH ×2 (09:54→21:20)
[2018-10-27] MEDS: Baclofen TAB* 10 MG PO SCH ×4 (09:54→21:19)
[2018-10-27] MEDS: Potassium Chlor TAB* 10 MEQ TAB.ER PO SCH (09:55)
[2018-10-27] MEDS: Multivitamins/Minerals TAB PO SCH (09:55)
[2018-10-27] MEDS: Losartan TAB* 25 MG PO SCH (09:55)
[2018-10-27] MEDS: glipiZIDE TAB.XL* 5 MG PO SCH (09:55)
[2018-10-27] MEDS: Vitamin B Complex TAB PO SCH (09:55)
[2018-10-27] MEDS: Hydrochlorothiazide TAB* 25 MG PO SCH (09:55)
[2018-10-27] MEDS: Docusate CAP* 100 MG PO SCH ×2 (09:55→21:18)
[2018-10-27] MEDS: Citalopram TAB* 20 MG PO SCH (17:32)
--- NOTE | 2018-10-27 19:56 | PN ---
Progress Note Date of Service: 10/27/18 Note: ANNIKA VIRAMONTES was visited. Therapy notes read and reviewed. She is no longer having spasms in her legs and she wants to cut her Baclofen back to 03/19 Current Medications: Active Medications Generic Name Dose Route Start Last Admin Trade Name Freq PRN Reason Stop Dose Admin Acetaminophen 975 mg 10/09/18 09:00 10/27/18 17:31 Tylenol Tab* PO 975 mg Q8H ZAINAB Administration Al Hydrox/Mg Hydrox/Simethicone 30 ml 10/09/18 08:30 Maalox Plus* PO Q6H PRN INDIGESTION Apixaban 2.5 mg 10/09/18 09:00 10/27/18 09:54 Eliquis* PO 2.5 mg BID ZAINAB Administration Baclofen 10 mg 10/22/18 12:00 10/27/18 17:31 Lioresal Tab* PO Not Given 09,, ZAINAB Baclofen 20 mg 10/22/18 21:00 10/26/18 20:12 Lioresal Tab* PO 20 mg BEDTIME ZAINAB Administration Bisacodyl 10 mg 10/21/18 18:00 10/26/18 20:11 Dulcolax Supp* [place] Not Given QPM ZAINAB Citalopram Hydrobromide 20 mg 10/09/18 18:00 10/27/18 17:32 Celexa Tab* PO 20 mg 1800 ZAINAB Administration Dextrose 12.5 gm 10/09/18 08:41 D50w Syringe 50 Ml* IV PUSH .FOR FS < 60 - SS PRN FS < 60 Docusate Sodium 100 mg 10/21/18 21:00 10/27/18 09:55 Colace Cap* PO 100 mg BID ZAINAB Administration Glipizide 10 mg 10/12/18 09:00 10/27/18 09:55 Glucotrol Xl* PO 10 mg DAILY ZAINAB Administration Hydrochlorothiazide 25 mg 10/13/18 09:00 10/27/18 09:55 Hydrodiuril Tab* PO 25 mg DAILY ZAINAB Administration Insulin Human Lispro 0 units 10/09/18 11:30 10/27/18 16:23 Humalog* SUBCUT Not Given ACHS ZAINAB Protocol Interferon Beta 1b 0.3 mg 10/18/18 19:00 10/26/18 19:36 Betaseron (Nf) SUBCUT 0.3 mg Q48HR@1900 ZAINAB Administration Lactulose 30 ml 10/09/18 08:30 10/14/18 16:49 Lactulose* PO 30 ml Q6H PRN Administration CONSTIPATION Losartan Potassium 50 mg 10/09/18 09:00 10/27/18 09:55 Cozaar Tab* PO 50 mg DAILY ZAINAB Administration Magnesium Hydroxide 30 ml 10/09/18 08:30 10/19/18 17:08 Milk Of Magnesia Liq* PO 30 ml Q6H PRN Administration CONSTIPATION Multivitamins/Minerals 1 tab 10/09/18 09:00 10/27/18 09:55 Theragran/Minerals Tab* PO 1 tab DAILY ZAINAB Administration Ondansetron HCl 4 mg 10/09/18 08:55 Zofran Odt Tab* SL Q6H PRN NAUSEA/VOMITING Oxybutynin Chloride 15 mg 10/10/18 09:00 10/26/18 07:56 Ditropan Xl Tab* PO 15 mg MoWeFr@0900 ZAINAB Administration Oxycodone HCl 10 mg 10/16/18 16:10 10/23/18 06:22 Roxycodone Tab* PO 10 mg Q3H PRN Administration PAIN - SEVERE Oxycodone HCl 5 mg 10/16/18 16:10 10/27/18 09:56 Roxycodone Tab* PO 5 mg Q3H PRN Administration PAIN - MODERATE TO SEVERE Polyethylene Glycol/Electrolytes 17 gm 10/11/18 19:27 10/18/18 20:16 Miralax* PO 17 gm DAILY PRN Administration CONSTIPATION Potassium Chloride 10 meq 10/09/18 09:00 10/27/18 09:55 Klor Con Er Tab* PO 10 meq DAILY ZAINAB Administration Senna 2 tab 10/21/18 21:00 10/26/18 20:11 Senokot Tab* PO 2 tab BEDTIME ZAINAB Administration Sodium Biphosphate/Sodium Phosphate 1 bottle 10/09/18 08:30 Fleet Enema* [place] DAILY PRN CONSTIPATION Vitamin B Complex/Vitamin E 1 tab 10/09/18 09:00 10/27/18 09:55 B Complex-50* PO 1 tab DAILY ZAINAB Administration Vital Signs: Vital Signs Temp Pulse Resp BP Pulse Ox 97.3 F 75 16 155/71 98 10/27/18 16:19 10/27/18 16:19 10/27/18 16:19 10/27/18 16:19 10/27/18 16:19 Lab Results: Laboratory Results - last 24 hr 10/26/18 10/27/18 10/27/18 20:40 07:35 11:53 POC Glucose (mg/dL) 87 128 H 151 H 10/27/18 16:21 POC Glucose (mg/dL) 99 Exam: GENERAL: No acute distress. Alert and appropriate. LUNGS: Clear to auscultation bilaterally HEART: Regular rate and rhythm ABDOMEN: + bowel sounds, soft, non-tender, non-distended. EXTREMITIES: Right knee wound healed. Steri strips in place. NEUROLOGIC: Alert and oriented. Motor 5/5 BUE with normal sensation. Motor 5/5 throughout LLE. Motor 2-3/5 RLE but 4/5 EHL Assessment/Plan: 1. Right Total Knee Arthroplasty: WBAT; PT/OT. Follow up with Dr. Gordillo 2. Multiple Sclerosis: On betaseron. 3. Spasticity: Baclofen 10 mg am and 20mg qhs 4. Diabetes: Glipizide XL 10 mg 5. DVT Prophylaxis: Eliquis 6. Edema: Resumed HCTZ. Improving 7. Neurogenic bowel: Bowel meds scheduled including suppository 8. Neurogenic bladder: depends. UA negative. 10/27/18 19:57
[2018-10-27] MEDS: Bisacodyl SUPP* 10 MG SUPP PR SCH (20:12)
[2018-10-27] MEDS: Senna TAB PO SCH (21:19)
[2018-10-28] MEDS: Acetaminophen TAB* 325 MG PO SCH ×3 (01:06→17:12)
[2018-10-28] MEDS: oxyCODONE TAB* 5 MG TAB PO PRN ×2 (06:36→09:50)
[2018-10-28] MEDS: Insulin LISPRO* 1 UNITS UNIT SUBCUT SCH ×4 (07:55→21:03)
[2018-10-28] MEDS: Hydrochlorothiazide TAB* 25 MG PO SCH (08:07)
[2018-10-28] MEDS: Docusate CAP* 100 MG PO SCH ×2 (08:07→21:05)
[2018-10-28] MEDS: Losartan TAB* 25 MG PO SCH (08:07)
[2018-10-28] MEDS: Oxybutynin XL TAB* 5 MG PO SCH (08:08)
[2018-10-28] MEDS: Potassium Chlor TAB* 10 MEQ TAB.ER PO SCH (08:08)
[2018-10-28] MEDS: Multivitamins/Minerals TAB PO SCH (08:08)
[2018-10-28] MEDS: Baclofen TAB* 10 MG PO SCH ×2 (08:08→20:35)
[2018-10-28] MEDS: Vitamin B Complex TAB PO SCH (08:08)
[2018-10-28] MEDS: glipiZIDE TAB.XL* 5 MG PO SCH (08:08)
[2018-10-28] MEDS: Apixaban* 2.5 MG TAB PO SCH ×2 (08:09→20:35)
--- NOTE | 2018-10-28 14:28 | PN ---
Progress Note Date of Service: 10/28/18 Note: ANNIKA VIRAMONTES was visited. Therapy notes read and reviewed. She has no complaints. Less dizzy on BID baclofen, feels like she is doing more, no longer uses EZ stand Current Medications: Active Medications Generic Name Dose Route Start Last Admin Trade Name Freq PRN Reason Stop Dose Admin Acetaminophen 975 mg 10/09/18 09:00 10/28/18 08:08 Tylenol Tab* PO 975 mg Q8H ZAINAB Administration Al Hydrox/Mg Hydrox/Simethicone 30 ml 10/09/18 08:30 Maalox Plus* PO Q6H PRN INDIGESTION Apixaban 2.5 mg 10/09/18 09:00 10/28/18 08:09 Eliquis* PO 2.5 mg BID ZAINAB Administration Baclofen 20 mg 10/22/18 21:00 10/27/18 21:19 Lioresal Tab* PO 20 mg BEDTIME ZAINAB Administration Baclofen 10 mg 10/28/18 09:00 10/28/18 08:08 Lioresal Tab* PO 10 mg 0900 ZAINAB Administration Bisacodyl 10 mg 10/21/18 18:00 10/27/18 20:12 Dulcolax Supp* [place] 10 mg QPM ZAINAB Administration Citalopram Hydrobromide 20 mg 10/09/18 18:00 10/27/18 17:32 Celexa Tab* PO 20 mg 1800 ZAINAB Administration Dextrose 12.5 gm 10/09/18 08:41 D50w Syringe 50 Ml* IV PUSH .FOR FS < 60 - SS PRN FS < 60 Docusate Sodium 100 mg 10/21/18 21:00 10/28/18 08:07 Colace Cap* PO 100 mg BID ZAINAB Administration Glipizide 10 mg 10/12/18 09:00 10/28/18 08:08 Glucotrol Xl* PO 10 mg DAILY ZAINAB Administration Hydrochlorothiazide 25 mg 10/13/18 09:00 10/28/18 08:07 Hydrodiuril Tab* PO 25 mg DAILY ZAINAB Administration Insulin Human Lispro 0 units 10/09/18 11:30 10/28/18 12:15 Humalog* SUBCUT 6 units ACHS ZAINAB Administration Protocol Interferon Beta 1b 0.3 mg 10/18/18 19:00 10/26/18 19:36 Betaseron (Nf) SUBCUT 0.3 mg Q48HR@1900 ZAINAB Administration Lactulose 30 ml 10/09/18 08:30 10/14/18 16:49 Lactulose* PO 30 ml Q6H PRN Administration CONSTIPATION Losartan Potassium 50 mg 10/09/18 09:00 10/28/18 08:07 Cozaar Tab* PO 50 mg DAILY ZAINAB Administration Magnesium Hydroxide 30 ml 10/09/18 08:30 10/19/18 17:08 Milk Of Magnesia Liq* PO 30 ml Q6H PRN Administration CONSTIPATION Multivitamins/Minerals 1 tab 10/09/18 09:00 10/28/18 08:08 Theragran/Minerals Tab* PO 1 tab DAILY ZAINAB Administration Ondansetron HCl 4 mg 10/09/18 08:55 Zofran Odt Tab* SL Q6H PRN NAUSEA/VOMITING Oxybutynin Chloride 15 mg 10/10/18 09:00 10/28/18 08:08 Ditropan Xl Tab* PO 15 mg MoWeFr@0900 ZAINAB Administration Oxycodone HCl 10 mg 10/16/18 16:10 10/23/18 06:22 Roxycodone Tab* PO 10 mg Q3H PRN Administration PAIN - SEVERE Oxycodone HCl 5 mg 10/16/18 16:10 10/28/18 09:50 Roxycodone Tab* PO 5 mg Q3H PRN Administration PAIN - MODERATE TO SEVERE Polyethylene Glycol/Electrolytes 17 gm 10/11/18 19:27 10/18/18 20:16 Miralax* PO 17 gm DAILY PRN Administration CONSTIPATION Potassium Chloride 10 meq 10/09/18 09:00 10/28/18 08:08 Klor Con Er Tab* PO 10 meq DAILY ZAINAB Administration Senna 2 tab 10/21/18 21:00 10/27/18 21:19 Senokot Tab* PO 2 tab BEDTIME ZAINAB Administration Sodium Biphosphate/Sodium Phosphate 1 bottle 10/09/18 08:30 Fleet Enema* [place] DAILY PRN CONSTIPATION Vitamin B Complex/Vitamin E 1 tab 10/09/18 09:00 10/28/18 08:08 B Complex-50* PO 1 tab DAILY ZAINAB Administration Vital Signs: Vital Signs Temp Pulse Resp BP Pulse Ox 97.3 F 75 16 155/71 98 10/27/18 16:19 10/27/18 16:19 10/28/18 09:50 10/27/18 16:19 10/27/18 16:19 Lab Results: Laboratory Results - last 24 hr 10/27/18 10/27/18 10/28/18 16:21 20:28 07:51 POC Glucose (mg/dL) 99 140 H 138 H 10/28/18 11:41 POC Glucose (mg/dL) 215 H Exam: GENERAL: No acute distress. Alert and appropriate. LUNGS: Clear to auscultation bilaterally HEART: Regular rate and rhythm ABDOMEN: + bowel sounds, soft, non-tender, non-distended. EXTREMITIES: Right knee wound healed. Steri strips in place. NEUROLOGIC: Alert and oriented. Motor 5/5 BUE with normal sensation. Motor 5/5 throughout LLE. Motor 2-3/5 RLE but 4/5 EHL Assessment/Plan: 1. Right Total Knee Arthroplasty: WBAT; PT/OT. Follow up with Dr. Gordillo 2. Multiple Sclerosis: On betaseron. 3. Spasticity: Baclofen 10 mg am and 20mg qhs 4. Diabetes: Glipizide XL 10 mg 5. DVT Prophylaxis: Eliquis 6. Edema: Resumed HCTZ. Improving 7. Neurogenic bowel: Bowel meds scheduled including suppository 8. Neurogenic bladder: depends. 10/28/18 14:29
[2018-10-28] MEDS: Citalopram TAB* 20 MG PO SCH (18:40)
[2018-10-28] MEDS: BETASERON 0.3 MG SUBCUT SCH (18:40)
[2018-10-28] MEDS: Bisacodyl SUPP* 10 MG SUPP PR SCH (20:32)
[2018-10-28] MEDS: Senna TAB PO SCH (20:35)
[2018-10-29] MEDS: Acetaminophen TAB* 325 MG PO SCH ×3 (00:40→17:51)
[2018-10-29] MEDS: Insulin LISPRO* 1 UNITS UNIT SUBCUT SCH ×4 (07:32→20:26)
[2018-10-29] MEDS: Docusate CAP* 100 MG PO SCH ×2 (07:39→20:19)
[2018-10-29] MEDS: Losartan TAB* 25 MG PO SCH (07:39)
[2018-10-29] MEDS: Apixaban* 2.5 MG TAB PO SCH ×2 (07:39→20:19)
[2018-10-29] MEDS: Baclofen TAB* 10 MG PO SCH ×2 (07:40→20:19)
[2018-10-29] MEDS: oxyCODONE TAB* 5 MG TAB PO PRN ×3 (07:40→20:19)
[2018-10-29] MEDS: glipiZIDE TAB.XL* 5 MG PO SCH (07:40)
[2018-10-29] MEDS: Hydrochlorothiazide TAB* 25 MG PO SCH (07:40)
[2018-10-29] MEDS: Multivitamins/Minerals TAB PO SCH (07:40)
[2018-10-29] MEDS: Vitamin B Complex TAB PO SCH (07:40)
[2018-10-29] MEDS: Potassium Chlor TAB* 10 MEQ TAB.ER PO SCH (07:40)
[2018-10-29] MEDS: Citalopram TAB* 20 MG PO SCH (17:52)
[2018-10-29] MEDS: Bisacodyl SUPP* 10 MG SUPP PR SCH (17:58)
[2018-10-29] MEDS: Senna TAB PO SCH (20:19)
--- NOTE | 2018-10-29 21:34 | PN ---
Progress Note Date of Service: 10/29/18 Note: ANNIKA VIRAMONTES was visited. Therapy notes read and reviewed. Did some walking with physical therapy today. Otherwise ok with no complaints. Current Medications: Active Medications Generic Name Dose Route Start Last Admin Trade Name Freq PRN Reason Stop Dose Admin Acetaminophen 975 mg 10/09/18 09:00 10/29/18 17:51 Tylenol Tab* PO 975 mg Q8H ZAINAB Administration Al Hydrox/Mg Hydrox/Simethicone 30 ml 10/09/18 08:30 Maalox Plus* PO Q6H PRN INDIGESTION Apixaban 2.5 mg 10/09/18 09:00 10/29/18 20:19 Eliquis* PO 2.5 mg BID ZAINAB Administration Baclofen 20 mg 10/22/18 21:00 10/29/18 20:19 Lioresal Tab* PO 20 mg BEDTIME ZAINAB Administration Baclofen 10 mg 10/28/18 09:00 10/29/18 07:40 Lioresal Tab* PO 10 mg 0900 ZAINAB Administration Bisacodyl 10 mg 10/21/18 18:00 10/29/18 17:58 Dulcolax Supp* MD Not Given QPM ZAINAB Citalopram Hydrobromide 20 mg 10/09/18 18:00 10/29/18 17:52 Celexa Tab* PO 20 mg 1800 ZAINAB Administration Dextrose 12.5 gm 10/09/18 08:41 D50w Syringe 50 Ml* IV PUSH .FOR FS < 60 - SS PRN FS < 60 Docusate Sodium 100 mg 10/21/18 21:00 10/29/18 20:19 Colace Cap* PO 100 mg BID ZAINAB Administration Glipizide 10 mg 10/12/18 09:00 10/29/18 07:40 Glucotrol Xl* PO 10 mg DAILY ZAINAB Administration Hydrochlorothiazide 25 mg 10/13/18 09:00 10/29/18 07:40 Hydrodiuril Tab* PO 25 mg DAILY ZAINAB Administration Insulin Human Lispro 0 units 10/09/18 11:30 10/29/18 20:26 Humalog* SUBCUT Not Given ACHS ZAINAB Protocol Interferon Beta 1b 0.3 mg 10/18/18 19:00 10/28/18 18:40 Betaseron (Nf) SUBCUT 0.3 mg Q48HR@1900 ZAINAB Administration Lactulose 30 ml 10/09/18 08:30 10/14/18 16:49 Lactulose* PO 30 ml Q6H PRN Administration CONSTIPATION Losartan Potassium 50 mg 10/09/18 09:00 10/29/18 07:39 Cozaar Tab* PO 50 mg DAILY ZAINAB Administration Magnesium Hydroxide 30 ml 10/09/18 08:30 10/19/18 17:08 Milk Of Magnesia Liq* PO 30 ml Q6H PRN Administration CONSTIPATION Multivitamins/Minerals 1 tab 10/09/18 09:00 10/29/18 07:40 Theragran/Minerals Tab* PO 1 tab DAILY ZAINAB Administration Ondansetron HCl 4 mg 10/09/18 08:55 Zofran Odt Tab* SL Q6H PRN NAUSEA/VOMITING Oxybutynin Chloride 15 mg 10/10/18 09:00 10/28/18 08:08 Ditropan Xl Tab* PO 15 mg MoWeFr@0900 ZAINAB Administration Oxycodone HCl 10 mg 10/16/18 16:10 10/23/18 06:22 Roxycodone Tab* PO 10 mg Q3H PRN Administration PAIN - SEVERE Oxycodone HCl 5 mg 10/16/18 16:10 10/29/18 20:19 Roxycodone Tab* PO 5 mg Q3H PRN Administration PAIN - MODERATE TO SEVERE Polyethylene Glycol/Electrolytes 17 gm 10/11/18 19:27 10/18/18 20:16 Miralax* PO 17 gm DAILY PRN Administration CONSTIPATION Potassium Chloride 10 meq 10/09/18 09:00 10/29/18 07:40 Klor Con Er Tab* PO 10 meq DAILY ZAINAB Administration Senna 2 tab 10/21/18 21:00 10/29/18 20:19 Senokot Tab* PO 2 tab BEDTIME ZAINAB Administration Sodium Biphosphate/Sodium Phosphate 1 bottle 10/09/18 08:30 Fleet Enema* [place] DAILY PRN CONSTIPATION Vitamin B Complex/Vitamin E 1 tab 10/09/18 09:00 10/29/18 07:40 B Complex-50* PO 1 tab DAILY ZAINAB Administration Vital Signs: Vital Signs Temp Pulse Resp BP Pulse Ox 98.2 F 75 14 130/78 96 10/29/18 15:42 10/29/18 15:42 10/29/18 20:19 10/29/18 15:42 10/29/18 15:42 Lab Results: Laboratory Results - last 24 hr 10/28/18 10/28/18 10/29/18 16:28 20:38 07:21 POC Glucose (mg/dL) 109 H 119 H 120 H 10/29/18 10/29/18 11:21 16:43 POC Glucose (mg/dL) 206 H 89 Exam: GENERAL: No acute distress. Alert and appropriate. LUNGS: Clear to auscultation bilaterally HEART: Regular rate and rhythm ABDOMEN: + bowel sounds, soft, non-tender, non-distended. EXTREMITIES: Right knee wound healed. Steri strips in place. NEUROLOGIC: Alert and oriented. Motor 5/5 BUE with normal sensation. Motor 5/5 throughout LLE. Motor 2-3/5 RLE but 4/5 EHL Assessment/Plan: 1. Right Total Knee Arthroplasty: WBAT; PT/OT. Follow up with Dr. Gordillo 2. Multiple Sclerosis: On betaseron. 3. Spasticity: Baclofen 10 mg am and 20mg qhs 4. Diabetes: Glipizide XL 10 mg 5. DVT Prophylaxis: Eliquis 6. Edema: HCTZ. Improving 7. Neurogenic bowel: Bowel meds scheduled including suppository 8. Neurogenic bladder: depends. 10/29/18 21:35
[2018-10-30] MEDS: Acetaminophen TAB* 325 MG PO SCH ×3 (00:53→17:40)
[2018-10-30] MEDS: oxyCODONE TAB* 5 MG TAB PO PRN ×2 (03:05→20:43)
[2018-10-30] MEDS: Insulin LISPRO* 1 UNITS UNIT SUBCUT SCH ×4 (08:01→20:43)
[2018-10-30] MEDS: Baclofen TAB* 10 MG PO SCH ×2 (08:17→20:42)
[2018-10-30] MEDS: Apixaban* 2.5 MG TAB PO SCH ×2 (08:17→20:42)
[2018-10-30] MEDS: Hydrochlorothiazide TAB* 25 MG PO SCH (08:18)
[2018-10-30] MEDS: Losartan TAB* 25 MG PO SCH (08:18)
[2018-10-30] MEDS: glipiZIDE TAB.XL* 5 MG PO SCH (08:18)
[2018-10-30] MEDS: Docusate CAP* 100 MG PO SCH ×2 (08:18→20:42)
[2018-10-30] MEDS: Potassium Chlor TAB* 10 MEQ TAB.ER PO SCH (08:19)
[2018-10-30] MEDS: Vitamin B Complex TAB PO SCH (08:19)
[2018-10-30] MEDS: Multivitamins/Minerals TAB PO SCH (08:19)
--- NOTE | 2018-10-30 12:59 | PN ---
Progress Note Date of Service: 10/30/18 Note: ANNIKA VIRAMONTES was visited. Nursing notes read and reviewed. She has no complaints. Able to move better Current Medications: Active Medications Generic Name Dose Route Start Last Admin Trade Name Freskyla PRN Reason Stop Dose Admin Acetaminophen 975 mg 10/09/18 09:00 10/30/18 08:16 Tylenol Tab* PO 975 mg Q8H ZAINAB Administration Al Hydrox/Mg Hydrox/Simethicone 30 ml 10/09/18 08:30 Maalox Plus* PO Q6H PRN INDIGESTION Apixaban 2.5 mg 10/09/18 09:00 10/30/18 08:17 Eliquis* PO 2.5 mg BID ZAINAB Administration Baclofen 20 mg 10/22/18 21:00 10/29/18 20:19 Lioresal Tab* PO 20 mg BEDTIME ZAINAB Administration Baclofen 10 mg 10/28/18 09:00 10/30/18 08:17 Lioresal Tab* PO 10 mg 0900 ZAINAB Administration Bisacodyl 10 mg 10/21/18 18:00 10/29/18 17:58 Dulcolax Supp* [place] Not Given QPM ZAINAB Citalopram Hydrobromide 20 mg 10/09/18 18:00 10/29/18 17:52 Celexa Tab* PO 20 mg 1800 ZAINAB Administration Dextrose 12.5 gm 10/09/18 08:41 D50w Syringe 50 Ml* IV PUSH .FOR FS < 60 - SS PRN FS < 60 Docusate Sodium 100 mg 10/21/18 21:00 10/30/18 08:18 Colace Cap* PO Not Given BID ZAINAB Glipizide 10 mg 10/12/18 09:00 10/30/18 08:18 Glucotrol Xl* PO 10 mg DAILY ZAINAB Administration Hydrochlorothiazide 25 mg 10/13/18 09:00 10/30/18 08:18 Hydrodiuril Tab* PO 25 mg DAILY ZAINAB Administration Insulin Human Lispro 0 units 10/09/18 11:30 10/30/18 12:11 Humalog* SUBCUT 3 units ACHS ZAINAB Administration Protocol Interferon Beta 1b 0.3 mg 10/18/18 19:00 10/28/18 18:40 Betaseron (Nf) SUBCUT 0.3 mg Q48HR@1900 ZAINAB Administration Lactulose 30 ml 10/09/18 08:30 10/14/18 16:49 Lactulose* PO 30 ml Q6H PRN Administration CONSTIPATION Losartan Potassium 50 mg 10/09/18 09:00 10/30/18 08:18 Cozaar Tab* PO 50 mg DAILY ZAINAB Administration Magnesium Hydroxide 30 ml 10/09/18 08:30 10/19/18 17:08 Milk Of Magnesia Liq* PO 30 ml Q6H PRN Administration CONSTIPATION Multivitamins/Minerals 1 tab 10/09/18 09:00 10/30/18 08:19 Theragran/Minerals Tab* PO 1 tab DAILY ZAINAB Administration Ondansetron HCl 4 mg 10/09/18 08:55 Zofran Odt Tab* SL Q6H PRN NAUSEA/VOMITING Oxybutynin Chloride 15 mg 10/10/18 09:00 10/28/18 08:08 Ditropan Xl Tab* PO 15 mg MoWeFr@0900 ZAINAB Administration Oxycodone HCl 10 mg 10/16/18 16:10 10/23/18 06:22 Roxycodone Tab* PO 10 mg Q3H PRN Administration PAIN - SEVERE Oxycodone HCl 5 mg 10/16/18 16:10 10/30/18 03:05 Roxycodone Tab* PO 5 mg Q3H PRN Administration PAIN - MODERATE TO SEVERE Polyethylene Glycol/Electrolytes 17 gm 10/11/18 19:27 10/18/18 20:16 Miralax* PO 17 gm DAILY PRN Administration CONSTIPATION Potassium Chloride 10 meq 10/09/18 09:00 10/30/18 08:19 Klor Con Er Tab* PO 10 meq DAILY ZAINAB Administration Senna 2 tab 10/21/18 21:00 10/29/18 20:19 Senokot Tab* PO 2 tab BEDTIME ZAINAB Administration Sodium Biphosphate/Sodium Phosphate 1 bottle 10/09/18 08:30 Fleet Enema* [place] DAILY PRN CONSTIPATION Vitamin B Complex/Vitamin E 1 tab 10/09/18 09:00 10/30/18 08:19 B Complex-50* PO 1 tab DAILY ZAINAB Administration Vital Signs: Vital Signs Temp Pulse Resp BP Pulse Ox 97.8 F 81 16 143/74 96 10/30/18 06:40 10/30/18 06:40 10/30/18 08:00 10/30/18 06:40 10/30/18 08:00 Lab Results: Laboratory Results - last 24 hr 10/29/18 10/29/18 10/29/18 11:21 16:43 20:22 POC Glucose (mg/dL) 206 H 89 107 H 10/30/18 10/30/18 07:38 11:40 POC Glucose (mg/dL) 123 H 190 H Exam: GENERAL: No acute distress. Alert and appropriate. LUNGS: Clear to auscultation bilaterally HEART: Regular rate and rhythm ABDOMEN: + bowel sounds, soft, non-tender, non-distended. EXTREMITIES: Right knee wound healed. Steri strips in place. NEUROLOGIC: Alert and oriented. Motor 5/5 BUE with normal sensation. Motor 5/5 throughout LLE. Motor 2-3/5 RLE but 4/5 EHL Assessment/Plan: 1. Right Total Knee Arthroplasty: WBAT; PT/OT. Follow up with Dr. Gordillo 2. Multiple Sclerosis: On betaseron. 3. Spasticity: Baclofen 10 mg am and 20mg qhs 4. Diabetes: Glipizide XL 10 mg 5. DVT Prophylaxis: Eliquis 6. Edema: HCTZ. Improving 7. Neurogenic bowel: Bowel meds scheduled including suppository 8. Neurogenic bladder: depends. Up to bathroom 10/30/18 13:00
[2018-10-30] MEDS: Bisacodyl SUPP* 10 MG SUPP PR SCH (17:02)
[2018-10-30] MEDS: Citalopram TAB* 20 MG PO SCH (17:40)
[2018-10-30] MEDS: BETASERON 0.3 MG SUBCUT SCH (19:11)
[2018-10-30] MEDS: Senna TAB PO SCH (20:43)
[2018-10-31] MEDS: Acetaminophen TAB* 325 MG PO SCH ×3 (01:05→17:07)
[2018-10-31 05:23] LABS: ABS Lymphocytes 1.3 10^3/ul (1.0-4.8); ABS Monocytes 0.5 10^3/ul (0-0.8); ABS Neutrophils 3.1 10^3/ul (1.5-7.7); Eosinophil % 0.8 %; Hematocrit 39 % (35-47); Hemoglobin 12.6 g/dL (12.0-16.0); Lymphocyte % 26.5 %; Mean Corpuscular HGB Conc 33 g/dL (31-36); Mean Corpuscular Hemoglobin 27 pg (27-31); Mean Corpuscular Volume 84 fL (80-97); Mean Platelet Volume 9.4 fL (7.4-10.4); Nucleated Red Blood Cells % 0.1; Platelet Count 242 10^3/uL (150-450); Red Cell Distribution Width 14 % (10.5-15); White Blood Count 4.9 10^3/uL (3.5-10.8)
[2018-10-31 05:40] LABS: Albumin 3.7 g/dL (3.2-5.2); Albumin/Globulin Ratio 1.2 (1-3); BUN/Creatinine Ratio 19.3 (8-20); Calcium 9.6 mg/dL (8.6-10.3); EGFR African American 133.7 (>60); EGFR Non-African American 110.5 (>60); Potassium 3.2 mmol/L (3.5-5.0); Total Bilirubin 0.5 mg/dL (0.2-1.0); Total Protein 6.7 g/dL (6.4-8.9)
[2018-10-31] MEDS: Docusate CAP* 100 MG PO SCH ×2 (07:04→19:48)
[2018-10-31] MEDS: Apixaban* 2.5 MG TAB PO SCH ×2 (07:10→19:46)
[2018-10-31] MEDS: oxyCODONE TAB* 5 MG TAB PO PRN ×3 (07:10→19:46)
[2018-10-31] MEDS: glipiZIDE TAB.XL* 5 MG PO SCH (07:10)
[2018-10-31] MEDS: Vitamin B Complex TAB PO SCH (07:10)
[2018-10-31] MEDS: Multivitamins/Minerals TAB PO SCH (07:10)
[2018-10-31] MEDS: Potassium Chlor TAB* 10 MEQ TAB.ER PO SCH (07:10)
[2018-10-31] MEDS: Oxybutynin XL TAB* 5 MG PO SCH (07:10)
[2018-10-31] MEDS: Baclofen TAB* 10 MG PO SCH ×2 (07:10→19:47)
[2018-10-31] MEDS: Hydrochlorothiazide TAB* 25 MG PO SCH (07:11)
[2018-10-31] MEDS: Losartan TAB* 25 MG PO SCH (07:12)
[2018-10-31] MEDS: Insulin LISPRO* 1 UNITS UNIT SUBCUT SCH ×4 (08:30→21:03)
[2018-10-31] MEDS: Citalopram TAB* 20 MG PO SCH (17:07)
[2018-10-31] MEDS: Bisacodyl SUPP* 10 MG SUPP PR SCH (17:10)
--- NOTE | 2018-10-31 18:35 | PN ---
Progress Note Date of Service: 10/31/18 Note: ANNIKA VIRAMONTES was visited. Therapy notes read and reviewed. Moving well and feels good. Can get fatigued. Current Medications: Active Medications Generic Name Dose Route Start Last Admin Trade Name Freq PRN Reason Stop Dose Admin Acetaminophen 975 mg 10/09/18 09:00 10/31/18 17:07 Tylenol Tab* PO 975 mg Q8H ZAINAB Administration Al Hydrox/Mg Hydrox/Simethicone 30 ml 10/09/18 08:30 Maalox Plus* PO Q6H PRN INDIGESTION Apixaban 2.5 mg 10/09/18 09:00 10/31/18 07:10 Eliquis* PO 2.5 mg BID ZAINAB Administration Baclofen 20 mg 10/22/18 21:00 10/30/18 20:42 Lioresal Tab* PO 20 mg BEDTIME ZAINAB Administration Baclofen 10 mg 10/28/18 09:00 10/31/18 07:10 Lioresal Tab* PO 10 mg 0900 ZAINAB Administration Bisacodyl 10 mg 10/21/18 18:00 10/31/18 17:10 Dulcolax Supp* [place] Not Given QPM ZAINAB Citalopram Hydrobromide 20 mg 10/09/18 18:00 10/31/18 17:07 Celexa Tab* PO 20 mg 1800 ZAINAB Administration Dextrose 12.5 gm 10/09/18 08:41 D50w Syringe 50 Ml* IV PUSH .FOR FS < 60 - SS PRN FS < 60 Docusate Sodium 100 mg 10/21/18 21:00 10/31/18 07:04 Colace Cap* PO Not Given BID ZAINAB Glipizide 10 mg 10/12/18 09:00 10/31/18 07:10 Glucotrol Xl* PO 10 mg DAILY ZAINAB Administration Hydrochlorothiazide 25 mg 10/13/18 09:00 10/31/18 07:11 Hydrodiuril Tab* PO 25 mg DAILY ZAINAB Administration Insulin Human Lispro 0 units 10/09/18 11:30 10/31/18 16:52 Humalog* SUBCUT Not Given ACHS [facility] Protocol Interferon Beta 1b 0.3 mg 10/18/18 19:00 10/30/18 19:11 Betaseron (Nf) SUBCUT 0.3 mg Q48HR@1900 ZAINAB Administration Lactulose 30 ml 10/09/18 08:30 10/14/18 16:49 Lactulose* PO 30 ml Q6H PRN Administration CONSTIPATION Losartan Potassium 50 mg 10/09/18 09:00 10/31/18 07:12 Cozaar Tab* PO 50 mg DAILY ZAINAB Administration Magnesium Hydroxide 30 ml 10/09/18 08:30 10/19/18 17:08 Milk Of Magnesia Liq* PO 30 ml Q6H PRN Administration CONSTIPATION Multivitamins/Minerals 1 tab 10/09/18 09:00 10/31/18 07:10 Theragran/Minerals Tab* PO 1 tab DAILY ZAINAB Administration Ondansetron HCl 4 mg 10/09/18 08:55 Zofran Odt Tab* SL Q6H PRN NAUSEA/VOMITING Oxybutynin Chloride 15 mg 10/10/18 09:00 10/31/18 07:10 Ditropan Xl Tab* PO 15 mg MoWeFr@0900 ZAINAB Administration Oxycodone HCl 10 mg 10/16/18 16:10 10/23/18 06:22 Roxycodone Tab* PO 10 mg Q3H PRN Administration PAIN - SEVERE Oxycodone HCl 5 mg 10/16/18 16:10 10/31/18 11:41 Roxycodone Tab* PO 5 mg Q3H PRN Administration PAIN - MODERATE TO SEVERE Polyethylene Glycol/Electrolytes 17 gm 10/11/18 19:27 10/18/18 20:16 Miralax* PO 17 gm DAILY PRN Administration CONSTIPATION Potassium Chloride 10 meq 10/09/18 09:00 10/31/18 07:10 Klor Con Er Tab* PO 10 meq DAILY ZAINAB Administration Senna 2 tab 10/21/18 21:00 10/30/18 20:43 Senokot Tab* PO Not Given BEDTIME ZAINAB Sodium Biphosphate/Sodium Phosphate 1 bottle 10/09/18 08:30 Fleet Enema* [place] DAILY PRN CONSTIPATION Vitamin B Complex/Vitamin E 1 tab 10/09/18 09:00 10/31/18 07:10 B Complex-50* PO 1 tab DAILY ZAINAB Administration Vital Signs: Vital Signs Temp Pulse Resp BP Pulse Ox 97.7 F 79 16 141/63 99 10/31/18 16:16 10/31/18 16:16 10/31/18 16:16 10/31/18 16:16 10/31/18 16:16 Lab Results: Laboratory Results - last 24 hr 10/30/18 10/31/18 10/31/18 20:22 05:07 05:07 WBC 4.9 RBC 4.60 Hgb 12.6 Hct 39 MCV 84 MCH 27 MCHC 33 RDW 14 Plt Count 242 MPV 9.4 Neut % (Auto) 62.3 Lymph % (Auto) 26.5 Bucks % (Auto) 10.0 Eos % (Auto) 0.8 Baso % (Auto) 0.4 Absolute Neuts (auto) 3.1 Absolute Lymphs (auto) 1.3 Absolute Monos (auto) 0.5 Absolute Eos (auto) 0.0 Absolute Basos (auto) 0.0 Absolute Nucleated RBC 0.0 Nucleated RBC % 0.1 Sodium 139 Potassium 3.2 L Chloride 102 Carbon Dioxide 30 Anion Gap 7 BUN 11 Creatinine 0.57 Est GFR ( Amer) 133.7 Est GFR (Non-Af Amer) 110.5 BUN/Creatinine Ratio 19.3 Glucose 121 H POC Glucose (mg/dL) 105 H Calcium 9.6 Total Bilirubin 0.50 AST 18 ALT 13 Alkaline Phosphatase 76 Total Protein 6.7 Albumin 3.7 Globulin 3.0 Albumin/Globulin Ratio 1.2 10/31/18 10/31/18 10/31/18 07:02 11:40 16:28 WBC RBC Hgb Hct MCV MCH MCHC RDW Plt Count MPV Neut % (Auto) Lymph % (Auto) Bucks % (Auto) Eos % (Auto) Baso % (Auto) Absolute Neuts (auto) Absolute Lymphs (auto) Absolute Monos (auto) Absolute Eos (auto) Absolute Basos (auto) Absolute Nucleated RBC Nucleated RBC % Sodium Potassium Chloride Carbon Dioxide Anion Gap BUN Creatinine Est GFR ( Amer) Est GFR (Non-Af Amer) BUN/Creatinine Ratio Glucose POC Glucose (mg/dL) 132 H 171 H 71 Calcium Total Bilirubin AST ALT Alkaline Phosphatase Total Protein Albumin Globulin Albumin/Globulin Ratio Exam: GENERAL: No acute distress. Alert and appropriate. LUNGS: Clear to auscultation bilaterally HEART: Regular rate and rhythm ABDOMEN: + bowel sounds, soft, non-tender, non-distended. EXTREMITIES: Right knee wound healed. Steri strips in place. NEUROLOGIC: Alert and oriented. Motor 5/5 BUE with normal sensation. Motor 5/5 throughout LLE. Motor 2-3/5 RLE but 4/5 EHL Assessment/Plan: 1. Right Total Knee Arthroplasty: WBAT; PT/OT. Follow up with Dr. Gordillo 2. Multiple Sclerosis: On betaseron. 3. Spasticity: Baclofen 10 mg am and 20mg qhs 4. Diabetes: Glipizide XL 10 mg 5. DVT Prophylaxis: Eliquis 6. Edema: HCTZ. Improving 7. Neurogenic bowel: Bowel meds scheduled including suppository 8. Neurogenic bladder: depends. Up to bathroom 10/31/18 18:36
[2018-10-31] MEDS: Senna TAB PO SCH (19:48)
[2018-11-01] MEDS: Acetaminophen TAB* 325 MG PO SCH ×3 (01:15→17:20)
[2018-11-01] MEDS: oxyCODONE TAB* 5 MG TAB PO PRN ×2 (06:41→19:08)
[2018-11-01] MEDS: Multivitamins/Minerals TAB PO SCH (07:39)
[2018-11-01] MEDS: Hydrochlorothiazide TAB* 25 MG PO SCH (07:39)
[2018-11-01] MEDS: glipiZIDE TAB.XL* 5 MG PO SCH (07:39)
[2018-11-01] MEDS: Potassium Chlor TAB* 10 MEQ TAB.ER PO SCH (07:39)
[2018-11-01] MEDS: Apixaban* 2.5 MG TAB PO SCH ×2 (07:39→20:50)
[2018-11-01] MEDS: Vitamin B Complex TAB PO SCH (07:39)
[2018-11-01] MEDS: Baclofen TAB* 10 MG PO SCH ×2 (07:39→20:50)
[2018-11-01] MEDS: Losartan TAB* 25 MG PO SCH (07:39)
[2018-11-01] MEDS: Docusate CAP* 100 MG PO SCH ×2 (07:40→20:35)
[2018-11-01] MEDS: Insulin LISPRO* 1 UNITS UNIT SUBCUT SCH ×4 (07:42→20:35)
--- NOTE | 2018-11-01 12:39 | PMRUTEAM ---
PMRU: Team Meeting Current Status: Nursing: Current Status Skin Deviations [left thigh] Incision Skin Deviations [Left Groin] Other Skin Deviations [Right Thigh] Abrasion Skin Deviations [Bilateral Arm Abrasion ] Skin Deviations [Right Knee] Incision Skin Deviation Description [ sunburn - less red today left thigh] Skin Deviation Description [ red - cleaned well, powder applied Left Groin] Skin Deviation Description [ sunburn - less red today Right Thigh] Skin Deviation Description [ steri strips in place, well approximated, no Right Knee] drainage or redness noted Bladder Current Status Incontinent Bowel Current Status Continent - BM meds given Nutrition Current Status 100% of most meals Medication Current Status Reinforcement given Physical Therapy: Current Status Bed Mobility Assistance Not Tested Transfer Mobility Assistance Supervision Transfer/Bed Mobility Rolling Walker Recommended Devices Ambulation Assistance Supervision Ambulation Assistive Devices Rolling Walker Number of Feet Patient 35' Ambulated Stairs Assistance Not Tested Curb Not Tested Occupational Therapy: Current Status Upper Body Dressing Supervision Lower Body Dressing Mod Assist,2 Person Assist Bathing Mod Assist Toileting Mod Assist,2 Person Assist Toilet Transfer Min Assist,2 Person Assist Shower Transfer Min Assist Eating Independent Rec Therapy: Current Status Summary of Assessment and Recreation Therapy assessment complete and pt. is Clinical Impression aware of services. Pt. has been engaging in leisure activities on the unit, spending time with visitors and is open to continued visits. Treatment Goals Pt. will continue to engage in leisure activities while on the unit. Treatment Plan Provide recreation therapy services and encourage involvement. Offer opportunities to for pt. to express herself when feeling upset or discouraged. Social Work: Current Status Discharge Plan return home with home care svs and family support Potential for Family Training pt's family is scheduled for family training on Anticipated Discharge Home Destination Discharge With home care svs and family support Nutrition: Current Status Monitoring Continues to eat well: accepting 75-100% of consistewnt carb diet. BG adequately controlled: 121 this morning; FS ranging 105-190. Regular BMs noted. Skin remains intact per nursing documentation. Goals: Physical Therapy: Initial Goals Bed Mobility Assistance Independent Transfer Mobility Assistance Independent Transfer/Bed Mobility Rolling Walker Recommended Devices Ambulation Independent Ambulation Recommended Devices Rolling Walker Ambulation Distance 150 Wheelchair Propulsion Ability Independent Wheelchair Distance (ft) 150 Home Exercise Program Independent Assistance Physical Therapy: Updated Goals Transfer/Bed Mobility EZ Stand Recommended Devices Occupational Therapy: Initial Goals Goals to be Completed in (Days 21 ) Upper Body Bathing Routine Independent Lower Body Bathing Routine Minimal Contact Assist Upper Body Dressing Routine Independent Lower Body Dressing Routine Modified Independent with Toilet Hygeine and Clothing Modified Independent with Management Routine Toilet Transfer Routine Modified Independent with Step-In Shower Transfer Supervision/Set Up Routine Functional Transfers for ADL Modified Independent with Grooming Routine Independent Feeding Routine Independent Nursing: Goals Bladder Goal Toileting q2hr - incontinent at baseline Bowel Goal Continent Nutrition Goal 100% of all meals Medication Goal Independent with medication Nutrition: Goals Intervention Goals 1. Achieve/maintain adequate glycemic control per inpatient parameters w/o hypoglycemia. 2. Achieve/maintain regular bowel pattern w/o diarrhea or constipation. 3. Maintain adequate oral intake to support post op recovery w/o contributing to undesirable weight gain. Social Work: Goals Discharge Plan return home with home care svs and family support Potential for Family Training pt's family is scheduled for family training on Anticipated Discharge Home Destination Discharge With home care svs and family support Care Plan: Care Plan ADL's - Improve/Maintain Start: 10/09/18 12:47 Freq: DAILY Status: Active Target: Protocol: Activity Type Activity Date Activity User E-Sign Co-Sign Detail Recorded Client Recorded Date Recorded By Document 10/31/18 16:11 [id number] 10/31/18 16:12 [id number] 10/31/18 16:11 PMRU Outcome: ADL's/ADL Transfers Orders/Interventions Occupational Therapy Evaluation & Treatment Device Yes Patient to receive OT 5x/wk for 60-120 Therex min/day Self Care Management Group Therapy UE/LE ADL's with Assist Yes: min A for socks/shoes ADL Transfers with Assist Yes: mod I Toileting: Transfers,Clothing Management Yes: mod I ,Hygeine w/Assist Light Kitchen/Laundry w/Assist No Progression Toward Outcome/Goals Progressing Outcome/Goals Met Pt's standing endurance continues to show gradual improvement. Pt is encouraged by being reminded she is doing a lot more of the work for herself than she was several days ago. Discharge Planning - Improve/Maintain Start: 10/09/18 12:47 Freq: DAILY Status: Active Target: Protocol: Activity Type Activity Date Activity User E-Sign Co-Sign Detail Recorded Client Recorded Date Recorded By Document 11/01/18 00:11 [id number] [id number] 11/01/18 00:12 [id number] 11/01/18 00:11 PMRU Outcome: Discharge Planning Update Patient Family No Outcome/Goals Demonstrates Understanding of Discharge Plan Progression Toward Outcome/Goals Progressing Education-Improve/Maintain Start: 10/09/18 12:47 Freq: QSHIFT Status: Active Target: Protocol: Activity Type Activity Date Activity User E-Sign Co-Sign Detail Recorded Client Recorded Date Recorded By Document 11/01/18 00:12 [id number] [email or web address] 11/01/18 00:12 [id number] 11/01/18 00:12 PMRU Outcome: Education Outcome/Goals Demonstrate/ Verbalize Understanding of Written Discharge Instructions Demonstrates Skills Encourage Questions Progression Toward Outcome/Goals Progressing /GI-Improve/Maintain Start: 10/09/18 12:47 Freq: QSHIFT Status: Active Target: Protocol: Activity Type Activity Date Activity User E-Sign Co-Sign Detail Recorded Client Recorded Date Recorded By Document 11/01/18 00:12 [id number] [email or web address] 11/01/18 00:12 [id number] 11/01/18 00:12 PMRU Outcome: Genitourinary/ Gastrointestinal Genitourinary- Outcome/Goals Maintain/ Achieve Urinary Continence Maintain/ Achieve Adequate Urinary Output Remain Free of Hospital- Acquired UTI Other Gastrointestinal-Outcome/Goals Maintain/ Achieve Bowel Regularity in Accordance with Pt's Baseline Prevent Constipation Laxatives as Ordered Progression Toward Outcome/Goals - Progressing Progression Toward Outcome/Goals - GI Progressing Mobility- Improve/Maintain Start: 10/09/18 12:47 Freq: DAILY Status: Active Target: Protocol: Activity Type Activity Date Activity User E-Sign Co-Sign Detail Recorded Client Recorded Date Recorded By Document 10/10/18 15:05 [id number] [email or web address] 10/10/18 15:11 [id number] 10/10/18 15:05 PMRU Outcome: Mobility Physical Therapy Evaluation and Yes Treatment Activity OOB with Assistance Yes WBAT Yes: R LE Device Yes: Ez-stand Assistance Yes: Ax2 Patient to be seen 5x/wk for 60-120 min/ Therex day for: Mobility Training Gait Training W/C Mobility Balance Outcome/Goals Maintain/ Achieve Baseline Mobility Status Improve Mobility Status Demonstrates Proper Use of Assistive Devices Free from Complications of Immobility Progression Toward Outcome/Goals Progressing Bed Mobility Yes: Ind Transfers Yes: Mod I Gait x ft Yes: Mod I x150ft with walker W/C Mobility x ft Yes: Mod I x150ft Up/Down Stairs No With HEP Yes Goal Comment Knee flexion 90 degrees Pain/Comfort- Improve/Maintain Start: 10/09/18 12:47 Freq: QSHIFT Status: Complete Target: Protocol: Activity Type Activity Date Activity User E-Sign Co-Sign Detail Recorded Client Recorded Date Recorded By Document 10/20/18 20:00 [id number] 10/20/18 21:51 [id number] 10/20/18 20:00 PMRU Outcome: Pain/Comfort Outcome/Goals Demonstrates Knowledge and Use of Available Comfort Measures Achieves Acceptable Comfort/Pain Level as Determined by Patient/Condit Maintain Comfort Level Allowing Patient to Fully Participate in Rehab Outcome/Goals Met Demonstrates Knowledge and Use of Available Comfort Measures Achieves Acceptable Comfort/Pain Level as Determined by Patient/Condit Respiratory - Improve/Maintain Start: 10/09/18 12:47 Freq: QSHIFT Status: Complete Target: Protocol: Activity Type Activity Date Activity User E-Sign Co-Sign Detail Recorded Client Recorded Date Recorded By Document 10/18/18 19:35 [id number] 10/18/18 19:36 [id number] 10/18/18 19:35 PMRU Outcome: Respiratory Does Patient Have a Trach No Outcome/Goals Maintain/ Improve O2 Sat per MD Order Maintain/ Improve Activity Tolerance Prevent Pneumonia/ Atelectasis Outcome/Goals Met Maintain/ Improve Baseline Respiratory Status Safety- Improve/Maintain Start: 10/09/18 12:47 Freq: QSHIFT Status: Complete Target: Protocol: Activity Type Activity Date Activity User E-Sign Co-Sign Detail Recorded Client Recorded Date Recorded By Document 10/20/18 20:00 [id number] 10/20/18 21:51 [id number] 10/20/18 20:00 PMRU Outcome: Safety Outcome/Goals Remain Free of Injury or Harm Cooperates with Safety Measures for Least Restrictive Environment Prevent Falls/ Injury Outcome/Goals Met Remain Free of Injury or Harm Skin- Improve/Maintain Start: 10/09/18 12:47 Freq: QSHIFT Status: Complete Target: Protocol: Activity Type Activity Date Activity User E-Sign Co-Sign Detail Recorded Client Recorded Date Recorded By Document 10/18/18 19:35 [id number] 10/18/18 19:36 [id number] 10/18/18 19:35 PMRU Outcome: Skin Skin Risk Level Medium Skin Orders Turn/Position q2hr While in Bed Outcome/Goals Maintain/ Improve Skin Intergrity Surgical Incisions Healing Outcome/Goals Met Maintain/ Improve Skin Intergrity Free from Decubitus Surgical Incisions Healing Medicine Note: Length of Stay: 3 days Anticipated Discharge Destination: Home Tentative Discharge Date: 11/04/18 Discharged to: Home
[2018-11-01] MEDS: Citalopram TAB* 20 MG PO SCH (17:14)
[2018-11-01] MEDS: Bisacodyl SUPP* 10 MG SUPP PR SCH (19:09)
[2018-11-01] MEDS: BETASERON 0.3 MG SUBCUT SCH (19:10)
--- NOTE | 2018-11-01 19:12 | PN ---
Progress Note Date of Service: 11/01/18 Note: ANNIKA VIRAMONTES was visited. Therapy notes read and reviewed. She was discussed in interdisciplinary team rounds. She is doing well; potassium low yesterday Current Medications: Active Medications Generic Name Dose Route Start Last Admin Trade Name Freq PRN Reason Stop Dose Admin Acetaminophen 975 mg 10/09/18 09:00 11/01/18 17:20 Tylenol Tab* PO 975 mg Q8H ZAINAB Administration Al Hydrox/Mg Hydrox/Simethicone 30 ml 10/09/18 08:30 Maalox Plus* PO Q6H PRN INDIGESTION Apixaban 2.5 mg 10/09/18 09:00 11/01/18 07:39 Eliquis* PO 2.5 mg BID ZAINAB Administration Baclofen 20 mg 10/22/18 21:00 10/31/18 19:47 Lioresal Tab* PO 20 mg BEDTIME ZAINAB Administration Baclofen 10 mg 10/28/18 09:00 11/01/18 07:39 Lioresal Tab* PO 10 mg 0900 ZAINAB Administration Bisacodyl 10 mg 10/21/18 18:00 10/31/18 17:10 Dulcolax Supp* [place] Not Given QPM ZAINAB Citalopram Hydrobromide 20 mg 10/09/18 18:00 11/01/18 17:14 Celexa Tab* PO 20 mg 1800 ZAINAB Administration Dextrose 12.5 gm 10/09/18 08:41 D50w Syringe 50 Ml* IV PUSH .FOR FS < 60 - SS PRN FS < 60 Docusate Sodium 100 mg 10/21/18 21:00 11/01/18 07:40 Colace Cap* PO Not Given BID ZAINAB Glipizide 10 mg 10/12/18 09:00 11/01/18 07:39 Glucotrol Xl* PO 10 mg DAILY ZAINAB Administration Hydrochlorothiazide 25 mg 10/13/18 09:00 11/01/18 07:39 Hydrodiuril Tab* PO 25 mg DAILY ZAINAB Administration Insulin Human Lispro 0 units 10/09/18 11:30 11/01/18 16:47 Humalog* SUBCUT Not Given ACHS ZAINAB Protocol Interferon Beta 1b 0.3 mg 10/18/18 19:00 10/30/18 19:11 Betaseron (Nf) SUBCUT 0.3 mg Q48HR@1900 ZAINAB Administration Lactulose 30 ml 10/09/18 08:30 10/14/18 16:49 Lactulose* PO 30 ml Q6H PRN Administration CONSTIPATION Losartan Potassium 50 mg 10/09/18 09:00 11/01/18 07:39 Cozaar Tab* PO 50 mg DAILY ZAINAB Administration Magnesium Hydroxide 30 ml 10/09/18 08:30 10/19/18 17:08 Milk Of Magnesia Liq* PO 30 ml Q6H PRN Administration CONSTIPATION Multivitamins/Minerals 1 tab 10/09/18 09:00 11/01/18 07:39 Theragran/Minerals Tab* PO 1 tab DAILY ZAINAB Administration Ondansetron HCl 4 mg 10/09/18 08:55 Zofran Odt Tab* SL Q6H PRN NAUSEA/VOMITING Oxybutynin Chloride 15 mg 10/10/18 09:00 10/31/18 07:10 Ditropan Xl Tab* PO 15 mg MoWeFr@0900 ZAINAB Administration Oxycodone HCl 10 mg 10/16/18 16:10 10/23/18 06:22 Roxycodone Tab* PO 10 mg Q3H PRN Administration PAIN - SEVERE Oxycodone HCl 5 mg 10/16/18 16:10 11/01/18 06:41 Roxycodone Tab* PO 5 mg Q3H PRN Administration PAIN - MODERATE TO SEVERE Polyethylene Glycol/Electrolytes 17 gm 10/11/18 19:27 10/18/18 20:16 Miralax* PO 17 gm DAILY PRN Administration CONSTIPATION Potassium Chloride 10 meq 10/09/18 09:00 11/01/18 07:39 Klor Con Er Tab* PO 10 meq DAILY ZAINAB Administration Senna 2 tab 10/21/18 21:00 10/31/18 19:48 Senokot Tab* PO Not Given BEDTIME ZAINAB Sodium Biphosphate/Sodium Phosphate 1 bottle 10/09/18 08:30 Fleet Enema* [place] DAILY PRN CONSTIPATION Vitamin B Complex/Vitamin E 1 tab 10/09/18 09:00 11/01/18 07:39 B Complex-50* PO 1 tab DAILY ZAINAB Administration Vital Signs: Vital Signs Temp Pulse Resp BP Pulse Ox 97.8 F 79 21 145/75 100 11/01/18 16:24 11/01/18 16:24 11/01/18 16:44 11/01/18 16:24 11/01/18 16:44 Lab Results: Laboratory Results - last 24 hr 10/31/18 11/01/18 11/01/18 20:06 07:27 12:02 POC Glucose (mg/dL) 139 H 122 H 128 H 11/01/18 15:43 POC Glucose (mg/dL) 93 Exam: GENERAL: No acute distress. Alert and appropriate. LUNGS: Clear to auscultation bilaterally HEART: Regular rate and rhythm ABDOMEN: + bowel sounds, soft, non-tender, non-distended. EXTREMITIES: Right knee wound healed. Steri strips in place. NEUROLOGIC: Alert and oriented. Motor 5/5 BUE with normal sensation. Motor 5/5 throughout LLE. Motor 2-3/5 RLE but 4/5 EHL Assessment/Plan: 1. Right Total Knee Arthroplasty: WBAT; PT/OT. Follow up with Dr. Gordillo 2. Multiple Sclerosis: On betaseron. 3. Spasticity: Baclofen 10 mg am and 20mg qhs 4. Diabetes: Glipizide XL 10 mg 5. DVT Prophylaxis: Eliquis 6. Edema: HCTZ. Improving 7. Hypokalemia: KCl supplements 8. Neurogenic bowel: Bowel meds scheduled including suppository 9. Neurogenic bladder: depends. Up to bathroom 11/01/18 19:13
[2018-11-01] MEDS ORDERED: Potassium Chlor TAB* 20 MEQ TAB.ER PO ONE (19:27)
[2018-11-01] MEDS: Senna TAB PO SCH (20:35)
[2018-11-02] MEDS: Acetaminophen TAB* 325 MG PO SCH ×3 (01:15→17:27)
[2018-11-02] MEDS: oxyCODONE TAB* 5 MG TAB PO PRN ×2 (06:39→20:49)
[2018-11-02] MEDS: glipiZIDE TAB.XL* 5 MG PO SCH (08:38)
[2018-11-02] MEDS: Baclofen TAB* 10 MG PO SCH ×2 (08:38→20:50)
[2018-11-02] MEDS: Apixaban* 2.5 MG TAB PO SCH ×2 (08:38→20:49)
[2018-11-02] MEDS: Losartan TAB* 25 MG PO SCH (08:39)
[2018-11-02] MEDS: Vitamin B Complex TAB PO SCH (08:39)
[2018-11-02] MEDS: Multivitamins/Minerals TAB PO SCH (08:39)
[2018-11-02] MEDS: Oxybutynin XL TAB* 5 MG PO SCH (08:39)
[2018-11-02] MEDS: Hydrochlorothiazide TAB* 25 MG PO SCH (08:39)
[2018-11-02] MEDS: Potassium Chlor TAB* 20 MEQ TAB.ER PO SCH (08:39)
[2018-11-02] MEDS: Docusate CAP* 100 MG PO SCH ×2 (08:40→20:49)
[2018-11-02] MEDS: Insulin LISPRO* 1 UNITS UNIT SUBCUT SCH ×4 (08:49→20:40)
[2018-11-02] MEDS: Bisacodyl SUPP* 10 MG SUPP PR SCH (17:28)
[2018-11-02] MEDS: Citalopram TAB* 20 MG PO SCH (19:20)
--- NOTE | 2018-11-02 20:01 | PN ---
Progress Note Date of Service: 11/02/18 Note: ANNIKA VIRAMONTES was visited. Therapy notes read and reviewed. She has done well and feels strong. Knee healed. Current Medications: Active Medications Generic Name Dose Route Start Last Admin Trade Name Freq PRN Reason Stop Dose Admin Acetaminophen 975 mg 10/09/18 09:00 11/02/18 17:27 Tylenol Tab* PO 975 mg Q8H ZAINAB Administration Al Hydrox/Mg Hydrox/Simethicone 30 ml 10/09/18 08:30 Maalox Plus* PO Q6H PRN INDIGESTION Apixaban 2.5 mg 10/09/18 09:00 11/02/18 08:38 Eliquis* PO 2.5 mg BID ZAINAB Administration Baclofen 20 mg 10/22/18 21:00 11/01/18 20:50 Lioresal Tab* PO 20 mg BEDTIME ZAINAB Administration Baclofen 10 mg 10/28/18 09:00 11/02/18 08:38 Lioresal Tab* PO 10 mg 0900 ZAINAB Administration Bisacodyl 10 mg 10/21/18 18:00 11/02/18 17:28 Dulcolax Supp* [place] Not Given QPM ZAINAB Citalopram Hydrobromide 20 mg 10/09/18 18:00 11/02/18 19:20 Celexa Tab* PO 20 mg 1800 ZAINAB Administration Dextrose 12.5 gm 10/09/18 08:41 D50w Syringe 50 Ml* IV PUSH .FOR FS < 60 - SS PRN FS < 60 Docusate Sodium 100 mg 10/21/18 21:00 11/02/18 08:40 Colace Cap* PO Not Given BID ZAINAB Glipizide 10 mg 10/12/18 09:00 11/02/18 08:38 Glucotrol Xl* PO 10 mg DAILY ZAINAB Administration Hydrochlorothiazide 25 mg 10/13/18 09:00 11/02/18 08:39 Hydrodiuril Tab* PO 25 mg DAILY ZAINAB Administration Insulin Human Lispro 0 units 10/09/18 11:30 11/02/18 17:28 Humalog* SUBCUT 2 units ACHS ZAINAB Administration Protocol Interferon Beta 1b 0.3 mg 10/18/18 19:00 11/01/18 19:10 Betaseron (Nf) SUBCUT 0.3 mg Q48HR@1900 ZAINAB Administration Lactulose 30 ml 10/09/18 08:30 10/14/18 16:49 Lactulose* PO 30 ml Q6H PRN Administration CONSTIPATION Losartan Potassium 50 mg 10/09/18 09:00 11/02/18 08:39 Cozaar Tab* PO 50 mg DAILY ZAINAB Administration Magnesium Hydroxide 30 ml 10/09/18 08:30 10/19/18 17:08 Milk Of Magnesia Liq* PO 30 ml Q6H PRN Administration CONSTIPATION Multivitamins/Minerals 1 tab 10/09/18 09:00 11/02/18 08:39 Theragran/Minerals Tab* PO 1 tab DAILY ZAINAB Administration Ondansetron HCl 4 mg 10/09/18 08:55 Zofran Odt Tab* SL Q6H PRN NAUSEA/VOMITING Oxybutynin Chloride 15 mg 10/10/18 09:00 11/02/18 08:39 Ditropan Xl Tab* PO 15 mg MoWeFr@0900 ZAINAB Administration Oxycodone HCl 10 mg 10/16/18 16:10 10/23/18 06:22 Roxycodone Tab* PO 10 mg Q3H PRN Administration PAIN - SEVERE Oxycodone HCl 5 mg 10/16/18 16:10 11/02/18 06:39 Roxycodone Tab* PO 5 mg Q3H PRN Administration PAIN - MODERATE TO SEVERE Polyethylene Glycol/Electrolytes 17 gm 10/11/18 19:27 10/18/18 20:16 Miralax* PO 17 gm DAILY PRN Administration CONSTIPATION Potassium Chloride 20 meq 11/02/18 09:00 11/02/18 08:39 Klor Con Er Tab* PO 20 meq DAILY ZAINAB Administration Senna 2 tab 10/21/18 21:00 11/01/18 20:35 Senokot Tab* PO Not Given BEDTIME ZAINAB Sodium Biphosphate/Sodium Phosphate 1 bottle 10/09/18 08:30 Fleet Enema* [place] DAILY PRN CONSTIPATION Vitamin B Complex/Vitamin E 1 tab 10/09/18 09:00 11/02/18 08:39 B Complex-50* PO 1 tab DAILY ZAINAB Administration Vital Signs: Vital Signs Temp Pulse Resp BP Pulse Ox 97.7 F 79 21 129/64 100 11/02/18 18:13 11/02/18 18:13 11/02/18 18:17 11/02/18 18:13 11/02/18 18:17 Lab Results: Laboratory Results - last 24 hr 11/01/18 11/02/18 11/02/18 20:30 07:40 12:04 POC Glucose (mg/dL) 91 119 H 142 H 11/02/18 15:55 POC Glucose (mg/dL) 142 H Exam: GENERAL: No acute distress. Alert and appropriate. LUNGS: Clear to auscultation bilaterally HEART: Regular rate and rhythm ABDOMEN: + bowel sounds, soft, non-tender, non-distended. EXTREMITIES: Right knee wound healed. NEUROLOGIC: Alert and oriented. Motor 5/5 BUE with normal sensation. Motor 5/5 throughout LLE. Motor 4/5 RLE Assessment/Plan: 1. Right Total Knee Arthroplasty: WBAT; PT/OT. Follow up with Dr. Gordillo 2. Multiple Sclerosis: On betaseron. 3. Spasticity: Baclofen 10 mg am and 20mg qhs 4. Diabetes: Glipizide XL 10 mg 5. DVT Prophylaxis: Eliquis 6. Edema: HCTZ. Improving 7. Hypokalemia: KCl supplements 8. Neurogenic bowel: Bowel meds scheduled including suppository 9. Neurogenic bladder: depends. Up to bathroom 11/02/18 20:03
[2018-11-02] MEDS: Senna TAB PO SCH (20:49)
[2018-11-02 21:19] LABS: Urine Appearance Turbid; Urine Bacteria 2+ (Absent); Urine Bilirubin Negative (Negative); Urine Blood Negative (Negative); Urine Color Amber; Urine Glucose Negative (Negative); Urine Ketones Trace (Negative); Urine Nitrite Positive (Negative); Urine Protein Negative (Negative); Urine Red Blood Cell 1+(3-5/hpf) (Absent); Urine Specific Gravity 1.013 (1.010-1.030); Urine Squamous Epithelial Cell Present (Absent); Urine Urobilinogen Negative (Negative); Urine White Blood Cell 2+(11-20/hpf) (Absent)
[2018-11-03] MEDS: Acetaminophen TAB* 325 MG PO SCH ×3 (01:14→17:35)
[2018-11-03] MEDS: oxyCODONE TAB* 5 MG TAB PO PRN ×2 (06:46→20:14)
[2018-11-03] MEDS: Apixaban* 2.5 MG TAB PO SCH ×2 (07:39→20:07)
[2018-11-03] MEDS: Multivitamins/Minerals TAB PO SCH (07:40)
[2018-11-03] MEDS: Losartan TAB* 25 MG PO SCH (07:40)
[2018-11-03] MEDS: glipiZIDE TAB.XL* 5 MG PO SCH (07:40)
[2018-11-03] MEDS: Docusate CAP* 100 MG PO SCH ×2 (07:40→20:08)
[2018-11-03] MEDS: Potassium Chlor TAB* 20 MEQ TAB.ER PO SCH (07:40)
[2018-11-03] MEDS: Hydrochlorothiazide TAB* 25 MG PO SCH (07:40)
[2018-11-03] MEDS: Baclofen TAB* 10 MG PO SCH ×2 (07:40→20:07)
[2018-11-03] MEDS: Vitamin B Complex TAB PO SCH (07:41)
[2018-11-03] MEDS: Insulin LISPRO* 1 UNITS UNIT SUBCUT SCH ×4 (09:50→20:37)
[2018-11-03] MEDS: Citalopram TAB* 20 MG PO SCH (17:35)
[2018-11-03] MEDS: Bisacodyl SUPP* 10 MG SUPP PR SCH (17:35)
[2018-11-03] MEDS: BETASERON 0.3 MG SUBCUT SCH (19:04)
--- NOTE | 2018-11-03 19:06 | PN ---
Progress Note Date of Service: 11/03/18 Note: ANNIKA VIRAMONTES was visited. Therapy notes read and reviewed. Her urine is foul smelling. U/A was equivocal. Will treat with Macrodantin and await culture results. She is otherwise ready for d/c tomorrow Current Medications: Active Medications Generic Name Dose Route Start Last Admin Trade Name Freq PRN Reason Stop Dose Admin Acetaminophen 975 mg 10/09/18 09:00 11/03/18 17:35 Tylenol Tab* PO 975 mg Q8H ZAINAB Administration Al Hydrox/Mg Hydrox/Simethicone 30 ml 10/09/18 08:30 Maalox Plus* PO Q6H PRN INDIGESTION Apixaban 2.5 mg 10/09/18 09:00 11/03/18 07:39 Eliquis* PO 2.5 mg BID ZAINAB Administration Baclofen 20 mg 10/22/18 21:00 11/02/18 20:50 Lioresal Tab* PO 20 mg BEDTIME ZAINAB Administration Baclofen 10 mg 10/28/18 09:00 11/03/18 07:40 Lioresal Tab* PO 10 mg 0900 ZAINAB Administration Bisacodyl 10 mg 10/21/18 18:00 11/03/18 17:35 Dulcolax Supp* [place] Not Given QPM ZAINAB Citalopram Hydrobromide 20 mg 10/09/18 18:00 11/03/18 17:35 Celexa Tab* PO 20 mg 1800 ZAINAB Administration Dextrose 12.5 gm 10/09/18 08:41 D50w Syringe 50 Ml* IV PUSH .FOR FS < 60 - SS PRN FS < 60 Docusate Sodium 100 mg 10/21/18 21:00 11/03/18 07:40 Colace Cap* PO 100 mg BID ZAINAB Administration Glipizide 10 mg 10/12/18 09:00 11/03/18 07:40 Glucotrol Xl* PO 10 mg DAILY ZAINAB Administration Hydrochlorothiazide 25 mg 10/13/18 09:00 11/03/18 07:40 Hydrodiuril Tab* PO 25 mg DAILY ZAINAB Administration Insulin Human Lispro 0 units 10/09/18 11:30 11/03/18 16:25 Humalog* SUBCUT Not Given ACHS [facility] Protocol Interferon Beta 1b 0.3 mg 10/18/18 19:00 11/01/18 19:10 Betaseron (Nf) SUBCUT 0.3 mg Q48HR@1900 ZAINAB Administration Lactulose 30 ml 10/09/18 08:30 10/14/18 16:49 Lactulose* PO 30 ml Q6H PRN Administration CONSTIPATION Losartan Potassium 50 mg 10/09/18 09:00 11/03/18 07:40 Cozaar Tab* PO 50 mg DAILY ZAINAB Administration Magnesium Hydroxide 30 ml 10/09/18 08:30 10/19/18 17:08 Milk Of Magnesia Liq* PO 30 ml Q6H PRN Administration CONSTIPATION Multivitamins/Minerals 1 tab 10/09/18 09:00 11/03/18 07:40 Theragran/Minerals Tab* PO 1 tab DAILY ZAINAB Administration Nitrofurantoin Macrocrystals 50 mg 11/03/18 20:00 Macrodantin* PO Q6H ZAINAB Ondansetron HCl 4 mg 10/09/18 08:55 Zofran Odt Tab* SL Q6H PRN NAUSEA/VOMITING Oxybutynin Chloride 15 mg 10/10/18 09:00 11/02/18 08:39 Ditropan Xl Tab* PO 15 mg MoWeFr@0900 ZAINAB Administration Oxycodone HCl 10 mg 10/16/18 16:10 10/23/18 06:22 Roxycodone Tab* PO 10 mg Q3H PRN Administration PAIN - SEVERE Oxycodone HCl 5 mg 10/16/18 16:10 11/03/18 06:46 Roxycodone Tab* PO 5 mg Q3H PRN Administration PAIN - MODERATE TO SEVERE Polyethylene Glycol/Electrolytes 17 gm 10/11/18 19:27 10/18/18 20:16 Miralax* PO 17 gm DAILY PRN Administration CONSTIPATION Potassium Chloride 20 meq 11/02/18 09:00 11/03/18 07:40 Klor Con Er Tab* PO 20 meq DAILY ZAINAB Administration Senna 2 tab 10/21/18 21:00 11/02/18 20:49 Senokot Tab* PO Not Given BEDTIME ZAINAB Sodium Biphosphate/Sodium Phosphate 1 bottle 10/09/18 08:30 Fleet Enema* [place] DAILY PRN CONSTIPATION Vitamin B Complex/Vitamin E 1 tab 10/09/18 09:00 11/03/18 07:41 B Complex-50* PO 1 tab DAILY ZAINAB Administration Vital Signs: Vital Signs Temp Pulse Resp BP Pulse Ox 97.9 F 70 18 152/79 99 11/03/18 15:44 11/03/18 15:44 11/03/18 15:44 11/03/18 15:44 11/03/18 16:32 Lab Results: Laboratory Results - last 24 hr 11/02/18 11/02/18 11/03/18 17:05 20:33 07:23 POC Glucose (mg/dL) 109 H 113 H Urine Color [place] Urine Appearance Turbid Urine pH 6.0 Ur Specific [place] 1.013 Urine Protein Negative Urine Ketones Trace A Urine Blood Negative Urine Nitrate Positive A Urine Bilirubin Negative Urine Urobilinogen Negative Ur Leukocyte Esterase Trace A Urine WBC (Auto) 2+(11-20/hpf) A Urine RBC (Auto) 1+(3-5/hpf) A Ur Squamous Epith Cells Present A Urine Bacteria 2+ A Urine Glucose Negative Urine Ascorbic Acid * A 11/03/18 11/03/18 12:04 16:23 POC Glucose (mg/dL) 130 H 71 Urine Color Urine Appearance Urine pH Ur Specific [place] Urine Protein Urine Ketones Urine Blood Urine Nitrate Urine Bilirubin Urine Urobilinogen Ur Leukocyte Esterase Urine WBC (Auto) Urine RBC (Auto) Ur Squamous Epith Cells Urine Bacteria Urine Glucose Urine Ascorbic Acid Exam: GENERAL: No acute distress. Alert and appropriate. LUNGS: Clear to auscultation bilaterally HEART: Regular rate and rhythm ABDOMEN: + bowel sounds, soft, non-tender, non-distended. EXTREMITIES: Right knee wound healed. NEUROLOGIC: Alert and oriented. Motor 5/5 BUE with normal sensation. Motor 5/5 throughout LLE. Motor 4/5 RLE Assessment/Plan: 1. Right Total Knee Arthroplasty: WBAT; PT/OT. Follow up with Dr. Gordillo tomorrow after d/c 2. Multiple Sclerosis: On betaseron. 3. Spasticity: Baclofen 10 mg am and 20mg qhs 4. Diabetes: Glipizide XL 10 mg 5. DVT Prophylaxis: Eliquis, will d/c after tomorrow 6. Edema: HCTZ. Improving 7. Hypokalemia: KCl supplements 8. Neurogenic bowel: Bowel meds scheduled including suppository 9. Neurogenic bladder: depends. Up to bathroom 10. Possible Urinary tract infection: Macrodantin, follow up culture results 11/03/18 19:07
[2018-11-03] MEDS ORDERED: Acetaminophen TAB* 325 MG PO PRN (19:18)
[2018-11-03] MEDS: Nitrofurantoin Macrocrystals* 50 MG CAP PO SCH (20:07)
[2018-11-03] MEDS: Senna TAB PO SCH (20:08)
[2018-11-04] MEDS: Nitrofurantoin Macrocrystals* 50 MG CAP PO SCH ×2 (02:20→08:43)
[2018-11-04 06:20] VITALS: BP 151/66
[2018-11-04] MEDS: oxyCODONE TAB* 5 MG TAB PO PRN (08:41)
[2018-11-04] MEDS: Apixaban* 2.5 MG TAB PO SCH (08:44)
[2018-11-04] MEDS: Baclofen TAB* 10 MG PO SCH (08:45)
[2018-11-04] MEDS: Docusate CAP* 100 MG PO SCH (08:45)
[2018-11-04] MEDS: glipiZIDE TAB.XL* 5 MG PO SCH (08:46)
[2018-11-04] MEDS: Losartan TAB* 25 MG PO SCH (08:46)
[2018-11-04] MEDS: Hydrochlorothiazide TAB* 25 MG PO SCH (08:46)
[2018-11-04] MEDS: Multivitamins/Minerals TAB PO SCH (08:47)
[2018-11-04] MEDS: Oxybutynin XL TAB* 5 MG PO SCH (08:47)
[2018-11-04] MEDS: Potassium Chlor TAB* 20 MEQ TAB.ER PO SCH (08:48)
[2018-11-04] MEDS: Vitamin B Complex TAB PO SCH (08:48)
[2018-11-04] MEDS: Insulin LISPRO* 1 UNITS UNIT SUBCUT SCH (08:49)
--- NOTE | 2018-11-04 09:37 | PN ---
Progress Note Date of Service: 11/04/18 Note: ANNIKA VIRAMONTES was visited. Nursing and therapy notes read and reviewed. No chest pain, shortness of breath or abdominal pain. Happy to go home today. Started nitrofurantoin for possible UTI last night, which she does at home as well. Current Medications: Active Medications Generic Name Dose Route Start Last Admin Trade Name Freq PRN Reason Stop Dose Admin Acetaminophen 650 mg 11/03/18 19:18 Tylenol Tab* PO Q6H PRN FEVER/PAIN Al Hydrox/Mg Hydrox/Simethicone 30 ml 10/09/18 08:30 Maalox Plus* PO Q6H PRN INDIGESTION Apixaban 2.5 mg 10/09/18 09:00 11/04/18 08:44 Eliquis* PO 2.5 mg BID ZAINAB Administration Baclofen 20 mg 10/22/18 21:00 11/03/18 20:07 Lioresal Tab* PO 20 mg BEDTIME ZAINAB Administration Baclofen 10 mg 10/28/18 09:00 11/04/18 08:45 Lioresal Tab* PO 10 mg 0900 ZAINAB Administration Bisacodyl 10 mg 10/21/18 18:00 11/03/18 17:35 Dulcolax Supp* SC Not Given QPM ZAINAB Citalopram Hydrobromide 20 mg 10/09/18 18:00 11/03/18 17:35 Celexa Tab* PO 20 mg 1800 ZAINAB Administration Dextrose 12.5 gm 10/09/18 08:41 D50w Syringe 50 Ml* IV PUSH .FOR FS < 60 - SS PRN FS < 60 Docusate Sodium 100 mg 10/21/18 21:00 11/04/18 08:45 Colace Cap* PO 100 mg BID ZAINAB Administration Glipizide 10 mg 10/12/18 09:00 11/04/18 08:46 Glucotrol Xl* PO 10 mg DAILY ZAINAB Administration Hydrochlorothiazide 25 mg 10/13/18 09:00 11/04/18 08:46 Hydrodiuril Tab* PO 25 mg DAILY ZAINAB Administration Insulin Human Lispro 0 units 10/09/18 11:30 11/04/18 08:49 Humalog* SUBCUT Not Given ACHS [facility] Protocol Interferon Beta 1b 0.3 mg 10/18/18 19:00 11/03/18 19:04 Betaseron (Nf) SUBCUT 0.3 mg Q48HR@1900 ZAINAB Administration Lactulose 30 ml 10/09/18 08:30 10/14/18 16:49 Lactulose* PO 30 ml Q6H PRN Administration CONSTIPATION Losartan Potassium 50 mg 10/09/18 09:00 11/04/18 08:46 Cozaar Tab* PO 50 mg DAILY ZAINAB Administration Magnesium Hydroxide 30 ml 10/09/18 08:30 10/19/18 17:08 Milk Of Magnesia Liq* PO 30 ml Q6H PRN Administration CONSTIPATION Multivitamins/Minerals 1 tab 10/09/18 09:00 11/04/18 08:47 Theragran/Minerals Tab* PO 1 tab DAILY ZAINAB Administration Nitrofurantoin Macrocrystals 50 mg 11/03/18 20:00 11/04/18 08:43 Macrodantin* PO 50 mg Q6H ZAINAB Administration Ondansetron HCl 4 mg 10/09/18 08:55 Zofran Odt Tab* SL Q6H PRN NAUSEA/VOMITING Oxybutynin Chloride 15 mg 10/10/18 09:00 11/04/18 08:47 Ditropan Xl Tab* PO 15 mg MoWeFr@0900 ZAINBA Administration Oxycodone HCl 10 mg 10/16/18 16:10 10/23/18 06:22 Roxycodone Tab* PO 10 mg Q3H PRN Administration PAIN - SEVERE Oxycodone HCl 5 mg 10/16/18 16:10 11/04/18 08:41 Roxycodone Tab* PO 5 mg Q3H PRN Administration PAIN - MODERATE TO SEVERE Polyethylene Glycol/Electrolytes 17 gm 10/11/18 19:27 10/18/18 20:16 Miralax* PO 17 gm DAILY PRN Administration CONSTIPATION Potassium Chloride 20 meq 11/02/18 09:00 11/04/18 08:48 Klor Con Er Tab* PO 20 meq DAILY ZAINAB Administration Senna 2 tab 10/21/18 21:00 11/03/18 20:08 Senokot Tab* PO Not Given BEDTIME ZAINAB Sodium Biphosphate/Sodium Phosphate 1 bottle 10/09/18 08:30 Fleet Enema* SC DAILY PRN CONSTIPATION Vitamin B Complex/Vitamin E 1 tab 10/09/18 09:00 11/04/18 08:48 B Complex-50* PO 1 tab DAILY ZAINAB Administration Vital Signs: Vital Signs Temp Pulse Resp BP Pulse Ox 98.2 F 84 14 151/66 98 11/04/18 06:00 11/04/18 06:00 11/04/18 08:41 11/04/18 06:00 11/04/18 06:00 Lab Results: Laboratory Results - last 24 hr 11/03/18 11/03/18 11/03/18 12:04 16:23 20:16 POC Glucose (mg/dL) 130 H 71 100 11/04/18 07:32 POC Glucose (mg/dL) 114 H Exam: GENERAL: No acute distress. Alert and appropriate. LUNGS: Clear to auscultation bilaterally HEART: Regular rate and rhythm ABDOMEN: + bowel sounds, soft, non-tender, non-distended. EXTREMITIES: Right knee wound healed. NEUROLOGIC: Alert and oriented. Motor 5/5 BUE with normal sensation. Motor 5/5 throughout LLE. Motor 4/5 RLE. Has some lower leg paresthesias intermittently at baseline. Assessment/Plan: 1. Right Total Knee Arthroplasty: WBAT; PT/OT. Follow up with Dr. Gordillo today after d/c 2. Multiple Sclerosis: On betaseron. 3. Spasticity: Baclofen 10 mg am and 20mg qhs 4. Diabetes: Glipizide XL 10 mg 5. DVT Prophylaxis: Eliquis, will d/c after today 6. Edema: HCTZ. 7. Hypokalemia: KCl supplements 8. Neurogenic bowel: Bowel meds scheduled including suppository as needed 9. Neurogenic bladder: depends. Up to bathroom 10. Possible Urinary tract infection: Macrodantin, follow up culture results. I told her if I do not hear results today we will need to touch base over the weekend. 11. Estimated LOS: d/c home today. 11/04/18 09:34
--- NOTE | 2018-11-04 12:40 | DS ---
CC: Dr. Louisa Marrufo; Dr. Gordillo; Dr. Moore DISCHARGE SUMMARY: DATE OF ADMISSION: 10/09/18 DATE OF DISCHARGE: 11/04/18 PRIMARY CARE PHYSICIAN: Louisa Marrufo and Dr. Lara with [facility]. ORTHOPEDIC SURGEON: Dr. Gordillo. NEUROLOGIST: Dr. Moore. REASON FOR ADMISSION: Right total knee replacement secondary to osteoarthritis in a woman with multiple sclerosis. HISTORY OF PRESENT ILLNESS: For full details of her acute hospitalization leading up to her admission, please see the note dictated by myself on 10/09/18. REHABILITATION COURSE: During her time on the PMRU, she experienced significant pain which was limiting her mobility. Medications were adjusted. She has had difficulty mobilizing and had some concerns of change in weakness and paresthesias in her legs. She was seen by her neurologist on 10/21/18, who felt that her fluctuation in status was just part of her regular fluctuation with multiple sclerosis and not an exacerbation. Urinalysis, which was done a few times, was negative. At times, spasticity secondary to multiple sclerosis seems to be limiting as well as muscle spasms. Her baclofen was increased to 10 mg 4 times per day and that helped, but later on she felt that it made her dizzy and so she was ultimately decreased back to her home dose. Diabetes was managed with glipizide XL, which was her home regimen. She has had urinary incontinence, which she does at baseline. She had to have regular suppositories during a period of time to keep her bowels regulated secondary to neurogenic bowel issues. She remained on Eliquis for DVT prophylaxis and has 3 doses left after discharge. The day before her planned discharge, she had some foul smelling urine. She frequently has urinary tract infections and a standing order for Macrodantin at home of 100 mg q.day. Urinalysis and urine culture were sent. Macrodantin was restarted. Culture results showed aerococcus which in the comments stated was a fastidious organism with suggested susceptibilities that did not include macrodantin. She was prescribed a 3 day course of amoxicillin. She participated well with physical therapy and at the time of discharge she is independent with bed mobility in the hospital bed. She requires supervision for transfers with a rolling walker and gait belt. She can ambulate with contact guard assistance with gait belt and a rolling walker up to 100 feet. She can climb stairs with nearby chairs or a wheelchair to follow. Her family came in for a family training and is able to assist her as needed at home. She also participated well with occupational therapy and at time of discharge, she is independent eating. She requires supervision when getting in and out of the shower using her walker. She can dress independently her upper body and use a contour grinder as needed with sock aid and assist when needed. She has had supervision and assistance as needed for toileting and using a commode. She has assistance for home management and cooking tasks. Once again her family came in and completed family training and is able to help her. DISCHARGE MEDICATIONS: 1. Baclofen 10mg q.a.m. and 20 mg q.h.s. 2. Citalopram 20 mg q.p.m. 3. Glipizide XL 10 mg q.day. 4. Hydrochlorothiazide 25 mg q.day. 5. Betaseron 0.3 mg subcutaneously every 48 hours. 6. Losartan 50 mg q.day. 7. Oxybutynin XL 15 mg every Wednesday, Wednesday and Wednesday. 8. Percocet 5/325 mg q.3 hours p.r.n. pain, not to exceed 3 per day.(her insurance does not cover roxycodone) 9. Potassium chloride 20 mEq daily, which is an increased dose from her prior dose of 10 mEq daily. 10. Vitamin B complex. 11. Amoxicillin 500mg q12h for 3 days. DISCHARGE DIAGNOSES: 1. Status post right total knee replacement. 2. Multiple sclerosis. 3. Type 2 diabetes mellitus. 4. Hypertension. 5. Hypokalemia. 6. Depression. 7. Anxiety. 8. Fibromyalgia. 9. Neurogenic bladder. 10. Neurogenic bowel. 11. Spasticity. 12. Urinary tract infection. FOLLOWUP: 1. She is to follow up with Dr. Gordillo today after her discharge. 2. Follow up with her primary care provider in 4 weeks. 3. A referral has been sent to visiting nurse services for home care including physical therapy. DISCHARGE CONDITION: Good. DISCHARGE DISPOSITION: Home with family support. [id number]/[facility] #: [id number] ISIAH
== END 2018-11-04 11:33 | disposition home health service (06) | DRG 560 ==
LOC: PMRU 08:31
PROVIDERS: ADMIT Physical Medicine & Rehabilitation; ATTEND Physical Medicine & Rehabilitation
PROC: F07Z5ZZ Bed Mobility Treatment (ICD-10-PCS; principal; 2018-10-09)
PROC: F07Z9ZZ Gait Training/Functional Ambulation Treatment (ICD-10-PCS; 2018-10-09)
PROC: F07Z8ZZ Transfer Training Treatment (ICD-10-PCS; 2018-10-09)
PROC: F08Z0ZZ Bathing/Showering Techniques Treatment (ICD-10-PCS; 2018-10-09)
PROC: F08Z1ZZ Dressing Techniques Treatment (ICD-10-PCS; 2018-10-09)
PROC: F08Z3ZZ Feeding/Eating Treatment (ICD-10-PCS; 2018-10-09)
DX: Z47.1 Aftercare following joint replacement surgery (principal); K59.2 Neurogenic bowel, not elsewhere classified; N39.0 Urinary tract infection, site not specified; Z68.41 Body mass index [BMI] 40.0-44.9, adult; Z96.651 Presence of right artificial knee joint; G35 Multiple sclerosis; N31.9 Neuromuscular dysfunction of bladder, unspecified; E11.9 Type 2 diabetes mellitus without complications; B96.89 Other specified bacterial agents as the cause of diseases classified elsewhere; I10 Essential (primary) hypertension; E87.6 Hypokalemia; F32.9 Major depressive disorder, single episode, unspecified; F41.9 Anxiety disorder, unspecified; M79.7 Fibromyalgia; N39.498 Other specified urinary incontinence; M62.838 Other muscle spasm; R42 Dizziness and giddiness; R09.02 Hypoxemia; K59.00 Constipation, unspecified; E66.3 Overweight; R20.2 Paresthesia of skin; Z79.01 Long term (current) use of anticoagulants; Z79.84 Long term (current) use of oral hypoglycemic drugs; Z79.1 Long term (current) use of non-steroidal anti-inflammatories (NSAID); Z79.4 Long term (current) use of insulin; Z79.891 Long term (current) use of opiate analgesic; Z79.899 Other long term (current) drug therapy; Z88.1 Allergy status to other antibiotic agents; Z88.8 Allergy status to other drugs, medicaments and biological substances; Z80.59 Family history of malignant neoplasm of other urinary tract organ; Z82.3 Family history of stroke; Z82.49 Family history of ischemic heart disease and other diseases of the circulatory system; Z88.2 Allergy status to sulfonamides
CPT/HCPCS: 36415; 80053; 81003; 81015; 85025; 87086; A9270-GY

== ENCOUNTER 2020-04-27 22:08 | Inpatient (IN) ==
[2020-04-27 23:48] LABS: ABS Lymphocytes 0.5 10^3/ul (1.0-4.8); ABS Monocytes 0.5 10^3/ul (0-0.8); Eosinophil % 0.4 %; Hematocrit 40 % (35-47); Hemoglobin 13.4 g/dL (12.0-16.0); Mean Corpuscular HGB Conc 34 g/dL (31-36); Mean Corpuscular Hemoglobin 28 pg (27-31); Mean Corpuscular Volume 83 fL (80-97); Mean Platelet Volume 9.4 fL (7.4-10.4); Platelet Count 181 10^3/uL (150-450); Red Blood Count 4.84 10^6 /uL (3.70-4.87); Red Cell Distribution Width 14 % (10-15); White Blood Count 6.1 10^3/uL (3.5-10.8)
[2020-04-27 23:59] LABS: Rapid Strep Molecular Negative (Negative)
[2020-04-28 00:04] LABS: Alcohol, S < 10 mg/dL (<10)
[2020-04-28 00:06] LABS: ALT 10 U/L (7-52); Albumin 3.9 g/dL (3.2-5.2); Albumin/Globulin Ratio 1.4 (1-3); Alkaline Phosphatase 69 U/L (34-104); BUN/Creatinine Ratio 18.4 (8-20); Blood Urea Nitrogen 14 mg/dL (6-24); C Reactive Protein 11.78 mg/L (<8.01); CO2 Carbon Dioxide 28 mmol/L (22-32); Calcium 9.3 mg/dL (8.6-10.3); Chloride 101 mmol/L (101-111); Creatine Kinase 113 U/L (10-223); EGFR African American 95.6 (>60); Globulin 2.8 g/dL (2-4); Glucose 117 mg/dL (70-100); Magnesium 1.8 mg/dL (1.9-2.7); Sodium 138 mmol/L (135-145); Total Protein 6.7 g/dL (6.4-8.9)
[2020-04-28 00:10] LABS: Anion Gap 9 mmol/L (2-11); BNP 14 pg/mL (<=100)
[2020-04-28 00:20] LABS: TSH Ultra Thyroid Stim Horm 1.77 mcIU/mL (0.34-5.60)
[2020-04-28 01:40] LABS: Potassium Redraw 3.3 mmol/L (3.5-5.0)
[2020-04-28] MEDS ORDERED: Potassium Chlor 10 meq TAB PO ONE (02:54)
[2020-04-28] MEDS ORDERED: Dextrose 50% Syringe 50 ml 25 GM/50 ML SYRINGE IV PUSH PRN (03:43)
[2020-04-28] MEDS: Heparin 5000 UNITS/ML 1 mL VIAL SUBCUT SCH ×3 (06:20→22:11)
[2020-04-28] MEDS ORDERED: Potassium Chlor 20 meq TAB.ER PO SCH (09:00)
[2020-04-28] MEDS: oxyCODONE/Acetamin 5/325 mg TAB PO SCH ×2 (09:48→20:03)
[2020-04-28] MEDS: Potassium Chloride LIQUID 20 MEQ/15 ML LIQUID PO SCH (09:50)
[2020-04-28 12:11] LABS: Urine Appearance Cloudy; Urine Bilirubin Negative (Negative); Urine Blood Negative (Negative); Urine Color Amber; Urine Glucose Negative (Negative); Urine Ketones Trace (Negative); Urine Nitrite Negative (Negative); Urine Protein 1+(30 mg/dL) (Negative); Urine Specific Gravity 1.024 (1.010-1.030); Urine Urobilinogen Negative (Negative)
[2020-04-28 12:18] LABS: Urine Bacteria Absent (Absent); Urine Red Blood Cell 3+(>10/hpf) (Absent); Urine Squamous Epithelial Cell Present (Absent); Urine White Blood Cell Trace(0-5/hpf) (Absent)
[2020-04-28] MEDS ORDERED: INTERFERON BETA 0.3 MG SUBCUT SCH ×2 (19:00)
[2020-04-29] MEDS: Heparin 5000 UNITS/ML 1 mL VIAL SUBCUT SCH ×3 (06:10→22:25)
[2020-04-29 07:34] LABS: ABS Lymphocytes 0.7 10^3/ul (1.0-4.8); ABS Monocytes 0.1 10^3/ul (0-0.8); ABS Neutrophils 2.6 10^3/ul (1.5-7.7); Hematocrit 39 % (35-47); Lymphocyte % 20.3 %; Mean Corpuscular HGB Conc 33 g/dL (31-36); Mean Corpuscular Hemoglobin 28 pg (27-31); Mean Corpuscular Volume 84 fL (80-97); Mean Platelet Volume 9.4 fL (7.4-10.4); Nucleated Red Blood Cells % 0.1; Platelet Count 157 10^3/uL (150-450); Red Blood Count 4.63 10^6 /uL (3.70-4.87); Red Cell Distribution Width 14 % (10-15); White Blood Count 3.4 10^3/uL (3.5-10.8)
[2020-04-29 07:51] LABS: Albumin 3.6 g/dL (3.2-5.2); Albumin/Globulin Ratio 1.4 (1-3); BUN/Creatinine Ratio 21.3 (8-20); Calcium 8.9 mg/dL (8.6-10.3); EGFR African American 123.2 (>60); EGFR Non-African American 101.8 (>60); Globulin 2.6 g/dL (2-4); Potassium 4.3 mmol/L (3.5-5.0); Total Bilirubin 0.3 mg/dL (0.2-1.0); Total Protein 6.2 g/dL (6.4-8.9)
[2020-04-29] MEDS: oxyCODONE/Acetamin 5/325 mg TAB PO SCH ×2 (09:44→19:44)
[2020-04-29] MEDS: Potassium Chloride LIQUID 20 MEQ/15 ML LIQUID PO SCH ×2 (09:45→10:30)
[2020-04-30] MEDS: Heparin 5000 UNITS/ML 1 mL VIAL SUBCUT SCH ×2 (05:27→12:53)
[2020-04-30 08:17] LABS: ABS Lymphocytes 1.3 10^3/ul (1.0-4.8); ABS Monocytes 0.3 10^3/ul (0-0.8); ABS Neutrophils 1.3 10^3/ul (1.5-7.7); Hematocrit 37 % (35-47); Hemoglobin 12.5 g/dL (12.0-16.0); Lymphocyte % 43.7 %; Mean Corpuscular HGB Conc 34 g/dL (31-36); Mean Corpuscular Hemoglobin 28 pg (27-31); Mean Corpuscular Volume 83 fL (80-97); Mean Platelet Volume 9.4 fL (7.4-10.4); Platelet Count 169 10^3/uL (150-450); Red Blood Count 4.51 10^6 /uL (3.70-4.87); Red Cell Distribution Width 14 % (10-15); White Blood Count 2.9 10^3/uL (3.5-10.8)
[2020-04-30 08:35] LABS: Albumin 3.4 g/dL (3.2-5.2); Albumin/Globulin Ratio 1.2 (1-3); BUN/Creatinine Ratio 24.5 (8-20); C Reactive Protein 10.47 mg/L (<8.01); Calcium 8.9 mg/dL (8.6-10.3); EGFR African American 144.9 (>60); EGFR Non-African American 119.8 (>60); Globulin 2.8 g/dL (2-4); Potassium 3.7 mmol/L (3.5-5.0); Total Bilirubin 0.3 mg/dL (0.2-1.0); Total Protein 6.2 g/dL (6.4-8.9)
[2020-04-30] MEDS: oxyCODONE/Acetamin 5/325 mg TAB PO SCH (08:45)
[2020-04-30 10:55] VITALS: BP 128/65
== END 2020-04-30 17:15 | disposition home or self-care (01) | DRG 178 ==
LOC: ED 22:08 → MED 22:08 → ED 04-28 05:25 → MED 04-28 13:10
PROVIDERS: ADMIT Hospitalist; ATTEND Pediatrics

== ENCOUNTER 2020-05-12 20:19 | Inpatient (IN) ==
[2020-05-12 20:58] LABS: ABS Lymphocytes 0.5 10^3/ul (1.0-4.8); ABS Monocytes 0.2 10^3/ul (0-0.8); ABS Neutrophils 14.7 10^3/ul (1.5-7.7); Hematocrit 45 % (35-47); Hemoglobin 15.1 g/dL (12.0-16.0); Lymphocyte % 3.4 %; Mean Corpuscular HGB Conc 34 g/dL (31-36); Mean Corpuscular Hemoglobin 28 pg (27-31); Mean Corpuscular Volume 83 fL (80-97); Platelet Count 206 10^3/uL (150-450); Red Blood Count 5.41 10^6 /uL (3.70-4.87); Red Cell Distribution Width 13 % (10-15); White Blood Count 15.4 10^3/uL (3.5-10.8)
[2020-05-12 21:17] LABS: ALT 17 U/L (7-52); AST 18 U/L (13-39); Albumin 3.3 g/dL (3.2-5.2); Alkaline Phosphatase 79 U/L (34-104); Anion Gap 13 mmol/L (2-11); BUN/Creatinine Ratio 16.1 (8-20); Blood Urea Nitrogen 23 mg/dL (6-24); C Reactive Protein 255.72 mg/L (<8.01); CO2 Carbon Dioxide 25 mmol/L (22-32); Calcium 9.1 mg/dL (8.6-10.3); Chloride 91 mmol/L (101-111); EGFR African American 46.1 (>60); EGFR Non-African American 38.1 (>60); Globulin 3.3 g/dL (2-4); Glucose 385 mg/dL (70-100); Lipase < 10 U/L (11.0-82.0); Potassium 3.8 mmol/L (3.5-5.0); Sodium 129 mmol/L (135-145); Total Protein 6.6 g/dL (6.4-8.9)
[2020-05-12] MEDS ORDERED: NS 0.9% 1000 ml BAG 3,000 ML IV ONE (21:21)
[2020-05-12] MEDS ORDERED: Ondansetron 4 mg VIAL 2 MG/ML 2 ml VIAL IV ONE (21:31)
[2020-05-12] MEDS ORDERED: cefTRIAXone 1 gm/50 mL NS BAG 1 GM/50 ML BAG IV ONE (22:34)
[2020-05-12 22:44] LABS: Urine Appearance Turbid; Urine Bilirubin Negative (Negative); Urine Blood 2+ (Negative); Urine Color Yellow; Urine Glucose Negative (Negative); Urine Ketones Negative (Negative); Urine Nitrite Negative (Negative); Urine Protein 2+(100 mg/dL) (Negative); Urine Specific Gravity 1.011 (1.010-1.030); Urine Urobilinogen Negative (Negative)
[2020-05-12 22:49] LABS: Urine Bacteria Absent (Absent); Urine Red Blood Cell 3+(>10/hpf) (Absent); Urine White Blood Cell 3+(>20/hpf) (Absent)
[2020-05-12] MEDS ORDERED: Iodixanol (CONTRAST) 320 MG/ML 100 ML SDV IV ONE (23:42)
[2020-05-13] MEDS ORDERED: NS 0.9% 1000 ml BAG 1,000 ML IV ONE ×2 (01:02)
[2020-05-13] MEDS ORDERED: NS 0.9% 1000 ml BAG 1,000 ML IV SCH (01:30)
[2020-05-13 01:57] LABS: BUN/Creatinine Ratio 15.2 (8-20); Calcium 7.3 mg/dL (8.6-10.3); EGFR African American 35.8 (>60); EGFR Non-African American 29.6 (>60)
[2020-05-13] MEDS ORDERED: Lactated Ringers 1000 ml BAG 1,000 ML IV SCH ×2 (02:00→08:00)
[2020-05-13] MEDS ORDERED: Potassium Chlor 20 meq TAB.ER PO ONE (02:05)
[2020-05-13] MEDS ORDERED: Norepinephrine 16MCG/ML IVPRE 4,000 MCG/250 ML BAG IV ONE (02:16)
[2020-05-13 02:24] LABS: Magnesium 1.3 mg/dL (1.9-2.7)
[2020-05-13] MEDS ORDERED: Vancomycin 2,000 MG in NS 0.9% 500 ml BAG 500 ML IVPB ONE (02:30)
[2020-05-13] MEDS ORDERED: Cefepime 2 GM in Dextrose 2 GM/50 ML BAG IV SCH (02:30)
[2020-05-13 02:40] LABS: TSH Ultra Thyroid Stim Horm 1.33 mcIU/mL (0.34-5.60)
[2020-05-13] MEDS ORDERED: Magnesium Sulf 4 GM/100 ML IV 4,000 MG/100 ML BAG IVPB ONE (02:42)
[2020-05-13] MEDS: Norepinephrine 16MCG/ML IVPRE 4,000 MCG/250 ML BAG IV SCH ×3 (03:12→11:19)
[2020-05-13] MEDS ORDERED: Ondansetron 4 mg VIAL 2 MG/ML 2 ml VIAL IV PRN (03:29)
[2020-05-13] MEDS ORDERED: Vancomycin per Pharmacy 1 EA NOTE FOLLOW UP PRN (04:33)
[2020-05-13] MEDS ORDERED: Dextrose 50% Syringe 50 ml 25 GM/50 ML SYRINGE IV PUSH PRN (06:31)
[2020-05-13 06:46] LABS: Hematocrit 37 % (35-47); Hemoglobin 12.1 g/dL (12.0-16.0); Mean Corpuscular HGB Conc 33 g/dL (31-36); Mean Corpuscular Hemoglobin 28 pg (27-31); Mean Corpuscular Volume 84 fL (80-97); Mean Platelet Volume 10.5 fL (7.4-10.4); Platelet Count 156 10^3/uL (150-450); Red Blood Count 4.38 10^6 /uL (3.70-4.87); Red Cell Distribution Width 14 % (10-15); White Blood Count 38.1 10^3/uL (3.5-10.8)
[2020-05-13 07:05] LABS: BUN/Creatinine Ratio 14.5 (8-20); Calcium 7.1 mg/dL (8.6-10.3); EGFR African American 32.6 (>60); Potassium 2.8 mmol/L (3.5-5.0)
[2020-05-13] MEDS: Heparin 5000 UNITS/ML 1 mL VIAL SUBCUT SCH ×3 (07:23→21:52)
[2020-05-13] MEDS: Hydrocortisone INJ 100 MG/2ML 2 ML VIAL IV SCH ×3 (07:23→17:39)
[2020-05-13 07:26] LABS: ABS Basophils 0.1 10^3/ul (0-0.2); ABS Lymphocytes 0.7 10^3/ul (1.0-4.8); ABS Monocytes 0.9 10^3/ul (0-0.8); ABS Neutrophils 36.3 10^3/ul (1.5-7.7); Lymphocyte % 1.8 %
[2020-05-13 07:45] LABS: Magnesium 1.3 mg/dL (1.9-2.7)
[2020-05-13] MEDS: Cholecalciferol (VIT D3) 1,000 unit TAB PO SCH ×2 (08:33→19:54)
[2020-05-13] MEDS: oxyCODONE/Acetamin 5/325 mg TAB PO SCH ×2 (08:34→19:54)
[2020-05-13] MEDS: KCL 20 MEQ/100 ML IVPREMIX 20 MEQ/100 ML BAG IV SCH ×3 (08:45→13:35)
[2020-05-13] MEDS: Triamcinolone 0.025% OINT 15 GM TUBE TOPICAL SCH (08:59)
[2020-05-13] MEDS ORDERED: Potassium Chlor 10 meq TAB PO SCH (09:00)
[2020-05-13] MEDS ORDERED: Potassium Chlor 20 meq TAB.ER PO SCH (09:00)
[2020-05-13] MEDS: cefTRIAXone 2 GM ADDV.VIAL 2 GM in NS 0.9% 100 ml BAG 100 ML IV SCH (14:49)
[2020-05-13] MEDS ORDERED: cefTRIAXone 1 gm/50 mL NS BAG 1 GM/50 ML BAG IVPB SCH (15:30)
[2020-05-13] MEDS ORDERED: Vancomycin 1000 MG in NS 0.9% 250 ML IVPB SCH (16:00)
[2020-05-13 16:32] LABS: Albumin 2.6 g/dL (3.2-5.2); Calcium 7.3 mg/dL (8.6-10.3); Potassium 4.6 mmol/L (3.5-5.0); Total Bilirubin 0.7 mg/dL (0.2-1.0)
[2020-05-13 16:33] LABS: Albumin/Globulin Ratio 1.1 (1-3); BUN/Creatinine Ratio 20.7 (8-20); EGFR African American 61.7 (>60); Globulin 2.3 g/dL (2-4); Total Protein 4.9 g/dL (6.4-8.9)
[2020-05-13 17:16] LABS: Magnesium 2.7 mg/dL (1.9-2.7)
[2020-05-13] MEDS: Saline FLUSH-CENTRAL 10 ML SYRINGE CENT\\PICC SCH (18:03)
[2020-05-14] MEDS: Hydrocortisone INJ 100 MG/2ML 2 ML VIAL IV SCH ×2 (00:49→05:05)
[2020-05-14] MEDS: Saline FLUSH-CENTRAL 10 ML SYRINGE CENT\\PICC SCH (05:04)
[2020-05-14] MEDS: Heparin 5000 UNITS/ML 1 mL VIAL SUBCUT SCH ×3 (05:05→21:37)
[2020-05-14 05:17] LABS: Hematocrit 32 % (35-47); Hemoglobin 10.6 g/dL (12.0-16.0); Mean Corpuscular HGB Conc 34 g/dL (31-36); Mean Corpuscular Hemoglobin 28 pg (27-31); Mean Corpuscular Volume 83 fL (80-97); Mean Platelet Volume 9.9 fL (7.4-10.4); Platelet Count 133 10^3/uL (150-450); Red Blood Count 3.83 10^6 /uL (3.70-4.87); Red Cell Distribution Width 15 % (10-15); White Blood Count 25.7 10^3/uL (3.5-10.8)
[2020-05-14 05:36] LABS: ABS Eosinophils 0.2 10^3/ul (0-0.6); ABS Monocytes 0.9 10^3/ul (0-0.8); ABS Neutrophils 23.6 10^3/ul (1.5-7.7); Eosinophil % 0.6 %; Lymphocyte % 3.9 %
[2020-05-14 05:53] LABS: BUN/Creatinine Ratio 24.7 (8-20); Calcium 7.7 mg/dL (8.6-10.3); EGFR African American 94.2 (>60); EGFR Non-African American 77.8 (>60); Magnesium 2.6 mg/dL (1.9-2.7); Potassium 3.7 mmol/L (3.5-5.0)
[2020-05-14] MEDS: Cholecalciferol (VIT D3) 1,000 unit TAB PO SCH ×2 (08:10→20:22)
[2020-05-14] MEDS: Triamcinolone 0.025% OINT 15 GM TUBE TOPICAL SCH (08:11)
[2020-05-14] MEDS: oxyCODONE/Acetamin 5/325 mg TAB PO SCH ×2 (08:11→20:22)
[2020-05-14] MEDS ORDERED: Polyethylene Glycol 3350 17 GM PACKET PO ONE (09:31)
[2020-05-14] MEDS: cefTRIAXone 2 GM ADDV.VIAL 2 GM in NS 0.9% 100 ml BAG 100 ML IV SCH (15:18)
[2020-05-14] MEDS ORDERED: Vancomycin Trough Check NOTE FOLLOW UP ONE (15:30)
[2020-05-15 05:04] LABS: ABS Basophils 0.1 10^3/ul (0-0.2); ABS Lymphocytes 1.3 10^3/ul (1.0-4.8); ABS Monocytes 0.4 10^3/ul (0-0.8); ABS Neutrophils 16.8 10^3/ul (1.5-7.7); Eosinophil % 0.1 %; Hematocrit 30 % (35-47); Lymphocyte % 7.2 %; Mean Corpuscular HGB Conc 33 g/dL (31-36); Mean Corpuscular Hemoglobin 27 pg (27-31); Mean Corpuscular Volume 84 fL (80-97); Mean Platelet Volume 10.1 fL (7.4-10.4); Platelet Count 128 10^3/uL (150-450); Red Blood Count 3.63 10^6 /uL (3.70-4.87); Red Cell Distribution Width 14 % (10-15); White Blood Count 18.7 10^3/uL (3.5-10.8)
[2020-05-15 05:23] LABS: Calcium 8.1 mg/dL (8.6-10.3); EGFR Non-African American 128.1 (>60); Potassium 3.5 mmol/L (3.5-5.0)
[2020-05-15] MEDS: Heparin 5000 UNITS/ML 1 mL VIAL SUBCUT SCH ×3 (05:32→20:53)
[2020-05-15] MEDS: oxyCODONE/Acetamin 5/325 mg TAB PO SCH ×2 (08:27→20:47)
[2020-05-15] MEDS: Triamcinolone 0.025% OINT 15 GM TUBE TOPICAL SCH (08:27)
[2020-05-15] MEDS: Cholecalciferol (VIT D3) 1,000 unit TAB PO SCH ×2 (08:27→20:47)
[2020-05-15] MEDS: cefTRIAXone 2 GM ADDV.VIAL 2 GM in NS 0.9% 100 ml BAG 100 ML IV SCH (12:41)
[2020-05-15 22:37] LABS: Magnesium 2.3 mg/dL (1.9-2.7)
[2020-05-16] MEDS: Heparin 5000 UNITS/ML 1 mL VIAL SUBCUT SCH ×3 (05:50→20:53)
[2020-05-16] MEDS: oxyCODONE/Acetamin 5/325 mg TAB PO SCH ×2 (08:19→20:52)
[2020-05-16] MEDS: Cholecalciferol (VIT D3) 1,000 unit TAB PO SCH ×2 (08:19→20:52)
[2020-05-16] MEDS: Triamcinolone 0.025% OINT 15 GM TUBE TOPICAL SCH (08:39)
[2020-05-16] MEDS: cefTRIAXone 2 GM ADDV.VIAL 2 GM in NS 0.9% 100 ml BAG 100 ML IV SCH (12:53)
[2020-05-17] MEDS: Heparin 5000 UNITS/ML 1 mL VIAL SUBCUT SCH ×3 (05:41→22:48)
[2020-05-17 07:19] LABS: BUN/Creatinine Ratio 28.3 (8-20); Calcium 8.1 mg/dL (8.6-10.3); EGFR African American 170.7 (>60); Potassium 3.4 mmol/L (3.5-5.0)
[2020-05-17] MEDS ORDERED: Potassium Chlor 20 meq TAB.ER PO ONE (08:00)
[2020-05-17 08:28] LABS: ABS Eosinophils 0.2 10^3/ul (0-0.6); ABS Lymphocytes 1.3 10^3/ul (1.0-4.8); ABS Monocytes 0.4 10^3/ul (0-0.8); ABS Neutrophils 3.5 10^3/ul (1.5-7.7); Eosinophil % 3.7 %; Hematocrit 30 % (35-47); Lymphocyte % 24.3 %; Mean Corpuscular HGB Conc 34 g/dL (31-36); Mean Corpuscular Hemoglobin 28 pg (27-31); Mean Corpuscular Volume 83 fL (80-97); Mean Platelet Volume 9.6 fL (7.4-10.4); Platelet Count 145 10^3/uL (150-450); Red Cell Distribution Width 14 % (10-15); White Blood Count 5.5 10^3/uL (3.5-10.8)
[2020-05-17] MEDS: oxyCODONE/Acetamin 5/325 mg TAB PO SCH ×2 (09:14→20:00)
[2020-05-17] MEDS: Cholecalciferol (VIT D3) 1,000 unit TAB PO SCH ×2 (09:15→20:00)
[2020-05-17] MEDS: Triamcinolone 0.025% OINT 15 GM TUBE TOPICAL SCH (12:51)
[2020-05-17 14:51] LABS: Urine Appearance Turbid; Urine Bilirubin Negative (Negative); Urine Blood 3+ (Negative); Urine Color Yellow; Urine Glucose Negative (Negative); Urine Ketones Negative (Negative); Urine Nitrite Negative (Negative); Urine Protein 1+(30 mg/dL) (Negative); Urine Specific Gravity 1.006 (1.010-1.030); Urine Urobilinogen Negative (Negative)
[2020-05-17 15:18] LABS: Urine Bacteria Absent (Absent); Urine Red Blood Cell 3+(>10/hpf) (Absent); Urine Squamous Epithelial Cell Present (Absent); Urine White Blood Cell 3+(>20/hpf) (Absent)
[2020-05-17] MEDS: cefTRIAXone 2 GM ADDV.VIAL 2 GM in NS 0.9% 100 ml BAG 100 ML IV SCH (15:20)
[2020-05-18] MEDS: Heparin 5000 UNITS/ML 1 mL VIAL SUBCUT SCH ×3 (06:08→20:16)
[2020-05-18] MEDS: oxyCODONE/Acetamin 5/325 mg TAB PO SCH ×2 (08:56→20:15)
[2020-05-18] MEDS: Cholecalciferol (VIT D3) 1,000 unit TAB PO SCH ×2 (08:56→20:15)
[2020-05-18] MEDS: Potassium Chlor 20 meq TAB.ER PO SCH (08:56)
[2020-05-18] MEDS: Triamcinolone 0.025% OINT 15 GM TUBE TOPICAL SCH (08:57)
[2020-05-18] MEDS ORDERED: Gadoteridol (CONTRAST) 279.3 MG/ML 10 ML IV ONE (17:25)
[2020-05-19] MEDS: Heparin 5000 UNITS/ML 1 mL VIAL SUBCUT SCH (05:58)
[2020-05-19] MEDS: Cholecalciferol (VIT D3) 1,000 unit TAB PO SCH (08:02)
[2020-05-19] MEDS: Potassium Chlor 20 meq TAB.ER PO SCH (08:03)
[2020-05-19] MEDS: oxyCODONE/Acetamin 5/325 mg TAB PO SCH (08:03)
[2020-05-19] MEDS: Triamcinolone 0.025% OINT 15 GM TUBE TOPICAL SCH (08:04)
[2020-05-19 08:14] VITALS: BP 121/60
[2020-05-19 09:57] LABS: ABS Basophils 0.2 10^3/ul (0-0.2); ABS Eosinophils 0.2 10^3/ul (0-0.6); ABS Lymphocytes 1.4 10^3/ul (1.0-4.8); ABS Monocytes 0.4 10^3/ul (0-0.8); ABS Neutrophils 3.3 10^3/ul (1.5-7.7); Eosinophil % 4.3 %; Hematocrit 33 % (35-47); Lymphocyte % 26.1 %; Mean Corpuscular HGB Conc 33 g/dL (31-36); Mean Corpuscular Hemoglobin 28 pg (27-31); Mean Corpuscular Volume 83 fL (80-97); Mean Platelet Volume 9.1 fL (7.4-10.4); Nucleated Red Blood Cells % 0.1; Platelet Count 211 10^3/uL (150-450); Red Blood Count 3.98 10^6 /uL (3.70-4.87); Red Cell Distribution Width 14 % (10-15); White Blood Count 5.5 10^3/uL (3.5-10.8)
[2020-05-19 10:14] LABS: BUN/Creatinine Ratio 20.4 (8-20); Calcium 8.9 mg/dL (8.6-10.3); EGFR African American 158.7 (>60); EGFR Non-African American 131.1 (>60); Potassium 4.4 mmol/L (3.5-5.0)
[2020-05-19] MEDS ORDERED: Polyethylene Glycol 3350 17 GM PACKET PO PRN (10:22)
== END 2020-05-19 11:00 | DRG 871 ==
LOC: ED 20:19 → ICU 05-13 01:04 → MED 05-15 11:39
PROVIDERS: ADMIT Pediatrics; ATTEND Hospitalist

== ENCOUNTER 2020-05-19 09:39 | Inpatient (IN) ==
[2020-05-19] MEDS ORDERED: Senna TAB 8.6 mg TAB PO PRN (11:56)
[2020-05-19] MEDS ORDERED: Dextrose 50% Syringe 50 ml 25 GM/50 ML SYRINGE IV PUSH PRN (12:08)
[2020-05-19] MEDS ORDERED: Polyethylene Glycol 3350 17 GM PACKET PO PRN (12:15)
[2020-05-19] MEDS ORDERED: INTERFERON BETA 0.3 MG SUBCUT SCH (13:00)
[2020-05-19] MEDS: Heparin 5000 UNITS/ML 1 mL VIAL SUBCUT SCH ×2 (14:06→22:07)
[2020-05-19] MEDS: INTERFERON BETA 0.3 MG SUBCUT SCH (18:04)
[2020-05-19] MEDS: oxyCODONE/Acetamin 5/325 mg TAB PO SCH (21:59)
[2020-05-20] MEDS: Heparin 5000 UNITS/ML 1 mL VIAL SUBCUT SCH ×3 (06:40→21:05)
[2020-05-20 08:34] LABS: ABS Basophils 0.1 10^3/ul (0-0.2); ABS Eosinophils 0.2 10^3/ul (0-0.6); ABS Lymphocytes 1.6 10^3/ul (1.0-4.8); ABS Monocytes 0.4 10^3/ul (0-0.8); ABS Neutrophils 3.4 10^3/ul (1.5-7.7); Eosinophil % 3.4 %; Hematocrit 35 % (35-47); Hemoglobin 11.6 g/dL (12.0-16.0); Mean Corpuscular HGB Conc 33 g/dL (31-36); Mean Corpuscular Hemoglobin 28 pg (27-31); Mean Corpuscular Volume 84 fL (80-97); Mean Platelet Volume 8.7 fL (7.4-10.4); Nucleated Red Blood Cells % 0.1; Platelet Count 275 10^3/uL (150-450); Red Blood Count 4.19 10^6 /uL (3.70-4.87); Red Cell Distribution Width 14 % (10-15); White Blood Count 5.6 10^3/uL (3.5-10.8)
[2020-05-20 08:44] LABS: BUN/Creatinine Ratio 19.2 (8-20); Calcium 9.2 mg/dL (8.6-10.3); EGFR African American 148.1 (>60); EGFR Non-African American 122.4 (>60); Potassium 4.1 mmol/L (3.5-5.0); Total Bilirubin 0.5 mg/dL (0.2-1.0)
[2020-05-20] MEDS: Cholecalciferol (VIT D3) 1,000 unit TAB PO SCH (09:08)
[2020-05-20] MEDS: Potassium Chlor 20 meq TAB.ER PO SCH (09:08)
[2020-05-20] MEDS: oxyCODONE/Acetamin 5/325 mg TAB PO SCH ×2 (09:09→21:01)
[2020-05-20] MEDS: Triamcinolone 0.025% OINT 15 GM TUBE TOPICAL SCH (09:12)
[2020-05-20 22:14] LABS: TSH Ultra Thyroid Stim Horm 9.08 mcIU/mL (0.34-5.60)
[2020-05-20 22:29] LABS: Vitamin D Total 25(OH) 27.8 ng/mL (20-50)
[2020-05-21] MEDS: Heparin 5000 UNITS/ML 1 mL VIAL SUBCUT SCH ×3 (05:34→21:41)
[2020-05-21] MEDS: Cholecalciferol (VIT D3) 1,000 unit TAB PO SCH (08:19)
[2020-05-21] MEDS: Triamcinolone 0.025% OINT 15 GM TUBE TOPICAL SCH (08:19)
[2020-05-21] MEDS: Potassium Chlor 20 meq TAB.ER PO SCH (08:19)
[2020-05-21] MEDS: oxyCODONE/Acetamin 5/325 mg TAB PO SCH ×2 (08:19→21:39)
[2020-05-21] MEDS: INTERFERON BETA 0.3 MG SUBCUT SCH (18:01)
[2020-05-21] MEDS: Senna TAB 8.6 mg TAB PO SCH (22:37)
[2020-05-22] MEDS: Heparin 5000 UNITS/ML 1 mL VIAL SUBCUT SCH ×3 (05:24→21:06)
[2020-05-22] MEDS: Potassium Chlor 20 meq TAB.ER PO SCH (07:38)
[2020-05-22] MEDS: Cholecalciferol (VIT D3) 1,000 unit TAB PO SCH (07:38)
[2020-05-22] MEDS: oxyCODONE/Acetamin 5/325 mg TAB PO SCH ×2 (07:39→20:42)
[2020-05-22] MEDS: Polyethylene Glycol 3350 17 GM PACKET PO SCH (07:40)
[2020-05-22] MEDS: Triamcinolone 0.025% OINT 15 GM TUBE TOPICAL SCH (09:30)
[2020-05-22] MEDS: Senna TAB 8.6 mg TAB PO SCH (20:41)
[2020-05-23] MEDS: Heparin 5000 UNITS/ML 1 mL VIAL SUBCUT SCH ×3 (05:30→21:03)
[2020-05-23] MEDS: Potassium Chlor 20 meq TAB.ER PO SCH (07:32)
[2020-05-23] MEDS: Cholecalciferol (VIT D3) 1,000 unit TAB PO SCH (07:32)
[2020-05-23] MEDS: oxyCODONE/Acetamin 5/325 mg TAB PO SCH ×2 (07:33→20:54)
[2020-05-23] MEDS: Polyethylene Glycol 3350 17 GM PACKET PO SCH (07:33)
[2020-05-23] MEDS: Triamcinolone 0.025% OINT 15 GM TUBE TOPICAL SCH (10:30)
[2020-05-23] MEDS: Magnesium Hydroxide LIQ 30 ML UDC PO PRN (17:17)
[2020-05-23] MEDS: INTERFERON BETA 0.3 MG SUBCUT SCH (19:37)
[2020-05-23] MEDS: Senna TAB 8.6 mg TAB PO SCH (20:55)
[2020-05-24] MEDS: Heparin 5000 UNITS/ML 1 mL VIAL SUBCUT SCH ×3 (06:20→21:19)
[2020-05-24] MEDS: Potassium Chlor 20 meq TAB.ER PO SCH (08:57)
[2020-05-24] MEDS: oxyCODONE/Acetamin 5/325 mg TAB PO SCH ×2 (08:57→20:12)
[2020-05-24] MEDS: Cholecalciferol (VIT D3) 1,000 unit TAB PO SCH (08:58)
[2020-05-24] MEDS: Polyethylene Glycol 3350 17 GM PACKET PO SCH (08:59)
[2020-05-24] MEDS: Triamcinolone 0.025% OINT 15 GM TUBE TOPICAL SCH (09:00)
[2020-05-24] MEDS: Senna TAB 8.6 mg TAB PO SCH (20:10)
[2020-05-25] MEDS: Heparin 5000 UNITS/ML 1 mL VIAL SUBCUT SCH ×3 (05:51→21:08)
[2020-05-25] MEDS: Triamcinolone 0.025% OINT 15 GM TUBE TOPICAL SCH (09:30)
[2020-05-25] MEDS: Potassium Chlor 20 meq TAB.ER PO SCH (09:45)
[2020-05-25] MEDS: oxyCODONE/Acetamin 5/325 mg TAB PO SCH ×2 (09:45→21:25)
[2020-05-25] MEDS: Polyethylene Glycol 3350 17 GM PACKET PO SCH (09:45)
[2020-05-25] MEDS: Cholecalciferol (VIT D3) 1,000 unit TAB PO SCH (09:45)
[2020-05-25] MEDS: INTERFERON BETA 0.3 MG SUBCUT SCH (18:59)
[2020-05-25] MEDS: Senna TAB 8.6 mg TAB PO SCH (21:07)
[2020-05-26] MEDS: Heparin 5000 UNITS/ML 1 mL VIAL SUBCUT SCH ×3 (05:21→22:07)
[2020-05-26] MEDS: Potassium Chlor 20 meq TAB.ER PO SCH (09:09)
[2020-05-26] MEDS: Cholecalciferol (VIT D3) 1,000 unit TAB PO SCH (09:09)
[2020-05-26] MEDS: oxyCODONE/Acetamin 5/325 mg TAB PO SCH (09:10)
[2020-05-26] MEDS: Polyethylene Glycol 3350 17 GM PACKET PO SCH (09:11)
[2020-05-26] MEDS: Triamcinolone 0.025% OINT 15 GM TUBE TOPICAL SCH (09:14)
[2020-05-26] MEDS: Senna TAB 8.6 mg TAB PO SCH (21:02)
[2020-05-26] MEDS ORDERED: oxyCODONE/Acetamin 5/325 mg TAB PO ONE ×2 (22:15)
[2020-05-27] MEDS: Heparin 5000 UNITS/ML 1 mL VIAL SUBCUT SCH ×3 (05:45→21:36)
[2020-05-27 06:31] LABS: ABS Eosinophils 0.2 10^3/ul (0-0.6); ABS Lymphocytes 2.2 10^3/ul (1.0-4.8); ABS Monocytes 0.4 10^3/ul (0-0.8); ABS Neutrophils 1.9 10^3/ul (1.5-7.7); Eosinophil % 3.4 %; Hematocrit 36 % (35-47); Hemoglobin 11.9 g/dL (12.0-16.0); Mean Corpuscular HGB Conc 33 g/dL (31-36); Mean Corpuscular Hemoglobin 28 pg (27-31); Mean Corpuscular Volume 85 fL (80-97); Mean Platelet Volume 8.5 fL (7.4-10.4); Platelet Count 326 10^3/uL (150-450); Red Blood Count 4.28 10^6 /uL (3.70-4.87); Red Cell Distribution Width 15 % (10-15); White Blood Count 4.7 10^3/uL (3.5-10.8)
[2020-05-27 06:40] LABS: Albumin 3.5 g/dL (3.2-5.2); CO2 Carbon Dioxide 23 mmol/L (22-32); Calcium 9.2 mg/dL (8.6-10.3); Chloride 104 mmol/L (101-111); Sodium 136 mmol/L (135-145)
[2020-05-27 06:45] LABS: Anion Gap 9 mmol/L (2-11); BUN/Creatinine Ratio 27.5 (8-20); Blood Urea Nitrogen 14 mg/dL (6-24); EGFR Non-African American 125.2 (>60); Glucose 109 mg/dL (70-100)
[2020-05-27 06:46] LABS: ALT 9 U/L (7-52); Albumin/Globulin Ratio 1.1 (1-3); Alkaline Phosphatase 62 U/L (34-104); EGFR African American 151.5 (>60); Globulin 3.2 g/dL (2-4); Total Protein 6.7 g/dL (6.4-8.9)
[2020-05-27 07:35] LABS: Potassium Redraw 3.5 mmol/L (3.5-5.0)
[2020-05-27] MEDS: Cholecalciferol (VIT D3) 1,000 unit TAB PO SCH (09:31)
[2020-05-27] MEDS: Potassium Chlor 20 meq TAB.ER PO SCH (09:34)
[2020-05-27] MEDS: Polyethylene Glycol 3350 17 GM PACKET PO SCH (09:36)
[2020-05-27] MEDS ORDERED: oxyCODONE/Acetamin 5/325 mg TAB PO ONE (10:00)
[2020-05-27] MEDS: Triamcinolone 0.025% OINT 15 GM TUBE TOPICAL SCH (10:13)
[2020-05-27] MEDS: INTERFERON BETA 0.3 MG SUBCUT SCH (18:59)
[2020-05-27] MEDS: Senna TAB 8.6 mg TAB PO SCH (20:17)
[2020-05-27] MEDS: oxyCODONE/Acetamin 5/325 mg TAB PO SCH (20:21)
[2020-05-28] MEDS: Heparin 5000 UNITS/ML 1 mL VIAL SUBCUT SCH ×3 (05:29→21:00)
[2020-05-28] MEDS: oxyCODONE/Acetamin 5/325 mg TAB PO SCH ×2 (07:47→21:00)
[2020-05-28] MEDS: Cholecalciferol (VIT D3) 1,000 unit TAB PO SCH (07:47)
[2020-05-28] MEDS: Potassium Chlor 20 meq TAB.ER PO SCH (07:48)
[2020-05-28] MEDS: Polyethylene Glycol 3350 17 GM PACKET PO SCH (07:49)
[2020-05-28] MEDS: Triamcinolone 0.025% OINT 15 GM TUBE TOPICAL SCH (08:09)
[2020-05-28] MEDS: Senna TAB 8.6 mg TAB PO SCH (21:00)
[2020-05-28] MEDS: Magnesium Hydroxide LIQ 30 ML UDC PO PRN (21:01)
[2020-05-29] MEDS: Heparin 5000 UNITS/ML 1 mL VIAL SUBCUT SCH ×3 (05:26→22:47)
[2020-05-29] MEDS: Cholecalciferol (VIT D3) 1,000 unit TAB PO SCH (08:25)
[2020-05-29] MEDS: Potassium Chlor 20 meq TAB.ER PO SCH (08:25)
[2020-05-29] MEDS: oxyCODONE/Acetamin 5/325 mg TAB PO SCH ×2 (08:25→20:27)
[2020-05-29] MEDS: Polyethylene Glycol 3350 17 GM PACKET PO SCH (08:26)
[2020-05-29] MEDS: Triamcinolone 0.025% OINT 15 GM TUBE TOPICAL SCH (08:33)
[2020-05-29] MEDS: INTERFERON BETA 0.3 MG SUBCUT SCH (20:26)
[2020-05-29] MEDS: Senna TAB 8.6 mg TAB PO SCH (20:26)
[2020-05-30] MEDS: Heparin 5000 UNITS/ML 1 mL VIAL SUBCUT SCH ×3 (06:07→21:23)
[2020-05-30] MEDS: Polyethylene Glycol 3350 17 GM PACKET PO SCH (09:41)
[2020-05-30] MEDS: Triamcinolone 0.025% OINT 15 GM TUBE TOPICAL SCH (09:41)
[2020-05-30] MEDS: Potassium Chlor 20 meq TAB.ER PO SCH (09:42)
[2020-05-30] MEDS: Cholecalciferol (VIT D3) 1,000 unit TAB PO SCH (09:44)
[2020-05-30] MEDS: oxyCODONE/Acetamin 5/325 mg TAB PO SCH ×2 (09:44→21:17)
[2020-05-30] MEDS: Senna TAB 8.6 mg TAB PO SCH (21:18)
[2020-05-31] MEDS: Heparin 5000 UNITS/ML 1 mL VIAL SUBCUT SCH ×3 (06:15→21:07)
[2020-05-31] MEDS: Potassium Chlor 20 meq TAB.ER PO SCH (09:18)
[2020-05-31] MEDS: Cholecalciferol (VIT D3) 1,000 unit TAB PO SCH (09:18)
[2020-05-31] MEDS: Triamcinolone 0.025% OINT 15 GM TUBE TOPICAL SCH (09:19)
[2020-05-31] MEDS: Polyethylene Glycol 3350 17 GM PACKET PO SCH (09:19)
[2020-05-31] MEDS: oxyCODONE/Acetamin 5/325 mg TAB PO SCH ×2 (09:19→21:08)
[2020-05-31] MEDS: INTERFERON BETA 0.3 MG SUBCUT SCH (18:34)
[2020-05-31] MEDS: Senna TAB 8.6 mg TAB PO SCH (21:07)
[2020-06-01] MEDS: Heparin 5000 UNITS/ML 1 mL VIAL SUBCUT SCH ×3 (06:20→21:27)
[2020-06-01] MEDS: Polyethylene Glycol 3350 17 GM PACKET PO SCH (09:01)
[2020-06-01] MEDS: Potassium Chlor 20 meq TAB.ER PO SCH (09:02)
[2020-06-01] MEDS: oxyCODONE/Acetamin 5/325 mg TAB PO SCH ×2 (09:02→21:21)
[2020-06-01] MEDS: Cholecalciferol (VIT D3) 1,000 unit TAB PO SCH (09:02)
[2020-06-01] MEDS: Triamcinolone 0.025% OINT 15 GM TUBE TOPICAL SCH (10:03)
[2020-06-01] MEDS: Senna TAB 8.6 mg TAB PO SCH (21:20)
[2020-06-02] MEDS: Heparin 5000 UNITS/ML 1 mL VIAL SUBCUT SCH ×3 (06:28→22:15)
[2020-06-02] MEDS: Polyethylene Glycol 3350 17 GM PACKET PO SCH (09:28)
[2020-06-02] MEDS: Cholecalciferol (VIT D3) 1,000 unit TAB PO SCH (09:28)
[2020-06-02] MEDS: Potassium Chlor 20 meq TAB.ER PO SCH (09:28)
[2020-06-02] MEDS: oxyCODONE/Acetamin 5/325 mg TAB PO SCH ×2 (09:29→20:36)
[2020-06-02] MEDS: Triamcinolone 0.025% OINT 15 GM TUBE TOPICAL SCH (09:29)
[2020-06-02] MEDS: INTERFERON BETA 0.3 MG SUBCUT SCH (18:35)
[2020-06-02] MEDS: Senna TAB 8.6 mg TAB PO SCH (20:36)
[2020-06-02] MEDS: Nystatin TOP POWDER 15 GM BTL TOPICAL SCH (20:38)
[2020-06-03] MEDS: Heparin 5000 UNITS/ML 1 mL VIAL SUBCUT SCH ×3 (06:06→21:46)
[2020-06-03 07:17] LABS: ABS Basophils 0.1 10^3/ul (0-0.2); ABS Eosinophils 0.3 10^3/ul (0-0.6); ABS Lymphocytes 1.8 10^3/ul (1.0-4.8); ABS Monocytes 0.4 10^3/ul (0-0.8); ABS Neutrophils 1.7 10^3/ul (1.5-7.7); Eosinophil % 5.9 %; Hematocrit 37 % (35-47); Lymphocyte % 41.6 %; Mean Corpuscular HGB Conc 33 g/dL (31-36); Mean Corpuscular Hemoglobin 28 pg (27-31); Mean Corpuscular Volume 85 fL (80-97); Mean Platelet Volume 8.9 fL (7.4-10.4); Platelet Count 262 10^3/uL (150-450); Red Cell Distribution Width 15 % (10-15); White Blood Count 4.3 10^3/uL (3.5-10.8)
[2020-06-03 07:28] LABS: Albumin 3.6 g/dL (3.2-5.2); Albumin/Globulin Ratio 1.2 (1-3); BUN/Creatinine Ratio 23.3 (8-20); Calcium 9.1 mg/dL (8.6-10.3); EGFR African American 125.6 (>60); EGFR Non-African American 103.8 (>60); Globulin 2.9 g/dL (2-4); Potassium 3.7 mmol/L (3.5-5.0); Total Bilirubin 0.4 mg/dL (0.2-1.0); Total Protein 6.5 g/dL (6.4-8.9)
[2020-06-03] MEDS: Potassium Chlor 20 meq TAB.ER PO SCH (07:35)
[2020-06-03] MEDS: Cholecalciferol (VIT D3) 1,000 unit TAB PO SCH (07:36)
[2020-06-03] MEDS: oxyCODONE/Acetamin 5/325 mg TAB PO SCH ×2 (07:38→21:43)
[2020-06-03] MEDS: Nystatin TOP POWDER 15 GM BTL TOPICAL SCH ×2 (08:37→21:46)
[2020-06-03] MEDS: Polyethylene Glycol 3350 17 GM PACKET PO SCH (08:37)
[2020-06-03] MEDS: Triamcinolone 0.025% OINT 15 GM TUBE TOPICAL SCH (09:01)
[2020-06-03] MEDS: Senna TAB 8.6 mg TAB PO SCH (21:44)
[2020-06-04] MEDS: Heparin 5000 UNITS/ML 1 mL VIAL SUBCUT SCH ×3 (06:24→21:19)
[2020-06-04] MEDS: Cholecalciferol (VIT D3) 1,000 unit TAB PO SCH (07:21)
[2020-06-04] MEDS: Potassium Chlor 20 meq TAB.ER PO SCH (07:21)
[2020-06-04] MEDS: oxyCODONE/Acetamin 5/325 mg TAB PO SCH ×2 (07:22→21:18)
[2020-06-04] MEDS: Polyethylene Glycol 3350 17 GM PACKET PO SCH (07:23)
[2020-06-04] MEDS: Nystatin TOP POWDER 15 GM BTL TOPICAL SCH ×2 (08:46→21:18)
[2020-06-04] MEDS: Triamcinolone 0.025% OINT 15 GM TUBE TOPICAL SCH (08:51)
[2020-06-04] MEDS: INTERFERON BETA 0.3 MG SUBCUT SCH (18:47)
[2020-06-04] MEDS: Senna TAB 8.6 mg TAB PO SCH (21:19)
[2020-06-05] MEDS: Heparin 5000 UNITS/ML 1 mL VIAL SUBCUT SCH ×3 (06:26→21:10)
[2020-06-05] MEDS: oxyCODONE/Acetamin 5/325 mg TAB PO SCH ×2 (07:42→21:01)
[2020-06-05] MEDS: Polyethylene Glycol 3350 17 GM PACKET PO SCH (09:32)
[2020-06-05] MEDS: Cholecalciferol (VIT D3) 1,000 unit TAB PO SCH (09:32)
[2020-06-05] MEDS: Nystatin TOP POWDER 15 GM BTL TOPICAL SCH ×2 (09:33→21:04)
[2020-06-05] MEDS: Potassium Chlor 20 meq TAB.ER PO SCH (09:33)
[2020-06-05] MEDS: Triamcinolone 0.025% OINT 15 GM TUBE TOPICAL SCH (10:01)
[2020-06-05] MEDS: Senna TAB 8.6 mg TAB PO SCH (21:09)
[2020-06-06] MEDS: Heparin 5000 UNITS/ML 1 mL VIAL SUBCUT SCH ×3 (05:07→21:19)
[2020-06-06] MEDS: Cholecalciferol (VIT D3) 1,000 unit TAB PO SCH (09:47)
[2020-06-06] MEDS: Polyethylene Glycol 3350 17 GM PACKET PO SCH (09:47)
[2020-06-06] MEDS: oxyCODONE/Acetamin 5/325 mg TAB PO SCH ×2 (09:48→20:12)
[2020-06-06] MEDS: Potassium Chlor 20 meq TAB.ER PO SCH (09:49)
[2020-06-06] MEDS: Nystatin TOP POWDER 15 GM BTL TOPICAL SCH ×2 (09:56→20:13)
[2020-06-06] MEDS: Triamcinolone 0.025% OINT 15 GM TUBE TOPICAL SCH (09:56)
[2020-06-06] MEDS: INTERFERON BETA 0.3 MG SUBCUT SCH (18:23)
[2020-06-06] MEDS: Senna TAB 8.6 mg TAB PO SCH (20:11)
[2020-06-07] MEDS: Heparin 5000 UNITS/ML 1 mL VIAL SUBCUT SCH ×3 (06:26→21:59)
[2020-06-07 07:36] LABS: Urine Appearance Turbid; Urine Bilirubin Negative (Negative); Urine Blood 2+ (Negative); Urine Color Yellow; Urine Glucose Negative (Negative); Urine Ketones Negative (Negative); Urine Nitrite Positive (Negative); Urine Protein 1+(30 mg/dL) (Negative); Urine Specific Gravity 1.012 (1.010-1.030); Urine Urobilinogen Negative (Negative)
[2020-06-07 08:01] LABS: Urine Bacteria 2+ (Absent); Urine Red Blood Cell 3+(>10/hpf) (Absent); Urine White Blood Cell 3+(>20/hpf) (Absent)
[2020-06-07] MEDS: Nystatin TOP POWDER 15 GM BTL TOPICAL SCH ×2 (08:36→19:59)
[2020-06-07] MEDS: Cholecalciferol (VIT D3) 1,000 unit TAB PO SCH (10:06)
[2020-06-07] MEDS: Potassium Chlor 20 meq TAB.ER PO SCH (10:07)
[2020-06-07] MEDS: oxyCODONE/Acetamin 5/325 mg TAB PO SCH ×2 (10:07→19:58)
[2020-06-07] MEDS: Polyethylene Glycol 3350 17 GM PACKET PO SCH (10:08)
[2020-06-07] MEDS: Triamcinolone 0.025% OINT 15 GM TUBE TOPICAL SCH (11:51)
[2020-06-07] MEDS: Senna TAB 8.6 mg TAB PO SCH (19:58)
[2020-06-08] MEDS: Heparin 5000 UNITS/ML 1 mL VIAL SUBCUT SCH ×3 (05:20→21:49)
[2020-06-08] MEDS: Triamcinolone 0.025% OINT 15 GM TUBE TOPICAL SCH ×2 (08:36→08:42)
[2020-06-08] MEDS: Polyethylene Glycol 3350 17 GM PACKET PO SCH (08:41)
[2020-06-08] MEDS: Nystatin TOP POWDER 15 GM BTL TOPICAL SCH ×2 (08:42→20:20)
[2020-06-08] MEDS: Potassium Chlor 20 meq TAB.ER PO SCH (08:43)
[2020-06-08] MEDS: Cholecalciferol (VIT D3) 1,000 unit TAB PO SCH (08:43)
[2020-06-08] MEDS: oxyCODONE/Acetamin 5/325 mg TAB PO SCH ×2 (08:43→20:19)
[2020-06-08] MEDS: INTERFERON BETA 0.3 MG SUBCUT SCH (17:33)
[2020-06-08] MEDS: Senna TAB 8.6 mg TAB PO SCH (20:19)
[2020-06-09] MEDS: Heparin 5000 UNITS/ML 1 mL VIAL SUBCUT SCH ×3 (06:38→22:10)
[2020-06-09] MEDS: Cholecalciferol (VIT D3) 1,000 unit TAB PO SCH (11:22)
[2020-06-09] MEDS: oxyCODONE/Acetamin 5/325 mg TAB PO SCH ×2 (11:23→21:16)
[2020-06-09] MEDS: Potassium Chlor 20 meq TAB.ER PO SCH (11:23)
[2020-06-09] MEDS: Nystatin TOP POWDER 15 GM BTL TOPICAL SCH ×2 (11:24→21:16)
[2020-06-09] MEDS: Triamcinolone 0.025% OINT 15 GM TUBE TOPICAL SCH (11:24)
[2020-06-09] MEDS: Polyethylene Glycol 3350 17 GM PACKET PO SCH (11:26)
[2020-06-09] MEDS ORDERED: Polyethylene Glycol 3350 17 GM PACKET PO PRN (12:29)
[2020-06-09] MEDS: Senna TAB 8.6 mg TAB PO SCH (21:16)
[2020-06-10] MEDS: Heparin 5000 UNITS/ML 1 mL VIAL SUBCUT SCH ×3 (05:17→21:38)
[2020-06-10] MEDS: Nystatin TOP POWDER 15 GM BTL TOPICAL SCH ×2 (09:04→21:38)
[2020-06-10] MEDS: Triamcinolone 0.025% OINT 15 GM TUBE TOPICAL SCH (09:04)
[2020-06-10] MEDS: Cholecalciferol (VIT D3) 1,000 unit TAB PO SCH (09:05)
[2020-06-10] MEDS: oxyCODONE/Acetamin 5/325 mg TAB PO SCH ×2 (09:05→21:39)
[2020-06-10] MEDS: Potassium Chlor 20 meq TAB.ER PO SCH (09:05)
[2020-06-10 10:18] LABS: ABS Eosinophils 0.1 10^3/ul (0-0.6); ABS Lymphocytes 1.6 10^3/ul (1.0-4.8); ABS Monocytes 0.5 10^3/ul (0-0.8); ABS Neutrophils 3.7 10^3/ul (1.5-7.7); Eosinophil % 2.2 %; Hematocrit 38 % (35-47); Hemoglobin 12.5 g/dL (12.0-16.0); Mean Corpuscular HGB Conc 33 g/dL (31-36); Mean Corpuscular Hemoglobin 28 pg (27-31); Mean Corpuscular Volume 86 fL (80-97); Mean Platelet Volume 9.1 fL (7.4-10.4); Platelet Count 213 10^3/uL (150-450); Red Blood Count 4.46 10^6 /uL (3.70-4.87); Red Cell Distribution Width 15 % (10-15); White Blood Count 6.1 10^3/uL (3.5-10.8)
[2020-06-10 10:35] LABS: Albumin 3.8 g/dL (3.2-5.2); Albumin/Globulin Ratio 1.2 (1-3); BUN/Creatinine Ratio 19.7 (8-20); Calcium 9.3 mg/dL (8.6-10.3); EGFR African American 112.5 (>60); Globulin 3.1 g/dL (2-4); Potassium 3.4 mmol/L (3.5-5.0); Total Bilirubin 0.5 mg/dL (0.2-1.0); Total Protein 6.9 g/dL (6.4-8.9)
[2020-06-10] MEDS: INTERFERON BETA 0.3 MG SUBCUT SCH (18:03)
[2020-06-10] MEDS: Senna TAB 8.6 mg TAB PO SCH (21:39)
[2020-06-11] MEDS: Heparin 5000 UNITS/ML 1 mL VIAL SUBCUT SCH (06:17)
[2020-06-11 06:20] VITALS: BP 121/73
[2020-06-11] MEDS: Potassium Chlor 20 meq TAB.ER PO SCH (08:29)
[2020-06-11] MEDS: Cholecalciferol (VIT D3) 1,000 unit TAB PO SCH (08:29)
[2020-06-11] MEDS: oxyCODONE/Acetamin 5/325 mg TAB PO SCH (08:30)
[2020-06-11] MEDS: Triamcinolone 0.025% OINT 15 GM TUBE TOPICAL SCH (08:41)
[2020-06-11] MEDS: Nystatin TOP POWDER 15 GM BTL TOPICAL SCH (08:41)
== END 2020-06-11 11:15 | disposition home health service (06) | DRG 59 ==
LOC: PMRU 12:05
PROVIDERS: ADMIT Physical Medicine & Rehabilitation; ATTEND Physical Medicine & Rehabilitation